=== PATIENT | female | born 1930 | race Caucasian/White ===

== ENCOUNTER 2017-01-31 15:50 | Inpatient (IN) | payer MEDICARE, MEDICAID ==
[~2017-01-31] VITALS: Ht 153.7 cm; Wt 56.9 kg
[~2017-01-31 15:50] MED LIST: ALPR.25T
[2017-01-31] MEDS ORDERED: TETANUS,DIPTH,PERTUSS P/F (BOOSTRIX) 0.5 ML VIAL IM STA (15:59)
[2017-01-31 16:17] LABS: BASOPHILS % (AUTO) 0 % (0-10); EOSINOPHILS % (AUTO) 0 % (0-10); LYMPHOCYTES # (AUTO) 1.9 X 10^3 (1.0-4.0); LYMPHOCYTES % (AUTO) 15 % (12-44); MEAN CORPUSCULAR HEMOGLOBIN 31 PG (25-34); MEAN CORPUSCULAR HGB CONC 33 G/DL (32-36); MEAN CORPUSCULAR VOLUME 92 FL (80-99); MEAN PLATELET VOLUME 11.2 FL (7.4-10.4); MONOCYTES # (AUTO) 0.8 X 10^3 (0.0-1.0); MONOCYTES % (AUTO) 7 % (0-12); NEUTROPHILS # (AUTO) 9.7 X 10^3 (1.8-7.8); NEUTROPHILS % (AUTO) 78 % (42-75); PLATELET COUNT 226 10^3/uL (130-400); RED BLOOD COUNT 5.38 10^6/uL (4.35-5.85); RED CELL DISTRIBUTION WIDTH 14.8 % (10.0-14.5); WHITE BLOOD COUNT 12.5 10^3/uL (4.3-11.0)
[2017-01-31] MEDS ORDERED: NS IV 1000 ML 1,000 ML IV ONE (16:24)
[2017-01-31 16:30] LABS: ALANINE AMINOTRANSFERASE 11 U/L (0-55); ALBUMIN 4.4 GM/DL (3.2-4.5); ANION GAP 14 MMOL/L (5-14); ASPARTATE AMINO TRANSFERASE 13 U/L (5-34); BILIRUBIN,TOTAL 0.9 MG/DL (0.1-1.0); BLOOD UREA NITROGEN 17 MG/DL (7-18); BUN/CREATININE RATIO 16; CALCIUM 9.9 MG/DL (8.5-10.1); CARBON DIOXIDE 20 MMOL/L (21-32); CHLORIDE 105 MMOL/L (98-107); CREATINE KINASE 56 U/L (29-168); CREATININE SERUM 1.07 MG/DL (0.60-1.30); GFR ESTIMATED 49; GLUCOSE 128 MG/DL (70-105); MAGNESIUM 2.1 MG/DL (1.8-2.4); SODIUM 139 MMOL/L (135-145); TOTAL PROTEIN 7.9 GM/DL (6.4-8.2)
[2017-01-31] MEDS ORDERED: NS 100 ML (IVPB) BAG IV ONE (16:45)
[2017-01-31] MEDS ORDERED: IOHEXOL 350 MG/ML 100 ML (OMNIPAQUE 350) VIAL IV ONE (16:45)
[2017-01-31 16:50] LABS: TROPONIN I < 0.30 NG/ML (<0.30)
--- NOTE | 2017-01-31 17:22 | ED Fall/Injury ---
General Chief Complaint: Trauma-Non Activation Stated Complaint: FALL Nursing Triage Note: PT BROUGHT IN BY [facility] WITH C/O FALL WITH UNKNOWN DOWN TIME. PT NEIGHBOR REPORTEDLY FOUND HER ON THE GROUND ON HER BACK. PT IS C/O NECK AND BACK PAIN. C COLLAR IN PLACE UPON ARRIVAL TO ED. PT A&O x4 Source: patient, family, EMS Exam Limitations: no limitations History of Present Illness Time seen by provider: 15:50 Initial Comments 86-year-old female patient presents to the emergency department via [facility] with complaints of falling at home. Patient does not recall events leading up to the fall or immediately after. Unknown if loss of consciousness. Neighbor reportedly found patient on the ground on her back. Patient is alert and oriented. Unsure of exactly how long patient was lying on the floor. Daughter states patient was found in her sun room. Patient now complains of headache, neck and back pain. Location Injury Occurred: PT HOME Injuries/Pain Location: head, neck, back Context: unknown Loss of Consciousness: unsure Modifying Factors: Improves With Immobilization, Worse With Movement Allergies and Home Medications Allergies Coded Allergies: Penicillins (Unverified Allergy, Mild, HIVES, 07/03/09) Home Medications Alprazolam 0.25 Mg Tablet, (Reported) Constitutional: No diaphoresis, No dizziness, No fever, No malaise, No weakness Eyes: No Symptoms Reported Ears, Nose, Mouth, Throat: no symptoms reported Respiratory: No cough, No dyspnea on exertion, No short of breath Cardiovascular: No chest pain, No palpitations, No syncope Gastrointestinal: No abdominal pain, No diarrhea, No nausea, No vomiting, No other (denies bowel incontinence) Genitourinary: No decreased output, No dysuria, No frequency, No hematuria, No incontinence, No pain, other (patient denies urinary symptoms, but states she takes Pyridium "prophylactically") Musculoskeletal: see HPI, back pain, No joint pain, neck pain Skin: no symptoms reported Psychiatric/Neurological: Headache, Denies Numbness, Denies Paresthesia, Denies Seizure, Denies Tingling, Denies Weakness All Other Systems Reviewed Negative Unless Noted: Yes (Negative excepted noted.) Past Lselngy-Iedgne-Waysbh Hx Patient Social History Alcohol Use: Denies Use Recreational Drug Use: No Smoking Status: Current Everyday Smoker Type Used: Cigarettes 2nd Hand Smoke Exposure: Yes Recent Foreign Travel: No Contact w/Someone Who Travel: No Recent Infectious Disease Expo: No Recent Hopitalizations: No Immunizations Up To Date Tetanus Booster (TDap): Unknown Seasonal Allergies Seasonal Allergies: No Surgeries History of Surgeries: Yes Surgeries: Appendectomy, Section, Tubal Ligation Respiratory History of Respiratory Disorde: No Cardiovascular History of Cardiac Disorders: No Neurological History of Neurological Disord: No Genitourinary History of Genitourinary Disor: No Gastrointestinal History of Gastrointestinal Di: No Musculoskeletal History of Musculoskeletal Dis: No Endocrine History of Endocrine Disorders: No HEENT History of HEENT Disorders: No Psychosocial History of Psychiatric Problem: Yes Behavioral Health Disorders: Anxiety Reviewed Nursing Assessment Reviewed/Agree w Nursing PMH: Yes Family Medical History Significant Family History: No Pertinent Family Hx Physical Exam Vital Signs Vital Sign - Last 12Hours 01/31/17 15:50 Temp 99.0 Pulse 118 Resp 20 B/P (MAP) 136/87 Pulse Ox 92 O2 Delivery Room Air Capillary Refill : Less Than 3 Seconds General Appearance: WD/WN, no apparent distress, other (chronically ill- appearing female) HEENT: PERRL/EOMI, normal ENT inspection, TMs normal, pharynx normal, other ( normocephalic, atraumatic.) Neck: supple, normal inspection, tender lateral, tender midline Cardiovascular: normal peripheral pulses, no edema, no gallop, no murmur, tachycardia Respiratory: normal breath sounds, no respiratory distress, no accessory muscle use, crackles (bilateral bases), other (left lateral ribs tender to palpation without evidence of ecchymosis, swelling, or deformity.) Peripheral Pulses: 2+ Dorsalis Pedis (R), 2+ Left Dors-Pedis (L), 2+ Radial Pulses (R), 2+ Radial Pulses (L) Gastrointestinal: normal bowel sounds, soft, no organomegaly, No distended, guarding (LLQ), No rebound, tenderness (LLQ), No other (no ecchymosis noted on the abdominal wall) Back: normal inspection, vertebral tenderness (generalized tenderness of the spine. no stepoff or deformity noted. ) Extremities: non-tender, normal inspection, no pedal edema, no calf tenderness , normal capillary refill, pelvis stable Neurologic/Psychiatric: instrumentation technologist II-XII nml as tested, no motor/sensory deficits, alert, normal mood/affect, oriented x 3 Skin: normal color, warm/dry [place]bertson Coma Score Best Eye Response: (4) Open Spontaneously Best Verbal Response: (5) Oriented Best Motor Response: (6) Obeys Commands [place]on Total: 15 Progress/Results/Core Measures Results/Orders Lab Results Laboratory Tests Test 01/31/17 15:55 01/31/17 16:15 01/31/17 19:02 Range/Units White Blood Count 12.5 H 4.3-11.0 10^3/uL Red Blood Count 5.38 4.35-5.85 10^6/uL Hemoglobin 16.5 H 11.5-16.0 G/DL Hematocrit 50 35-52 % Mean Corpuscular Volume 92 80-99 FL Mean Corpuscular Hemoglobin 31 25-34 PG Mean Corpuscular Hemoglobin Concent 33 32-36 G/DL Red Cell Distribution Width 14.8 H 10.0-14.5 % Platelet Count 226 130-400 10^3/uL Mean Platelet Volume 11.2 H 7.4-10.4 FL Neutrophils (%) (Auto) 78 H 42-75 % Lymphocytes (%) (Auto) 15 12-44 % Monocytes (%) (Auto) 7 0-12 % Eosinophils (%) (Auto) 0 0-10 % Basophils (%) (Auto) 0 0-10 % Neutrophils # (Auto) 9.7 H 1.8-7.8 X 10^3 Lymphocytes # (Auto) 1.9 1.0-4.0 X 10^3 Monocytes # (Auto) 0.8 0.0-1.0 X 10^3 Eosinophils # (Auto) 0.0 0.0-0.3 10^3/uL Basophils # (Auto) 0.0 0.0-0.1 10^3/uL Sodium Level 139 135-145 MMOL/L Potassium Level 4.0 3.6-5.0 MMOL/L Chloride Level 105 98-107 MMOL/L Carbon Dioxide Level 20 L 21-32 MMOL/L Anion Gap 14 5-14 MMOL/L Blood Urea Nitrogen 17 7-18 MG/DL Creatinine 1.07 0.60-1.30 MG/DL Estimat Glomerular Filtration Rate 49 BUN/Creatinine Ratio 16 Glucose Level 128 H 70-105 MG/DL Calcium Level 9.9 8.5-10.1 MG/DL Magnesium Level 2.1 1.8-2.4 MG/DL Total Bilirubin 0.9 0.1-1.0 MG/DL Aspartate Amino Transf (AST/SGOT) 13 5-34 U/L Alanine Aminotransferase (ALT/SGPT) 11 0-55 U/L Alkaline Phosphatase 87 40-136 U/L Total Creatine Kinase 56 29-168 U/L Creatine Kinase MB 1.2 <6.6 NG/ML Troponin I < 0.30 <0.30 NG/ML Total Protein 7.9 6.4-8.2 GM/DL Albumin 4.4 3.2-4.5 GM/DL TSH Sundown Testing 1.06 0.35-4.94 UIU/ML Lactic Acid Level 1.14 0.50-2.00 MMOL/L Urine Color JAMIE H Urine Clarity CLEAR Urine pH 6 5-9 Urine Specific Magazine 1.010 L 1.016-1.022 Urine Protein 1+ H NEGATIVE Urine Glucose (UA) NEGATIVE NEGATIVE Urine Ketones NEGATIVE NEGATIVE Urine Nitrite POSITIVE H NEGATIVE Urine Bilirubin 2+ H NEGATIVE Urine Urobilinogen 8 H NORMAL MG/DL Urine Leukocyte Esterase 1+ H NEGATIVE Urine RBC (Auto) 1+ H NEGATIVE Urine RBC 2-5 H /HPF Urine WBC 0-2 /HPF Urine Squamous Epithelial Cells 2-5 /HPF Urine Crystals NONE /LPF Urine Bacteria FEW H /HPF Urine Casts NONE /LPF Urine Mucus NEGATIVE /LPF Urine Culture Indicated YES My Orders Orders - [facility] [address] PA Ct Head/Cervical Spine Wo (01/31/17 15:59) Cbc With Automated Diff (01/31/17 15:59) Comprehensive Metabolic Panel (01/31/17 15:59) Creatine Kinase (01/31/17 15:59) Creatine Kinase Mb (01/31/17 15:59) Lactic Acid Analyzer (01/31/17 15:59) Magnesium (01/31/17 15:59) Thyroid Analyzer (01/31/17 15:59) Troponin I (01/31/17 15:59) Ua Culture If Indicated (01/31/17 15:59) Blood Culture (01/31/17 15:59) Dipht,Pertuss(Acell),Tet Adult (Boostrix (01/31/17 15:59) Ct Chest/Abdomen/Pelvis W (01/31/17 15:59) Chest 1 View, Ap/Pa Only (01/31/17 15:59) Ct Thoracic/Lumbar Spine Wo (01/31/17 15:59) Ns Iv 1000 Ml (Sodium Chloride 0.9%) (01/31/17 16:24) Iohexol Injection (Omnipaque 350 Mg/Ml 1 (01/31/17 16:45) Ns (Ivpb) (Sodium Chloride 0.9% Ivpb Bag (01/31/17 16:45) Pharmacy Communication (Pharmacy Communi (01/31/17 16:42) Fentanyl Injection (Sublimaze Injection (01/31/17 17:26) Albuterol/Ipra Inhalation Soln (Duoneb I (01/31/17 19:15) Methylprednisolone Sod Succ (Solu-Medrol (01/31/17 19:05) Svn Sm Volume Nebulizer Rt-Rfs (01/31/17 19:05) Albuterol Pre-Mix Nebs (Rt) (Proventil P (01/31/17 19:26) Svn Sm Volume Nebulizer Rt-Rfs (01/31/17 19:26) Dipht,Pertuss(Acell),Tet Adult (Boostrix (01/31/17 19:21) Albuterol Pre-Mix Nebs (Rt) (Proventil P (01/31/17 19:21) Urine Culture (01/31/17 19:02) Medications Given in ED Current Medications Medications Dose Ordered Sig/Ehsan Route Start Time Stop Time Status Last Admin Dose Admin Albuterol/ Ipratropium 3 ml ONCE ONCE INH 01/31/17 19:15 01/31/17 19:16 DC 01/31/17 19:20 3 ML Iohexol 100 ml ONCE ONCE IV 01/31/17 16:45 01/31/17 16:46 DC 01/31/17 17:02 75 ML Sodium Chloride 100 ml ONCE ONCE IV 01/31/17 16:45 01/31/17 16:46 DC 01/31/17 17:02 80 ML Sodium Chloride 1,000 ml @ 0 mls/hr Q0M ONCE IV 01/31/17 16:24 01/31/17 16:26 DC 01/31/17 16:38 0 MLS/HR Vital Signs/I&O Vital Sign - Last 12Hours 1001/31/17 01/31/17 15:50 19:21 19:31 Temp 99.0 Pulse 118 Resp 20 B/P (MAP) 136/87 Pulse Ox 92 92 92 O2 Delivery Room Air Room Air Room Air Intake and Output 02/01/17 00:00 Intake Total 1000 ml Balance 1000 ml Blood Pressure Mean: 103 Diagnostic Imaging Diagonstic Imaging: CT Plain Films/CT/US/NM/MRI: c-spine, head Comments CT HEAD: There is no mass, shift of the midline or hemorrhage to suggest an acute intracranial abnormality. The normal tentorial blush is noted. The ventricles are not abnormally dilated. There is cortical atrophy present. The degree of atrophy is consistent with the patient's age. There are also vague areas of low density in the periventricular white matter bilaterally. These findings are nonspecific but may be secondary to encephalomalacia from microvascular ischemia. The orbits are symmetrical and within normal limits. The sinuses are generally clear. IMPRESSION: 1. There is no evidence for an acute intracranial abnormality. There is no sign of a mass lesion either. 2. If clinical concern regarding an underlying abnormality persists, then MRI would be recommended for further study. CT CERVICAL SPINE: The reconstructed parasagittal images show slight retrolisthesis of C3 with respect to C4. There is also narrowing of the disc space at this level. The other intervertebral cysts are fairly well-maintained, given the patient's advanced age. There is no fracture or acute bony abnormality noted. There is no sign of retropharyngeal edema. The lung apices are clear. The thyroid gland is generally unremarkable. IMPRESSION: There is no evidence for an acute bony abnormality. These results were discussed with JOSE Lujan. Dictated by: Dictated on workstation # [id number] Reviewed: Reviewed by Me (radiology report reviewed by me and discussed with Dr. Ceballos) Diagonstic Imaging: CT Plain Films/CT/US/NM/MRI: other (thoracic and lumbar spine) Comments FINDINGS: The plain film examination of the chest performed on 07/03/2009 failed to show any sign of an acute abnormality. In reviewing that study, there were compression fractures of both T4 and T7. Those compression deformities are again evident on the sagittal series on this exam and do not appear to have changed significantly. The other vertebral body heights are generally within normal limits. There is no acute bony abnormality appreciated. 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 The lumbar disc spaces are fairly well-maintained. 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 There is no other significant stenosis of the thoracic or lumbar spine. There is no paraspinal mass visualized. The lungs, where visualized, are clear. IMPRESSION: 1. 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 There is no acute abnormality identified. 2. If clinical concern regarding an acute bony abnormality persists, then MRI would be recommended for further study. 3. 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 Dictated by: Dictated on workstation # [id number] Reviewed: Reviewed by Me (radiology report reviewed by me and discussed with Dr. Ceballos) Diagonstic Imaging: CT Plain Films/CT/US/NM/MRI: chest, abdomen, pelvis Comments FINDINGS: There are no previous exams available for comparison. The images through the thorax show that the heart size is within normal limits. The aorta is not abnormally dilated. There does appear to be mucoid deposition in the aortic knob but there is no sign of a dissection. The pulmonary arteries do not fully opacify but there is no definite defect to suggest a pulmonary embolus. There is no mediastinal or hilar adenopathy. The thyroid gland is generally unremarkable. The lungs are clear. There is no sign of a contusion or a pneumothorax. There is no evidence for a pneumonia or for a pleural effusion either. There is no obvious breast mass. The bone windows are unremarkable for a fracture or for a destructive lesion. The images through the abdomen show that the liver is homogeneous, with no evidence for an acute abnormality. The liver does not appear enlarged. There is a small 0.8 x 1.2 cm area of enhancement along the periphery of the right lobe of the liver. I suspect that this is due to a small hemangioma. The spleen, pancreas, kidneys, aorta and inferior vena cava show no sign of an acute abnormality. The gallbladder is not well-visualized and may be surgically absent. The stomach is filled with particulate matter and consequently difficult to assess. There is a 1.7 x 1.7 cm nodule associated with the right adrenal gland and a similar appearing similar sized 1.5 x 1.8 cm nodule in the left adrenal gland. I suspect that these nodules are benign. If further study is desired, then either CT with adrenal washout protocol or MRI would be recommended. If neither those exams is performed, then a short-term (3 month) followup CT abdomen exam should be obtained. The suspected hemangioma in the right lobe of the liver could also be further evaluated on the followup CT exam. The uterus is not enlarged. The urinary bladder is grossly unremarkable. There are a few diverticula in the sigmoid colon but there is no sign of acute diverticulitis. The appendix was not well visualized. The bone window show no evidence for a fracture or for a destructive lesion. IMPRESSION: 1. There is no acute abnormality in the chest, abdomen or pelvis. 2. 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 Recommendations as above. 3. These results were discussed with JOSE Lujan. Dictated by: Dictated on workstation # [id number] Reviewed: Reviewed by Me (radiology report reviewed by me and discussed with Dr. Ceballos) Diagonstic Imaging: Xray Plain Films/CT/US/NM/MRI: chest Comments FINDINGS: A frontal view of the chest demonstrates the lungs to be clear. Heart , mediastinum, pulmonary vascularity and visualized bony thorax normal. No fractures are seen. IMPRESSION: Normal portable chest. Dictated by: Dictated on workstation # [id number] Reviewed: Reviewed by Me (radiology report reviewed by me and discussed with Dr. Ceballos) Departure Communication (Admissions) Time/Spoke to Admitting Phy: 19:[address] garcia accepts patient to her medical service for IVF, IV antibiotics, nebulizer treatments, and further evaluation. Progress Notes Initially plan was for patient to be discharged to home; however, patient was noted to drop her SaO2 to 84-88% with getting up to the bedside camode. Patient also noted to be more SOA with rhonchi and wheezing at rest. Daughter states patient sounds like this frequently, but has never been diagnosed with COPD. Also states she has noticed her mother progressively becoming more short of breath with activity over the last several weeks. also reports patient has never used an inhaler or nebulizer treatments. Patient smokes approximately 2 packs per day of cigarettes. Initially patient denied any history of shortness of air, cough, or phlegm. Patient now states over the last several weeks she has noticed increased shortness of air, dyspnea on exertion, cough, and clear sputum production. Symptoms worse with smoking. Patient was given a DuoNeb treatment, albuterol treatment, and 125 mg of Solu-Medrol IV with improvement in symptoms. First urine was discarded by radiation therapy technologist. Patient was unable to provide another urine specimen until 1900. Patient was found to have a UTI. Patient does fall under the sepsis criteria due to a pulse of 118, WBC count of 12, and confirmed infection. Therefore, patietn to be admitted to [facility] for sepsis, urinary tract infection, and COPD exacerbation. Patient was not given the 30 cc/kg fluid resuscitation per sepsis protocol as patient would not be able to tolerated the aggressive fluids. All laboratory findings, diagnostic study findings, and plan for admission discussed with the patient and daughter. Both verbalized understanding and agree with the treatment plan. Patient case discussed with Dr. Miller, he agrees with the plan of care. Impression Impression: Primary Impression: Sepsis Qualified Codes: A41.9 - Sepsis, unspecified organism Additional Impressions: COPD exacerbation Urinary tract infection Qualified Codes: N30.00 - Acute cystitis without hematuria Fall at home Qualified Codes: W19.XXXA - Unspecified fall, initial encounter; Y92.099 - Unspecified place in other non-institutional residence as the place of occurrence of the external cause Disposition: ADMITTED INPATIENT Condition: Stable Admissions Decision to Admit Reason: Admit from ER (General) Decision to Admit/Date: Jan 31, 2017 Time/Decision to Admit Time: 19:55 Departure-Patient Inst. Referrals: [facility] (PCP/Family) Primary Care Physician [address] Jan 31, 2017 17:22
[2017-01-31] MEDS ORDERED: fentaNYL INJECTION 100 MCG/2 ML AMP IVP STA (17:26)
--- NOTE | 2017-01-31 17:31 | Diagnostic Imaging Report ---
PROCEDURE: CT head and CT cervical spine without contrast. TECHNIQUE: Multiple contiguous axial images were obtained through the brain and cervical spine without the use of intravenous contrast. Sagittal and coronal reformations through the cervical spine were then performed. INDICATION: Fell. Head and neck pain. COMPARISON: There are no prior studies available for comparison. CT HEAD: There is no mass, shift of the midline or hemorrhage to suggest an acute intracranial abnormality. The normal tentorial blush is noted. The ventricles are not abnormally dilated. There is cortical atrophy present. The degree of atrophy is consistent with the patient's age. There are also vague areas of low density in the periventricular white matter bilaterally. These findings are nonspecific but may be secondary to encephalomalacia from microvascular ischemia. The orbits are symmetrical and within normal limits. The sinuses are generally clear. IMPRESSION: 1. There is no evidence for an acute intracranial abnormality. There is no sign of a mass lesion either. 2. If clinical concern regarding an underlying abnormality persists, then MRI would be recommended for further study. CT CERVICAL SPINE: The reconstructed parasagittal images show slight retrolisthesis of C3 with respect to C4. There is also narrowing of the disc space at this level. The other intervertebral cysts are fairly well-maintained, given the patient's advanced age. There is no fracture or acute bony abnormality noted. There is no sign of retropharyngeal edema. The lung apices are clear. The thyroid gland is generally unremarkable. IMPRESSION: There is no evidence for an acute bony abnormality. These results were discussed with JOSE Lujan. Dictated by: Dictated on workstation # [id number]
--- NOTE | 2017-01-31 17:33 | Diagnostic Imaging Report ---
CT thoracic and lumbar spine without contrast. INDICATION: Fell, back pain. TECHNIQUE: Contiguous axial sections were taken through the thoracic and lumbar spine. Sagittal and coronal reconstructed images were also obtained. There are no previous CT examinations available for comparison. FINDINGS: The plain film examination of the chest performed on 07/03/2009 failed to show any sign of an acute abnormality. In reviewing that study, there were compression fractures of both T4 and T7. Those compression deformities are again evident on the sagittal series on this exam and do not appear to have changed significantly. The other vertebral body heights are generally within normal limits. There is no acute bony abnormality appreciated. 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 The lumbar disc spaces are fairly well-maintained. 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 There is no other significant stenosis of the thoracic or lumbar spine. There is no paraspinal mass visualized. The lungs, where visualized, are clear. IMPRESSION: 1. 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 There is no acute abnormality identified. 2. If clinical concern regarding an acute bony abnormality persists, then MRI would be recommended for further study. 3. 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 Dictated by: Dictated on workstation # [id number]
--- NOTE | 2017-01-31 17:36 | Diagnostic Imaging Report ---
INDICATION: Fall with unknown downtime, patient found down on her back. Neck and back pain, C-collar in place. COMPARISON STUDY: Chest from 2010. FINDINGS: A frontal view of the chest demonstrates the lungs to be clear. Heart, mediastinum, pulmonary vascularity and visualized bony thorax normal. No fractures are seen. IMPRESSION: Normal portable chest. Dictated by: Dictated on workstation # [id number]
--- NOTE | 2017-01-31 17:41 | Diagnostic Imaging Report ---
PROCEDURE: CT chest, abdomen, and pelvis with contrast. TECHNIQUE: Multiple contiguous axial images were obtained through the chest, abdomen, and pelvis after the administration of intravenous contrast. INDICATION: Unresponsive. Chest, abdomen and pelvis pain. FINDINGS: There are no previous exams available for comparison. The images through the thorax show that the heart size is within normal limits. The aorta is not abnormally dilated. There does appear to be mucoid deposition in the aortic knob but there is no sign of a dissection. The pulmonary arteries do not fully opacify but there is no definite defect to suggest a pulmonary embolus. There is no mediastinal or hilar adenopathy. The thyroid gland is generally unremarkable. The lungs are clear. There is no sign of a contusion or a pneumothorax. There is no evidence for a pneumonia or for a pleural effusion either. There is no obvious breast mass. The bone windows are unremarkable for a fracture or for a destructive lesion. The images through the abdomen show that the liver is homogeneous, with no evidence for an acute abnormality. The liver does not appear enlarged. There is a small 0.8 x 1.2 cm area of enhancement along the periphery of the right lobe of the liver. I suspect that this is due to a small hemangioma. The spleen, pancreas, kidneys, aorta and inferior vena cava show no sign of an acute abnormality. The gallbladder is not well-visualized and may be surgically absent. The stomach is filled with particulate matter and consequently difficult to assess. There is a 1.7 x 1.7 cm nodule associated with the right adrenal gland and a similar appearing similar sized 1.5 x 1.8 cm nodule in the left adrenal gland. I suspect that these nodules are benign. If further study is desired, then either CT with adrenal washout protocol or MRI would be recommended. If neither those exams is performed, then a short-term (3 month) followup CT abdomen exam should be obtained. The suspected hemangioma in the right lobe of the liver could also be further evaluated on the followup CT exam. The uterus is not enlarged. The urinary bladder is grossly unremarkable. There are a few diverticula in the sigmoid colon but there is no sign of acute diverticulitis. The appendix was not well visualized. The bone window show no evidence for a fracture or for a destructive lesion. IMPRESSION: 1. There is no acute abnormality in the chest, abdomen or pelvis. 2. 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 Recommendations as above. 3. These results were discussed with JOSE Lujan. Dictated by: Dictated on workstation # [id number]
[2017-01-31] MEDS ORDERED: methylPREDNISolone 125 MG (Solu-MEDROL) VIAL IV STA (19:05)
[2017-01-31 19:10] LABS: KETONES,URINE NEGATIVE (NEGATIVE); LEUKOCYTE ESTERASE ,URINE 1+ (NEGATIVE); NITRITE,URINE POSITIVE (NEGATIVE); PH,URINE 6 (5-9); PROTEIN,URINE 1+ (NEGATIVE); UROBILINOGEN,URINE 8 MG/DL (NORMAL)
[2017-01-31] MEDS ORDERED: RT-ALBUTEROL/IPRATROPIUM 3 ML (DUONEB) VIAL INH ONE (19:15)
[2017-01-31 19:17] LABS: BILIRUBIN,URINE 2+ (NEGATIVE)
[2017-01-31] MEDS ORDERED: TETANUS,DIPTH,PERTUSS P/F (BOOSTRIX) 0.5 ML VIAL IM ONE (19:21)
[2017-01-31] MEDS ORDERED: RT-ALBUTEROL SULF 2.5 MG/3 ML PRE-MIX VIAL ONE (19:21)
[2017-01-31] MEDS ORDERED: RT-ALBUTEROL SULF 2.5 MG/3 ML PRE-MIX VIAL INH STA (19:26)
[2017-01-31 19:34] LABS: WBC,URINE 0-2 /HPF
[2017-01-31] MEDS ORDERED: LEVOFLOXACIN 750 MG/150 ML IV 150 ML IV STA (20:30)
[2017-01-31] MEDS ORDERED: NICOTINE 21 MG (NICODERM) PATCH ONE (21:13)
[2017-01-31] MEDS ORDERED: ALPRAZolam 0.25 MG (XANAX) TAB PO PRN (22:00)
[2017-01-31] MEDS ORDERED: ONDANSETRON 4 MG/2 ML (SDV) Z0FRAN IV PRN (22:00)
[2017-01-31] MEDS ORDERED: PHENAZOPYRIDINE 100 MG (PYRIDIUM) TABLET PO PRN (22:00)
[2017-01-31] MEDS: FAMOTIDINE 20MG/2ML IV (PEPCID) IVP SCH (22:01)
[2017-01-31] MEDS: NS W/KCL 20 MEQ/L 1,000 ML IV SCH (22:01)
[2017-01-31 22:19] VITALS: BP 136/87
[2017-01-31] MEDS ORDERED: KETOROLAC 30 MG/ML VIAL IVP ONE (22:30)
[2017-01-31] MEDS ORDERED: RT-ALBUTEROL/IPRATROPIUM 3 ML (DUONEB) VIAL INH PRN (22:30)
[2017-01-31] MEDS ORDERED: fentaNYL INJECTION 100 MCG/2 ML AMP IVP PRN (22:30)
[2017-01-31 23:45] VITALS: BP 138/75
[2017-02-01] MEDS: methylPREDNISolone 125 MG (Solu-MEDROL) VIAL IVP SCH ×4 (01:20→18:23)
[2017-02-01] MEDS: NS W/KCL 20 MEQ/L 1,000 ML IV SCH ×4 (02:17→17:39)
[2017-02-01 04:00] VITALS: BP 154/84
[2017-02-01 04:48] LABS: BASOPHILS % (AUTO) 0 % (0-10); EOSINOPHILS % (AUTO) 0 % (0-10); LYMPHOCYTES # (AUTO) 1.1 X 10^3 (1.0-4.0); LYMPHOCYTES % (AUTO) 11 % (12-44); MEAN CORPUSCULAR HEMOGLOBIN 31 PG (25-34); MEAN CORPUSCULAR HGB CONC 33 G/DL (32-36); MEAN CORPUSCULAR VOLUME 93 FL (80-99); MEAN PLATELET VOLUME 10.9 FL (7.4-10.4); MONOCYTES # (AUTO) 0.1 X 10^3 (0.0-1.0); MONOCYTES % (AUTO) 1 % (0-12); NEUTROPHILS # (AUTO) 8.4 X 10^3 (1.8-7.8); NEUTROPHILS % (AUTO) 87 % (42-75); PLATELET COUNT 189 10^3/uL (130-400); RED CELL DISTRIBUTION WIDTH 14.7 % (10.0-14.5); WHITE BLOOD COUNT 9.6 10^3/uL (4.3-11.0)
[2017-02-01 05:06] LABS: ALBUMIN 3.8 GM/DL (3.2-4.5); BILIRUBIN,TOTAL 0.7 MG/DL (0.1-1.0); CALCIUM 8.3 MG/DL (8.5-10.1); CREATININE SERUM 0.95 MG/DL (0.60-1.30); POTASSIUM 4.7 MMOL/L (3.6-5.0); TOTAL PROTEIN 6.7 GM/DL (6.4-8.2)
[2017-02-01 05:16] LABS: LYMPHOCYTES % (MANUAL) 15 %; NEUTROPHILS % (MANUAL) 84 %
[2017-02-01] MEDS: RT-ALBUTEROL/IPRATROPIUM 3 ML (DUONEB) VIAL INH SCH ×4 (06:54→18:50)
--- NOTE | 2017-02-01 07:14 | History & Physicial (CHS) ---
HPI History of Present Illness: This 86 year old patient was found on the floor at home, laying in her sun porch. She had obtained superficial sunburns on her legs, arms, torso and abdomen, and it is presumed that she was laying there for several hours. She presented to the ED, who did her work up, including a wang=scan of her head, neck , chest, abdomen and pelvis. The patient was noted to be have a UTI, and she was started on antibiotics. In addition, the patient has oxygen saturations of ~92% on 2L NC while at rest, and would desat to the mid- to low-80's with any activity. There was significant concern on the part of the ED staff that the patient would perhaps not be able to return to living alone after discharge, and based on her clinical condition, including her UTI and her continued confusion, she was placed in the ICU for observation. On the morning after admission, when the patient was seen by this provider, she was awake and mentating well. She was able to answer questions, but she was unable to recall any of the events surrounding her fall. SHe reports that she takes no medications and has no major health problems that she was aware of. Source: patient, RN notes reviewed Exam Limitations: no limitations Date seen by provider: Feb 01, 2017 Time Seen by Provider: 07:14 Attending Physician [place] [facility] Date of Admission Jan 31, 2017 at 20:08 Home Medications Home Medications Reviewed patient Home Medication Reconciliation Form Allergies Coded Allergies: Penicillins (Unverified Allergy, Mild, HIVES, 07/03/09) CUY-Onsgzh-Cjebig Hx Patient Social History Marrital Status: Employed/Student: retired Alcohol Use: Rarely Uses Recreational Drug Use: No Smoking Status: Current Everyday Smoker Type Used: Cigarettes 2nd Hand Smoke Exposure: Yes Recent Foreign Travel: No Contact w/other who traveled: No Recent Hopitalizations: No Recent Infectious Disease Expo: No Physical Abuse Screen: No Sexual Abuse: No Immunizations Up To Date Tetanus Booster (TDap): Unknown Past Medical History Tobacco Abuse Family Medical History Significant Family History: No Pertinent Family Hx Family History: Patient reports no known family medical history. Review of Systems (CHC) Constitutional: chills, diaphoresis EENTM: No ear discharge, No blurred vision, No eye pain, No vision loss, No epistaxis Respiratory: cough, dyspnea on exertion, short of breath, No stridor, No wheezing Cardiovascular: no symptoms reported, No palpitations, syncope Gastrointestinal: abdominal pain, No nausea, No vomiting Genitourinary: dysuria, frequency, hesitancy : No Musculoskeletal: back pain Skin: no symptoms reported Psychiatric/Neurological: Anxiety, Depressed Reviewed Test Results Reviewed Test Results Lab Laboratory Tests Test 01/31/17 15:55 01/31/17 16:15 01/31/17 19:02 02/01/17 04:37 Range/Units White Blood Count 12.5 H 9.6 4.3-11.0 10^3/uL Red Blood Count 5.38 4.80 4.35-5.85 10^6/uL Hemoglobin 16.5 H 14.9 11.5-16.0 G/DL Hematocrit 50 45 35-52 % Mean Corpuscular Volume 92 93 80-99 FL Mean Corpuscular Hemoglobin 31 31 25-34 PG Mean Corpuscular Hemoglobin Concent 33 33 32-36 G/DL Red Cell Distribution Width 14.8 H 14.7 H 10.0-14.5 % Platelet Count 226 189 130-400 10^3/uL Mean Platelet Volume 11.2 H 10.9 H 7.4-10.4 FL Neutrophils (%) (Auto) 78 H 87 H 42-75 % Lymphocytes (%) (Auto) 15 11 L 12-44 % Monocytes (%) (Auto) 7 1 0-12 % Eosinophils (%) (Auto) 0 0 0-10 % Basophils (%) (Auto) 0 0 0-10 % Neutrophils # (Auto) 9.7 H 8.4 H 1.8-7.8 X 10^3 Lymphocytes # (Auto) 1.9 1.1 1.0-4.0 X 10^3 Monocytes # (Auto) 0.8 0.1 0.0-1.0 X 10^3 Eosinophils # (Auto) 0.0 0.0 0.0-0.3 10^3/uL Basophils # (Auto) 0.0 0.0 0.0-0.1 10^3/uL Sodium Level 139 139 135-145 MMOL/L Potassium Level 4.0 4.7 3.6-5.0 MMOL/L Chloride Level 105 113 H 98-107 MMOL/L Carbon Dioxide Level 20 L 14 L 21-32 MMOL/L Anion Gap 14 12 5-14 MMOL/L Blood Urea Nitrogen 17 17 7-18 MG/DL Creatinine 1.07 0.95 0.60-1.30 MG/DL Estimat Glomerular Filtration Rate 49 56 BUN/Creatinine Ratio 16 18 Glucose Level 128 H 157 H 70-105 MG/DL Calcium Level 9.9 8.3 L 8.5-10.1 MG/DL Magnesium Level 2.1 1.8-2.4 MG/DL Total Bilirubin 0.9 0.7 0.1-1.0 MG/DL Aspartate Amino Transf (AST/SGOT) 13 12 5-34 U/L Alanine Aminotransferase (ALT/SGPT) 11 11 0-55 U/L Alkaline Phosphatase 87 74 40-136 U/L Total Creatine Kinase 56 29-168 U/L Creatine Kinase MB 1.2 <6.6 NG/ML Troponin I < 0.30 <0.30 NG/ML Total Protein 7.9 6.7 6.4-8.2 GM/DL Albumin 4.4 3.8 3.2-4.5 GM/DL TSH [place] Testing 1.06 0.35-4.94 UIU/ML Lactic Acid Level 1.14 0.50-2.00 MMOL/L Urine Color JAMIE H Urine Clarity CLEAR Urine pH 6 5-9 Urine Specific Robinson 1.010 L 1.016-1.022 Urine Protein 1+ H NEGATIVE Urine Glucose (UA) NEGATIVE NEGATIVE Urine Ketones NEGATIVE NEGATIVE Urine Nitrite POSITIVE H NEGATIVE Urine Bilirubin 2+ H NEGATIVE Urine Urobilinogen 8 H NORMAL MG/DL Urine Leukocyte Esterase 1+ H NEGATIVE Urine RBC (Auto) 1+ H NEGATIVE Urine RBC 2-5 H /HPF Urine WBC 0-2 /HPF Urine Squamous Epithelial Cells 2-5 /HPF Urine Crystals NONE /LPF Urine Bacteria FEW H /HPF Urine Casts NONE /LPF Urine Mucus NEGATIVE /LPF Urine Culture Indicated YES Neutrophils % (Manual) 84 % Lymphocytes % (Manual) 15 % Monocytes % (Manual) 1 % Blood Morphology Comment NORMAL Physical Exam-(CHC) Physical Exam Vital Signs VS - Last 72 Hours, by Label 01/31/17 01/31/17 01/31/17 01/31/17 15:50 19:21 19:31 20:59 Temp 99.0 98.2 Pulse 118 106 Resp 20 16 B/P (MAP) 136/87 Pulse Ox 92 92 92 96 O2 Delivery Room Air Room Air Room Air Nasal Cannula O2 Flow Rate 2.00 01/31/17 01/31/17 01/31/17 02/01/17 21:10 22:19 23:45 00:00 Temp 99.5 Pulse 110 104 Resp 23 B/P (MAP) 138/75 Pulse Ox 91 91 92 91 O2 Delivery Room Air Room Air Room Air 02/01/17 02/01/17 02/01/17 02/01/17 01:00 04:00 04:00 06:54 Temp 97.4 Pulse 105 105 Resp 24 B/P (MAP) 154/84 Pulse Ox 91 91 92 O2 Delivery Room Air Room Air Room Air 02/01/17 02/01/17 02/01/17 02/01/17 07:00 08:00 08:00 10:25 Temp 98.5 Pulse 102 108 Resp 20 B/P (MAP) 154/84 Pulse Ox 94 94 92 O2 Delivery Room Air Room Air Room Air 02/01/17 02/01/17 02/01/17 02/01/17 12:30 14:25 16:00 18:51 Temp 97.8 97.1 Pulse 100 63 Resp 18 18 B/P (MAP) 134/78 157/81 Pulse Ox 92 90 95 92 O2 Delivery Room Air Room Air Room Air Room Air 02/01/17 02/02/17 19:59 00:00 Temp 98.0 98.8 Pulse 108 111 Resp 18 20 B/P (MAP) 144/67 165/71 Pulse Ox 90 92 O2 Delivery Room Air Room Air Capillary Refill : Less Than 3 Seconds General Appearance: WD/WN, no apparent distress Eyes: Bilateral Eye Normal Inspection HEENT: PERRL/EOMI, pharynx normal, No scleral icterus (R), No scleral icterus ( L), No photophobia Neck: non-tender, full range of motion, supple, normal inspection, No lymphadenopathy (R), No lymphadenopathy (L), No thyromegaly Respiratory: chest non-tender, lungs clear, normal breath sounds, no respiratory distress, no accessory muscle use, No crackles, No rales, No rhonchi , No wheezing Cardiovascular: normal peripheral pulses, regular rate, rhythm, no edema, no gallop, no JVD, no murmur Peripheral Pulses: 2+ Dorsalis Pedis (R), 2+ Left Dors-Pedis (L), 2+ Radial Pulses (R), 2+ Radial Pulses (L) Gastrointestinal: normal bowel sounds, non tender, soft, no organomegaly Rectal: deferred Back: normal inspection, no CVA tenderness, no vertebral tenderness Extremities: normal range of motion, non-tender, normal inspection, no pedal edema, no calf tenderness, No pedal edema, No slow capillary refill, No swelling Neurologic/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: 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 II-XII nml as tested, no motor/sensory deficits, alert, oriented x 3 Lymphatic: no adenopathy Assessment/Plan Assessment/Plan Admission Dx Urinary Tract Infection, present on admission, organism unknown Weakness Syncope Tobacco Abuse Plan UTI -treat with levaquin IVPB -pt has been fluid resuscitated and tolerated well -continue hospitalization and IVPB abx General Debility and Weakness -likely secondary to UTI and perhaps contribution to her fall -will have OT and PT evaluate, as it is unclear if the patient would be safe to return home alone after this hospital stay Tobacco Abuse -will continue to educate patient on need for smoking cessation Due to the seriousness of the patient's clinical status, the patient will require a minimum of two midnight stays in order to adequately treat her acute UTI Diagnosis/Problems: Clinical Quality Measures DVT/VTE Risk/Contraindication: Risk Factor Score Per Nursin RFS Level Per Nursing on Admit: 4+=Very High CHEYENNE WEST DO Feb 01, 2017 07:14
[2017-02-01] MEDS ORDERED: ACETAMINOPHEN 500 MG TAB (TYLENOL) PO PRN (07:30)
[2017-02-01] MEDS ORDERED: IBUPROFEN TABLET 200 MG TAB PO PRN (07:30)
[2017-02-01] MEDS ORDERED: INFLUENZA TRIvalent 2017-2018 0.5 ML/45 MCG SYR IM ONE (07:30)
[2017-02-01 08:00] VITALS: BP 154/84
[2017-02-01] MEDS: FAMOTIDINE 20MG/2ML IV (PEPCID) IVP SCH (08:08)
[2017-02-01] MEDS: NICOTINE 21 MG (NICODERM) PATCH TD SCH (08:09)
--- NOTE | 2017-02-01 11:03 | Diagnostic Imaging Report ---
INDICATION: COPD, exacerbation. COMPARISON: Comparison made with prior examination 01/31/2017. FINDINGS: The heart size is normal. Mediastinum is unremarkable. There is no pleural effusion or pneumothorax. There is air-trapping compatible with COPD. There is some interstitial scarring in the lung bases. IMPRESSION: COPD with some interstitial scarring of the lung bases otherwise unremarkable. Dictated by: Dictated on workstation # [id number]
[2017-02-01 12:30] VITALS: BP 134/78
[2017-02-01] MEDS ORDERED: ALPR0.254 PO (14:11)
[2017-02-01 16:00] VITALS: BP 157/81
[2017-02-01 19:59] VITALS: BP 144/67
[2017-02-01] MEDS ORDERED: LEVOFLOXACIN 750 MG/D5W 150 ML PRE-MIX IV SCH (21:00)
[2017-02-02] VITALS: BP 165/71
[2017-02-02] MEDS: methylPREDNISolone 125 MG (Solu-MEDROL) VIAL IVP SCH ×2 (00:31→05:49)
[2017-02-02 04:00] VITALS: BP 137/63
[2017-02-02 06:22] LABS: BASOPHILS % (AUTO) 0 % (0-10); EOSINOPHILS % (AUTO) 0 % (0-10); LYMPHOCYTES # (AUTO) 1.6 X 10^3 (1.0-4.0); LYMPHOCYTES % (AUTO) 9 % (12-44); MEAN CORPUSCULAR HEMOGLOBIN 31 PG (25-34); MEAN CORPUSCULAR HGB CONC 34 G/DL (32-36); MEAN CORPUSCULAR VOLUME 93 FL (80-99); MEAN PLATELET VOLUME 11.4 FL (7.4-10.4); MONOCYTES # (AUTO) 1.2 X 10^3 (0.0-1.0); MONOCYTES % (AUTO) 7 % (0-12); NEUTROPHILS # (AUTO) 14.8 X 10^3 (1.8-7.8); NEUTROPHILS % (AUTO) 84 % (42-75); PLATELET COUNT 205 10^3/uL (130-400); RED BLOOD COUNT 4.32 10^6/uL (4.35-5.85); RED CELL DISTRIBUTION WIDTH 14.7 % (10.0-14.5); WHITE BLOOD COUNT 17.6 10^3/uL (4.3-11.0)
[2017-02-02 06:44] LABS: CALCIUM 8.1 MG/DL (8.5-10.1); CREATININE SERUM 0.89 MG/DL (0.60-1.30); MAGNESIUM 1.7 MG/DL (1.8-2.4); POTASSIUM 3.5 MMOL/L (3.6-5.0)
[2017-02-02] MEDS: NS W/KCL 20 MEQ/L 1,000 ML IV SCH (06:57)
[2017-02-02] MEDS: RT-ALBUTEROL/IPRATROPIUM 3 ML (DUONEB) VIAL INH SCH ×4 (06:58→18:41)
[2017-02-02 07:02] LABS: LYMPHOCYTES % (MANUAL) 7 %; NEUTROPHILS % (MANUAL) 84 %
[2017-02-02] MEDS: FAMOTIDINE 20MG/2ML IV (PEPCID) IVP SCH (08:11)
[2017-02-02] MEDS: NICOTINE 21 MG (NICODERM) PATCH TD SCH (08:11)
[2017-02-02] MEDS ORDERED: MAGNESIUM 1 GM/100 ML IVPB 100 ML IV NR (08:45)
[2017-02-02] MEDS ORDERED: KCL 20 MEQ TAB (K-DUR) PO NR (08:46)
[2017-02-02 08:51] VITALS: BP 172/73
[2017-02-02] MEDS: predniSONE 10 MG TAB PO SCH (09:35)
--- NOTE | 2017-02-02 10:35 | Progress Note (SOAP) ---
Subjective Subjective/Events-last exam Afebrile, mildly tachycardic. She is tremulous this morning and states that she has this problem intermittently. She reports she is feeling well and stronger than when she came in. She does say she has no trouble with getting dressed and showering, but does not really cook. She uses microwave meals or canned foods to heat up. She does not drive. Review of Systems Date Seen by Provider: Feb 02, 2017 Time Seen by Provider: 09:15 Objective Exam Last Set of Vital Signs Vital Signs Date Time Temp Pulse Resp B/P (MAP) Pulse Ox O2 Delivery O2 Flow Rate FiO2 02/02/17 10:00 98 Room Air 02/02/17 08:51 97.9 112 22 172/73 01/31/17 20:59 2.00 Capillary Refill : Less Than 3 Seconds I&O Intake and Output 02/03/17 00:00 Intake Total 1120 ml Balance 1120 ml Intake Oral 120 ml IV Total 1000 ml # Voids 4 General: Alert, No Acute Distress Lungs: Other (decreased air movement) Heart: Regular Rate, No Murmurs Neuro: Normal Speech, Other (fine tremor in hands and head) Psych/Mental Status: Other (oriented to self and location, knew month but not date or year) Results/Procedures Lab Laboratory Tests 02/02/17 05:26: White Blood Count 17.6H, Red Blood Count 4.32L, Hemoglobin 13.5, Hematocrit 40, Mean Corpuscular Volume 93, Mean Corpuscular Hemoglobin 31, Mean Corpuscular Hemoglobin Concent 34, Red Cell Distribution Width 14.7H, Platelet Count 205, Mean Platelet Volume 11.4H, Neutrophils (%) (Auto) 84H, Lymphocytes (%) (Auto) 9L, Monocytes (%) (Auto) 7, Eosinophils (%) (Auto) 0, Basophils (%) (Auto) 0, Neutrophils # (Auto) 14.8H, Lymphocytes # (Auto) 1.6, Monocytes # (Auto) 1.2H, Eosinophils # (Auto) 0.0, Basophils # (Auto) 0.0, Neutrophils % (Manual) 84, Lymphocytes % (Manual) 7, Monocytes % (Manual) 9, Blood Morphology Comment NORMAL, Sodium Level 139, Potassium Level 3.5L, Chloride Level 111H, Carbon Dioxide Level 20L, Anion Gap 8, Blood Urea Nitrogen 19H, Creatinine 0.89, Estimat Glomerular Filtration Rate 60, BUN/Creatinine Ratio 21, Glucose Level 149H, Calcium Level 8.1L, Magnesium Level 1.7L Microbiology 01/31/17 Blood Culture - Preliminary, Resulted No growth 01/31/17 Urine Culture - Final, Complete Escherichia Coli Assessment/Plan Assessment/Plan Admission Dx Urinary Tract Infection, present on admission, organism unknown Weakness Syncope Tobacco Abuse Plan UTI -treat with levaquin IVPB -pt has been fluid resuscitated and tolerated well -continue hospitalization and IVPB abx 02/02 change to oral cipro- culture with E coli pansensitive General Debility and Weakness- with fall at home and inability to get up (see imaging results, no new issues noted) -likely secondary to UTI and perhaps contribution to her fall -will have OT and PT evaluate, as it is unclear if the patient would be safe to return home alone after this hospital stay 02/02 OT/PT to eval today, tolerating oral intake well, d/c IVF Hypoxia- on admission dropping to 80s with activity, started on solumedrol and duonebs, does not have prior diagnosis of COPD 02/02 change to oral prednisone and decreased duonebs to TID due to tachycardia and tremulousness Tremor- apparently not new, possible essential or enhanced physiologic tremor related to medications 02/02 decrease frequency of duonebs and monitor Tachycardia- mild intermittent, unclear etiology, she does have UTI but is being treated appropriately and leukocytosis but CXR not consistent with infection and leukocytosis may be related to steroids 02/02 decrease duonebs and monitor Tobacco Abuse -will continue to educate patient on need for smoking cessation DVT ppx- enoxaparin Diagnosis/Problems: Clinical Quality Measures DVT/VTE Risk/Contraindication: Risk Factor Score Per Nursin RFS Level Per Nursing on Admit: 4+=Very High MEGHANA JEREZ MD Feb 02, 2017 10:35 am
[2017-02-02] MEDS ORDERED: ENOXAPARIN 40 MG/0.4 ML (LOVENOX) SYR SQ SCH (12:00)
[2017-02-02 12:30] VITALS: BP 162/71
[2017-02-02] MEDS ORDERED: methylPREDNISolone 40 MG/ML (Solu-MEDROL) VIAL IV SCH (13:00)
--- NOTE | 2017-02-02 13:45 | Physical Therapy Evaluation ---
PT Evaluation-General Medical Diagnosis Admission Date Jan 31, 2017 at 20:08 Medical Diagnosis: sepsis/UTI/COPD Onset Date: Jan 31, 2017 Therapy Diagnosis Therapy Diagnosis: impaired mobility Height/Weight Height (Feet): 5 Height (Inches): 0.50 Weight (Pounds): 122 Weight (Ounces): 1.0 Precautions Precautions/Isolations: Fall Prevention, Standard Precautions Weight Bear Status Right Lower Extremity: Right Full Weight Bearing Left Lower Extremity: Left Full Weight Bearing Referral Physician: Greyson Reason for Referral: Evaluation/Treatment Medical History Pertinent Medical History: Smoking Additional Medical History recent diagnosis COPD Current History fall at home, outside, neighbor found her and call 911 Reviewed History: Yes Social History Home: Apartment Current Living Status: Alone Entry Into Home: Level Entry Prior/Core FIM Prior Level of Function Functional Door Measure 0=Not Assessed/NA 4=Minimal Assistance 1=Total Assistance 5=Supervision or Setup 2=Maximal Assistance 6=Modified Door 3=Moderate Assistance 7=Complete Door Bed Mobility: 7 Transfers (B,C,W/C) (FIM): 7 Gait: 7 PT Evaluation-Current Subjective Patient agrees to PT. Pain Numeric Pain Scale: 0-No Pain Location: No Pain Reported Objective Patient Orientation: Person, Time, Situation Problem Solving: Fair ROM/Strength ROM Lower Extremities bilateral LE WNL Strength Lower Extremities bilateral LE WNL Integumentary/Posture Integumentary refer to nursing notes (multiple contusions bilateral LE's and UE's) Bowel Incontinence: No Bladder Incontinence: No Posture WNL Neuromuscular (Tone, Coordination, Reflexes) grossly intact Sensory Vision: Functional Hearing: Functional Sensation Right Lower Extremit: Intact Sensation Left Lower Extremity: Intact Transfers Functional Door Measure 0=Not Assessed/NA 4=Minimal Assistance 1=Total Assistance 5=Supervision or Setup 2=Maximal Assistance 6=Modified Door 3=Moderate Assistance 7=Complete Door Transfers (B, C, W/C) (FIM): 5 Scootin Rollin Supine to/from Sit: 5 Sit to/from Stand: 5 Gait Mode of Locomotion: Walk Anticipated Mode of Locomotion: Walk Gait (FIM): 5 Distance (FIM): 3=150 ft Distance: 400' Gait Level of Assist: 5 Gait Persons Needed: 1 Gait Assistive Device: FWW Comments/Gait Description SBA for safety Balance Sitting Static: Normal Sitting Dynamic: Normal Standing Static: Normal Standing Dynamic: Normal Assessment/Needs 86 y.o. female, will benefit from short term skilled PT to address functional mobility to improve current LOF and to safely return to home at maximum. Rehab Potential: Good PT Short Term Goals Short Term Goals Time Frame: Feb 06, 2017 Transfers (B,C,W/C) (FIM): 6 Gait (FIM): 6 Distance (FIM): 3=150 ft Gait Level of Assist: 6 Gait Assistive Device: FWW PT Plan Problem List Problem List: Safety, Gait Treatment/Plan Treatment Plan: Continue Plan of Care Treatment Plan: Education, Functional Activity Joan, Functional Strength, Gait , Safety, Therapeutic Exercise, Transfers Treatment Duration: Feb 06, 2017 Frequency: 5 times per week Estimated Hrs Per Day: .25 hour per day Patient and/or Family Agrees t: Yes Safety Risks/Education Patient Education: Safety Issues Teaching Recipient: Patient Teaching Methods: Discussion Response to Teaching: Reinforcement Needed Discharge Recommendations Therapy D/C Recommendations: Home w/ Family Support Equpiment Recommendations-D/C: Front Wheeled Walker Time/GCodes Time In: 1310 Time Out: 1324 Total Billed Treatment Time: 14 Total Billed Treatment 1 visit EVLowC 14 min DEBRA BARAJAS PT Feb 02, 2017 13:45
[2017-02-02 15:56] VITALS: BP 143/63
--- NOTE | 2017-02-02 16:05 | Occupational Therapy Eval ---
OT Evaluation-General/PLF Medical Diagnosis Admission Date Jan 31, 2017 at 20:08 Medical Diagnosis: sepsis/UTI/COPD Onset Date: Jan 31, 2017 Therapy Diagnosis Therapy Diagnosis: decr self care, decr funct mobility Height/Weight Height (Feet): 5 Height (Inches): 0.50 Weight (Pounds): 122 Weight (Ounces): 1.0 Precautions Precautions/Isolations: Fall Prevention, Standard Precautions Safety Interventions: Bed Exit Alarm, Reorient-Attempt, Reorient-PRN Referral Physician: Greyson Referral Reason: Evaluation/Treatment Medical History Pertinent Medical History: Smoking Additional Medical History Anxiety Current History Pt was found on the ground on her back, in her sun room. Increased SOA, dyspnea , cough Reviewed History: Yes Social History Home: Apartment Current Living Status: Alone Entry Into Home: Level Entry Pt reported that she lives along and dos not drive. She is planning on living with her daughter or son after discharge. ADL-Prior Level of Function ADL PLOF Comments Pt reported that she has been able to manage her basic self care needs. She said that she doesn't use an AD for walking. DME/Equipment Comments Unknown DME OT Current Status Subjective Pt seen in room, up in recliner, agreeable to OT. Pt reported pain 0/10 Appearance Alert, cooperative Mental Status/Objective Patient Orientation: Person, Place, Time, Situation Attachments: IV Current Hand Dominance: Right Upper Extremity ROM Grossly WFL bilat Upper Extremity Strength grossly 4/5 bilat ADL-Treatment ADL-Current Pt said that she was able to feed herself. Pt was able to get her slipper socks off and on without assistance. She got up from recliner with SBA and walked with SBA, FWW to bathroom. Pt educ to leave walker on the floor and not pick it up. Once in the bathroom, she was able to manage clothing and get on/off tall toilet with SBA, grab bar. She had difficulty finding toilet paper but, once encouraged, was able to wipe herself. She stood SBA at counter top to wash hands. Walked SBA, FWW back to recliner, cues to leave walker on floor. Pt left up in recliner, chair alarm on, all needs met. Functional [place] Measure 0=Not Assessed/NA 4=Minimal Assistance 1=Total Assistance 5=Supervision or Setup 2=Maximal Assistance 6=Modified [place] 3=Moderate Assistance 7=Complete IndependenceIRFPAI Quality Coding Scale 6 Independent with activity with or without an assistive device 5 Patient requires set up or clean up by helper. Patient completes activity by themselves 4 Supervision or touching assist (CGA). [place] provide cues , steadying assist 3 The helper provides less than half the effort to complete the activity 2 The helper provides more than half the effort to complete the activity 1 Dependent. The helper does all the effort to complete an activity 7 Patient refused to complete or attempt activity 9 The patient did not perform the activity before the current illness or injury 88 Not attempted due to Medical conditions or safety concerns Education OT Patient Education: Purpose of tx/functional activities, Rehab process Teaching Recipient: Patient Teaching Methods: Discussion Response to Teaching: Verbalize Understanding OT Cnc Supervisor Goals Nursing Home Goals Time Frame: Feb 09, 2017 Grooming(FIM): 6 Bathing(FIM): 5 Upper Body Dressing(FIM): 6 Lower Body Dressing(FIM): 6 Toileting(FIM): 6 Toilet/Commode Transfer(FIM): 6 Shower Transfer(FIM): 5 Additional Goals: 2-Verbalize Understanding, 3-ImproveStrength/Joan 1=Demonstrate adherence to instructed precautions during ADL tasks. 2=Patient will verbalize/demonstrate understanding of assistive devices/ modifications for ADL. 3=Patient will improve strength/tolerance for activity to enable patient to perform ADL's. OT Education/Plan Problem List/Assessment Assessment: Decreased UE Strength, Dependent Transfers, Impaired Self-Care Skills Pt would benefit from skilled OT to increase her independence in basic self care and to decrease caregiver burden. Discharge Recommendations Plan/Recommendations: Continue POC Target Placement son's or daughter's home Treatment Plan/Plan of Care Treatment,Training & Education: Yes Patient would benefit from OT for education, treatment and training to promote independence in ADL's, mobility, safety and/or upper extremity function for ADL' s. Plan of Care: ADL Retraining, Functional Mobility, UE Funct Exercise/Act Treatment Duration: Feb 09, 2017 Frequency: 5 times per week Estimated Hrs Per Day: .25 hour per day Agreement: Yes Rehab Potential: Good Time/GCodes Start Time: 14:11 Stop Time: 14:29 Total Time Billed (hr/min): 18 Billed Treatment Time visit, evaluation low intensity 18 minutes MARTÍNEZ MARTINEZ OT Feb 02, 2017 16:05
[2017-02-02 19:43] VITALS: BP 134/66
[2017-02-02] MEDS: CIPROFLOXACIN 500 MG (CIPRO) TABLET PO SCH (20:28)
[2017-02-02] MEDS ORDERED: LEVOFLOXACIN 750 MG/D5W 150 ML PRE-MIX IV SCH (21:00)
[2017-02-03 00:32] VITALS: BP 144/68
[2017-02-03 04:25] VITALS: BP 135/73
[2017-02-03 06:33] LABS: BASOPHILS % (AUTO) 0 % (0-10); EOSINOPHILS % (AUTO) 0 % (0-10); LYMPHOCYTES # (AUTO) 1.7 X 10^3 (1.0-4.0); LYMPHOCYTES % (AUTO) 11 % (12-44); MEAN CORPUSCULAR HEMOGLOBIN 31 PG (25-34); MEAN CORPUSCULAR HGB CONC 33 G/DL (32-36); MEAN CORPUSCULAR VOLUME 92 FL (80-99); MEAN PLATELET VOLUME 11.4 FL (7.4-10.4); MONOCYTES # (AUTO) 1.4 X 10^3 (0.0-1.0); MONOCYTES % (AUTO) 9 % (0-12); NEUTROPHILS # (AUTO) 13.3 X 10^3 (1.8-7.8); NEUTROPHILS % (AUTO) 81 % (42-75); PLATELET COUNT 228 10^3/uL (130-400); RED BLOOD COUNT 4.63 10^6/uL (4.35-5.85); RED CELL DISTRIBUTION WIDTH 14.9 % (10.0-14.5); WHITE BLOOD COUNT 16.5 10^3/uL (4.3-11.0)
[2017-02-03 06:57] LABS: ANION GAP 11 MMOL/L (5-14); BLOOD UREA NITROGEN 17 MG/DL (7-18); BUN/CREATININE RATIO 20; CALCIUM 8.2 MG/DL (8.5-10.1); CARBON DIOXIDE 21 MMOL/L (21-32); CHLORIDE 106 MMOL/L (98-107); CREATININE SERUM 0.84 MG/DL (0.60-1.30); GFR ESTIMATED > 60; GLUCOSE 120 MG/DL (70-105); MAGNESIUM 2.1 MG/DL (1.8-2.4); POTASSIUM 3.8 MMOL/L (3.6-5.0); SODIUM 138 MMOL/L (135-145)
[2017-02-03] MEDS: RT-ALBUTEROL/IPRATROPIUM 3 ML (DUONEB) VIAL INH SCH ×2 (07:10→15:41)
[2017-02-03 08:00] VITALS: BP 146/73
[2017-02-03] MEDS: NICOTINE 21 MG (NICODERM) PATCH TD SCH (08:34)
[2017-02-03] MEDS: CIPROFLOXACIN 500 MG (CIPRO) TABLET PO SCH (08:34)
[2017-02-03] MEDS: FAMOTIDINE 20MG/2ML IV (PEPCID) IVP SCH (08:35)
[2017-02-03] MEDS: predniSONE 10 MG TAB PO SCH (08:35)
[2017-02-03] MEDS ORDERED: IPRA3AMP INH (11:29)
[2017-02-03] MEDS ORDERED: CIPR500T4 PO (11:29)
[2017-02-03] MEDS ORDERED: PRD10T PO (11:29)
--- NOTE | 2017-02-03 11:33 | Physical Therapy Daily Note ---
PT Daily Note-Current Subjective Patient is very agreeable to participate with PT. Pain Numeric Pain Scale: 0-No Pain Location: No Pain Reported Mental Status Patient Orientation: Person, Time, Situation Transfers Functional [place] Measure 0=Not Assessed/NA 4=Minimal Assistance 1=Total Assistance 5=Supervision or Setup 2=Maximal Assistance 6=Modified [place] 3=Moderate Assistance 7=Complete IndependenceIRFPAI Quality Coding Scale 6 Independent with activity with or without an assistive device 5 Patient requires set up or clean up by helper. Patient completes activity by themselves 4 Supervision or touching assist (CGA). [place] provide cues , steadying assist 3 The helper provides less than half the effort to complete the activity 2 The helper provides more than half the effort to complete the activity 1 Dependent. The helper does all the effort to complete an activity 7 Patient refused to complete or attempt activity 9 The patient did not perform the activity before the current illness or injury 88 Not attempted due to Medical conditions or safety concerns Transfers (B, C, W/C) (FIM): 5 Scootin Rollin Supine to/from Sit: 5 Sit to/from Stand: 5 Weight Bearing Right Lower Extremity: Right Full Weight Bearing Left Lower Extremity: Left Full Weight Bearing Gait Training Gait (FIM): 5 Distance (FIM): 3=150 ft Distance: 500' Gait Level of Assist: 5 Gait Persons Needed: 1 Gait Assistive Device: FWW steady and functional Assessment Patient tolerated treatment well and OT is in for treatment. Plan dismissal this week. PT Short Term Goals Short Term Goals Time Frame: Feb 06, 2017 Gait (FIM): 6 Distance (FIM): 3=150 ft Gait Level of Assist: 6 Gait Assistive Device: FWW PT Plan Treatment/Plan Treatment Plan: Continue Plan of Care Treatment Plan: Education, Functional Activity Joan, Functional Strength, Gait , Safety, Therapeutic Exercise, Transfers Treatment Duration: Feb 06, 2017 Frequency: 5 times per week Estimated Hrs Per Day: .25 hour per day Patient and/or Family Agrees t: Yes Discharge Recommendations Therapy D/C Recommendations: Physical Therapy Home Care Time/GCodes Time In: 1050 Time Out: 1103 Total Billed Treatment Time: 13 Total Billed Treatment 1 visit GT 13 min DEBRA BARAJAS PT Feb 03, 2017 11:33
--- NOTE | 2017-02-03 11:35 | D/C HH Face to Face Order ---
D/C Face to Face Orders Instructions for Patient Patient Instructions/FollowUp: Follow up with Dr. Brown on 02/10 at 1:20 pm. Physician to follow Patient: Kevin Discharge Diet for Home: Regular Diet Patient Problems: Debility UTI Wheezing Goals for Patient: Improve strength and mobility to decrease fall risk. Patient Data-Allergies,Ht & Wt Patient Allergies: Coded Allergies: Penicillins (Unverified Allergy, Mild, HIVES, 07/03/09) Height (Feet): 5 Height (Inches): 0.50 Weight (Pounds): 125 Weight (Ounces): 6.0 Home Health Need/Face to Face Date of Face to Face: Feb 03, 2017 Clinical Findings: Generalized weakness and fatigue, Instability, Unsteady gait I have seen Pt [id number]: Yes Discharged To: Home Diagnosis/Conditions: Fall UTI Debility Hypoxia Problems/Diagnosis/Condition: Patient is Homebound due to: [place] fall risk due to instabilty Homebound Status Due to the above stated illness, injury or surgical procedure (medical condition or diagnosis) and associated clinical findings, the patient is homebound because of his/her inability to leave home except with aid of a supportive device and/or person AND leaving the home requires a considerable and taxing effort or is medically contraindicated. Pt req the following assistanc: Walker Home Health Nursing Orders Home Health Services Order: Nursing Services, Verifying Specialist-Evaluate & Treat, Physical Therapy-Evaluate & Treat Home Health Infusion Therapy Site Location: Forearm Therapy Orders Therapy Orders: OT (must have SN or PT order), Physical Therapy Therapy Specific Orders: Eval assistive deivces, Teach enviro modifications/ safety, Gait training, Increase strength/endurance Certify Stmt I certify that this patient is under my care and that I, a nurse practitioner or a physician; a assistant professor of biochemistry working with me, had a face to face encounter that - meets the physician face to face encounter requirements with this patient as dated. MEGHANA JEREZ MD Feb 03, 2017 11:35
--- NOTE | 2017-02-03 11:38 | Discharge Summary ---
Diagnosis/Chief Complaint Date of Admission Jan 31, 2017 at 8:08 pm Date of Discharge Admission Diagnosis Admission Diagnosis Urinary Tract Infection, present on admission, organism unknown Weakness Syncope Tobacco Abuse Discharge Diagnosis UTI -treat with levaquin IVPB -pt has been fluid resuscitated and tolerated well -continue hospitalization and IVPB abx 02/02 change to oral cipro- culture with E coli pansensitive General Debility and Weakness- with fall at home and inability to get up (see imaging results, no new issues noted) -likely secondary to UTI and perhaps contribution to her fall -will have OT and PT evaluate, as it is unclear if the patient would be safe to return home alone after this hospital stay 02/02 OT/PT to eval today, tolerating oral intake well, d/c IVF 02/03 discussed SNF placement, she adamantly refuses, will go home with her son , walker script provided and home health with PT/OT ordered Hypoxia- on admission dropping to 80s with activity, started on solumedrol and duonebs, does not have prior diagnosis of COPD 02/02 change to oral prednisone and decreased duonebs to TID due to tachycardia and tremulousness 02/03 discharged with nebulizer and duonebs for prn use as well as to complete prednisone taper Tremor- apparently not new, possible essential or enhanced physiologic tremor related to medications 02/02 decrease frequency of duonebs and monitor 02/03- no tremor apparent today and tachycardia improved, was started on metoprolol XL on admission, but unclear if it needs to be continued, given her risk off fall and normal BP and respiratory issues, will not prescribe on d/c. Tachycardia- mild intermittent, unclear etiology, she does have UTI but is being treated appropriately and leukocytosis but CXR not consistent with infection and leukocytosis may be related to steroids 02/02 decrease duonebs and monitor 02/03 improved, see above Tobacco Abuse -will continue to educate patient on need for smoking cessation Chief Complaint/HPI Chief Complaint/HPI This 86 year old patient was found on the floor at home, laying in her sun porch. She had obtained superficial sunburns on her legs, arms, torso and abdomen, and it is presumed that she was laying there for several hours. She presented to the ED, who did her work up, including a wang=scan of her head, neck , chest, abdomen and pelvis. The patient was noted to be have a UTI, and she was started on antibiotics. In addition, the patient has oxygen saturations of ~92% on 2L NC while at rest, and would desat to the mid- to low-80's with any activity. There was significant concern on the part of the ED staff that the patient would perhaps not be able to return to living alone after discharge, and based on her clinical condition, including her UTI and her continued confusion, she was placed in the ICU for observation. On the morning after admission, when the patient was seen by this provider, she was awake and mentating well. She was able to answer questions, but she was unable to recall any of the events surrounding her fall. SHe reports that she takes no medications and has no major health problems that she was aware of. Discharge Summary-Simple/Stand Consultations Discharge Physical Examination Allergies: Coded Allergies: Penicillins (Unverified Allergy, Mild, HIVES, 07/03/09) Vitals & I&Os Vital Sign - Last 12Hours Date Time Temp Pulse Resp B/P (MAP) Pulse Ox O2 Delivery O2 Flow Rate FiO2 02/03/17 08:00 Room Air 02/03/17 08:00 98.0 86 16 146/73 92 01/31/17 20:59 2.00 General Appearance: Alert, No Acute Distress Respiratory: Other (slight end expiratory wheezing) Cardiovascular: Regular Rate, No Murmurs Neuro: Normal Speech Psych/Mental Status: Mental Status NL, Mood NL Hospital Course See final discharge diagnosis. Labs Laboratory Tests Test 02/02/17 05:26 02/03/17 05:47 Range/Units White Blood Count 17.6 H 16.5 H 4.3-11.0 10^3/uL Red Blood Count 4.32 L 4.63 4.35-5.85 10^6/uL Hemoglobin 13.5 14.2 11.5-16.0 G/DL Hematocrit 40 43 35-52 % Mean Corpuscular Volume 93 92 80-99 FL Mean Corpuscular Hemoglobin 31 31 25-34 PG Mean Corpuscular Hemoglobin Concent 34 33 32-36 G/DL Red Cell Distribution Width 14.7 H 14.9 H 10.0-14.5 % Platelet Count 205 228 130-400 10^3/uL Mean Platelet Volume 11.4 H 11.4 H 7.4-10.4 FL Neutrophils (%) (Auto) 84 H 81 H 42-75 % Lymphocytes (%) (Auto) 9 L 11 L 12-44 % Monocytes (%) (Auto) 7 9 0-12 % Eosinophils (%) (Auto) 0 0 0-10 % Basophils (%) (Auto) 0 0 0-10 % Neutrophils # (Auto) 14.8 H 13.3 H 1.8-7.8 X 10^3 Lymphocytes # (Auto) 1.6 1.7 1.0-4.0 X 10^3 Monocytes # (Auto) 1.2 H 1.4 H 0.0-1.0 X 10^3 Eosinophils # (Auto) 0.0 0.0 0.0-0.3 10^3/uL Basophils # (Auto) 0.0 0.0 0.0-0.1 10^3/uL Neutrophils % (Manual) 84 % Lymphocytes % (Manual) 7 % Monocytes % (Manual) 9 % Blood Morphology Comment NORMAL Sodium Level 139 138 135-145 MMOL/L Potassium Level 3.5 L 3.8 3.6-5.0 MMOL/L Chloride Level 111 H 106 98-107 MMOL/L Carbon Dioxide Level 20 L 21 21-32 MMOL/L Anion Gap 8 11 5-14 MMOL/L Blood Urea Nitrogen 19 H 17 7-18 MG/DL Creatinine 0.89 0.84 0.60-1.30 MG/DL Estimat Glomerular Filtration Rate 60 > 60 BUN/Creatinine Ratio 21 20 Glucose Level 149 H 120 H 70-105 MG/DL Calcium Level 8.1 L 8.2 L 8.5-10.1 MG/DL Magnesium Level 1.7 L 2.1 1.8-2.4 MG/DL Discharge Instructions to patient/family Please see electronic discharge instructions given to patient. Discharge Medications Reviewed and agree with Discharge Medication list on patient's Discharge Instruction sheet Clinical Quality Measures DVT/VTE Risk/Contraindication: Risk Factor Score Per Nursin RFS Level Per Nursing on Admit: 4+=Very High Copy Copies To 1: RAVI GOVEA MD,MEGHANA Cartwright MD Feb 03, 2017 11:38 am
[2017-02-03 12:00] VITALS: BP 145/84
[2017-02-03] MEDS ORDERED: ENOXAPARIN 30 MG/0.3 ML (LOVENOX) SYR SC SCH (13:10)
--- NOTE | 2017-02-03 14:42 | Occupational Ther Daily Note ---
OT Current Status-Daily Note Subjective Pt alert, finishing up with PT. Pt agreed to therapy. No c/o pain. Mental Status/Objective Patient Orientation: Person, Place Functional [place] Measure 0=Not Assessed/NA 4=Minimal Assistance 1=Total Assistance 5=Supervision or Setup 2=Maximal Assistance 6=Modified [place] 3=Moderate Assistance 7=Complete [place] ADL-Treatment Pt ambulated to bathroom to complete grooming standing at sink. SBA for safety. Pt ambulated back to room to sit in recliner. Pt able comb hair by self. After therapy, pt sitting in recliner with call light/phone in reach. All needs met in room. Grooming (FIM): 5 OT Short Term Goals Short Term Goals 1=Demonstrate adherence to instructed precautions during ADL tasks. 2=Patient will verbalize/demonstrate understanding of assistive devices/ modifications for ADL. 3=Patient will improve strength/tolerance for activity to enable patient to perform ADL's. OT Custodial Goals Custodial Goals Time Frame: Feb 09, 2017 Grooming(FIM): 6 Bathing(FIM): 5 Upper Body Dressing(FIM): 6 Lower Body Dressing(FIM): 6 Toileting(FIM): 6 Toilet/Commode Transfer(FIM): 6 Shower Transfer(FIM): 5 Additional Goals: 2-Verbalize Understanding, 3-ImproveStrength/Joan 1=Demonstrate adherence to instructed precautions during ADL tasks. 2=Patient will verbalize/demonstrate understanding of assistive devices/ modifications for ADL. 3=Patient will improve strength/tolerance for activity to enable patient to perform ADL's. OT Education/Plan Problem List/Assessment Pt would benefit from skilled OT to increase her independence in basic self care and to decrease caregiver burden. Discharge Recommendations Plan/Recommendations: Continue POC Treatment Plan/Plan of Care Patient would benefit from OT for education, treatment and training to promote independence in ADL's, mobility, safety and/or upper extremity function for ADL' s. Plan of Care: ADL Retraining, Functional Mobility, UE Funct Exercise/Act Treatment Duration: Feb 09, 2017 Frequency: 5 times per week Estimated Hrs Per Day: .25 hour per day Agreement: Yes Rehab Potential: Good Time/GCodes Start Time: 11:03 Stop Time: 11:18 Total Time Billed (hr/min): 15 Billed Treatment Time 1 visit-FA 1 (15 min) MARISA HOWELL Feb 03, 2017 14:41
--- NOTE | 2017-02-04 09:16 | Physician Query Clarification ---
PQ-Uncertain Diagnosis Admission/Discharge Admission Date: Jan 31, 2017 at 20:08 Discharge Date: Feb 03, 2017 at 15:55 The medical record reflects the following clinical scenario: History/Risk Factors: UTI Weakness Clinical Findings: WBC 12.5, T 99, Pulse 118, Resp 20, BP 136/87, Lactic Acid 1.14, Blood culture- No growth Treatment: IV Levofloxacin/Dextrose Question: Is Sepsis a clinically valid diagnosis? Sepsis was documented in the ED record by JOSE Lujan with no further documentation in the medical record. Please document a response below. PHYSICIAN RESPONSE Diagnosis clinically valid: Yes, Conditon resolved In responding to this query, please exercise your independent professional judgment. The purpose of this communication is to more accurately reflect the complexity of your patients condition. The fact that a question is asked does not imply that any particular answer is desired or expected. Thank you for your timely response to this clarification. Requestors name: Margie Faith [facility] Phone # ext [phone] or [phone] THIS PHYSICIAN QUERY FORM IS A PERMANENT PART OF THE MEDICAL RECORD MARGIE FAITH Feb 04, 2017 09:16 MEGHANA JEREZ MD Feb 04, 2017 13:27
--- NOTE | 2017-02-04 09:27 | Physician Query Clarification ---
PQ-Uncertain Diagnosis Admission/Discharge Admission Date: Jan 31, 2017 at 20:08 Discharge Date: Feb 03, 2017 at 15:55 The medical record reflects the following clinical scenario: History/Risk Factors: Hypoxia Tobaccoism Clinical Findings: Oxygen Saturations of 92% on 2L NC while at rest, and would desat to the mid to low 80's with any activity. Chest x ray report of 02/01 impression: COPD with some interstitial scarring of the lung bases otherwise unremarkable. Treatment: IV Solu Medrol, Albuterol/Ipratropium inhalation therapy Question: Is COPD with acute exacerbation a clinically valid diagnosis? COPD with acute exacerbation was documented in the ED record by JOSE Lujan with no further documentation in the medical record. Please document a response below. PHYSICIAN RESPONSE Diagnosis clinically valid: Yes, Conditon resolved In responding to this query, please exercise your independent professional judgment. The purpose of this communication is to more accurately reflect the complexity of your patients condition. The fact that a question is asked does not imply that any particular answer is desired or expected. Thank you for your timely response to this clarification. Requestors name: Margie Faith [facility] Phone # ext [phone] or [phone] THIS PHYSICIAN QUERY FORM IS A PERMANENT PART OF THE MEDICAL RECORD MARGIE FAITH Feb 04, 2017 09:27 MEGHANA JEREZ MD Feb 04, 2017 13:28
== END 2017-02-03 15:55 | disposition home health service (06) | DRG 872 ==
LOC: EDUNIT# 15:50 → ER 15:53 → ICU 20:08 → 4TH 02-01 08:30
PROVIDERS: ADMIT Family Medicine; ATTEND Family Medicine
DX: A41.9 Sepsis, unspecified organism (principal); N39.0 Urinary tract infection, site not specified; B96.20 Unspecified Escherichia coli [E. coli] as the cause of diseases classified elsewhere; J44.1 Chronic obstructive pulmonary disease with (acute) exacerbation; L55.9 Sunburn, unspecified; R09.02 Hypoxemia; R51 Headache; M54.2 Cervicalgia; Z66 Do not resuscitate; M54.9 Dorsalgia, unspecified; R53.81 Other malaise; R55 Syncope and collapse; R00.0 Tachycardia, unspecified; F41.9 Anxiety disorder, unspecified; F17.210 Nicotine dependence, cigarettes, uncomplicated; W19.XXXA Unspecified fall, initial encounter; Y92.018 Other place in single-family (private) house as the place of occurrence of the external cause; Y99.8 Other external cause status
CPT/HCPCS: 36415; 70450; 71010; 71020; 71260; 72125; 72128; 72131; 74177; 80048; 80053; 81000; 82550; 82553; 83605; 83735; 84443; 84484; 85007; 85025; 85027; 87040; 87088; 87186; 94640; 94760; 96361; 96374; 96375

== ENCOUNTER 2017-06-02 16:31 | Inpatient (IN) | payer MEDICARE, MEDICAID ==
[~2017-06-02] VITALS: Ht 154.9 cm; Wt 57.2 kg
[~2017-06-02 16:31] MED LIST changes: +ALPR0.254 PO; +ASCO-262 PO; +CIPR500T4 PO; +CRAN1TAB5 PO; +IPRA3AMP INH; +PRD10T PO
[2017-06-03] MEDS ORDERED: cefTRIAXone INJECTION 1,000 MG in NS (IVPB) 50 ML IV SCH (11:45)
[2017-06-03] MEDS ORDERED: ENOXAPARIN 40 MG/0.4 ML (LOVENOX) SYR SC SCH (11:45)
[2017-06-03 12:00] VITALS: BP 121/74
--- NOTE | 2017-06-03 14:09 | Occupational Therapy Eval ---
OT Evaluation-General/PLF Medical Diagnosis Admission Date Jun 03, 2017 at 11:39 Medical Diagnosis: septic shock with UTI Onset Date: May 29, 2017 Therapy Diagnosis Therapy Diagnosis: decreased self care skills Height/Weight Height (Feet): 5 Height (Inches): 1.00 Weight (Pounds): 126 Weight (Ounces): 0.9 Referral Physician: Jose Angel Medical History Pertinent Medical History: COPD, Smoking Reviewed History: Yes Social History Home: Apartment Current Living Status: Alone Entry Into Home: Level Entry ADL-Prior Level of Function ADL PLOF Comments Pt reports being independent with self care and mobility. Pt gets meals on wheels. Daughter lives nearby and checks on her daily. Pt states she does the daily cleaning, but daughter assists with heavy cleaning. Daughter also does the grocery shopping for pt. DME/Equipment: Bath Chair, Tub/Shower Drive Self: No (daughter provides transportation) OT Current Status Subjective Pt resting in bed, agrees to therapy. Pt has no c/o pain. Mental Status/Objective Patient Orientation: Person, Place Current Glasses/Contacts: No Hearing Aids: No Dentures/Partials: No Hand Dominance: Right Upper Extremity ROM Grossly WFL Upper Extremity Coordination Intact Upper Extremity Sensation Intact per pt report Upper Extremity Strength Grossly 4/5 ADL-Treatment ADL-Current Pt supine to sit with modified independence. Pt participated in UE assessment while seated EOB with good balance. Pt demonstrated ability to doff/don socks without assistance while seated EOB. Sit to stand with supervision. Pt performed gait to restroom with FWW, no LOB noted. Pt demonstrated ability to perform toilet transfer with SBA using grab bars for safety. Pt combed hair with set up. Pt states she has already showered this morning. Pt returned to bed with needs met and bed alarm on after session. Functional [place] Measure 0=Not Assessed/NA 4=Minimal Assistance 1=Total Assistance 5=Supervision or Setup 2=Maximal Assistance 6=Modified [place] 3=Moderate Assistance 7=Complete IndependenceIRFPAI Quality Coding Scale 6 Independent with activity with or without an assistive device 5 Patient requires set up or clean up by helper. Patient completes activity by themselves 4 Supervision or touching assist (CGA). [place] provide cues , steadying assist 3 The helper provides less than half the effort to complete the activity 2 The helper provides more than half the effort to complete the activity 1 Dependent. The helper does all the effort to complete an activity 7 Patient refused to complete or attempt activity 9 The patient did not perform the activity before the current illness or injury 88 Not attempted due to Medical conditions or safety concerns Eating (FIM): 5 (set up by report) Eating (QC): 5 Grooming (FIM): 5 Lower Body Dressing (FIM): 5 (socks only) Toilet/Commode Transfer (FIM): 5 Toilet Transfer (QC): 4 Education OT Patient Education: Rehab process Teaching Recipient: Patient Teaching Methods: Discussion Response to Teaching: Verbalize Understanding OT Short Term Goals Short Term Goals 1=Demonstrate adherence to instructed precautions during ADL tasks. 2=Patient will verbalize/demonstrate understanding of assistive devices/ modifications for ADL. 3=Patient will improve strength/tolerance for activity to enable patient to perform ADL's. OT Ceo & Board Director Goals [facility]ci Goals Time Frame: Jun 17, 2017 Eating (FIM): 6 Eating (QC): 6 Groomin Oral Hygiene (QC): 6 Bathing(FIM): 5 Upper Body Dressing(FIM): 6 Lower Body Dressing(FIM): 6 Toileting(FIM): 6 Toileting Hygiene (QC): 6 Toilet/Commode Transfer(FIM): 6 Toilet/Commode Transfer (QC): 6 Shower Transfer(FIM): 5 Additional Goals: 2-Verbalize Understanding, 3-ImproveStrength/Joan 1=Demonstrate adherence to instructed precautions during ADL tasks. 2=Patient will verbalize/demonstrate understanding of assistive devices/ modifications for ADL. 3=Patient will improve strength/tolerance for activity to enable patient to perform ADL's. OT Education/Plan Problem List/Assessment Assessment: Decreased Activ Tolerance, Decreased UE Strength, Dependent Transfers, Impaired Self-Care Skills Pt to benefit from skilled OT intervention for ADL training, transfers, strengthening, and safety education to increase level of independence and allow safe return home. Discharge Recommendations Plan/Recommendations: Continue POC Treatment Plan/Plan of Care Treatment,Training & Education: Yes Patient would benefit from OT for education, treatment and training to promote independence in ADL's, mobility, safety and/or upper extremity function for ADL' s. Plan of Care: ADL Retraining, Functional Mobility, UE Funct Exercise/Act Treatment Duration: Jun 17, 2017 Frequency: 5 times per week Estimated Hrs Per Day: .25 hour per day Agreement: Yes Rehab Potential: Good Time/GCodes Start Time: 13:34 Stop Time: 13:58 Total Time Billed (hr/min): 24 Billed Treatment Time 1 visit, EVM(9minutes), ADL(15minutes) [place] SKY OT Jun 03, 2017 14:09
--- NOTE | 2017-06-03 15:15 | Physical Therapy Evaluation ---
PT Evaluation-General Medical Diagnosis Admission Date Jun 03, 2017 at 11:39 Medical Diagnosis: septic shock with UTI Onset Date: May 29, 2017 Therapy Diagnosis Therapy Diagnosis: weakness;gait instability Height/Weight Height (Feet): 5 Height (Inches): 1.00 Weight (Pounds): 126 Weight (Ounces): 0.9 Weight Bear Status Right Lower Extremity: Right Full Weight Bearing Left Lower Extremity: Left Full Weight Bearing Referral Physician: Jose Angel Medical History Pertinent Medical History: Arthritis, COPD, Smoking Current History Pt admitted / through the ER due to nausea and vomiting. Pt diagnosed with sepsis secondary to UTI. Reviewed History: Yes Social History Home: Apartment Current Living Status: Alone Entry Into Home: Level Entry PT Steps Inside Home: 0 Prior/Core FIM Prior Level of Function Functional [place] Measure 0=Not Assessed/NA 4=Minimal Assistance 1=Total Assistance 5=Supervision or Setup 2=Maximal Assistance 6=Modified [place] 3=Moderate Assistance 7=Complete [place] Bed Mobility: 7 Transfers (B,C,W/C) (FIM): 6 Gait: 6 PT Evaluation-Current Subjective Pt reports she feels almost normal concerning her strength and mobility. Objective Patient Orientation: Person, Place Problem Solving: Fair ROM/Strength ROM Lower Extremities WFL Strenght Lower Extremities 5/5 Sensory Vision: Functional Hearing: Functional Hand Dominance: Right Transfers Functional [place] Measure 0=Not Assessed/NA 4=Minimal Assistance 1=Total Assistance 5=Supervision or Setup 2=Maximal Assistance 6=Modified [place] 3=Moderate Assistance 7=Complete [place] Transfers (B, C, W/C) (FIM): 5 Scootin Rollin Supine to/from Sit: 5 Sit to/from Stand: 5 Sit to Lying (QC): 4 Lying to Sitting/Side of Bed(Q: 4 Sit to Stand (QC): 4 Chair/[id number] Xfer(QC): 4 Supervision for safety. She does not need physical assistance for mobility. Verbal cues for sequencing. Gait Does the Patient Walk?: Yes Mode of Locomotion: Walk Anticipated Mode of Locomotion: Walk Gait (FIM): 5 Distance (FIM): 3=150 ft Distance: 200 Walk 50 ft with 2 Turns(QC): 4 Walk 150 ft (QC): 4 Gait Level of Assist: 5 Gait Persons Needed: 1 Gait Assistive Device: FWW Comments/Gait Description patient needs verbal cues for walker safety. She repeatedly ran into items with the left side of the walker. Balance Sitting Static: Fair Sitting Dynamic: Fair Standing Static: Fair Standing Dynamic: Fair Assessment/Needs Pt has sufficient strength for mobility but is lacking safety awareness. She will benefit from therapy to address ambulation safety. Rehab Potential: Good Post Rehab Potential-Barriers: none PT Prison Goals Stacker Goals PT Stacker Goals Time Frame: Jun 10, 2017 Transfers (B,C,W/C) (FIM): 6 Sit to Lying (QC): 6 Lying-Sitting on Side/Bed(QC): 6 Sit to Stand (QC): 6 Chair/Duf-fg-Mgqen Xfer(QC): 6 Does the Patient Walk: Yes Gait (FIM): 6 Gait distance (FIM): 3=150 ft Distance: 500 Walk 50ft with 2 Turns (QC): 6 Walk 150 ft (QC): 6 Gait Level of Assist: 6 Gait Assistive Device: FWW PT Plan Problem List Problem List: Activity Tolerance, Safety, Gait Treatment/Plan Treatment Plan: Continue Plan of Care Treatment Plan: Gait, Safety Treatment Duration: Jun 10, 2017 Frequency: 5 times per week Estimated Hrs Per Day: .25 hour per day Patient and/or Family Agrees t: Yes Safety Risks/Education Patient Education: Gait Training Teaching Recipient: Patient Teaching Methods: Discussion Response to Teaching: Return Demonstration Discharge Recommendations Barriers to Progress none Target Placement home Time/GCodes Time In: 1656 Time Out: 1515 Total Billed Treatment Time: 19 Total Billed Treatment visit, evaluation low complexity EL GARZA PT Jun 03, 2017 15:15
[2017-06-03 15:41] VITALS: BP 136/78
[2017-06-03 17:00] VITALS: BP 136/78
[2017-06-03] MEDS: ENOXAPARIN 40 MG/0.4 ML (LOVENOX) SYR SC SCH (21:03)
[2017-06-03] MEDS: VANCOMYCIN INJECTION 750 MG in NS (IVPB) 250 ML IV SCH (21:03)
[2017-06-04] MEDS: cefTRIAXone INJECTION 1,000 MG in NS (IVPB) 50 ML IV SCH (02:15)
[2017-06-04 06:00] VITALS: BP 153/90
[2017-06-04] MEDS ORDERED: TROUGH ORDER-PHARMACY XX NR (08:00)
[2017-06-04] MEDS: VANCOMYCIN INJECTION 750 MG in NS (IVPB) 250 ML IV SCH (09:28)
--- NOTE | 2017-06-04 11:38 | Physical Therapy Progress Note ---
Therapy Progress Note Patient has adamantly declined PT x 2 this a.m. due to abdominal pain. RN is aware. Patient declined PT at 800 and 1122 on this date. 1 ref x 2 DEBRA BARAJAS PT Jun 04, 2017 11:38
[2017-06-04] MEDS ORDERED: ACETAMINOPHEN 325 MG TABLET/CAPLET (TYLENOL) PO PRN (11:45)
[2017-06-04] MEDS ORDERED: TROUGH ORDER-PHARMACY XX ONE (13:00)
--- NOTE | 2017-06-04 15:23 | Occ Therapy Progress Note ---
Therapy Progress Note Pt refused treatment today. C/o abdominal pain and fatigue. Will check on pt tomorrow. MARISA HOWELL Jun 04, 2017 15:23
[2017-06-04 17:22] VITALS: BP 138/63
[2017-06-04] MEDS: ENOXAPARIN 40 MG/0.4 ML (LOVENOX) SYR SC SCH (20:06)
[2017-06-05] MEDS: cefTRIAXone INJECTION 1,000 MG in NS (IVPB) 50 ML IV SCH (02:19)
[2017-06-05 06:00] VITALS: BP 130/72
[2017-06-05 08:00] VITALS: BP 144/68
[2017-06-05] MEDS: VANCOMYCIN 1 GM/NS 250 ML IVPB IV SCH ×2 (08:21)
--- NOTE | 2017-06-05 10:08 | Progress Note (SOAP) ---
Subjective Subjective/Events-last exam Galindo was sleeping this morning. Slightly difficult to arouse but pleasant when she woke up. She states that she is feeling better and says that her abdominal pain is improving. She is able to get up and use the bathroom regularly and states she has no difficulty with urination and had no changes in stool. Review of Systems Date Seen by Provider: Jun 05, 2017 Time Seen by Provider: 09:30 General: No Chills, No Night Sweats, No Fatigue HEENT: No Head Aches, No Visual Changes Pulmonary: No Dyspnea, No Cough Cardiovascular: No: Chest Pain, Palpitations, Edema Gastrointestinal: Abdominal Pain (Improving), No: Nausea, Vomiting, Diarrhea, Constipation Genitourinary: No Dysuria, No Frequency Musculoskeletal: No: neck pain Neurological: No: Weakness, Numbness Objective Exam Last Set of Vital Signs Vital Signs Date Time Temp Pulse Resp B/P (MAP) Pulse Ox O2 Delivery O2 Flow Rate FiO2 06/05/17 08:00 98.3 92 24 144/68 (93) 95 Room Air Capillary Refill : I&O Intake and Output 06/05/17 00:00 Intake Total 1340 ml Output Total 900 ml Balance 440 ml Intake Oral 1290 ml IV Total 50 ml Output Urine Total 900 ml # Bowel Movements 3 General: Alert, No Acute Distress HEENT: Atraumatic Neck: Supple, No LAD Lungs: Clear to Auscultation, Normal Air Movement Heart: Regular Rate, Normal S1, Normal S2, No Murmurs, Gallops, Rubs Abdomen: Normal Bowel Sounds, Soft, Other (Slight) Extremities: No Clubbing, No Cyanosis, No Edema, No Tenderness/Swelling (Mild LLQ tenderness) Skin: No Rashes, No Breakdown Neuro: Normal Speech, Normal Tone Psych/Mental Status: Mood NL, Other Results/Procedures Lab Laboratory Tests 06/04/17 13:05: Vancomycin Level Trough 19.7 Assessment/Plan Assessment/Plan Plan Continue to monitor. Will talk to family about the possibility of patient going to a long term facility. Clinical Quality Measures DVT/VTE Risk/Contraindication: Risk Factor Score Per Nursin DIA REID MED STUDENT Jun 05, 2017 10:08
--- NOTE | 2017-06-05 10:13 | Physical Therapy Progress Note ---
Therapy Progress Note Patient has declined PT x 2 this a.m. Patient states, "I just want to sleep and my stomach hurts." PT attempted to encourage patient to participate to avoid possibility of transfer to LTCF, however, patient continued to decline. PT voiced concern to RN and SWB coordinator due to patient's status upon patient actively participate with therapy and ambulate with FWW. From a PT standpoint, patient has declined in the past week. RN reports Dr. Walter has assessed patient this a.m. 1 ref x 2 DEBRA BARAJAS PT Jun 05, 2017 10:13
--- NOTE | 2017-06-05 11:42 | Occ Therapy Progress Note ---
Therapy Progress Note Encouraged pt to participate in OT today. Pt declined sponge bath, changing hospital gown, exercise or using the bathroom. Pt did transfer from recliner to bed with SBA and positioned self in bed. Pt continued to decline to complete any activities with GUZMAN. 1 visit: [id number] MARISA HOWELL Jun 05, 2017 11:42
[2017-06-05 18:00] VITALS: BP 160/68
[2017-06-05] MEDS: ENOXAPARIN 40 MG/0.4 ML (LOVENOX) SYR SC SCH (20:46)
[2017-06-06] MEDS: cefTRIAXone INJECTION 1,000 MG in NS (IVPB) 50 ML IV SCH (02:15)
[2017-06-06 06:25] VITALS: BP 151/72
--- NOTE | 2017-06-06 09:55 | Physical Therapy Progress Note ---
Therapy Progress Note STRUCTURAL STEEL WORKER HELPER arrives for tx at 940 & bed is asleep in bed. Pt refuses tx this morning. Per Nurse, pt has been walking with family. 1, no tx rendered CARLO ROSARIO STRUCTURAL STEEL WORKER HELPER Jun 06, 2017 09:55
[2017-06-06 18:00] VITALS: BP 141/63
[2017-06-06] MEDS: ENOXAPARIN 40 MG/0.4 ML (LOVENOX) SYR SC SCH (20:01)
[2017-06-07] MEDS: cefTRIAXone INJECTION 1,000 MG in NS (IVPB) 50 ML IV SCH (02:23)
[2017-06-07 05:34] VITALS: BP 155/73
[2017-06-07] MEDS: VANCOMYCIN 1 GM/NS 250 ML IVPB IV SCH ×2 (09:54)
[2017-06-07 17:52] VITALS: BP 139/63
[2017-06-07] MEDS: ENOXAPARIN 40 MG/0.4 ML (LOVENOX) SYR SC SCH (20:19)
[2017-06-08] MEDS: cefTRIAXone INJECTION 1,000 MG in NS (IVPB) 50 ML IV SCH (02:07)
[2017-06-08 06:27] VITALS: BP 161/75
--- NOTE | 2017-06-08 10:50 | Physical Therapy Daily Note ---
PT Daily Note-Current Subjective Patient is alert and agreeable to participate with PT. Pain Numeric Pain Scale: 0-No Pain Location: No Pain Reported Mental Status Patient Orientation: Normal For Age Transfers Functional [place] Measure 0=Not Assessed/NA 4=Minimal Assistance 1=Total Assistance 5=Supervision or Setup 2=Maximal Assistance 6=Modified [place] 3=Moderate Assistance 7=Complete IndependenceIRFPAI Quality Coding Scale 6 Independent with activity with or without an assistive device 5 Patient requires set up or clean up by helper. Patient completes activity by themselves 4 Supervision or touching assist (CGA). [place] provide cues , steadying assist 3 The helper provides less than half the effort to complete the activity 2 The helper provides more than half the effort to complete the activity 1 Dependent. The helper does all the effort to complete an activity 7 Patient refused to complete or attempt activity 9 The patient did not perform the activity before the current illness or injury 88 Not attempted due to Medical conditions or safety concerns Transfers (B, C, W/C) (FIM): 6 Scootin Roll Left to Right (QC): 6 Supine to/from Sit: 6 Sit to/from Stand: 6 Sit to Lying (QC): 6 Sit to Stand (QC): 6 Chair/Tzt-cw-Jkemo Xfer(QC): 6 Bed to/from Chair: 6 Weight Bearing Right Lower Extremity: Right Full Weight Bearing Left Lower Extremity: Left Full Weight Bearing Gait Training Does the Patient Walk?: Yes Gait (FIM): 6 Distance (FIM): 3=150 ft Distance: >800' Walk 50 ft with 2 Turns(QC): 6 Walk 150 ft (QC): 6 Gait Level of Assist: 6 Gait Assistive Device: FWW safe and functional Assessment Patient is alert and functional on this date. Patient as attained all functional goals and will dismiss to home on this date. Upon initial evaluation , patient required CGA to SBA for safety with all gross motor skills, and is currently at [facility] with all gross motor skills safely. PT Informal Waiter/Waitress Goals Long-Term Goals PT Informal Waiter/Waitress Goals Time Frame: Jun 10, 2017 Transfers (B,C,W/C) (FIM): 6 (met 06/08/17) Sit to Lying (QC): 6 (met 06/08/17) Lying-Sitting on Side/Bed(QC): 6 (met 06/08/17) Sit to Stand (QC): 6 (met 06/08/17) Rollin (met 06/08/17) Chair/Jzo-ky-Shqiy Xfer(QC): 6 (met 06/08/17) Does the Patient Walk: Yes Gait (FIM): 6 (met 06/08/17) Gait distance (FIM): 3=150 ft Distance: 500 Walk 50ft with 2 Turns (QC): 6 (met 06/08/17) Walk 150 ft (QC): 6 (met 06/08/17) Gait Level of Assist: 6 (met 06/08/17) Gait Assistive Device: FWW PT Plan Treatment/Plan Treatment Plan: Discontinue PT, goals met Treatment Plan: Gait, Safety Treatment Duration: Jun 10, 2017 Frequency: 5 times per week Estimated Hrs Per Day: .25 hour per day Patient and/or Family Agrees t: Yes Time/GCodes Time In: 1028 Time Out: 1043 Total Billed Treatment Time: 15 Total Billed Treatment 1 visit FA 15 min DEBRA BARAJAS PT Jun 08, 2017 10:50
--- NOTE | 2017-06-08 10:50 | Therapy Team Discharge Summary ---
Therapy Discharge Summary Discharge Recommendations Date of Discharge Physical Therapy Patient is alert and functional on this date. Patient as attained all functional goals and will dismiss to home on this date. Upon initial evaluation , patient required CGA to SBA for safety with all gross motor skills, and is currently at [facility] with all gross motor skills safely. Occupational Therapy Decreased Activ Tolerance, Decreased UE Strength, Dependent Transfers, Impaired Self-Care Skills PT System Software Programmer Goals Fdc Goals PT Fdc Goals Time Frame: Jun 10, 2017 Transfers (B,C,W/C) (FIM): 6 (met 06/08/17) Sit to Lying (QC): 6 (met 06/08/17) Lying-Sitting on Side/Bed(QC): 6 (met 06/08/17) Sit to Stand (QC): 6 (met 06/08/17) Rollin (met 06/08/17) Chair/Ynn-uf-Ppyqd Xfer(QC): 6 (met 06/08/17) Does the Patient Walk: Yes Gait (FIM): 6 (met 06/08/17) Gait distance (FIM): 3=150 ft Distance: 500 Walk 50ft with 2 Turns (QC): 6 (met 06/08/17) Walk 150 ft (QC): 6 (met 06/08/17) Gait Level of Assist: 6 (met 06/08/17) Gait Assistive Device: FWW OT System Software Programmer Goals Fdc Goals Time Frame: Jun 17, 2017 Eating (FIM): 6 Eating (QC): 6 Groomin Oral Hygiene (QC): 6 Bathing(FIM): 5 Upper Body Dressing(FIM): 6 Lower Body Dressing(FIM): 6 Toileting(FIM): 6 Toileting Hygiene (QC): 6 Toilet/Commode Transfer(FIM): 6 Toilet/Commode Transfer (QC): 6 Shower Transfer(FIM): 5 Additional Goals: 2-Verbalize Understanding, 3-ImproveStrength/Joan 1=Demonstrate adherence to instructed precautions during ADL tasks. 2=Patient will verbalize/demonstrate understanding of assistive devices/ modifications for ADL. 3=Patient will improve strength/tolerance for activity to enable patient to perform ADL's. DEBRA BARAJAS PT Jun 08, 2017 10:50
--- NOTE | 2017-06-08 14:03 | Discharge Instructions ---
Discharge [facility] Discharge Medications New, Converted or Re-Newed RX: Other (No new scrips) Continued Medications: Ascorbate Calcium (Vitamin C) 500 Mg Tablet 500 MG PO DAILY, TAB Cranberry Conc/C/Bacill Coag (Cranberry Tablet) 1 Each Tablet 1 TAB PO DAILY, TAB Patient Instructions Goal/Follow Up Appt: You will be called with an appt Activity & Diet Discharge Diet: No Restrictions [facility] HO[facility] R MD Jun 08, 2017 14:00
--- NOTE | 2017-06-09 13:45 | Therapy Team Discharge Summary ---
Therapy Discharge Summary Discharge Recommendations Date of Discharge Jun 08, 2017 at 14:17 Occupational Therapy Pt admitted to [facility] following acute hospitalization for septic shock with UTI. On admission pt required setup/supervision for eating, grooming, LE dressing, and toilet transfer. Pt was seen for evaluation, but declined therapy in future attempts so LTG were not met. Pt discharged home and will be discharged from [facility] OT at this time. Decreased Activ Tolerance, Decreased UE Strength, Dependent Transfers, Impaired Self-Care Skills PT Prison Goals Prison Goals PT Prison Goals Time Frame: Jun 10, 2017 Transfers (B,C,W/C) (FIM): 6 (met 06/08/17) Sit to Lying (QC): 6 (met 06/08/17) Lying-Sitting on Side/Bed(QC): 6 (met 06/08/17) Sit to Stand (QC): 6 (met 06/08/17) Rollin (met 06/08/17) Chair/Mrp-rs-Bipmg Xfer(QC): 6 (met 06/08/17) Does the Patient Walk: Yes Gait (FIM): 6 (met 06/08/17) Gait distance (FIM): 3=150 ft Distance: 500 Walk 50ft with 2 Turns (QC): 6 (met 06/08/17) Walk 150 ft (QC): 6 (met 06/08/17) Gait Level of Assist: 6 (met 06/08/17) Gait Assistive Device: FWW OT Crusher Setter Goals Prison Goals Time Frame: Jun 17, 2017 Eating (FIM): 6 Eating (QC): 6 Groomin Oral Hygiene (QC): 6 Bathing(FIM): 5 Upper Body Dressing(FIM): 6 Lower Body Dressing(FIM): 6 Toileting(FIM): 6 Toileting Hygiene (QC): 6 Toilet/Commode Transfer(FIM): 6 Toilet/Commode Transfer (QC): 6 Shower Transfer(FIM): 5 Additional Goals: 2-Verbalize Understanding, 3-ImproveStrength/Joan 1=Demonstrate adherence to instructed precautions during ADL tasks. 2=Patient will verbalize/demonstrate understanding of assistive devices/ modifications for ADL. 3=Patient will improve strength/tolerance for activity to enable patient to perform ADL's. [place] SKY OT Jun 09, 2017 13:45
== END 2017-06-08 14:17 | disposition home or self-care (01) | DRG 872 ==
LOC: 4TH 06-03 11:39
PROVIDERS: ADMIT Pediatrics; ATTEND Pediatrics
DX: A41.1 Sepsis due to other specified staphylococcus (principal); A41.51 Sepsis due to Escherichia coli [E. coli]; N39.0 Urinary tract infection, site not specified; E87.2 Acidosis; E86.0 Dehydration; R11.2 Nausea with vomiting, unspecified; J44.9 Chronic obstructive pulmonary disease, unspecified; J30.2 Other seasonal allergic rhinitis; E78.00 Pure hypercholesterolemia, unspecified; K44.9 Diaphragmatic hernia without obstruction or gangrene; K76.0 Fatty (change of) liver, not elsewhere classified; M19.91 Primary osteoarthritis, unspecified site; F41.9 Anxiety disorder, unspecified; F17.210 Nicotine dependence, cigarettes, uncomplicated; E27.9 Disorder of adrenal gland, unspecified
CPT/HCPCS: 36415; 80202; 94760

== ENCOUNTER 2017-11-04 09:48 | Observation (INO) | payer MEDICARE, MEDICAID ==
[~2017-11-04] VITALS: Ht 162.6 cm; Wt 56.5 kg
[~2017-11-04 09:48] MED LIST changes: -IPRA3AMP INH; +IPRA3AMP31 INH
--- OUTSIDE RECORDS SUMMARY | 2017-11-04 09:53 | XMS REPORT ---
Author Author SOLITARIO MEGHANA [facility] Address [address] [place] [address] Care Team Providers Care Assistant District Attorney Name Role Phone MEGHANA JEREZ Unavailable PROBLEMS Type Condition ICD9-CM Code [id number] Code Onset Dates Condition Status SNOMED Code Problem Primary insomnia F51.01 Active 9804540 Problem Dysthymia F34.1 Active 28137279 Problem Frequent UTI N39.0 Active 496352301 Problem Anxiety F41.9 Active 71197110 ALLERGIES No Information ENCOUNTERS Encounter Location Date Diagnosis [place] [id number] [address] Oct, Primary insomnia F51.01 [facility] [address] [address] August, [facility] [address] [address] August, Nausea R11.0 [facility] [address] [place] [id number] [place] [address] August, Nausea R11.0 [facility] [address] [address] August, Frequent UTI N39.0 [facility] [address] [address] August, COPD with acute exacerbation J44.1 [facility] [address] [address] Jun, [facility] [address] [place] [id number] [place] [address] Jun, Anxiety F41.9 ; Primary insomnia F51.01 ; Dysthymia F34.1 and Frequent UTI N39.0 [facility] [id number] [place] [address] 15 Jun, 2017 Acute cystitis without hematuria N30.00 [facility] [id number] [place] [address] 14 Jun, 2017 [facility] [address] [place] [id number] [place] [address] 14 Jun, 2017 Chills (without fever) R68.83 [facility] [address] [place] [id number] [place] [address] Jun, Hospital discharge follow-up Z09 and Acute cystitis with hematuria N30.01 [facility] [address] [place] [id number] [place] [address] 28 May, 2017 [facility] [address] [place] [id number] [place] [address] 23 May, 2017 UTI (urinary tract infection) N39.0 [facility] [id number] [place] [address] 20 May, 2017 UTI (urinary tract infection) N39.0 [facility] [address] [place] [id number] [place] [id number] 13 May, 2017 [facility] [id number] [place] [address] 02 May, 2017 Intractable vomiting with nausea, unspecified vomiting type R11.2 [facility] [id number] [place] [address] Apr, [facility] [address] [place] [id number] [place] [address] Jan, [facility] [id number] [place] [address] Jan, History of UTI Z87.440 [facility] [address] [place] [id number] [place] [address] August, Anxiety F41.9 [facility] [address] [place] [id number] [place] [address] August, Anxiety F41.9 [facility] [address] [address] Jun, [facility] [address] [address] Jun, Hypercholesteremia E78.0 ; Anxiety F41.9 ; Wellness examination Z00.00 and Acute cystitis without hematuria N30.00 [place] [address] [address] August, Urinary tract infection, site not specified N39.0 and Anxiety F41.9 [facility] [address] [address] August, [facility] [address] [address] Jul, Chills (without fever) R68.83 ; Chest pain R07.9 and Nausea R11.0 [place] [address] [address] May, [facility] [address] [place] [id number] [place] [address] Apr, [facility] [address] [address] Mar, [facility] [address] [address] Feb, [facility] [address] [address] Feb, Anxiety F41.9 ; Hypercholesterolemia E78.0 and Postnasal drip R09.82 [facility] [address] [address] Dec, [facility] [address] [facility] [id number] [place] [address] 14 Dec, 2014 [facility] [address] [facility] [id number] [address] 10 Dec, 2014 Routine general medical examination at a health care facility V70.0 and Anxiety 300.00 IMMUNIZATIONS No Known Immunizations SOCIAL HISTORY Never Assessed REASON FOR VISIT lab results PLAN OF CARE VITAL SIGNS MEDICATIONS Medication Instructions Dosage Frequency Start Date End Date Duration Status Cipro 500 mg Orally twice a day 1 tablet 12h 28 May, 2017 Jun, 07 days Active RESULTS No Results PROCEDURES No Known procedures INSTRUCTIONS MEDICATIONS ADMINISTERED No Known Medications MEDICAL (GENERAL) HISTORY Type Description Date Medical History mild nerves Medical History Arthritis Medical History Insomnia Medical History Frequent UTI Medical History Right eye hemorrhage- receiving injections 10/2017 Medical History COPD Surgical History appendectomy Surgical History tubal ligation Surgical History section x2 Hospitalization History surgeries Hospitalization History UTI/Sepsis 01/2017 Hospitalization History Sepsis, UTI-[facility] 06/03/17
--- OUTSIDE RECORDS SUMMARY | 2017-11-04 09:54 | XMS REPORT ---
Author Author SENIA HUSSEIN [facility] eClinicalWorks Address Unknown Phone Unavailable Care Team Providers Care Supervisor Sewing Department Name Role Phone SENIA HUSSEIN CP Unavailable Allergies, Adverse Reactions, Alerts Substance Reaction Event Type N.K.D.A. Info Not Available Non Drug Allergy Problems Problem Type Condition Code Onset Dates Condition Status Assessment Postnasal drip R09.82 Active Problem Hypercholesterolemia E78.0 Active Problem Postnasal drip R09.82 Active Problem Anxiety F41.9 Active Assessment Anxiety F41.9 Active Assessment Hypercholesterolemia E78.0 Active Problem Routine general medical examination at a health care facility V70.0 Active Problem Anxiety 300.00 Active Medications Medication Code System Code Instructions Start Date End Date Status Dosage Xanax [facility] [address]-25 0.25 MG Orally 2 times a day Jan 04, 2015 1 tablet PredniSONE [facility] [address]-47 10 MG Orally Twice a day Mar 08, 2015Feb 1 tablet with food or milk Flax Seed Oil [facility] 35520-97888 1000 MG Orally not defined Procedures Procedure Coding System Code Date Office Visit, Est Pt., Level 4 CPT-4 10179 Mar 08, 2015 [facility] VIS[facility] ESTABLISHED PATIENT CPT-4 G0467 Mar 08, 2015 Vital Signs Date/Time: Mar 08, 2015 Temperature 98.2 F Weight 126.8 lbs Height 62 in BMI 23.19 Index Blood Pressure Diastolic 76 mmHg Blood Pressure Systolic 132 mmHg Cardiac Monitoring Heart Rate 96 bpm Results No Known Results Summary Purpose eClinicalWorks Submission
--- OUTSIDE RECORDS SUMMARY | 2017-11-04 09:54 | XMS REPORT ---
Author Author SENIA HUSSEIN Organization e[employer] Address Unknown Phone Unavailable Care Team Providers Care Advanced Solutions Architect Name Role Phone SENIA HUSSEIN CP Unavailable Allergies, Adverse Reactions, Alerts Substance Reaction Event Type N.K.D.A. Info Not Available Non Drug Allergy Problems Problem Type Condition ICD-9 Code Onset Dates Condition Status Problem Anxiety 300.00 Active Assessment Routine general medical examination at a health care facility V70.0 Active Problem Routine general medical examination at a health care facility V70.0 Active Assessment Anxiety 300.00 Active Medications Medication Code System Code Instructions Start Date End [place] D[place] [address]-87 0.25 MG Orally PRN 1 tablet Xanax NDC [address]-67 0.25 MG Orally 2 times a day Jan 04, 2015 1 tablet Procedures Procedure Coding System Code Date URINALYSIS, AUTO, W/O SCOPE CPT-4 37081 Jan 04, 2015 [facility] VISIT NEW PATIENT CPT-4 G0466 Jan 04, 2015 [facility] NO[facility] Jan 04, 2015 VENIPUNCT, ROUTINE* CPT-4 73420 Jan 04, 2015 Office Visit, New Pt., Level 4 CPT-4 61503 Jan 04, 2015 Vital Signs Date/Time: Jan 04, 2015 Temperature 97.9 F Weight 121.5 lbs Height 62 in BMI 22.22 Index Blood Pressure Diastolic 70 mmHg Blood Pressure Systolic 132 mmHg Cardiac Monitoring Heart Rate 100 bpm Results Name Result Date Reference Range Unit Abnormality Flag UA LONG DIP (IN HOUSE) Summary Purpose eClinicalWorks Submission
--- OUTSIDE RECORDS SUMMARY | 2017-11-04 09:54 | XMS REPORT ---
Author Author RAVI GOVEA Organization [facility] Address [address] [place] [address] Care Team Providers Care Handling Tech Name Role Phone RAVI GOVEA Unavailable PROBLEMS Type Condition ICD9-CM Code MOQ25-UW Code Onset Dates Condition Status SNOMED Code Problem Anxiety F41.9 Active 03615275 Problem Pure hypercholesterolemia E78.00 Active 590379324 Problem COPD with acute exacerbation J44.1 Active 022034997 Problem Primary insomnia F51.01 Active 1190469 Problem Wellness examination Z00.00 Active 134350216 Problem Postnasal drip R09.82 Active 29316112 Problem Dysthymia F34.1 Active 73005501 Problem Frequent UTI N39.0 Active 101514397 ALLERGIES No Known Allergies ENCOUNTERS Encounter Location Date Diagnosis [facility] [id number] [place] [address] 57892- 9677 August, [facility] [id number] [place] [address] 08159- 7689 August, Nausea R11.0 [facility] [id number] [place] [address] 55295- 2541 August, Nausea R11.0 [facility] [id number] [place] [address] 76914- 4810 August, Frequent UTI N39.0 [facility] [id number] [place] [address] 49928- 7004 August, COPD with acute exacerbation J44.1 [facility] [id number] [place] [address] 54314- 4261 Jun, [facility] [id number] [place] [address] 84315- 3220 Jun, Anxiety F41.9 ; Primary insomnia F51.01 ; Dysthymia F34.1 and Frequent UTI N39.0 [facility] [address] [place] [address] 64789- 1316 15 Jun, 2017 Acute cystitis without hematuria N30.00 [facility] [id number] [place] [address] 31426- 7952 14 Jun, 2017 [facility] [address] 31228- 8534 Jun, Chills (without fever) R68.83 [facility] [id number] [place] [address] 48086- 3664 Jun, Hospital discharge follow-up Z09 and Acute cystitis with hematuria N30.01 [facility] [id number] [place] [address] 47096- 3915 May, [facility] [id number] [place] [address] 30181- 9156 May, UTI (urinary tract infection) N39.0 [facility] [id number] [place] [address] 38282- 1462 May, UTI (urinary tract infection) N39.0 [facility] [id number] [place] [address] [phone] 13 May, 2017 [facility] [address] [place] [address] 69684 -7889 May, Intractable vomiting with nausea, unspecified vomiting type R11.2 [facility] [address] [place] [address] 88772- 0977 Apr, [facility] [id number] [place] [address] 32955- 7846 Jan, [facility] [address] [place] [address] 19990- 6950 Jan, History of UTI Z87.440 [facility] [id number] [place] [address] 29809- 9674 August, Anxiety F41.9 [facility] [address] 25432- 0094 August, Anxiety F41.9 [facility] [address] 45020- 3529 Jun, [facility] [address] 54952- 1925 Jun, Hypercholesteremia E78.0 ; Anxiety F41.9 ; Wellness examination Z00.00 and Acute cystitis without hematuria N30.00 [facility] [address] 13743- 4104 August, Urinary tract infection, site not specified N39.0 and Anxiety F41.9 [facility] [address] 47220- 6461 August, [facility] [address] 68320- 8854 Jul, Chills (without fever) R68.83 ; Chest pain R07.9 and Nausea R11.0 [facility] [address] 96037- 5632 11 May, 2015 [facility] [address] 14975- 8576 Apr, [facility] [address] 45983- 8408 Mar, [facility] [address] 67810- 9934 Feb, [facility] [address] 45556- 5904 12 Feb, 2015 Anxiety F41.9 ; Hypercholesterolemia E78.0 and Postnasal drip R09.82 [facility] [facility] [address] 86272- 9386 Dec, [facility] [address] [facility] [id number] [place] [address]- 4465 14 Dec, 2014 [facility] [address] [facility] [id number] [address] 8339 10 Dec, 2014 Routine general medical examination at a health care facility V70.0 and Anxiety 300.00 IMMUNIZATIONS No Known Immunizations SOCIAL HISTORY Never Assessed REASON FOR VISIT [facility] follow up- son states pt fell last week, and again yesterday- Benji [facility] PLAN OF CARE Activity Details Follow Up prn Reason: VITAL SIGNS Height 62 in 2017-02-10 Weight 120 lbs 2017-02-10 Temperature 98.0 degrees Fahrenheit 2017-02-10 Heart Rate 90 bpm 2017-02-10 Respiratory Rate 18 2017-02-10 BMI 21.95 kg/m2 2017-02-10 Blood pressure systolic 112 mmHg 2017-02-10 Blood pressure diastolic 72 mmHg 2017-02-10 MEDICATIONS Medication Instructions Dosage Frequency Start Date End Date Duration Status Fish Oil 1000 MG Orally twice a day 1 capsule 12h Jun, 30 day(s ) Active Flax Seed Oil 1000 MG Active RESULTS Name Result Date Reference Range UA LONG DIP (IN HOUSE) Lot # [id number] Exp date 12/25/2017 Clarity Clear Color yellow Odor no GLU Negative GRACY negative KET Negative SG 1.020 BLO Negative pH 6.0 Protein Negative URO 0.2 NIT Negative MELISSA Negative Lot # Exp date PROCEDURES Procedure Date Ordered Result Body Site URINALYSIS, AUTO, W/O SCOPE Feb 10, 2017 [facility] VISIT ESTABLISHED PATIENT Feb 10, 2017 INSTRUCTIONS MEDICATIONS ADMINISTERED No Known Medications MEDICAL (GENERAL) HISTORY Type Description Date Medical History mild nerves Medical History Arthritis Surgical History appendectomy Surgical History tubal ligation Surgical History section x2 Hospitalization History surgeries Hospitalization History UTI/Sepsis 01/2017 Hospitalization History Sepsis, U[facility] 06/03/17
--- OUTSIDE RECORDS SUMMARY | 2017-11-04 09:54 | XMS REPORT ---
Author Author SOLITARIO MEGHANA [facility] Address [address] [place] [address] Care Team Providers Care Workforce Investment Act Career Manager Name Role Phone MEGHANA JEREZ Unavailable PROBLEMS Type Condition ICD9-CM Code JNX03-IY Code Onset Dates Condition Status SNOMED Code Problem Anxiety F41.9 Active 57092646 Problem Pure hypercholesterolemia E78.00 Active 800312363 Problem COPD with acute exacerbation J44.1 Active 756492967 Problem Primary insomnia F51.01 Active 1879393 Problem Wellness examination Z00.00 Active 180894436 Problem Postnasal drip R09.82 Active 72034120 Problem Dysthymia F34.1 Active 08233647 Problem Frequent UTI N39.0 Active 810992456 ALLERGIES No Information ENCOUNTERS Encounter Location Date Diagnosis [facility] [id number] [place] [address] 90715- 0982 Oct, [facility] [id number] [place] [address] 15087- 3941 August, [facility] [id number] [place] [address] 24433- 4658 August, Nausea R11.0 [facility] [id number] [place] [address] 37694- 6085 August, [address]ause[address]11.0 [facility] [id number] [place] [address] 59736- 6111 August, Frequent UTI N39.0 [facility] [id number] [place] [address] 58627- 5833 August, COPD with acute exacerbation J44.1 [facility] [id number] [place] [address] 76629- 1630 Jun, [facility] [address] [place] [address] 00299- 9542 19 Jun, 2017 Anxiety F41.9 ; Primary insomnia F51.01 ; Dysthymia F34.1 and Frequent UTI N39.0 [facility] [id number] [place] [address] 82492- 4197 15 Jun, 2017 Acute cystitis without hematuria N30.00 [facility] [id number] [place] [address] 65372- 1013 14 Jun, 2017 [place] [id number] [place] [address] 59118- 7029 14 Jun, 2017 Chills (without fever) R68.83 [facility] [id number] [place] [address] 27492- 3915 01 Jun, 2017 Hospital discharge follow-up Z09 and Acute cystitis with hematuria N30.01 [facility] [id number] [place] [address] 30827- 9421 28 May, 2017 [facility] [place] [id number] [place] [address] 31994- 0416 May, UTI (urinary tract infection) N39.0 [facility] [id number] [place] [address] 83017- 1351 20 May, 2017 UTI (urinary tract infection) N39.0 [facility] [id number] [place] [address] [phone] 13 May, 2017 [facility] [address] [place] [address] 47955 -5599 02 May, 2017 Intractable vomiting with nausea, unspecified vomiting type R11.2 [facility] [id number] [place] [address] 08678- 9647 Apr, [facility] [address] [place] [address] 11603- 5326 Jan, [facility] [id number] [place] [address] 97774- 3949 Jan, History of UTI Z87.440 [facility] [facility] [id number] [place] [address] 84753- 7612 August, Anxiety F41.9 [facility] [id number] [place] [address] 23757- 8949 August, Anxiety F41.9 [place] [address] 87971- 7299 Jun, [facility] [id number] [place] [address] 30467- 1052 Jun, Hypercholesteremia E78.0 ; Anxiety F41.9 ; Wellness examination Z00.00 and Acute cystitis without hematuria N30.00 [facility] [facility] [id number] [place] [address] 05690- 7048 August, Urinary tract infection, site not specified N39.0 and Anxiety F41.9 [place] [id number] [place] [address] 42463- 5581 August, [facility] [facility] [address] 49705- 1360 Jul, Chills (without fever) R68.83 ; Chest pain R07.9 and Nausea R11.0 [facility] [id number] [place] [address] 56492- 6467 May, [facility] [id number] [place] [address] 01778- 9838 Apr, [facility] [id number] [place] [address] 66559- 9976 Mar, [facility] [address] 29052- 6996 Feb, [facility] [place] [id number] [place] [address] 61671- 2702 Feb, Anxiety F41.9 ; Hypercholesterolemia E78.0 and Postnasal drip R09.82 [facility] [address] [facility] [id number] [place] [address]- 4358 [address] Dec, 2014 [facility] [address] [facility] [id number] [address]- 3535 14 Dec, 2014 [facility] [address] [facility] [id number] [address]- 0259 10 Dec, 2014 Routine general medical examination at a health care facility V70.0 and Anxiety 300.00 IMMUNIZATIONS No Known Immunizations SOCIAL HISTORY Never Assessed REASON FOR VISIT Lab (walk-in) specimen drop off - urine. [facility] PLAN OF CARE VITAL SIGNS MEDICATIONS Unknown Medications RESULTS No Results PROCEDURES Procedure Date Ordered Result Body Site LAB NOT BILLED BY [facility] Jun 19, 2017 INSTRUCTIONS MEDICATIONS ADMINISTERED No Known Medications MEDICAL (GENERAL) HISTORY Type Description Date Medical History mild nerves Medical History Arthritis Surgical History appendectomy Surgical History tubal ligation Surgical History section x2 Hospitalization History surgeries Hospitalization History UTI/Sepsis 01/2017 Hospitalization History Sepsis, U[facility] 06/03/17
--- OUTSIDE RECORDS SUMMARY | 2017-11-04 09:54 | XMS REPORT ---
Author Author EMIL GARCÍA [facility] Address [address] [place] [address] Care Team Providers Care Voice Intercept Technician Name Role Phone EMIL GARCÍA Unavailable PROBLEMS Type Condition ICD9-CM Code OEM21-TI Code Onset Dates Condition Status SNOMED Code Problem Anxiety F41.9 Active 88295735 Problem Pure hypercholesterolemia E78.00 Active 411837842 Problem COPD with acute exacerbation J44.1 Active 827287174 Problem Primary insomnia F51.01 Active 5921395 Problem Wellness examination Z00.00 Active 867443119 Problem Postnasal drip R09.82 Active 92831716 Problem Dysthymia F34.1 Active 78868065 Problem Frequent UTI N39.0 Active 060287862 ALLERGIES No Information ENCOUNTERS Encounter Location Date Diagnosis [facility] [id number] [place] [address] 54218- 8244 Oct, [facility] [id number] [place] [address] 60347- 0067 August, [facility] [id number] [place] [address] 51938- 7734 August, Nausea R11.0 [facility] [id number] [place] [address] 08263- 8528 August, Nausea R11.0 [facility] [id number] [place] [address] 07264- 9343 August, Frequent UTI N39.0 [facility] [id number] [place] [address] 36073- 8814 August, COPD with acute exacerbation J44.1 [facility] [id number] [place] [address] 87560- 4062 Jun, [facility] [id number] [place] [address] 37494- 1890 19 Jun, 2017 Anxiety F41.9 ; Primary insomnia F51.01 ; Dysthymia F34.1 and Frequent UTI N39.0 [facility] [id number] [place] [address] 74094- 8084 15 Jun, 2017 Acute cystitis without hematuria N30.00 [place] [address] 22849- 8195 14 Jun, 2017 [place] [address] 97764- 4393 14 Jun, 2017 Chills (without fever) R68.83 [facility] [place] [id number] [place] [address] 96785- 6915 Jun, Hospital discharge follow-up Z09 and Acute cystitis with hematuria N30.01 [facility] [place] [id number] [place] [address] 53281- 5596 28 May, 2017 [place] [address] 80587- 5196 23 May, 2017 UTI (urinary tract infection) N39.0 [facility] [id number] [place] [address] 97573- 9416 20 May, 2017 UTI (urinary tract infection) N39.0 [facility] [address] [phone] 13 May, 2017 [facility] [id number] [place] [address] 91242 -7304 02 May, 2017 Intractable vomiting with nausea, unspecified vomiting type R11.2 [place] [id number] [place] [address] 39459- 4637 Apr, [facility] [id number] [place] [address] 57191- 2001 Jan, [facility] [address] 45768- 8590 Jan, History of UTI Z87.440 [place] [id number] [place] [address] 25474- 5359 August, Anxiety F41.9 [place] [place] [id number] [place] [address] 61988- 4930 August, Anxiety F41.9 [place] [address] 68862- 2104 Jun, [place] [address] 52249- 8874 Jun, Hypercholesteremia E78.0 ; Anxiety F41.9 ; Wellness examination Z00.00 and Acute cystitis without hematuria N30.00 [place] [id number] [place] [address] 49915- 0469 August, Urinary tract infection, site not specified N39.0 and Anxiety F41.9 [place] [address] 27192- 7481 August, [place] [address] 46120- 8048 Jul, Chills (without fever) R68.83 ; Chest pain R07.9 and Nausea R11.0 [facility] [place] [id number] [place] [address] 12179- 2445 May, [facility] [place] [id number] [place] [address] 53865- 6770 Apr, [facility] [place] [id number] [place] [address] 47040- 8940 Mar, [place] [address] 41326- 6220 Feb, [place] [id number] [place] [address] 41728- 3559 Feb, Anxiety F41.9 ; Hypercholesterolemia E78.0 and Postnasal drip R09.82 [facility] [address] [facility] [id number] [address]- 0820 Dec, [facility] [address] [facility] [id number] [address]- 6114 14 Dec, 2014 [facility] [address] [facility] [id number] [address]- 2652 Dec, Routine general medical examination at a health care facility V70.0 and Anxiety 300.00 IMMUNIZATIONS No Known Immunizations SOCIAL HISTORY Never Assessed REASON FOR VISIT Hospital admit/DC PLAN OF CARE VITAL SIGNS MEDICATIONS Medication Instructions Dosage Frequency Start Date End Date Duration Status Fish Oil 1000 MG Orally twice a day 1 capsule 12h Jun, 30 day(s ) Not-Taking Flax Seed Oil 1000 MG Not-Taking Xanax 0.25 MG Orally 2 times a day 1 tablet 12h Dec, 28 Not- Taking Vitamin C 500 mg Orally Once a day 1 tablet 24h Active Cranberry 405 MG Active RESULTS No Results PROCEDURES No Known procedures INSTRUCTIONS MEDICATIONS ADMINISTERED No Known Medications MEDICAL (GENERAL) HISTORY Type Description Date Medical History mild nerves Medical History Arthritis Surgical History appendectomy Surgical History tubal ligation Surgical History section x2 Hospitalization History surgeries Hospitalization History UTI/Sepsis 01/2017 Hospitalization History Sepsis, [facility] 06/03/17
--- OUTSIDE RECORDS SUMMARY | 2017-11-04 09:54 | XMS REPORT ---
Author Author LUIS SPANGLER Organization [employer] Address Unknown Phone Unavailable Care Team Providers Care Inspector Fuel Hose Name Role Phone LUIS SPANGLER CP Unavailable Allergies No Known Allergies Problems Problem Type Condition Code Onset Dates Condition Status Problem Postnasal drip R09.82 Active Problem Routine general medical examination at a health care facility V70.0 Active Problem Anxiety F41.9 Active Problem Anxiety 300.00 Active Problem Hypercholesteremia E78.0 Active Medications Medication Code System Code Instructions Start Date End Date Status Dosage Xanax [facility] [address]-13 0.25 MG Orally 2 times a day Jan 04, 2015 1 tablet Results No Known Results Summary Purpose [employer] Submission
--- OUTSIDE RECORDS SUMMARY | 2017-11-04 09:54 | XMS REPORT ---
Author Author SENIA HUSSEIN Organization [facility] Address [address] [place] [address] Care Team Providers Care Optical Designer Name Role Phone SENIA HUSSEIN Unavailable PROBLEMS Type Condition ICD9-CM Code HUR90-WG Code Onset Dates Condition Status SNOMED Code Problem Wellness examination Z00.00 Active 381652972 Problem Postnasal drip R09.82 Active 83133965 Problem Anxiety F41.9 Active 75296416 Problem Pure hypercholesterolemia E78.00 Active 917957182 ALLERGIES No Information SOCIAL HISTORY Never Assessed PLAN OF CARE VITAL SIGNS MEDICATIONS Medication Instructions Dosage Frequency Start Date End Date Duration Status Xanax 0.25 MG Orally 2 times a day 1 tablet 12h 10 Dec, 2014 28 Active RESULTS No Results PROCEDURES No Known procedures IMMUNIZATIONS No Known Immunizations MEDICAL (GENERAL) HISTORY Type Description Date Medical History mild nerves Medical History Arthritis Surgical History appendectomy Surgical History tubal ligation Surgical History section x2 Hospitalization History surgeries
--- OUTSIDE RECORDS SUMMARY | 2017-11-04 09:54 | XMS REPORT ---
Author Author SENIA HUSSEIN [facility] [employer] Address Unknown Phone Unavailable Care Team Providers Care Tire Repairman Name Role Phone SENIA HUSSEIN CP Unavailable Allergies, Adverse Reactions, Alerts Substance Reaction Event Type N.K.D.A. Info Not Available Non Drug Allergy Problems Problem Type Condition Code Onset Dates Condition Status Assessment Nausea R11.0 Active Problem Postnasal drip R09.82 Active Problem Routine general medical examination at a health care facility V70.0 Active Problem Anxiety F41.9 Active Assessment Chills (without fever) R68.83 Active Assessment Chest pain R07.9 Active Problem Anxiety 300.00 Active Problem Hypercholesteremia E78.0 Active Medications Medication Code System Code Instructions Start Date End Date Status Dosage Ondansetron HCl [facility] [address]-21 4 MG Orally 3 times a day August 23, 2015 2 tablets Flax Seed Oil [facility] 2[address]-44446 1000 MG Orally not defined Cipro [facility] [address]-55 500 MG Orally Twice a day August 23, 2015 August 28, 2015 1 tablet Procedures Procedure Coding System Code Date ELECTROCARDIOGRAM, TRACING CPT-4 70638 August 23, 2015 CHEST X-RAY CPT-4 35211 August 23, 2015 INFLUENZA ASSAY W/OPTIC CPT-4 08311 August 23, 2015 Office Visit, Est Pt., Level 4 CPT-4 66725 August 23, 2015 [facility] VISIT ESTABLISHED PATIENT CPT-4 G0467 August 23, 2015 X-RAY EXAM OF ABDOMEN CPT-4 34204 August 23, 2015 URINALYSIS, AUTO, W/O SCOPE CPT-4 61434 August 23, 2015 THER/PROPH/DIAG INJ, SC/IM CPT-4 88703 August 23, 2015 ZOFRAN (IM) 2 MG/ML (PER 1 MG) 40 MG/20 ML CPT-4 J2405 August 23, 2015 Vital Signs Date/Time: August 23, 2015 Cardiac Monitoring Heart Rate 104 bpm Temperature 98.1 F Height 62 in Blood Pressure Diastolic 70 mmHg Blood Pressure Systolic 130 mmHg Results Name Result Date Reference Range Unit Abnormality Flag EKG, TRACING (IN-HOUSE) Summary Purpose [employer] Submission
--- OUTSIDE RECORDS SUMMARY | 2017-11-04 09:54 | XMS REPORT ---
Author Author SOLITARIO MEGHANA [facility] Address [address] [place] [address] Care Team Providers Care Senior Business Broker Name Role Phone MEGHANA JEREZ Unavailable PROBLEMS Type Condition ICD9-CM Code GMI00-JG Code Onset Dates Condition Status SNOMED Code Problem Anxiety F41.9 Active 14760680 Problem Pure hypercholesterolemia E78.00 Active 313528628 Problem COPD with acute exacerbation J44.1 Active 521237236 Problem Primary insomnia F51.01 Active 9852442 Problem Wellness examination Z00.00 Active 188929402 Problem Postnasal drip R09.82 Active 56720963 Problem Dysthymia F34.1 Active 29350892 Problem Frequent UTI N39.0 Active 222880915 ALLERGIES No Information ENCOUNTERS Encounter Location Date Diagnosis [facility] [place] [id number] [place] [address] 92490- 3316 Oct, [facility] [place] [id number] [place] [address] 78862- 3369 August, [facility] [place] [id number] [place] [address] 44587- 6061 August, Nausea R11.0 [facility] [place] [id number] [place] [address] 40388- 9672 August, Nausea R11.0 [facility] [place] [id number] [place] [address] 05679- 5656 August, Frequent UTI N39.0 [facility] [place] [id number] [place] [address] 23867- 7851 August, COPD with acute exacerbation J44.1 [facility] [place] [id number] [place] [address] 40568- 0131 Jun, [facility] [place] [address] [place] [address] 46809- 8940 19 Jun, 2017 Anxiety F41.9 ; Primary insomnia F51.01 ; Dysthymia F34.1 and Frequent UTI N39.0 [facility] [place] [id number] [place] [address] 20056- 6628 15 Jun, 2017 Acute cystitis without hematuria N30.00 [facility] [place] [id number] [place] [address] 42384- 5598 14 Jun, 2017 [place] [id number] [place] [address] 58705- 9272 14 Jun, 2017 Chills (without fever) R68.83 [place] [id number] [place] [address] 98362- 5003 01 Jun, 2017 Hospital discharge follow-up Z09 and Acute cystitis with hematuria N30.01 [place] [id number] [place] [address] 92968- 4827 28 May, 2017 [place] [id number] [place] [address] 63267- 9760 May, UTI (urinary tract infection) N39.0 [place] [id number] [place] [address] 15310- 1363 20 May, 2017 UTI (urinary tract infection) N39.0 [facility] [id number] [place] [address] [id number] 13 May, 2017 [facility] [address] [place] [address] 81924 -6839 02 May, 2017 Intractable vomiting with nausea, unspecified vomiting type R11.2 [place] [id number] [place] [address] 80933- 5018 Apr, [facility] [place] [address] [place] [address] 40826- 5780 Jan, [facility] [place] [id number] [place] [address] 81952- 9771 Jan, History of UTI Z87.440 [place] [id number] [place] [address] 46698- 4751 August, Anxiety F41.9 [facility] [place] [id number] [place] [address] 77413- 5528 August, Anxiety F41.9 [place] [address] 34968- 5706 Jun, [place] [id number] [place] [address] 69199- 9878 Jun, Hypercholesteremia E78.0 ; Anxiety F41.9 ; Wellness examination Z00.00 and Acute cystitis without hematuria N30.00 [place] [id number] [place] [address] 24114- 0120 August, Urinary tract infection, site not specified N39.0 and Anxiety F41.9 [place] [id number] [place] [address] 31269- 1409 August, [place] [address] 22062- 7205 Jul, Chills (without fever) R68.83 ; Chest pain R07.9 and Nausea R11.0 [place] [id number] [place] [address] 29727- 9961 May, [place] [id number] [place] [address] 26652- 2660 Apr, [place] [id number] [place] [address] 90155- 7340 Mar, [place] [address] 86491- 5472 Feb, [place] [id number] [place] [address] 53813- 8749 Feb, Anxiety F41.9 ; Hypercholesterolemia E78.0 and Postnasal drip R09.82 [facility] [place] [address] [facility] [id number] [place] [address]- 2996 Dec, [facility] [place] [address] [facility] [id number] [address]- 0506 14 Dec, 2014 [facility] [place] [address] [facility] [id number] [place] [address]- 5917 10 Dec, 2014 Routine general medical examination at a health care facility V70.0 and Anxiety 300.00 IMMUNIZATIONS No Known Immunizations SOCIAL HISTORY Never Assessed REASON FOR VISIT PLAN OF CARE VITAL SIGNS MEDICATIONS Unknown Medications RESULTS No Results PROCEDURES No Known procedures INSTRUCTIONS MEDICATIONS ADMINISTERED No Known Medications MEDICAL (GENERAL) HISTORY Type Description Date Medical History mild nerves Medical History Arthritis Surgical History appendectomy Surgical History tubal ligation Surgical History section x2 Hospitalization History surgeries Hospitalization History UTI/Sepsis 01/2017 Hospitalization History Sepsis, UTI-[facility] 06/03/17
--- OUTSIDE RECORDS SUMMARY | 2017-11-04 09:54 | XMS REPORT ---
Author Author RAVI GOVEA Organization [facility] Address [address] [place] [address] Care Team Providers Care Other Wood Processing Machine Operator Name Role Phone RAVI GOVEA Unavailable PROBLEMS Type Condition ICD9-CM Code JUD58-AC Code Onset Dates Condition Status SNOMED Code Problem Anxiety F41.9 Active 17751459 Problem Pure hypercholesterolemia E78.00 Active 823574416 Problem COPD with acute exacerbation J44.1 Active 189779353 Problem Primary insomnia F51.01 Active 9490082 Problem Wellness examination Z00.00 Active 104055840 Problem Postnasal drip R09.82 Active 15396226 Problem Dysthymia F34.1 Active 06324142 Problem Frequent UTI N39.0 Active 423399948 ALLERGIES No Information ENCOUNTERS Encounter Location Date Diagnosis [facility] [id number] [place] [address] 96035- 8495 Oct, [facility] [id number] [place] [address] 78207- 8785 August, [facility] [id number] [place] [address] 76539- 9935 August, Nausea R11.0 [facility] [id number] [place] [address] 89643- 1688 August, Nausea R11.0 [facility] [id number] [place] [address] 22179- 5226 August, Frequent UTI N39.0 [facility] [id number] [place] [address] 77882- 6102 August, COPD with acute exacerbation J44.1 [facility] [id number] [place] [address] 65408- 9219 Jun, [facility] [id number] [place] [address] 14806- 7156 19 Jun, 2017 Anxiety F41.9 ; Primary insomnia F51.01 ; Dysthymia F34.1 and Frequent UTI N39.0 [facility] [id number] [place] [address] 44918- 2196 15 Jun, 2017 Acute cystitis without hematuria N30.00 [place] [address] 79363- 7969 14 Jun, 2017 [place] [address] 45669- 2322 14 Jun, 2017 Chills (without fever) R68.83 [place] [id number] [place] [address] 74849- 9267 Jun, Hospital discharge follow-up Z09 and Acute cystitis with hematuria N30.01 [place] [id number] [place] [address] 05499- 2956 28 May, 2017 [place] [address] 98853- 0663 23 May, 2017 UTI (urinary tract infection) N39.0 [place] [id number] [place] [address] 64308- 0501 20 May, 2017 UTI (urinary tract infection) N39.0 [facility] [address] [id number] 13 May, 2017 [facility] [id number] [place] [address] 39025 -6705 02 May, 2017 Intractable vomiting with nausea, unspecified vomiting type R11.2 [place] [id number] [place] [address] 52890- 8766 Apr, [facility] [id number] [place] [address] 85191- 6194 Jan, [facility] [address] 48006- 7434 Jan, History of UTI Z87.440 [place] [id number] [place] [address] 25116- 3355 August, Anxiety F41.9 [place] [id number] [place] [address] 00416- 0422 August, Anxiety F41.9 [place] [address] 03101- 2912 Jun, [place] [address] 67090- 3313 Jun, Hypercholesteremia E78.0 ; Anxiety F41.9 ; Wellness examination Z00.00 and Acute cystitis without hematuria N30.00 [place] [id number] [place] [address] 62093- 7209 August, Urinary tract infection, site not specified N39.0 and Anxiety F41.9 [place] [address] 79000- 8229 August, [place] [address] 43472- 7111 Jul, Chills (without fever) R68.83 ; Chest pain R07.9 and Nausea R11.0 [place] [id number] [place] [address] 95647- 8376 May, [place] [id number] [place] [address] 87328- 4384 Apr, [place] [id number] [place] [address] 07596- 4176 Mar, [place] [address] 78805- 8956 Feb, [place] [id number] [place] [address] 05783- 5104 Feb, Anxiety F41.9 ; Hypercholesterolemia E78.0 and Postnasal drip R09.82 [facility] [address] [facility] [id number] [place] [address]- 0640 Dec, [facility] [address] [facility] [id number] [address]- 4389 Dec, [facility] [address] [facility] [id number] [place] [address]- 1621 10 Dec, 2014 Routine general medical examination at a [facility] care facility V70.0 and Anxiety 300.00 IMMUNIZATIONS No Known Immunizations SOCIAL HISTORY Never Assessed REASON FOR VISIT other PLAN OF CARE VITAL SIGNS MEDICATIONS Unknown [...]
--- OUTSIDE RECORDS SUMMARY | 2017-11-04 09:55 | XMS REPORT ---
Author Author SENIA HUSSENI Organization [facility] Address [address] [place] [address] Care Team Providers Care Finishing Manager Name Role Phone SENIA HUSSEIN Unavailable PROBLEMS Type Condition ICD9-CM Code NHA24-XL Code Onset Dates Condition Status SNOMED Code Problem Wellness examination Z00.00 Active 278335835 Problem Postnasal drip R09.82 Active 26528672 Problem Anxiety F41.9 Active 71954732 Problem Pure hypercholesterolemia E78.00 Active 579785573 ALLERGIES No Known Allergies SOCIAL HISTORY Never Assessed PLAN OF CARE Activity Details Follow Up 6 Months Reason:routine VITAL SIGNS Height 62 in 2016-07-21 Weight 123.3 lbs 2016-07-21 Temperature 98.1 degrees Fahrenheit 2016-07-21 Heart Rate 104 bpm 2016-07-21 Respiratory Rate 20 2016-07-21 BMI 22.55 kg/m2 2016-07-21 Blood pressure systolic 122 mmHg 2016-07-21 Blood pressure diastolic 66 mmHg 2016-07-21 MEDICATIONS Medication Instructions Dosage Frequency Start Date End Date Duration Status Flax Seed Oil 1000 MG Active Xanax 0.25 MG Orally 2 times a day 1 tablet 12h 10 Dec, 2014 28 Active Macrobid 100 mg Orally every 12 hrs 1 capsule with food 12h Jun, Jul, 7 day(s) Active RESULTS Name Result Date Reference Range UA LONG DIP (IN HOUSE) 2016-07-21 Lot # [id number] Exp date 05/27/2017 Clarity sl cloudy Color yellow Odor no GLU negative GRACY negative KET negative SG >=1.030 BLO 2+ pH 5.5 Protein 1+ URO 0.2 NIT positive MELISSA 1+ Lot # Exp date CBC 2016-07-21 WBC 13.1 3.4-10.8 RBC 4.85 3.77-5.28 Hemoglobin 15.3 11.1-15.9 Hematocrit 44.9 34.0-46.6 MCV 93 79-97 MCH 31.5 26.6-33.0 MCHC 34.1 31.5-35.7 RDW 14.5 12.3-15.4 Platelets 241 150-379 Neutrophils 59 Lymphs 31 Monocytes 9 Eos 1 Basos 0 Neutrophils (Absolute) 7.7 1.4-7.0 Lymphs (Absolute) 4.0 0.7-3.1 Monocytes(Absolute) 1.2 0.1-0.9 Eos (Absolute) 0.1 0.0-0.4 Baso (Absolute) 0.0 0.0-0.2 Immature Granulocytes 0 Immature Grans (Abs) 0.0 0.0-0.1 LIPID PANEL 2016-07-21 Cholesterol, Total 228 100-199 Triglycerides 307 0-149 HDL Cholesterol 49 >39 VLDL Cholesterol Louie 61 5-40 LDL Cholesterol Calc 118 0-99 Comment: CMP 2016-07-21 Glucose, Serum 125 65-99 BUN 16 8-27 Creatinine, Serum 0.94 0.57-1.00 eGFR If NonAfricn Am 56 >59 eGFR If Africn Am 64 >59 BUN/Creatinine Ratio 17 11-26 Sodium, Serum 139 134-144 Potassium, Serum 4.3 3.5-5.2 Chloride, Serum 96 96-106 Carbon Dioxide, Total 22 18-29 Calcium, Serum 9.4 8.7-10.3 Protein, Total, Serum 7.0 6.0-8.5 Albumin, Serum 4.5 3.5-4.7 Globulin, Total 2.5 1.5-4.5 A/G Ratio 1.8 1.2-2.2 Bilirubin, Total 0.6 0.0-1.2 Alkaline Phosphatase, S 76 39-117 AST (SGOT) 12 0-40 ALT (SGPT) 12 0-32 PROCEDURES Procedure Date Ordered Result Body Site LAB NOT BILLED BY [facility] July 21, 2016 URINALYSIS, AUTO, W/O SCOPE July 21, 2016 [facility] VISIT ESTABLISHED PATIENT July 21, 2016 VENIPUNCT, ROUTINE* July 21, 2016 IMMUNIZATIONS No Known Immunizations MEDICAL (GENERAL) HISTORY Type Description Date Medical History mild nerves Medical History Arthritis Surgical History appendectomy Surgical History tubal ligation Surgical History section x2 Hospitalization History surgeries
--- OUTSIDE RECORDS SUMMARY | 2017-11-04 09:55 | XMS REPORT ---
Author Author SENIA HUSSEIN Organization [employer] Address Unknown Phone Unavailable Care Team Providers Care Flying Squad Salesperson Name Role Phone SENIA HUSSEIN Unavailable Allergies No Known Allergies Problems Problem Type Condition Code Onset Dates Condition Status Problem Postnasal drip R09.82 Active Problem Routine general medical examination at a health care facility V70.0 Active Problem Anxiety F41.9 Active Problem Anxiety 300.00 Active Problem Hypercholesteremia E78.0 Active Medications Medication Code System Code Instructions Start Date End Date Status Dosage Xanax [facility] [address]-34 0.25 MG Orally 2 times a day Jan 04, 2015 1 tablet Results No Known Results Summary Purpose [employer] Submission
--- OUTSIDE RECORDS SUMMARY | 2017-11-04 09:55 | XMS REPORT ---
Author Author SENIA HUSSEIN Organization [employer] Address Unknown Phone Unavailable Care Team Providers Care Tortilla Maker Name Role Phone SENIA HUSSEIN Unavailable Allergies No Known Allergies Problems Problem Type Condition Code Onset Dates Condition Status Problem Postnasal drip R09.82 Active Problem Routine general medical examination at a health care facility V70.0 Active Problem Anxiety F41.9 Active Problem Anxiety 300.00 Active Problem Hypercholesteremia E78.0 Active Medications Medication Code System Code Instructions Start Date End Date Status Dosage Xanax [facility] [address]-87 0.25 MG Orally 2 times a day Jan 04, 2015 1 tablet Results No Known Results Summary Purpose [employer] Submission
--- OUTSIDE RECORDS SUMMARY | 2017-11-04 09:55 | XMS REPORT ---
Author Author RAVI GOVEA Organization [facility] Address [address] [place] [address] Care Team Providers Care Vender Name Role Phone RAVI GOVEA Unavailable PROBLEMS Type Condition ICD9-CM Code KRT58-MF Code Onset Dates Condition Status SNOMED Code Problem Anxiety F41.9 Active 03895443 Problem Pure hypercholesterolemia E78.00 Active 353840612 Problem COPD with acute exacerbation J44.1 Active 742996786 Problem Primary insomnia F51.01 Active 3819523 Problem Wellness examination Z00.00 Active 757609211 Problem Postnasal drip R09.82 Active 49174683 Problem Dysthymia F34.1 Active 50659654 Problem Frequent UTI N39.0 Active 255361316 ALLERGIES No Information ENCOUNTERS Encounter Location Date Diagnosis [facility] [id number] [place] [address] 51181- 7660 August, [facility] [id number] [place] [address] 87059- 7392 August, Nausea R11.0 [facility] [id number] [place] [address] 34987- 2219 August, Nausea R11.0 [facility] [id number] [place] [address] 00019- 5619 August, Frequent UTI N39.0 [facility] [id number] [place] [address] 39568- 4528 August, COPD with acute exacerbation J44.1 [facility] [id number] [place] [address] 84255- 8247 Jun, [facility] [id number] [place] [address] 58653- 8059 19 Mar, 2018 Anxiety F41.9 ; Primary insomnia F51.01 ; Dysthymia F34.1 and Frequent UTI N39.0 [facility] [address] [place] [address] 91897- 9958 15 Jun, 2017 Acute cystitis without hematuria N30.00 [facility] [id number] [place] [address] 00706- 6198 14 Jun, 2017 [place] [address] 15077- 5874 Jun, Chills (without fever) R68.83 [place] [id number] [place] [address] 54656- 9536 Jun, Hospital discharge follow-up Z09 and Acute cystitis with hematuria N30.01 [place] [id number] [place] [address] 27514- 9013 May, [place] [address] 79625- 1387 May, UTI (urinary tract infection) N39.0 [facility] [id number] [place] [address] 04466- 4496 May, UTI (urinary tract infection) N39.0 [facility] [id number] [place] [address] [id number] 13 May, 2017 [facility] [address] [place] [address] 76238 -7052 May, Intractable vomiting with nausea, unspecified vomiting type R11.2 [facility] [address] [place] [address] 94126- 4206 Apr, [facility] [id number] [place] [address] 66442- 9374 Jan, [facility] [address] [place] [address] 94597- 7602 Jan, History of UTI Z87.440 [place] [address] [place] [address]- 7994 August, Anxiety F41.9 [facility] [address] 08160- 6865 August, Anxiety F41.9 [facility] [address] 73708- 8585 Jun, [facility] [address] 13819- 6957 Jun, Hypercholesteremia E78.0 ; Anxiety F41.9 ; Wellness examination Z00.00 and Acute cystitis without hematuria N30.00 [place] [address] 89223- 7117 August, Urinary tract infection, site not specified N39.0 and Anxiety F41.9 [place] [address] 11832- 3007 August, [place] [address] 82546- 7396 Jul, Chills (without fever) R68.83 ; Chest pain R07.9 and Nausea R11.0 [place] [address] 55875- 0812 11 May, 2015 [place] [address] 01167- 3173 Apr, [place] [address] 19823- 5672 Mar, [place] [address] 00618- 1941 Feb, [place] [address] 06530- 4258 Feb, Anxiety F41.9 ; Hypercholesterolemia E78.0 and Postnasal drip R09.82 [place] [address] 97166- 8439 Dec, [facility] [address] [facility] [id number] [place] [id number]- 6132 Dec, [facility] [address] [facility] [id number] [place] [address]- 8907 10 Dec, 2014 Routine general medical examination at a health care facility V70.0 and Anxiety 300.00 IMMUNIZATIONS No Known Immunizations SOCIAL HISTORY Never Assessed REASON FOR VISIT Requests return call PLAN OF CARE VITAL SIGNS MEDICATIONS Unknown [...]
--- OUTSIDE RECORDS SUMMARY | 2017-11-04 09:55 | XMS REPORT ---
Author Author SENIA HUSSEIN Organization [employer] Address Unknown Phone Unavailable Care Team Providers Care Flake [employer] Wheat [employer] Oats Name Role Phone SENIA HUSSEIN Unavailable Allergies No Known Allergies Problems Problem Type Condition ICD-9 Code Onset Dates Condition Status Problem Anxiety 300.00 Active Problem Routine general medical examination at a health care facility V70.0 Active Medications Medication Code System Code Instructions Start Date End Date Status Dosage Pravastatin Sodium [facility] [address]-18 20 MG Orally Once a day Jan 08, [address] [facility] [address]-44 600 MG Orally daily Jan 08, 2015 1 tablet Results No Known Results Summary Purpose [employer] Submission
--- OUTSIDE RECORDS SUMMARY | 2017-11-04 09:55 | XMS REPORT ---
Author Author SENIA HUSSEIN Organization [employer] Address Unknown Phone Unavailable Care Team Providers Care Tomato Paste Maker Name Role Phone SENIA HUSSEIN Unavailable Allergies No Known Allergies Problems Problem Type Condition ICD-9 Code Onset Dates Condition Status Problem Anxiety 300.00 Active Problem Routine general medical examination at a health care facility V70.0 Active Medications Medication Code System Code Instructions Start Date End Date Status Dosage Lopid [facility] [address]-32 600 MG Orally daily Jan 08, 2015 1 tablet Results No Known Results Summary Purpose [employer] Submission
--- OUTSIDE RECORDS SUMMARY | 2017-11-04 09:55 | XMS REPORT ---
Author Author SENIA HUSSEIN Organization [employer] Address Unknown Phone Unavailable Care Team Providers Care Acid Bleacher Name Role Phone SENIA HUSSEIN Unavailable Allergies No Known Allergies Problems Problem Type Condition Code Onset Dates Condition Status Problem Hypercholesterolemia E78.0 Active Problem Postnasal drip R09.82 Active Problem Anxiety F41.9 Active Problem Routine general medical examination at a health care facility V70.0 Active Problem Anxiety 300.00 Active Medications Medication Code System Code Instructions Start Date End Date Status Dosage Xanax [facility] [address]-17 0.25 MG Orally 2 times a day Jan 04, 2015 1 tablet Results No Known Results Summary Purpose [employer] Submission
--- OUTSIDE RECORDS SUMMARY | 2017-11-04 09:55 | XMS REPORT ---
Author Author SENIA HUSSEIN Organization [employer] Address Unknown Phone Unavailable Care Team Providers Care Distributor Sales Manager Name Role Phone SENIA HUSSEIN CP Unavailable Allergies No Known Allergies Problems Problem Type Condition Code Onset Dates Condition Status Problem Postnasal drip R09.82 Active Problem Routine general medical examination at a health care facility V70.0 Active Problem Anxiety F41.9 Active Problem Anxiety 300.00 Active Problem Hypercholesteremia E78.0 Active Medications No Known Medications Results No Known Results Summary Purpose [employer] Submission
[2017-11-04] MEDS ORDERED: TRAZ-189 (11:09)
[2017-11-04 11:13] LABS: BASOPHILS % (AUTO) 0 % (0-10); EOSINOPHILS # (AUTO) 0.1 10^3/uL (0.0-0.3); EOSINOPHILS % (AUTO) 1 % (0-10); HEMATOCRIT 41 % (35-52); HEMOGLOBIN 13.5 G/DL (11.5-16.0); LYMPHOCYTES # (AUTO) 3.2 X 10^3 (1.0-4.0); LYMPHOCYTES % (AUTO) 36 % (12-44); MEAN CORPUSCULAR HEMOGLOBIN 30 PG (25-34); MEAN CORPUSCULAR HGB CONC 33 G/DL (32-36); MEAN CORPUSCULAR VOLUME 92 FL (80-99); MEAN PLATELET VOLUME 11.1 FL (7.4-10.4); MONOCYTES # (AUTO) 0.8 X 10^3 (0.0-1.0); MONOCYTES % (AUTO) 10 % (0-12); NEUTROPHILS # (AUTO) 4.7 X 10^3 (1.8-7.8); NEUTROPHILS % (AUTO) 53 % (42-75); PLATELET COUNT 211 10^3/uL (130-400); RED BLOOD COUNT 4.49 10^6/uL (4.35-5.85); WHITE BLOOD COUNT 8.8 10^3/uL (4.3-11.0)
[2017-11-04] MEDS ORDERED: NS IV 1000 ML 1,000 ML IV SCH (11:15)
[2017-11-04] MEDS ORDERED: fentaNYL INJECTION 100 MCG/2 ML AMP IVP ONE (11:15)
--- NOTE | 2017-11-04 11:18 | ED General ---
General Chief Complaint: -Female Stated Complaint: UTI Nursing Triage Note: TO ROOM AMB WAS SENT FROM [facility] WITH UT SYMPTOMS. Nursing Sepsis Screen: No Definite Risk Source of Information: Patient Exam Limitations: No Limitations History of Present Illness Date Seen by Provider: Nov 04, 2017 Time Seen by Provider: 11:15 Initial Comments to ER per private vehicle from [facility] with reports of urinary tract infection symptoms. They believe she might be septic as she was tachycardic.she reported to them and to the nurse here that she was having some dysuria and flank pain. However, when I examine her she does not mention anything about dysuria and fact denies dysuria. She tells me her only complaint is of some chest pain that radiates through to her back and some right upper quadrant pain Timing/Duration: 1-2 Days Severity: Moderate Associated Systoms: Chest Pain; No Cough, No Headaches, No Nausea/Vomiting Allergies and Home Medications Allergies Coded Allergies: Penicillins (Unverified Allergy, Mild, HIVES, 07/03/09) Home Medications Ascorbate Calcium 500 Mg Tablet, 500 MG PO DAILY, (Reported) Cranberry Conc/C/Bacill Coag 1 Each Tablet, 1 TAB PO DAILY, (Reported) Patient Home Medication List Home Medication List Reviewed: Yes Review of Systems Constitutional: see HPI EENTM: see HPI Respiratory: no symptoms reported; No short of breath Cardiovascular: see HPI, chest pain Genitourinary: no symptoms reported Musculoskeletal: no symptoms reported Skin: no symptoms reported Psychiatric/Neurological: No Symptoms Reported Hematologic/Lymphatic: No Symptoms Reported Immunological/Allergic: no symptoms reported Past Ctphxak-Ogjsps-Zkdjmt Hx Patient Social History Alcohol Use: Denies Use Alcohol Beverage of Choice: Whiskey Recreational Drug Use: No Smoking Status: Never a Smoker Type Used: Cigarettes 2nd Hand Smoke Exposure: Yes Recent Foreign Travel: No Contact w/Someone Who Travel: No Recent Infectious Disease Expo: No Recent Hopitalizations: No Immunizations Up To Date Tetanus Booster (TDap): Unknown PED Vaccines UTD: No Date of Pneumonia Vaccine: Jan 27, 2017 Seasonal Allergies Seasonal Allergies: Yes Past Medical History Surgeries: Yes Appendectomy, Section, Tubal Ligation Respiratory: No COPD Currently Using CPAP: No Currently Using BIPAP: No Cardiac: No Neurological: No Genitourinary: No Gastrointestinal: No Musculoskeletal: No Endocrine: No HEENT: No Cancer: No Psychosocial: Yes Anxiety Integumentary: No (REDNESS ON ARMS/NECK CURRENTLY) Recent Skin Changes Blood Disorders: No Family Medical History Patient reports no known family medical history. No Pertinent Family Hx Physical Exam Vital Signs Vital Signs - First Documented 11/04/17 10:09 Temp 97.1 Pulse 101 Resp 18 B/P (MAP) 161/111 (128) Pulse Ox 94 Capillary Refill : Less Than 3 Seconds Height, Weight, BMI Height: 5'5.00" Weight: 161lbs.0.9oz.[id number]; 22.7 BMI Method:Stated General Appearance: No Apparent Distress, WD/WN Eyes: Bilateral Eye Normal Inspection, Bilateral Eye PERRL, Bilateral Eye EOMI HEENT: PERRL/EOMI, TMs Normal Respiratory: Normal Breath Sounds, No Accessory Muscle Use, No Respiratory Distress Cardiovascular: Regular Rate, Rhythm, Normal Peripheral Pulses Gastrointestinal: Normal Bowel Sounds, Non Tender, Soft Extremity: Normal Capillary Refill, Normal Inspection Neurologic/Psychiatric: Alert, Oriented x3, No Motor/Sensory Deficits Skin: Normal Color, Warm/Dry Focused Exam Lactate Level 11/04/17 10:25: Lactic Acid Level 2.33*H 11/04/17 13:38: Lactic Acid Level 2.43*H Lactic Acid Level Laboratory Tests Test 11/04/17 13:38 Lactic Acid Level 2.43 MMOL/L (0.50-2.00) *H Progress/Results/Core Measures Suspected Sepsis Recent Fever Within 48 Hours: No Infection Criteria Present: None New/Unexplained Altered Menta: No Sepsis Screen: No Definite Risk SIRS Temperature:97.1 Pulse: 101 Respiratory Rate: 18 Laboratory Tests 11/04/17 10:25: White Blood Count 8.8 Blood Pressure 161 /111 Mean: 128 11/04/17 10:25: Lactic Acid Level 2.33*H 11/04/17 13:38: Lactic Acid Level 2.43*H Laboratory Tests 11/04/17 10:25: Creatinine 1.03, Platelet Count 211, Total Bilirubin 0.7 Results/Orders Lab Results Laboratory Tests Test 11/04/17 10:25 11/04/17 13:38 Range/Units White Blood Count 8.8 4.3-11.0 10^3/uL Red Blood Count 4.49 4.35-5.85 10^6/uL Hemoglobin 13.5 11.5-16.0 G/DL Hematocrit 41 35-52 % Mean Corpuscular Volume 92 80-99 FL Mean Corpuscular Hemoglobin 30 25-34 PG Mean Corpuscular Hemoglobin Concent 33 32-36 G/DL Red Cell Distribution Width 15.0 H 10.0-14.5 % Platelet Count 211 130-400 10^3/uL Mean Platelet Volume 11.1 H 7.4-10.4 FL Neutrophils (%) (Auto) 53 42-75 % Lymphocytes (%) (Auto) 36 12-44 % Monocytes (%) (Auto) 10 0-12 % Eosinophils (%) (Auto) 1 0-10 % Basophils (%) (Auto) 0 0-10 % Neutrophils # (Auto) 4.7 1.8-7.8 X 10^3 Lymphocytes # (Auto) 3.2 1.0-4.0 X 10^3 Monocytes # (Auto) 0.8 0.0-1.0 X 10^3 Eosinophils # (Auto) 0.1 0.0-0.3 10^3/uL Basophils # (Auto) 0.0 0.0-0.1 10^3/uL Sodium Level 138 135-145 MMOL/L Potassium Level 3.9 3.6-5.0 MMOL/L Chloride Level 108 H 98-107 MMOL/L Carbon Dioxide Level 18 L 21-32 MMOL/L Anion Gap 12 5-14 MMOL/L Blood Urea Nitrogen 13 7-18 MG/DL Creatinine 1.03 0.60-1.30 MG/DL Estimat Glomerular Filtration Rate 51 BUN/Creatinine Ratio 13 Glucose Level 100 70-105 MG/DL Lactic Acid Level 2.33 *H 2.43 *H 0.50-2.00 MMOL/L Calcium Level 9.1 8.5-10.1 MG/DL Total Bilirubin 0.7 0.1-1.0 MG/DL Aspartate Amino Transf (AST/SGOT) 36 H 5-34 U/L Alanine Aminotransferase (ALT/SGPT) 31 0-55 U/L Alkaline Phosphatase 71 40-136 U/L Troponin I < 0.30 <0.30 NG/ML Total Protein 7.1 6.4-8.2 GM/DL Albumin 4.4 3.2-4.5 GM/DL Lipase 13 8-78 U/L My Orders Orders - DALTON SAHU SENIOR IT PROJECT MANAGER Cbc With Automated Diff (11/04/17 11:04) Comprehensive Metabolic Panel (11/04/17 11:04) Blood Culture (11/04/17 11:04) Lactic Acid Analyzer (11/04/17 11:04) Ns Iv 1000 Ml (Sodium Chloride 0.9%) (11/04/17 11:15) Fentanyl Injection (Sublimaze Injection (11/04/17 11:15) Troponin I (11/04/17 11:13) Ekg Tracing (11/04/17 11:13) Chest 1 View, Ap/Pa Only (11/04/17 11:13) Ondansetron Injection (Zofran Injectio (11/04/17 11:30) Ct Angio Chest W (11/04/17 11:41) Metoprolol Tartrate Injection (Lopressor (11/04/17 12:00) Lipase (11/04/17 12:11) Us Gallbladder [id number] (11/04/17 12:13) Promethazine Injection (Phenergan Injec (11/04/17 13:00) Iohexol Injection (Omnipaque 350 Mg/Ml 1 (11/04/17 13:45) Ns (Ivpb) (Sodium Chloride 0.9% Ivpb Bag (11/04/17 13:45) Antacid Suspension (Mylanta Suspension (11/04/17 14:30) Lidocaine 2% Viscous 15 Ml (Xylocaine Vi (11/04/17 14:30) Medications Given in ED Current Medications Medications Dose Ordered Sig/Ehsan Route Start Time Stop Time Status Last Admin Dose Admin Fentanyl Citrate 50 mcg ONCE ONCE IVP 11/04/17 11:15 11/04/17 11:16 DC 11/04/17 11:20 50 MCG Iohexol 100 ml ONCE ONCE IV 11/04/17 13:45 11/04/17 13:46 DC 11/04/17 13:40 100 ML Metoprolol Tartrate 5 mg ONCE ONCE IV 11/04/17 12:00 11/04/17 12:01 DC 11/04/17 11:55 5 MG Ondansetron HCl 8 mg ONCE ONCE IVP 11/04/17 11:30 11/04/17 11:31 DC 11/04/17 11:32 8 MG Promethazine HCl 12.5 mg ONCE ONCE IVP 11/04/17 13:00 11/04/17 13:01 DC 11/04/17 12:50 12.5 MG Sodium Chloride 80 ml ONCE ONCE IV 11/04/17 13:45 11/04/17 13:46 DC 11/04/17 13:40 80 ML Vital Signs/I&O 11/04/17 10:09 Temp 97.1 Pulse 101 Resp 18 B/P (MAP) 161/111 (128) Pulse Ox 94 Capillary Refill : Less Than 3 Seconds Blood Pressure Mean: 128 Diagnostic Imaging Diagonstic Imaging: Xray Plain Films/CT/US/NM/MRI: chest Comments NAME: YEYO SHARMA MED REC#: [id number] PT STATUS: REG ER : 1930 PHYSICIAN: DALTON SAHU APRN ADMIT DATE: 11/04/17/ER Signed Date of Exam:11/04/17 CHEST 1 VIEW, AP/PA ONLY INDICATION: Not provided COMPARISON: 05/29/2017 FINDINGS: Upright portable view of the chest is obtained. Heart size is normal. The pulmonary vessels appear unremarkable. There is no pneumothorax or pleural fluid. There is some prominence of the superior mediastinum and right paratracheal region which based on CT from 2017 has some tortuosity of the vessels. The lungs are clear. IMPRESSION: No acute abnormality is demonstrated. Dictated by: Dictated on workstation # [id number] Dict: 11/04/17 1200 Trans: 11/04/17 1207 JUANIS [id number] Interpreted by: DUSTIN HAZEL DO Electronically signed by: DUSTIN HAZEL DO 11/04/17 1207 NAME: YEYO SHARMA MED REC#: [id number] PT STATUS: REG ER : 1930 PHYSICIAN: DALTON SAHU APRN ADMIT DATE: 11/04/17/ER Draft Date of Exam:11/04/17 CT ANGIO CHEST W PROCEDURE: CT angiography of the chest with contrast. TECHNIQUE: Multiple contiguous axial images were obtained through the chest after uneventful bolus administration of intravenous contrast. Reconstructed CTA MIP acquisitions were also performed. INDICATION: Difficulty breathing with chest pain, shaking. FINDINGS: There are no intraluminal pulmonary arterial filling defects. There are no findings of pulmonary arterial embolus. 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 A moderate degree of soft plaque in the descending thoracic aorta is present. No hemodynamically significant stenosis. No evidence for dissection or penetrating ulcer. The lungs are clear. No lung mass or thoracic lymphadenopathy. There is an at least small hiatal hernia. There is some edematous thickening of the polk of the lower thoracic esophagus, which may reflect reflux esophagitis. No esophageal dilatation. There are a few shotty scattered paratracheal subcentimeter mediastinal nodes showing no suspicious feature. There is a low-density node or small cyst in the inferior right pulmonary hilum posteriorly measuring 1.6 cm. This is a nonacute finding. Visualized upper abdomen reveals stable bilateral adrenal nodules, unchanged from abdominal CT in May with probable mild hepatic steatosis. A stable chronic compression deformity at T7 is present. No acute bony abnormality apparent. IMPRESSION: Negative for PE. Nonacute atheromatous aorta. Stable appearing T7 compression. Unchanged bilateral adrenal nodules and mild fatty liver. Hiatal hernia with some edematous thickening of the polk of the distal thoracic esophagus raises the question of reflux esophagitis. No other potential acute finding. Dictated on workstation # [id number] Dict: 11/04/17 1355 Trans: 11/04/17 1409 [id number] Interpreted by: DILAN ZAVALETA Electronically signed by: NAME: YEYO SHARMA MED REC#: [id number] PT STATUS: REG ER : 1930 PHYSICIAN: DALTON SAHU APRN ADMIT DATE: 11/04/17/ER Draft Date of Exam:11/04/17 US GALLBLADDER [id number] PROCEDURE: US Gallbladder. TECHNIQUE: Multiple real-time grayscale images were obtained over the right upper quadrant in various projections. INDICATION: Abdominal pain with nausea and vomiting. The liver is normal in size at 15 cm. No discrete liver mass is identified. The gallbladder is not visualized and may be surgically absent. Clinical correlation is recommended. There is no biliary duct dilatation. The pancreas is obscured. The right kidney is small at 7.9 cm in length but otherwise unremarkable. No ascites is seen. IMPRESSION: Non-visualized gallbladder which may be surgically absent. The study is otherwise unremarkable. Dictated on workstation # [id number] Dict: 11/04/17 1320 Trans: 11/04/17 1322 [facility] [id number] Interpreted by: KAMALA CARRASQUILLO MD Electronically signed by: Departure Communication (Admissions) Time/Spoke to Admitting Phy: 14:[address] Farrell. Patient's urinalysis is not resulted at the time of my conversation with Dr. Farrell as her urine sample was mixed with stool. She did receive 8 mg of Zofran IV and continued to vomit so she was then given 12.5 mg of Phenergan which did improve her symptoms. CT angiogram chest shows only some distal esophageal thickening system with esophagitis so I ordered Maalox and viscous lidocaine. Her gallbladder ultrasound did not visualize a gallbladder but patient does not recall it being removed. She appears fairly frail and would benefit from observation hospital. We'll obtain a straight catheter urine sample prior to sending her upstairs. Impression Primary Impression: Nausea & vomiting Additional Impression: Epigastric abdominal pain Disposition: ADMITTED INPATIENT Condition: Stable Admissions Decision to Admit Reason: Admit from ER (General) Decision to Admit/Date: Nov 04, 2017 Time/Decision to Admit Time: 14:43 Departure-Patient Inst. Referrals: MITCHELL HAYNES DO (PCP) Primary Care Physician ARJUN LENNON APRN (Family) Primary Care Physician DALTON SAHU APRN Nov 04, 2017 11:18
[2017-11-04 11:24] LABS: ALBUMIN 4.4 GM/DL (3.2-4.5); BILIRUBIN,TOTAL 0.7 MG/DL (0.1-1.0); CALCIUM 9.1 MG/DL (8.5-10.1); CREATININE SERUM 1.03 MG/DL (0.60-1.30); POTASSIUM 3.9 MMOL/L (3.6-5.0); TOTAL PROTEIN 7.1 GM/DL (6.4-8.2)
[2017-11-04] MEDS ORDERED: ONDANSETRON 4 MG/2 ML (SDV) Z0FRAN IVP ONE (11:30)
[2017-11-04] MEDS ORDERED: meTOprolol 5 MG/5 ML (LOPRESSOR) VIAL IV ONE (12:00)
--- NOTE | 2017-11-04 12:06 | Diagnostic Imaging Report ---
INDICATION: Not provided COMPARISON: 05/29/2017 FINDINGS: Upright portable view of the chest is obtained. Heart size is normal. The pulmonary vessels appear unremarkable. There is no pneumothorax or pleural fluid. There is some prominence of the superior mediastinum and right paratracheal region which based on CT from 2017 has some tortuosity of the vessels. The lungs are clear. IMPRESSION: No acute abnormality is demonstrated. Dictated by: Dictated on workstation # [id number]
[2017-11-04] MEDS ORDERED: PROMETHAZINE INJ 25 MG/ML (PHENERGAN) AMP IVP ONE (13:00)
--- NOTE | 2017-11-04 13:23 | Diagnostic Imaging Report ---
PROCEDURE: US Gallbladder. TECHNIQUE: Multiple real-time grayscale images were obtained over the right upper quadrant in various projections. INDICATION: Abdominal pain with nausea and vomiting. The liver is normal in size at 15 cm. No discrete liver mass is identified. The gallbladder is not visualized and may be surgically absent. Clinical correlation is recommended. There is no biliary duct dilatation. The pancreas is obscured. The right kidney is small at 7.9 cm in length but otherwise unremarkable. No ascites is seen. IMPRESSION: Non-visualized gallbladder which may be surgically absent. The study is otherwise unremarkable. Dictated by: Dictated on workstation # [id number]
[2017-11-04] MEDS ORDERED: IOHEXOL 350 MG/ML 100 ML (OMNIPAQUE 350) VIAL IV ONE (13:45)
[2017-11-04] MEDS ORDERED: NS 100 ML (IVPB) BAG IV ONE (13:45)
--- NOTE | 2017-11-04 14:10 | Diagnostic Imaging Report ---
PROCEDURE: CT angiography of the chest with contrast. TECHNIQUE: Multiple contiguous axial images were obtained through the chest after uneventful bolus administration of intravenous contrast. Reconstructed CTA MIP acquisitions were also performed. INDICATION: Difficulty breathing with chest pain, shaking. FINDINGS: There are no intraluminal pulmonary arterial filling defects. There are no findings of pulmonary arterial embolus. 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 A moderate degree of soft plaque in the descending thoracic aorta is present. No hemodynamically significant stenosis. No evidence for dissection or penetrating ulcer. The lungs are clear. No lung mass or thoracic lymphadenopathy. There is an at least small hiatal hernia. There is some edematous thickening of the oplk of the lower thoracic esophagus, which may reflect reflux esophagitis. No esophageal dilatation. There are a few shotty scattered paratracheal subcentimeter mediastinal nodes showing no suspicious feature. There is a low-density node or small cyst in the inferior right pulmonary hilum posteriorly measuring 1.6 cm. This is a nonacute finding. Visualized upper abdomen reveals stable bilateral adrenal nodules, unchanged from abdominal CT in May with probable mild hepatic steatosis. A stable chronic compression deformity at T7 is present. No acute bony abnormality apparent. IMPRESSION: Negative for PE. Nonacute atheromatous aorta. Stable appearing T7 compression. Unchanged bilateral adrenal nodules and mild fatty liver. Hiatal hernia with some edematous thickening of the polk of the distal thoracic esophagus raises the question of reflux esophagitis. No other potential acute finding. Dictated by: Dictated on workstation # [id number]
[2017-11-04] MEDS ORDERED: LIDOCAINE 2% VISCOUS 15 ML UDC PO ONE (14:30)
[2017-11-04] MEDS ORDERED: ANTACID SUSP 30 ML UDC (MYLANTA) PO ONE (14:30)
[2017-11-04 15:23] LABS: BILIRUBIN,URINE NEGATIVE (NEGATIVE); CLARITY,URINE CLEAR; COLOR,URINE YELLOW; GLUCOSE, URINE (UA) NEGATIVE (NEGATIVE); KETONES,URINE NEGATIVE (NEGATIVE); LEUKOCYTE ESTERASE ,URINE NEGATIVE (NEGATIVE); NITRITE,URINE NEGATIVE (NEGATIVE); PH,URINE 6.5 (5-9); PROTEIN,URINE NEGATIVE (NEGATIVE); UROBILINOGEN,URINE NORMAL (NORMAL)
[2017-11-04 15:50] LABS: BACTERIA,URINE NEGATIVE /HPF; RBC,URINE 0-2 /HPF; SQUAMOUS EPITHELIAL CELL,UR RARE /HPF; WBC,URINE 0-2 /HPF
[2017-11-04 16:15] VITALS: BP 150/72
--- NOTE | 2017-11-04 16:21 | History & Physicial (CHS) ---
CARLITO DARNELL MEDICAL STUDENT 11/04/17 1621: HPI History of Present Illness: 87 year old female with history of HLD, anxiety who states she takes no medication was admitted from the ED for complaint of chest pain. Pt states that at ~0400 this morning she had an episode of substernal chest pain that radiated through to her back and to her right side and throat. Pt states this pain was worse when she tried to walk and got better with rest. Pt states she did not take any medication. Pt admits SOB with this episode along with nausea and vomiting. Pt was still vomiting in the ED per report. Pt denies any fever, chills, dysuria or diarrhea today. However, per report, pt was at [facility] for possible UTI symptoms. Pt was given ED cocktail while in ED. Time Seen by Provider: 16:19 Attending Physician Meghana Jerez MD PCP Bibiana Rodriguez DO Consult Date of Admission Nov 04, 2017 at 15:53 Home Medications Home Medications Reviewed patient Home Medication Reconciliation performed by pharmacy medication reconciliations weld technician and/or nursing. Patients Allergies have been reviewed. Allergies Coded Allergies: Penicillins (Unverified Allergy, Mild, HIVES, 07/03/09) ULZ-Pnbcdi-Ibybjq Hx Patient Social History Alcohol Use: Denies Use Recreational Drug Use: No Smoking Status: Former Smoker (stopped 6 months ago) Type Used: Cigarettes 2nd Hand Smoke Exposure: Yes Recent Foreign Travel: No Contact w/other who traveled: No Recent Hopitalizations: No Recent Infectious Disease Expo: No Immunizations Up To Date Tetanus Booster (TDap): Unknown Date of Pneumonia Vaccine: Jan 27, 2017 Past Medical History Tobacco Abuse Anxiety Arthritis Hypercholesterolemia COPD suggested by history Family Medical History Significant Family History: No Pertinent Family Hx Family History: Patient reports no known family medical history. Review of Systems ([facility]) Constitutional: No chills, No fever Respiratory: short of breath Cardiovascular: chest pain Gastrointestinal: abdominal pain; No diarrhea; nausea, vomiting Musculoskeletal: no symptoms reported; No joint pain Reviewed Test Results Reviewed Test Results Lab Laboratory Tests Test 11/04/17 10:25 11/04/17 13:38 11/04/17 15:05 Range/Units White Blood Count 8.8 4.3-11.0 10^3/uL Red Blood Count 4.49 4.35-5.85 10^6/uL Hemoglobin 13.5 11.5-16.0 G/DL Hematocrit 41 35-52 % Mean Corpuscular Volume 92 80-99 FL Mean Corpuscular Hemoglobin 30 25-34 PG Mean Corpuscular Hemoglobin Concent 33 32-36 G/DL Red Cell Distribution Width 15.0 H 10.0-14.5 % Platelet Count 211 130-400 10^3/uL Mean Platelet Volume 11.1 H 7.4-10.4 FL Neutrophils (%) (Auto) 53 42-75 % Lymphocytes (%) (Auto) 36 12-44 % Monocytes (%) (Auto) 10 0-12 % Eosinophils (%) (Auto) 1 0-10 % Basophils (%) (Auto) 0 0-10 % Neutrophils # (Auto) 4.7 1.8-7.8 X 10^3 Lymphocytes # (Auto) 3.2 1.0-4.0 X 10^3 Monocytes # (Auto) 0.8 0.0-1.0 X 10^3 Eosinophils # (Auto) 0.1 0.0-0.3 10^3/uL Basophils # (Auto) 0.0 0.0-0.1 10^3/uL Sodium Level 138 135-145 MMOL/L Potassium Level 3.9 3.6-5.0 MMOL/L Chloride Level 108 H 98-107 MMOL/L Carbon Dioxide Level 18 L 21-32 MMOL/L Anion Gap 12 5-14 MMOL/L Blood Urea Nitrogen 13 7-18 MG/DL Creatinine 1.03 0.60-1.30 MG/DL Estimat Glomerular Filtration Rate 51 BUN/Creatinine Ratio 13 Glucose Level 100 70-105 MG/DL Lactic Acid Level 2.33 *H 2.43 *H 0.50-2.00 MMOL/L Calcium Level 9.1 8.5-10.1 MG/DL Total Bilirubin 0.7 0.1-1.0 MG/DL Aspartate Amino Transf (AST/SGOT) 36 H 5-34 U/L Alanine Aminotransferase (ALT/SGPT) 31 0-55 U/L Alkaline Phosphatase 71 40-136 U/L Troponin I < 0.30 <0.30 NG/ML Total Protein 7.1 6.4-8.2 GM/DL Albumin 4.4 3.2-4.5 GM/DL Lipase 13 8-78 U/L Urine Color YELLOW Urine Clarity CLEAR Urine pH 6.5 5-9 Urine Specific [place] 1.010 L 1.016-1.022 Urine Protein NEGATIVE NEGATIVE Urine Glucose (UA) NEGATIVE NEGATIVE Urine Ketones NEGATIVE NEGATIVE Urine Nitrite NEGATIVE NEGATIVE Urine Bilirubin NEGATIVE NEGATIVE Urine Urobilinogen NORMAL NORMAL MG/DL Urine Leukocyte Esterase NEGATIVE NEGATIVE Urine RBC (Auto) NEGATIVE NEGATIVE Urine RBC 0-2 /HPF Urine WBC 0-2 /HPF Urine Squamous Epithelial Cells RARE /HPF Urine Renal Epithelial Cells NONE /HPF Urine Crystals NONE /LPF Urine Bacteria NEGATIVE /HPF Urine Casts NONE /LPF Urine Mucus NEGATIVE /LPF Urine Culture Indicated NO Physical Exam-([facility]C) Physical Exam Vital Signs VS - Last 72 Hours, by Label 11/04/17 11/04/17 11/04/17 11/04/17 10:09 16:04 16:15 16:30 Temp 97.1 98.5 Pulse 101 89 86 Resp 18 18 20 B/P (MAP) 161/111 (128) 123/66 150/72 (98) Pulse Ox 94 98 96 O2 Delivery Room Air Room Air 11/04/17 11/04/17 16:56 19:00 Pulse 83 81 Capillary Refill : Less Than 3 Seconds General Appearance: mild distress Neck: supple, normal inspection Respiratory: chest non-tender, lungs clear Cardiovascular: normal peripheral pulses, no edema Peripheral Pulses: 2+ Radial Pulses (R), 2+ Radial Pulses (L) Gastrointestinal: soft, tenderness (diffuse upper abdominal tenderness), other (hypoactive bowel sounds) Extremities: No pedal edema Neurologic/Psychiatric: alert Skin: normal color, warm/dry Lymphatic: other (no cervical lymphadenopathy) Assessment/Plan Assessment/Plan Admission Status: Observation Assessment & Plan Chest pain - consult cardiology to rule out CAD, will get serial troponin Possible gastroenteritis - will provide supportive care, give fluid and anti emetic MEGHANA JEREZ MD 11/04/17 6814: Home Medications Allergies Coded Allergies: Penicillins (Unverified Allergy, Mild, HIVES, 07/03/09) QGU-Wdrryh-Expuvv Hx Past Medical History PSurgHx: Appendectomy Tubal ligation C section Family Medical History Family History: Patient reports no known family medical history. Reviewed Test Results Reviewed Test Results Radiology CXR 11/04: no acute changes CTA chest 11/04: no PE, chronic T7 compression fracture and chronic adrenal nodules Gall blader US 11/04: non-visualized, possibly surgically absent Physical Exam-([facility]) Physical Exam Neurologic/Psychiatric: other (intermittent shivering type tremor) Assessment/Plan Assessment/Plan Assessment & Plan 87 yo female with chest pain/epigastric pain and nausea/vomiting with concern for sepsis with elevated lactic acid but without leukocytosis, fever, or tachypnea and no clear source. Will give IVF, PPI, anti-emetics and repeat labs. Not highly suspicious of ACS, repeat troponin, consult Cardiology if persistent and not resolved with treatment of gastritis symptoms. Supervisory-Addendum Brief Supervisory Addendum Patient seen and examined by me and assessment and plan directed by me. Agree with documentation by MS3 Deon Darnell unless otherwise noted. CARLITO DARNELL MEDICAL STUDENT Nov 04, 2017 16:21 MEGHANA JEREZ MD Nov 04, 2017 21:14
[2017-11-04] MEDS ORDERED: OMG1KC PO (16:25)
[2017-11-04] MEDS ORDERED: LACT1CAP39 PO (16:25)
[2017-11-04] MEDS ORDERED: CRAN250C2 PO (16:25)
[2017-11-04] MEDS ORDERED: DOXY25TA35 PO (16:25)
[2017-11-04] MEDS ORDERED: CATHETER FLUSH 10 ML SYR IV PRN (16:45)
[2017-11-04] MEDS ORDERED: ONDANSETRON 4 MG/2 ML (SDV) Z0FRAN IV PRN (16:45)
[2017-11-04] MEDS: PANTOPRAZOLE 40 MG (PROTONIX) TAB PO SCH (17:19)
[2017-11-04] MEDS: NS IV 1000 ML 1,000 ML IV SCH (17:19)
[2017-11-04 20:00] VITALS: BP 130/67
[2017-11-04] MEDS ORDERED: ACETAMINOPHEN 500 MG TAB (TYLENOL) ONE (20:38)
[2017-11-04] MEDS ORDERED: ACETAMINOPHEN 500 MG TAB (TYLENOL) PO PRN (20:45)
[2017-11-05] VITALS: BP 120/56
[2017-11-05] MEDS: NS IV 1000 ML 1,000 ML IV SCH ×2 (03:00→12:47)
[2017-11-05 04:00] VITALS: BP 130/60
[2017-11-05] MEDS: PANTOPRAZOLE 40 MG (PROTONIX) TAB PO SCH (07:02)
[2017-11-05 07:13] VITALS: BP 134/60
[2017-11-05 08:13] LABS: HEMOGLOBIN 12.1 G/DL (11.5-16.0); MEAN PLATELET VOLUME 10.8 FL (7.4-10.4); RED BLOOD COUNT 3.9 10^6/uL (4.35-5.85); WHITE BLOOD COUNT 5.7 10^3/uL (4.3-11.0)
[2017-11-05 08:29] LABS: ALBUMIN 3.5 GM/DL (3.2-4.5); CALCIUM 7.9 MG/DL (8.5-10.1); CREATININE SERUM 0.96 MG/DL (0.60-1.30); POTASSIUM 3.9 MMOL/L (3.6-5.0); TOTAL PROTEIN 5.4 GM/DL (6.4-8.2)
--- NOTE | 2017-11-05 08:35 | Progress Note (SOAP) ---
Subjective Subjective/Events-last exam Pt states that she feels improved since yesterday. Pt states she did have an episode of similar chest pain during the night that was similar to her complaint yesterday. Pt states Review of Systems Time Seen by Provider: 07:58 Focused Exam Lactate Level 11/04/17 10:25: Lactic Acid Level 2.33*H 11/04/17 13:38: Lactic Acid Level 2.43*H 11/04/17 22:15: Lactic Acid Level 1.49 Objective Exam Last Set of Vital Signs Vital Signs Date Time Temp Pulse Resp B/P (MAP) Pulse Ox O2 Delivery O2 Flow Rate FiO2 11/05/17 07:13 97.5 72 16 134/60 (84) 95 Room Air Capillary Refill : Less Than 3 Seconds I&O Intake and Output 11/05/17 00:00 Intake Total 1200 ml Balance 1200 ml Intake Oral 200 ml IV Total 1000 ml # Voids 2 # Bowel Movements 1 Daily Weight Change No Results/Procedures Lab Laboratory Tests 11/04/17 10:25: White Blood Count 8.8, Red Blood Count 4.49, Hemoglobin 13.5, Hematocrit 41, Mean Corpuscular Volume 92, Mean Corpuscular Hemoglobin 30, Mean Corpuscular Hemoglobin Concent 33, Red Cell Distribution Width 15.0H, Platelet Count 211, Mean Platelet Volume 11.1H, Neutrophils (%) (Auto) 53, Lymphocytes (%) (Auto) 36 , Monocytes (%) (Auto) 10, Eosinophils (%) (Auto) 1, Basophils (%) (Auto) 0, Neutrophils # (Auto) 4.7, Lymphocytes # (Auto) 3.2, Monocytes # (Auto) 0.8, Eosinophils # (Auto) 0.1, Basophils # (Auto) 0.0, Sodium Level 138, Potassium Level 3.9, Chloride Level 108H, Carbon Dioxide Level 18L, Anion Gap 12, Blood Urea Nitrogen 13, Creatinine 1.03, Estimat Glomerular Filtration Rate 51, BUN/ Creatinine Ratio 13, Glucose Level 100, Lactic Acid Level 2.33*H, Calcium Level 9.1, Total Bilirubin 0.7, Aspartate Amino Transf (AST/SGOT) 36H, Alanine Aminotransferase (ALT/SGPT) 31, Alkaline Phosphatase 71, Troponin I < 0.30, Total Protein 7.1, Albumin 4.4, Lipase 13 11/04/17 13:38: Lactic Acid Level 2.43*H 11/04/17 15:05: Urine Color YELLOW, Urine Clarity CLEAR, Urine pH 6.5, Urine Specific [place] 1.010L, Urine Protein NEGATIVE, Urine Glucose (UA) NEGATIVE, Urine Ketones NEGATIVE, Urine Nitrite NEGATIVE, Urine Bilirubin NEGATIVE, Urine Urobilinogen NORMAL, Urine Leukocyte Esterase NEGATIVE, Urine RBC (Auto) NEGATIVE, Urine RBC 0-2, Urine WBC 0-2, Urine Squamous Epithelial Cells RARE, Urine Renal Epithelial Cells NONE, Urine Crystals NONE, Urine Bacteria NEGATIVE, Urine Casts NONE, Urine Mucus NEGATIVE, Urine Culture Indicated NO 11/04/17 22:15: Lactic Acid Level 1.49, Troponin I < 0.30 11/05/17 08:00: White Blood Count 5.7, Red Blood Count 3.90L, Hemoglobin 12.1, Hematocrit 37, Mean Corpuscular Volume 94, Mean Corpuscular Hemoglobin 31, Mean Corpuscular Hemoglobin Concent 33, Red Cell Distribution Width 15.0H, Platelet Count 175, Mean Platelet Volume 10.8H, Sodium Level 140, Potassium Level 3.9, Chloride Level 112H, Carbon Dioxide Level 21, Anion Gap 7, Blood Urea Nitrogen 9, Creatinine 0.96, Estimat Glomerular Filtration Rate 55, BUN/Creatinine Ratio 9, Glucose Level 83, Calcium Level 7.9L, Total Bilirubin 1.0, Aspartate Amino Transf (AST/SGOT) 21, Alanine Aminotransferase (ALT/SGPT) 21, Alkaline Phosphatase 50, Total Protein 5.4L, Albumin 3.5 Radiology CXR 11/04: no acute changes CTA chest 11/04: no PE, chronic T7 compression fracture and chronic adrenal nodules Gall blader US 11/04: non-visualized, possibly surgically absent Assessment/Plan Assessment/Plan Assessment & Plan 87 yo female with chest pain/epigastric pain and nausea/vomiting with concern for sepsis with elevated lactic acid but without leukocytosis, fever, or tachypnea and no clear source. Will give IVF, PPI, anti-emetics and repeat labs. Not highly suspicious of ACS, repeat troponin, consult Cardiology if persistent and not resolved with treatment of gastritis symptoms. Clinical Quality Measures DVT/VTE Risk/Contraindication: Risk Factor Score Per Nursin RFS Level Per Nursing on Admit: 2=Moderate CARLITO DARNELL MEDICAL STUDENT Nov 05, 2017 08:35
--- NOTE | 2017-11-05 10:27 | Discharge Summary ---
CARLITO SAAVEDRA MEDICAL STUDENT 11/05/17 10:27am: Diagnosis/Chief Complaint Date of Admission Nov 04, 2017 at 15:53 Date of Discharge Admission Diagnosis Admission Diagnosis chest pain Gastroenteritis Discharge Diagnosis Chest pain - pt received serial troponins which were all negative. Pt was offered cardiology consult which pt declined. Gastroenteritis - pt was given anti-emetics and fluid which improved pt's symptoms. Pt had elevated lactic acid which was suspected to be from dehydration. Lactic acid normalized after IV fluids Chief Complaint/HPI Chief Complaint/HPI 87 year old female with history of HLD, anxiety who states she takes no medication was admitted from the ED for complaint of chest pain. Pt states that at ~0400 this morning she had an episode of substernal chest pain that radiated through to her back and to her right side and throat. Pt states this pain was worse when she tried to walk and got better with rest. Pt states she did not take any medication. Pt admits SOB with this episode along with nausea and vomiting. Pt was still vomiting in the ED per report. Pt denies any fever, chills, dysuria or diarrhea today. However, per report, pt was at [facility] for possible UTI symptoms. Pt was given ED cocktail while in ED. Discharge Summary-Simple/Stand Consultations Discharge Physical Examination Allergies: Coded Allergies: Penicillins (Unverified Allergy, Mild, HIVES, 07/03/09) Vitals & I&Os Vital Sign - Last 12Hours Date Time Temp Pulse Resp B/P (MAP) Pulse Ox O2 Delivery O2 Flow Rate FiO2 11/05/17 07:13 97.5 72 16 134/60 (84) 95 Room Air Intake and Output 11/05/17 00:00 Intake Total 1200 ml Balance 1200 ml General Appearance: Alert, Cooperative, Other (Oriented to person and place) HEENT: Atraumatic Respiratory: Clear to Auscultation Cardiovascular: Regular Rate Abdominal: Other (hypoactive bowel sounds, mild epigastric abdominal tenderness ) Extremities: No Edema Neuro: Normal Speech Hospital Course See final discharge diagnosis. Labs Laboratory Tests Test 11/04/17 10:25 11/04/17 13:38 11/04/17 15:05 11/04/17 22:15 Range/Units White Blood Count 8.8 4.3-11.0 10^3/uL Red Blood Count 4.49 4.35-5.85 10^6/uL Hemoglobin 13.5 11.5-16.0 G/DL Hematocrit 41 35-52 % Mean Corpuscular Volume 92 80-99 FL Mean Corpuscular Hemoglobin 30 25-34 PG Mean Corpuscular Hemoglobin Concent 33 32-36 G/DL Red Cell Distribution Width 15.0 H 10.0-14.5 % Platelet Count 211 130-400 10^3/uL Mean Platelet Volume 11.1 H 7.4-10.4 FL Neutrophils (%) (Auto) 53 42-75 % Lymphocytes (%) (Auto) 36 12-44 % Monocytes (%) (Auto) 10 0-12 % Eosinophils (%) (Auto) 1 0-10 % Basophils (%) (Auto) 0 0-10 % Neutrophils # (Auto) 4.7 1.8-7.8 X 10^3 Lymphocytes # (Auto) 3.2 1.0-4.0 X 10^3 Monocytes # (Auto) 0.8 0.0-1.0 X 10^3 Eosinophils # (Auto) 0.1 0.0-0.3 10^3/uL Basophils # (Auto) 0.0 0.0-0.1 10^3/uL Sodium Level 138 135-145 MMOL/L Potassium Level 3.9 3.6-5.0 MMOL/L Chloride Level 108 H 98-107 MMOL/L Carbon Dioxide Level 18 L 21-32 MMOL/L Anion Gap 12 5-14 MMOL/L Blood Urea Nitrogen 13 7-18 MG/DL Creatinine 1.03 0.60-1.30 MG/DL Estimat Glomerular Filtration Rate 51 BUN/Creatinine Ratio 13 Glucose Level 100 70-105 MG/DL Lactic Acid Level 2.33 *H 2.43 *H 1.49 0.50-2.00 MMOL/L Calcium Level 9.1 8.5-10.1 MG/DL Total Bilirubin 0.7 0.1-1.0 MG/DL Aspartate Amino Transf (AST/SGOT) 36 H 5-34 U/L Alanine Aminotransferase (ALT/SGPT) 31 0-55 U/L Alkaline Phosphatase 71 40-136 U/L Troponin I < 0.30 < 0.30 <0.30 NG/ML Total Protein 7.1 6.4-8.2 GM/DL Albumin 4.4 3.2-4.5 GM/DL Lipase 13 8-78 U/L Urine Color YELLOW Urine Clarity CLEAR Urine pH 6.5 5-9 Urine Specific [place] 1.010 L 1.016-1.022 Urine Protein NEGATIVE NEGATIVE Urine Glucose (UA) NEGATIVE NEGATIVE Urine Ketones NEGATIVE NEGATIVE Urine Nitrite NEGATIVE NEGATIVE Urine Bilirubin NEGATIVE NEGATIVE Urine Urobilinogen NORMAL NORMAL MG/DL Urine Leukocyte Esterase NEGATIVE NEGATIVE Urine RBC (Auto) NEGATIVE NEGATIVE Urine RBC 0-2 /HPF Urine WBC 0-2 /HPF Urine Squamous Epithelial Cells RARE /HPF Urine Renal Epithelial Cells NONE /HPF Urine Crystals NONE /LPF Urine Bacteria NEGATIVE /HPF Urine Casts NONE /LPF Urine Mucus NEGATIVE /LPF Urine Culture Indicated NO Test 11/05/17 08:00 Range/Units White Blood Count 5.7 4.3-11.0 10^3/uL Red Blood Count 3.90 L 4.35-5.85 10^6/uL Hemoglobin 12.1 11.5-16.0 G/DL Hematocrit 37 35-52 % Mean Corpuscular Volume 94 80-99 FL Mean Corpuscular Hemoglobin 31 25-34 PG Mean Corpuscular Hemoglobin Concent 33 32-36 G/DL Red Cell Distribution Width 15.0 H 10.0-14.5 % Platelet Count 175 130-400 10^3/uL Mean Platelet Volume 10.8 H 7.4-10.4 FL Sodium Level 140 135-145 MMOL/L Potassium Level 3.9 3.6-5.0 MMOL/L Chloride Level 112 H 98-107 MMOL/L Carbon Dioxide Level 21 21-32 MMOL/L Anion Gap 7 5-14 MMOL/L Blood Urea Nitrogen 9 7-18 MG/DL Creatinine 0.96 0.60-1.30 MG/DL Estimat Glomerular Filtration Rate 55 BUN/Creatinine Ratio 9 Glucose Level 83 70-105 MG/DL Calcium Level 7.9 L 8.5-10.1 MG/DL Total Bilirubin 1.0 0.1-1.0 MG/DL Aspartate Amino Transf (AST/SGOT) 21 5-34 U/L Alanine Aminotransferase (ALT/SGPT) 21 0-55 U/L Alkaline Phosphatase 50 40-136 U/L Total Protein 5.4 L 6.4-8.2 GM/DL Albumin 3.5 3.2-4.5 GM/DL Radiology Reviewed CXR 11/04: no acute changes CTA chest 11/04: no PE, chronic T7 compression fracture and chronic adrenal nodules Gall blader US 11/04: non-visualized, possibly surgically absent Discharge Instructions to patient/family Please see electronic discharge instructions given to patient. Discharge Medications Reviewed and agree with Discharge Medication list on patient's Discharge Instruction sheet Clinical Quality Measures DVT/VTE Risk/Contraindication: Risk Factor Score Per Nursin RFS Level Per Nursing on Admit: 2=Moderate Copy Copies To 1: JUSTO Peacock BETHANY N MD 11/05/17 11:54am: Diagnosis/Chief Complaint Date of Discharge 11/05/2017 Discharge Diagnosis Given 30 day course of pantoprazole on d/c as she improved with PPI inpatient. Discharge Summary-Simple/Stand Discharge Physical Examination Allergies: Coded Allergies: Penicillins (Unverified Allergy, Mild, HIVES, 07/03/09) Psych/Mental Status: Other (alert and oriented to self, location and day but not date) Supervisory-Addendum Brief Supervisory Addendum Patient seen and examined with LOYD Saavedra, agree with documentation unless otherwise noted. CARLITO SAAVEDRA A MEDICAL STUDENT Nov 05, 2017 10:27 am MEGHANA JEREZ MD Nov 05, 2017 11:54 am
[2017-11-05] MEDS ORDERED: PANT40TA3 PO (10:56)
--- NOTE | 2017-11-05 11:03 | Discharge Instructions ---
Discharge [facility] Discharge Medications New, Converted or Re-Newed RX: Transmitted to Pharmacy New Medications: Pantoprazole Sodium (Pantoprazole Sodium) 40 Mg Tablet.dr 40 MG PO DAILY@0700 for 30 Days, #30 TAB 0 Refills Continued Medications: Ascorbate Calcium (Vitamin C) 500 Mg Tablet 500 MG PO DAILY, TAB Cranberry Extract (Cranberry) 250 Mg Capsule 250 MG PO DAILY, CAP Doxylamine Succinate (Unisom Sleep Aid) 25 Mg Tablet 25 MG PO HS, TAB Lactobacillus Rhamnosus GG (Culturelle) 1 Each Capsule 1 CAP PO DAILY, CAP [place] 3 Polyunsat Fatty Acids (Fish Oil 1,000 mg Capsule) 1,000 Mg Cap 1000 MG PO DAILY, CAP Patient Instructions Goal/Follow Up Appt: Follow up with Steve Smart APRN at [facility] in [place] on 11/10 at 2:40 pm. Patient Instructions: Take pantoprazole for four weeks to help your stomach, you will likely be able to stop it after that, you can discuss with Steve. Return to The Hospital For: Fever, inability to keep down liquids Activity & Diet Discharge Diet: Regular Diet Activity as Tolerated: Yes Copy Copies To 1: JUSTO Peacock BETHANY N MD Nov 05, 2017 11:01 am
[2017-11-05 11:04] VITALS: BP 119/54
== END 2017-11-05 10:56 | disposition home or self-care (01) ==
LOC: EDUNIT# 09:48 → ER 09:50 → UNDOADMOB 15:53 → 4TH 15:53 → UNDODISOB 11-05 13:53
PROVIDERS: ADMIT Family Medicine; ATTEND Family Medicine
DX: R07.9 Chest pain, unspecified (principal); K52.9 Noninfective gastroenteritis and colitis, unspecified; E86.0 Dehydration; J44.9 Chronic obstructive pulmonary disease, unspecified; F41.9 Anxiety disorder, unspecified
CPT/HCPCS: 36415; 51701; 71045; 71275; 76705; 80053; 81000; 83605; 83690; 84484; 85025; 85027; 87040; 93005; 96361; 96374; 96375; G0378

== ENCOUNTER 2017-12-08 11:50 | Emergency (ER) | payer MEDICARE, MEDICAID ==
[~2017-12-08] VITALS: Ht 162.6 cm; Wt 54.4 kg
[~2017-12-08 11:50] MED LIST changes: +CRAN250C2 PO; +DOXY25TA35 PO; +LACT1CAP39 PO; +OMG1KC PO; +PANT40TA3 PO; +TRAZ-189
--- OUTSIDE RECORDS SUMMARY | 2017-12-08 11:55 | XMS REPORT ---
Author Author ARJUN LENNON [facility] Address [address] [place] [address] Care Team Providers Care Knitted Goods Shaper Name Role Phone ARJUN LENNON Unavailable PROBLEMS Type Condition ICD9-CM Code [id number] Code Onset Dates Condition Status SNOMED Code Problem Primary insomnia F51.01 Active 3100411 Problem Dysthymia F34.1 Active 95386741 Problem Frequent UTI N39.0 Active 029470814 Problem Anxiety F41.9 Active [id number] ALLERGIES No Information ENCOUNTERS Encounter Location Date Diagnosis [facility] [id number] [place] [address] 60130- 3783 17 Oct, 2017 Acute gastritis without hemorrhage, unspecified gastritis type K29.00 [facility] [id number] [place] [address] 56125- 6799 Oct, [facility] [id number] [place] [address] [phone] -2042 Oct, Right upper quadrant abdominal pain R10.11 and Pyelonephritis N12 [facility] [id number] [place] [address] 72318- 2326 Oct, Primary insomnia F51.01 [facility] [id number] [place] [address] 27615- 1003 August, [facility] [id number] [place] [address] 50303- 7753 August, Nausea R11.0 [facility] [id number] [place] [address] 73535- 3145 August, Nausea R11.0 [facility] [id number] [place] [address] 20211- 4495 August, Frequent UTI N39.0 [facility] [id number] [place] [address] 42330- 5915 August, COPD with acute exacerbation J44.1 [address] [id number] [place] [address] 15086- 8821 Jun, [place] [facility] [id number] [place] [address] 79252- 5317 Jun, Anxiety F41.9 ; Primary insomnia F51.01 ; Dysthymia F34.1 and Frequent UTI N39.0 [facility] [id number] [place] [address] 59582- 2023 15 Jun, 2017 Acute cystitis without hematuria N30.00 [place] [id number] [place] [address] 75043- 6000 14 Jun, 2017 [place] [address] 41934- 1303 14 Jun, 2017 Chills (without fever) R68.83 [place] [facility] [id number] [place] [address] 56877- 2159 Jun, Hospital discharge follow-up Z09 and Acute cystitis with hematuria N30.01 [facility] [id number] [place] [address] 98447- 2495 May, [place] [id number] [place] [address] 60359- 1759 May, UTI (urinary tract infection) N39.0 [facility] [id number] [place] [address] 85199- 6885 May, UTI (urinary tract infection) N39.0 [facility] [id number] [place] [address] [id number] 13 May, 2017 [facility] [id number] [place] [address] 76397 -5077 02 May, 2017 Intractable vomiting with nausea, unspecified vomiting type R11.2 [place] [id number] [place] [address] 83782- 2305 Apr, [facility] [id number] [place] [address] 38211- 4285 Jan, [facility] [id number] [place] [address] 34910- 7624 Jan, History of UTI Z87.440 [facility] [address] 87503- 4914 August, Anxiety F41.9 [facility] [id number] [place] [address] 88192- 0557 August, Anxiety F41.9 [facility] [address] 87100- 2285 Jun, [facility] [id number] [place] [address] 20285- 1853 Jun, Hypercholesteremia E78.0 ; Anxiety F41.9 ; Wellness examination Z00.00 and Acute cystitis without hematuria N30.00 [place] [id number] [place] [address] 22603- 2856 August, Urinary tract infection, site not specified N39.0 and Anxiety F41.9 [facility] [id number] [place] [address] 07252- 0772 August, [facility] [id number] [place] [address] 55276- 7081 Jul, Chills (without fever) R68.83 ; Chest pain R07.9 and Nausea R11.0 [place] [id number] [place] [address] 78948- 9869 May, [facility] [id number] [place] [address] 64833- 3870 Apr, [facility] [id number] [place] [address] 57942- 3436 Mar, [facility] [address] [facility] [id number] [address] Feb, [facility] [address] [address] Feb, Anxiety F41.9 ; Hypercholesterolemia E78.0 and Postnasal drip R09.82 [facility] [id number] [address] 4[address] Dec, [facility] [address] [address] 3078 14 Dec, 2014 [facility] [address] [address] 10 Dec, 2014 Routine general medical examination at a health care facility V70.0 and Anxiety 300.00 IMMUNIZATIONS No Known Immunizations SOCIAL HISTORY Never Assessed REASON FOR VISIT 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 PLAN OF CARE Activity Details Follow Up prn Reason: VITAL SIGNS MEDICATIONS No Known Medications RESULTS No Results PROCEDURES Procedure Date Ordered Result Body Site PULMONARY FUNCTION TEST (IN-HOUSE) 2017-08-25 N/A SPRIOMETRY CHALLENGE August 25, 2017 SPIROMETRY August 25, 2017 NEB/LESA DEMO August 25, 2017 INSTRUCTIONS MEDICATIONS ADMINISTERED No Known Medications MEDICAL (GENERAL) HISTORY Type Description Date Medical History mild nerves Medical History Arthritis Medical History Insomnia Medical History Frequent UTI Medical History Right eye hemorrhage- receiving injections 10/2017 Medical History COPD Surgical History appendectomy Surgical History tubal ligation Surgical History section x2 Hospitalization History surgeries Hospitalization History UTI/Sepsis 01/2017 Hospitalization History Sepsis, UTI-[facility] 06/03/17 Hospitalization History [facility], Fever/ gastritis 11/04-11/05/17
--- OUTSIDE RECORDS SUMMARY | 2017-12-08 11:55 | XMS REPORT ---
Author Author ARJUN LENNON [facility] Address [address] [place] [address] Care Team Providers Care Media Relations Manager Name Role Phone ARJUN LENNON Unavailable PROBLEMS Type Condition ICD9-CM Code [id number] Code Onset Dates Condition Status SNOMED Code Problem Primary insomnia F51.01 Active 9980252 Problem Dysthymia F34.1 Active 54359797 Problem Frequent UTI N39.0 Active 740591559 Problem Anxiety F41.9 Active 30350832 ALLERGIES No Information ENCOUNTERS Encounter Location Date Diagnosis [facility] [id number] [place] [address] 90298- 6437 17 Oct, 2017 Acute gastritis without hemorrhage, unspecified gastritis type K29.00 [facility] [id number] [place] [address] 00148- 0926 Oct, [facility] [id number] [place] [address] 49534 -2625 Oct, Right upper quadrant abdominal pain R10.11 and Pyelonephritis N12 [facility] [id number] [place] [address] 07961- 9792 Oct, Primary insomnia F51.01 [facility] [id number] [place] [address] 88800- 1623 August, [facility] [id number] [place] [address] 67456- 8168 August, Nausea R11.0 [facility] [id number] [place] [address] 91728- 7617 August, Nausea R11.0 [facility] [id number] [place] [address] 45689- 6782 August, Frequent UTI N39.0 [facility] [id number] [place] [address] 94723- 2941 August, COPD with acute exacerbation J44.1 [place] [id number] [place] [address] 20974- 2403 Jun, [place] [id number] [place] [address] 40380- 7067 Jun, Anxiety F41.9 ; Primary insomnia F51.01 ; Dysthymia F34.1 and Frequent UTI N39.0 [facility] [id number] [place] [address] 19638- 1790 15 Jun, 2017 Acute cystitis without hematuria N30.00 [place] [id number] [place] [address] 13512- 6011 14 Jun, 2017 [place] [address] 46019- 5324 14 Jun, 2017 Chills (without fever) R68.83 [place] [id number] [place] [address] 96343- 3147 Jun, Hospital discharge follow-up Z09 and Acute cystitis with hematuria N30.01 [facility] [address] [place] [address] 75479- 0478 May, [place] [address] [place] [address] 92289- 3959 May, UTI (urinary tract infection) N39.0 [facility] [id number] [place] [address] 23079- 7813 May, UTI (urinary tract infection) N39.0 [facility] [id number] [place] [address] [id number] 13 May, 2017 [facility] [id number] [place] [address] 09050 -5650 02 May, 2017 Intractable vomiting with nausea, unspecified vomiting type R11.2 [place] [id number] [place] [address] 57736- 8860 Apr, [facility] [id number] [place] [address] 33649- 7538 Jan, [facility] [id number] [place] [address] 52750- 5879 Jan, History of UTI Z87.440 [facility] [address] 01380- 2449 August, Anxiety F41.9 [facility] [id number] [place] [address] 65163- 4745 August, Anxiety F41.9 [facility] [address] 61072- 6681 Jun, [facility] [id number] [place] [address] 13747- 8175 Jun, Hypercholesteremia E78.0 ; Anxiety F41.9 ; Wellness examination Z00.00 and Acute cystitis without hematuria N30.00 [place] [id number] [place] [address] 33187- 9221 August, Urinary tract infection, site not specified N39.0 and Anxiety F41.9 [facility] [id number] [place] [address] 89238- 0898 August, [facility] [id number] [place] [address] 42771- 8130 Jul, Chills (without fever) R68.83 ; Chest pain R07.9 and Nausea R11.0 [place] [id number] [place] [address] 60031- 1578 May, [facility] [id number] [place] [address] 96638- 7438 Apr, [facility] [id number] [place] [address] 31100- 0417 Mar, [facility] [address] [facility] [id number] [address] 0[address] Feb, [facility] [id number] [address]- 5537 Feb, Anxiety F41.9 ; Hypercholesterolemia E78.0 and Postnasal drip R09.82 [facility] [address] [address]- 0227 Dec, [facility] [id number] [address] 14 Dec, 2014 [facility] [id number], [place] [address] 10 Dec, 2014 Routine general medical examination at a health care facility V70.0 and Anxiety 300.00 IMMUNIZATIONS No Known Immunizations SOCIAL HISTORY Never Assessed REASON FOR VISIT Lab (walk-in) PLAN OF CARE VITAL SIGNS MEDICATIONS No Known Medications RESULTS No Results PROCEDURES Procedure Date Ordered Result Body Site URINALYSIS, AUTO, W/O SCOPE August 31, 2017 LAB NOT BILLED BY [facility] August 31, 2017 INSTRUCTIONS MEDICATIONS ADMINISTERED No Known Medications [...]
--- OUTSIDE RECORDS SUMMARY | 2017-12-08 11:55 | XMS REPORT ---
Author Author ARJUN LENNON [facility] Address [address] [place] [address] Care Team Providers Care Stove Fitter Name Role Phone ARJUN LENNON Unavailable PROBLEMS Type Condition ICD9-CM Code MTT94-AL Code Onset Dates Condition Status SNOMED Code Problem Primary insomnia F51.01 Active 6011727 Problem Dysthymia F34.1 Active 31217264 Problem Frequent UTI N39.0 Active 482493549 Problem Anxiety F41.9 Active 59813989 ALLERGIES No Information ENCOUNTERS Encounter Location Date Diagnosis [facility] [id number] [place] [address] 14541- 8910 Oct, [facility] [id number] [place] [address] 66344- 3462 Oct, [facility] [address] 06300 -7156 Oct, Right upper quadrant abdominal pain R10.11 and Pyelonephritis N12 [facility] [id number] [place] [address] 32507- 3983 Oct, Primary insomnia F51.01 [facility] [id number] [place] [address] 47829- 1947 August, [facility] [id number] [place] [address] 59589- 5243 August, Nausea R11.0 [facility] [id number] [place] [address] 70970- 2585 August, Nausea R11.0 [facility] [id number] [place] [address] 52629- 8650 August, Frequent UTI N39.0 [facility] [id number] [place] [address] 42103- 6189 August, COPD with acute exacerbation J44.1 [place] [address] 75812- 7533 Jun, [place] [id number] [place] [address] 74113- 3383 Jun, Anxiety F41.9 ; Primary insomnia F51.01 ; Dysthymia F34.1 and Frequent UTI N39.0 [place] [id number] [place] [address] 78061- 5833 15 Jun, 2017 Acute cystitis without hematuria N30.00 [place] [address] 22289- 6884 14 Jun, 2017 [place] [address] 14657- 8575 14 Jun, 2017 Chills (without fever) R68.83 [place] [id number] [place] [address] 06118- 7767 Jun, Hospital discharge follow-up Z09 and Acute cystitis with hematuria N30.01 [place] [id number] [place] [address] 48456- 4762 28 May, 2017 [place] [address] 42346- 5462 May, UTI (urinary tract infection) N39.0 [place] [id number] [place] [address] 37680- 3418 May, UTI (urinary tract infection) N39.0 [facility] [address] [id number] 13 May, 2017 [facility] [id number] [place] [address] 34326 -4636 02 May, 2017 Intractable vomiting with nausea, unspecified vomiting type R11.2 [place] [address] 58659- 6739 Apr, [facility] [id number] [place] [address] 36779- 6068 Jan, [facility] [id number] [place] [address] 03411- 4725 Jan, History of UTI Z87.440 [facility] [id number] [place] [address] 32039- 1779 August, Anxiety F41.9 [facility] [id number] [place] [address] 32212- 7734 August, Anxiety F41.9 [facility] [id number] [place] [address] 13648- 3599 Jun, [facility] [id number] [place] [address] 65463- 8911 Jun, Hypercholesteremia E78.0 ; Anxiety F41.9 ; Wellness examination Z00.00 and Acute cystitis without hematuria N30.00 [facility] [id number] [place] [address] 14680- 5910 August, Urinary tract infection, site not specified N39.0 and Anxiety F41.9 [facility] [id number] [place] [address] 64759- 8914 August, [facility] [id number] [place] [address] 87791- 8684 Jul, Chills (without fever) R68.83 ; Chest pain R07.9 and Nausea R11.0 [facility] [id number] [place] [address] 15433- 8065 May, [facility] [id number] [place] [address] 45143- 3841 Apr, [facility] [address] [place] [address] 07540- 9945 Mar, [facility] [id number] [address]- 7055 Feb, [facility] [address] [id number] [address]- 9365 Feb, Anxiety F41.9 ; Hypercholesterolemia E78.0 and Postnasal drip R09.82 [facility] [address] [id number] [address]- 7946 Dec, [facility] [address] [id number] [address]- 5011 14 Dec, 2014 [facility] [address] [facility] [place] [id number] [address] 9301 10 Dec, 2014 Routine general medical examination at a health care facility V70.0 and Anxiety 300.00 IMMUNIZATIONS No Known Immunizations SOCIAL HISTORY Never Assessed REASON FOR VISIT PLAN OF CARE VITAL SIGNS MEDICATIONS No Known Medications RESULTS No Results PROCEDURES No Known [...]
--- OUTSIDE RECORDS SUMMARY | 2017-12-08 11:55 | XMS REPORT ---
Author Author ARJUN LENNON [facility] Address [address] [place] [address] Care Team Providers Care Log Data Technician Name Role Phone ARJUN LENNON Unavailable PROBLEMS Type Condition ICD9-CM Code EKI00-EK Code Onset Dates Condition Status SNOMED Code Problem Primary insomnia F51.01 Active 9777978 Problem Dysthymia F34.1 Active 37602864 Problem Frequent UTI N39.0 Active 535703286 Problem Anxiety F41.9 Active 12663444 ALLERGIES No Information ENCOUNTERS Encounter Location Date Diagnosis [facility] [id number] [place] [address] 14558- 7127 17 Oct, 2017 Acute gastritis without hemorrhage, unspecified gastritis type K29.00 [facility] [id number] [place] [address] 97621- 9144 Oct, [facility] [id number] [place] [address] 75382 -0428 Oct, Right upper quadrant abdominal pain R10.11 and Pyelonephritis N12 [facility] [id number] [place] [address] 00751- 0061 Oct, Primary insomnia F51.01 [facility] [id number] [place] [address] 02106- 1867 August, [facility] [id number] [place] [address] 25335- 7908 August, Nausea R11.0 [facility] [id number] [place] [address] 63227- 6961 August, Nausea R11.0 [facility] [id number] [place] [address] 99774- 7224 August, Frequent UTI N39.0 [facility] [address] [place] [address] 14731- 0713 August, COPD with acute exacerbation J44.1 [place] [address] [place] [address] 95423- 2553 Jun, [place] [id number] [place] [address] 14085- 0909 Jun, Anxiety F41.9 ; Primary insomnia F51.01 ; Dysthymia F34.1 and Frequent UTI N39.0 [facility] [id number] [place] [address] 17053- 2466 15 Jun, 2017 Acute cystitis without hematuria N30.00 [place] [id number] [place] [address] 53286- 7379 14 Jun, 2017 [place] [address] 74757- 9328 14 Jun, 2017 Chills (without fever) R68.83 [place] [id number] [place] [address] 01827- 2689 Jun, Hospital discharge follow-up Z09 and Acute cystitis with hematuria N30.01 [facility] [address] [place] [address] 05420- 1413 May, [place] [address] [place] [address] 00798- 6761 May, UTI (urinary tract infection) N39.0 [facility] [address] [place] [address] 90149- 9955 May, UTI (urinary tract infection) N39.0 [facility] [id number] [place] [address] [id number] 13 May, 2017 [facility] [address] [place] [address] 66323 -5921 02 May, 2017 Intractable vomiting with nausea, unspecified vomiting type R11.2 [place] [address] [place] [address] 53817- 8891 Apr, [facility] [id number] [place] [address] 78992- 9381 Jan, [facility] [id number] [place] [address] 52481- 3016 Jan, History of UTI Z87.440 [facility] [address] 06430- 2522 August, Anxiety F41.9 [facility] [id number] [place] [address] 57879- 8724 August, Anxiety F41.9 [facility] [address] 20939- 5593 Jun, [facility] [id number] [place] [address] 80872- 3977 Jun, Hypercholesteremia E78.0 ; Anxiety F41.9 ; Wellness examination Z00.00 and Acute cystitis without hematuria N30.00 [place] [id number] [place] [address] 17925- 4109 August, Urinary tract infection, site not specified N39.0 and Anxiety F41.9 [facility] [id number] [place] [address] 36040- 4078 August, [facility] [id number] [place] [address] 40480- 1084 Jul, Chills (without fever) R68.83 ; Chest pain R07.9 and Nausea R11.0 [place] [id number] [place] [address] 40151- 0410 May, [facility] [id number] [place] [address] 40157- 0723 Apr, [facility] [id number] [place] [address] 10008- 4063 Mar, [facility] [address] [facility] [id number] [address]- 5907 Feb, [facility] [address] [address]- 8027 Feb, Anxiety F41.9 ; Hypercholesterolemia E78.0 and Postnasal drip R09.82 [facility] [address], [place] [address]- 3720 Dec, [facility] [address], [place] [address]- 9342 Dec, [facility] [address], [place] [address]- 7531 Dec, Routine general medical examination at a health care facility V70.0 and Anxiety 300.00 IMMUNIZATIONS No Known Immunizations SOCIAL HISTORY Never Assessed REASON FOR VISIT Requests return call PLAN OF CARE VITAL SIGNS MEDICATIONS No [...]
--- OUTSIDE RECORDS SUMMARY | 2017-12-08 11:55 | XMS REPORT ---
Author Author ARJUN LENNON [facility] Address [address] [place] [address] Care Team Providers Care Controls Operator Molded Goods Name Role Phone ARJUN LENNON Unavailable PROBLEMS Type Condition ICD9-CM Code WIL71-SK Code Onset Dates Condition Status SNOMED Code Problem Primary insomnia F51.01 Active 7597481 Problem Dysthymia F34.1 Active 85745960 Problem Frequent UTI N39.0 Active 105706049 Problem Anxiety F41.9 Active 04507162 ALLERGIES No Known Allergies ENCOUNTERS Encounter Location Date Diagnosis [facility] [id number] [place] [address] 34968- 7441 Oct, [facility] [id number] [place] [address] 43413- 9843 Oct, [facility] [address] 91550 -3639 Oct, Right upper quadrant abdominal pain R10.11 and Pyelonephritis N12 [facility] [id number] [place] [address] 85780- 5788 Oct, Primary insomnia F51.01 [facility] [id number] [place] [address] 81735- 9423 August, [facility] [id number] [place] [address] 25315- 3335 August, Nausea R11.0 [facility] [id number] [place] [address] 84391- 3879 August, Nausea R11.0 [facility] [id number] [place] [address] 22797- 5947 August, Frequent UTI N39.0 [facility] [id number] [place] [address] 46157- 4118 August, COPD with acute exacerbation J44.1 [place] [address] 66187- 9037 Jun, [place] [id number] [place] [address] 34483- 3642 Jun, Anxiety F41.9 ; Primary insomnia F51.01 ; Dysthymia F34.1 and Frequent UTI N39.0 [place] [address] [place] [address] 58413- 5221 15 Jun, 2017 Acute cystitis without hematuria N30.00 [place] [address] 36957- 0628 14 Jun, 2017 [place] [address] 12022- 7990 14 Jun, 2017 Chills (without fever) R68.83 [place] [id number] [place] [address] 12835- 6462 Jun, Hospital discharge follow-up Z09 and Acute cystitis with hematuria N30.01 [place] [id number] [place] [address] 12081- 3545 28 May, 2017 [place] [address] 22404- 1981 May, UTI (urinary tract infection) N39.0 [facility] [id number] [place] [address] 50233- 7144 May, UTI (urinary tract infection) N39.0 [facility] [address] [id number] 13 May, 2017 [facility] [id number] [place] [address] 70231 -9717 02 May, 2017 Intractable vomiting with nausea, unspecified vomiting type R11.2 [place] [address] [place] [address]- 4539 Apr, [facility] [id number] [place] [address] 40907- 1386 Jan, [facility] [id number] [place] [address] 26094- 4360 Jan, History of UTI Z87.440 [facility] [id number] [place] [address] 90839- 0182 August, Anxiety F41.9 [facility] [address] [place] [address] 66765- 1038 August, Anxiety F41.9 [facility] [id number] [place] [address] 18213- 3567 Jun, [facility] [address] [place] [address] 48852- 5024 Jun, Hypercholesteremia E78.0 ; Anxiety F41.9 ; Wellness examination Z00.00 and Acute cystitis without hematuria N30.00 [facility] [id number] [place] [address] 69154- 2922 August, Urinary tract infection, site not specified N39.0 and Anxiety F41.9 [facility] [address] [place] [address] 09713- 1400 August, [facility] [id number] [place] [address] 04223- 5462 Jul, Chills (without fever) R68.83 ; Chest pain R07.9 and Nausea R11.0 [facility] [address] [place] [address] 75908- 1343 May, [facility] [id number] [place] [address] 16703- 3716 Apr, [facility] [address] [place] [address] 98639- 7881 Mar, [facility] [id number] [address]- 0261 12 Feb, 2015 [facility] [address] [id number] [address]- 8896 Feb, Anxiety F41.9 ; Hypercholesterolemia E78.0 and Postnasal drip R09.82 [facility] [address] [id number] [address]- 0210 14 Dec, 2014 [facility] [address] [id number] [address]- 0959 14 Dec, 2014 [facility] [address] [facility] [id number] [address]- 4222 10 Dec, 2014 Routine general medical examination at a health care facility V70.0 and Anxiety 300.00 IMMUNIZATIONS No Known Immunizations SOCIAL HISTORY Never Assessed REASON FOR VISIT Establish Becca Finn RN PLAN OF CARE Activity Details Follow Up 3 Months, prn Reason:CHM VITAL SIGNS Height 62 in 2017-07-13 Weight 120 lbs 2017-07-13 Temperature 98.7 degrees Fahrenheit 2017-07-13 Heart Rate 115 bpm 2017-07-13 Respiratory Rate 20 2017-07-13 BMI 21.95 kg/m2 2017-07-13 Blood pressure systolic 108 mmHg 2017-07-13 Blood pressure diastolic 82 mmHg 2017-07-13 MEDICATIONS Medication Instructions Dosage Frequency Start Date End Date Duration Status Melatin Not-Taking Mirtazapine 7.5 MG Orally Once a day 1 tablets at bedtime 24h Jun, 30 day(s) Active Culturelle - Active Unisom Not-Taking Vitamin C 500 mg Orally Once a day 1 tablet 24h Active Cranberry 405 MG Active RESULTS No Results PROCEDURES Procedure Date Ordered Result Body Site [facility] VISIT ESTABLISHED PATIENT July 13, 2017 INSTRUCTIONS MEDICATIONS ADMINISTERED No Known Medications [...]
--- OUTSIDE RECORDS SUMMARY | 2017-12-08 11:55 | XMS REPORT ---
Author Author ARJUN LENNON [facility] Address [address] [place] [address] Care Team Providers Care Harbor Boat Pilot Name Role Phone ARJUN LENNON Unavailable PROBLEMS Type Condition ICD9-CM Code IRQ89-EE Code Onset Dates Condition Status SNOMED Code Problem Primary insomnia F51.01 Active 2291103 Problem Dysthymia F34.1 Active 33238355 Problem Frequent UTI N39.0 Active 883011237 Problem Anxiety F41.9 Active 09705987 ALLERGIES No Information ENCOUNTERS Encounter Location Date Diagnosis [facility] [id number] [place] [address] 80520- 5046 17 Oct, 2017 Acute gastritis without hemorrhage, unspecified gastritis type K29.00 [facility] [id number] [place] [address] 77602- 9831 Oct, [facility] [id number] [place] [address] 30261 -1037 Oct, Right upper quadrant abdominal pain R10.11 and Pyelonephritis N12 [facility] [id number] [place] [address] 90041- 7989 Oct, Primary insomnia F51.01 [facility] [id number] [place] [address] 46232- 3146 August, [facility] [id number] [place] [address] 28512- 3230 August, Nausea R11.0 [facility] [id number] [place] [address] 37270- 8661 August, Nausea R11.0 [facility] [id number] [place] [address] 91803- 7594 August, Frequent UTI N39.0 [facility] [address] [place] [address] 65795- 7703 August, COPD with acute exacerbation J44.1 [place] [address] [place] [address] 78805- 3062 Jun, [place] [id number] [place] [address] 83964- 4227 Jun, Anxiety F41.9 ; Primary insomnia F51.01 ; Dysthymia F34.1 and Frequent UTI N39.0 [facility] [id number] [place] [address] 99277- 1419 15 Jun, 2017 Acute cystitis without hematuria N30.00 [place] [id number] [place] [address] 74957- 2346 14 Jun, 2017 [place] [address] 30908- 1296 14 Jun, 2017 Chills (without fever) R68.83 [place] [id number] [place] [address] 92565- 3790 Jun, Hospital discharge follow-up Z09 and Acute cystitis with hematuria N30.01 [facility] [address] [place] [address] 99769- 1256 May, [place] [address] [place] [address] 97449- 9722 May, UTI (urinary tract infection) N39.0 [facility] [address] [place] [address] 71601- 9910 May, UTI (urinary tract infection) N39.0 [facility] [id number] [place] [address] [id number] 13 May, 2017 [facility] [address] [place] [address] 18003 -8016 02 May, 2017 Intractable vomiting with nausea, unspecified vomiting type R11.2 [place] [address] [place] [address] 69515- 7316 Apr, [facility] [id number] [place] [address] 73855- 9442 Jan, [facility] [id number] [place] [address] 85761- 2979 Jan, History of UTI Z87.440 [facility] [address] 31782- 4724 August, Anxiety F41.9 [facility] [id number] [place] [address] 49802- 3665 August, Anxiety F41.9 [facility] [address] 80907- 2886 Jun, [facility] [id number] [place] [address] 15758- 2298 Jun, Hypercholesteremia E78.0 ; Anxiety F41.9 ; Wellness examination Z00.00 and Acute cystitis without hematuria N30.00 [place] [id number] [place] [address] 06556- 1428 August, Urinary tract infection, site not specified N39.0 and Anxiety F41.9 [facility] [address] [id number] [place] [address] [phone]- 7936 August, [facility] [id number] [place] [address] 74175- 6070 Jul, Chills (without fever) R68.83 ; Chest pain R07.9 and Nausea R11.0 [place] [address] [id number] [place] [address] 47279- 9538 May, [facility] [id number] [place] [address] 72732- 4020 Apr, [facility] [id number] [place] [address] [phone]- 4321 Mar, [facility] [address] [facility] [id number] [address] Feb, [facility] [id number] [address] Feb, Anxiety F41.9 ; Hypercholesterolemia E78.0 and Postnasal drip R09.82 [facility] [id number] [address] Dec, [facility] [id number] [address] 14 Dec, 2014 [facility] [id number] [address] 10 Dec, 2014 Routine general medical examination at a health care facility V70.0 and Anxiety 300.00 IMMUNIZATIONS No Known Immunizations SOCIAL HISTORY Never Assessed REASON FOR VISIT Medication PLAN OF CARE VITAL SIGNS MEDICATIONS Medication Instructions Dosage Frequency Start Date End Date Duration Status Ondansetron HCl 4 MG Orally 3 times a day as needed 2 tablets Jul, 05 days Active Macrodantin 100 mg Orally twice a day 1 capsule with food or milk 12h August, August, 10 days Active RESULTS No Results PROCEDURES No [...]
--- OUTSIDE RECORDS SUMMARY | 2017-12-08 11:55 | XMS REPORT ---
Author Author ARJUN LENNON [facility] Address [address] [place] [address] Care Team Providers Care Auto Radiator Mechanic Name Role Phone ARJUN LENNON Unavailable PROBLEMS Type Condition ICD9-CM Code UGE34-IG Code Onset Dates Condition Status SNOMED Code Problem Primary insomnia F51.01 Active 3053376 Problem Dysthymia F34.1 Active 48703622 Problem Frequent UTI N39.0 Active 156537042 Problem Anxiety F41.9 Active 24724552 ALLERGIES No Known Allergies ENCOUNTERS Encounter Location Date Diagnosis [facility] [id number] [place] [address] 15000- 9803 Oct, [facility] [id number] [place] [address] 75894- 9663 Oct, [facility] [address] [address] Oct, Right upper quadrant abdominal pain R10.11 and Pyelonephritis N12 [facility] [id number] [place] [address] 69522- 2700 Oct, Primary insomnia F51.01 [facility] [id number] [place] [address] 73199- 6689 August, [facility] [id number] [place] [address] 86266- 1752 August, Nausea R11.0 [facility] [id number] [place] [address] 75092- 4721 August, Nausea R11.0 [facility] [id number] [place] [address] 05211- 5450 August, Frequent UTI N39.0 [facility] [id number] [place] [address] 10949- 7999 August, COPD with acute exacerbation J44.1 [place] [address] 01697- 9266 Jun, [place] [id number] [place] [address] 27227- 4944 Jun, Anxiety F41.9 ; Primary insomnia F51.01 ; Dysthymia F34.1 and Frequent UTI N39.0 [place] [id number] [place] [address] 01977- 0917 15 Jun, 2017 Acute cystitis without hematuria N30.00 [place] [address] 74864- 7010 14 Jun, 2017 [place] [address] 77461- 2975 14 Jun, 2017 Chills (without fever) R68.83 [place] [id number] [place] [address] 41963- 1626 Jun, Hospital discharge follow-up Z09 and Acute cystitis with hematuria N30.01 [place] [id number] [place] [address] 83780- 9186 28 May, 2017 [place] [address] 23234- 5989 May, UTI (urinary tract infection) N39.0 [facility] [id number] [place] [address] 55685- 3959 May, UTI (urinary tract infection) N39.0 [facility] [place] [address] [id number] 13 May, 2017 [facility] [id number] [place] [address] 66800 -6902 02 May, 2017 Intractable vomiting with nausea, unspecified vomiting type R11.2 [place] [address] [place] [address]- 0567 Apr, [facility] [id number] [place] [address] 34485- 2349 Jan, [facility] [id number] [place] [address] 88308- 0753 Jan, History of UTI Z87.440 [facility] [id number] [place] [address] 24260- 8009 August, Anxiety F41.9 [facility] [id number] [place] [address] 48139- 6877 August, Anxiety F41.9 [facility] [id number] [place] [address] 74665- 0406 Jun, [facility] [id number] [place] [address] 84723- 6202 Jun, Hypercholesteremia E78.0 ; Anxiety F41.9 ; Wellness examination Z00.00 and Acute cystitis without hematuria N30.00 [facility] [id number] [place] [address] 14461- 9159 August, Urinary tract infection, site not specified N39.0 and Anxiety F41.9 [facility] [address] [place] [address] 22110- 8159 August, [facility] [id number] [place] [address] 34515- 8475 Jul, Chills (without fever) R68.83 ; Chest pain R07.9 and Nausea R11.0 [facility] [address] [place] [address] 40411- 0376 May, [facility] [id number] [place] [address] 35143- 1011 Apr, [facility] [address] [place] [address] 64937- 3309 Mar, [facility] [address] [id number] [address] 9806 Feb, [facility] [address] [id number] [address] 9652 Feb, Anxiety F41.9 ; Hypercholesterolemia E78.0 and Postnasal drip R09.82 [facility] [address] [id number] [address]- 6961 Dec, [facility] [address] [id number] [address]- 2439 Dec, [facility] [address] [facility] [id number] [address] 7396 Dec, Routine general medical examination at a health care facility V70.0 and Anxiety 300.00 IMMUNIZATIONS No Known Immunizations SOCIAL HISTORY Never Assessed REASON FOR VISIT uti symtoms--tjanssenMA, --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 Quivering of mouth currently, --dropped off urine yesterday to be ran for a UA, --wants to discuss the possiblity of starting a low dose antibotic to keep this from happening. PLAN OF CARE Activity Details Follow Up 2 - 3 Days Reason:Thursday VITAL SIGNS Height 62 in 2017-07-09 Weight 119.9 lbs 2017-07-09 Temperature 98.1 degrees Fahrenheit 2017-07-09 Heart Rate 106 bpm 2017-07-09 Respiratory Rate 20 2017-07-09 BMI 21.93 kg/m2 2017-07-09 Blood pressure systolic 118 mmHg 2017-07-09 Blood pressure diastolic 72 mmHg 2017-07-09 MEDICATIONS Medication Instructions Dosage Frequency Start Date End Date Duration Status Culturelle - Active Ciprofloxacin HCl 500 mg Orally twice a day 1 tablet 12h Jun, Jun, 05 days Active Vitamin C 500 mg Orally Once a day 1 tablet 24h Active Flax Seed Oil 1000 MG Not-Taking Fish Oil 1000 MG Orally twice a day 1 capsule 12h Jun, 30 day(s ) Not-Taking Xanax 0.25 MG Orally 2 times a day 1 tablet 12h 10 Dec, 2014 28 Not- Taking Cranberry 405 MG Active RESULTS No Results PROCEDURES Procedure Date Ordered Result Body Site [facility] VISIT ESTABLISHED PATIENT July 09, 2017 INSTRUCTIONS MEDICATIONS ADMINISTERED No Known Medications [...]
--- OUTSIDE RECORDS SUMMARY | 2017-12-08 11:56 | XMS REPORT ---
Author Author ARJUN LENNON [facility] Address [address] [place] [address] Care Team Providers Care Lodging House Keeper Name Role Phone ARJUN LENNON Unavailable PROBLEMS Type Condition ICD9-CM Code VGB58-NO Code Onset Dates Condition Status SNOMED Code Problem Primary insomnia F51.01 Active 6909316 Problem Dysthymia F34.1 Active 41712460 Problem Frequent UTI N39.0 Active 694027707 Problem Anxiety F41.9 Active 49954175 ALLERGIES No Information ENCOUNTERS Encounter Location Date Diagnosis [facility] [id number] [place] [address] 34305- 0437 Oct, [facility] [id number] [place] [address] 87206- 4693 Oct, [facility] [address] [address] Oct, Right upper quadrant abdominal pain R10.11 and Pyelonephritis N12 [facility] [id number] [place] [address] 67843- 9321 Oct, Primary insomnia F51.01 [facility] [id number] [place] [address] 68242- 9288 August, [facility] [id number] [place] [address] 89804- 3259 August, Nausea R11.0 [facility] [id number] [place] [address] 64840- 4112 August, Nausea R11.0 [facility] [id number] [place] [address] 39392- 3889 August, Frequent UTI N39.0 [facility] [id number] [place] [address] 72326- 0178 August, COPD with acute exacerbation J44.1 [place] [address] 51904- 0308 Jun, [place] [id number] [place] [address] 56700- 4156 Jun, Anxiety F41.9 ; Primary insomnia F51.01 ; Dysthymia F34.1 and Frequent UTI N39.0 [place] [id number] [place] [address] 55735- 4630 15 Jun, 2017 Acute cystitis without hematuria N30.00 [place] [address] 99197- 4339 14 Jun, 2017 [place] [address] 81974- 5426 14 Jun, 2017 Chills (without fever) R68.83 [place] [id number] [place] [address] 33466- 2598 Jun, Hospital discharge follow-up Z09 and Acute cystitis with hematuria N30.01 [place] [id number] [place] [address] 10252- 3001 28 May, 2017 [place] [address] 26611- 2601 May, UTI (urinary tract infection) N39.0 [place] [id number] [place] [address] 76832- 4917 May, UTI (urinary tract infection) N39.0 [facility] [address] [id number] 13 May, 2017 [facility] [id number] [place] [address] 89913 -3573 02 May, 2017 Intractable vomiting with nausea, unspecified vomiting type R11.2 [place] [address] 12238- 5573 Apr, [facility] [id number] [place] [address] 19201- 5122 Jan, [facility] [id number] [place] [address] 87726- 1334 Jan, History of UTI Z87.440 [facility] [id number] [place] [address] 58062- 4459 August, Anxiety F41.9 [facility] [id number] [place] [address] 29996- 5449 August, Anxiety F41.9 [facility] [id number] [place] [address] 46672- 1483 Jun, [facility] [id number] [place] [address] 88671- 1025 Jun, Hypercholesteremia E78.0 ; Anxiety F41.9 ; Wellness examination Z00.00 and Acute cystitis without hematuria N30.00 [facility] [id number] [place] [address] 88007- 6809 August, Urinary tract infection, site not specified N39.0 and Anxiety F41.9 [facility] [id number] [place] [address] 87569- 5852 August, [facility] [id number] [place] [address] 13725- 6866 Jul, Chills (without fever) R68.83 ; Chest pain R07.9 and Nausea R11.0 [facility] [id number] [place] [address] 45450- 5145 May, [facility] [id number] [place] [address] 74568- 2715 Apr, [facility] [id number] [place] [address] 72629- 9437 Mar, [facility] [id number] [address]- 2352 Feb, [facility] [address] [id number] [address]- 5556 Feb, Anxiety F41.9 ; Hypercholesterolemia E78.0 and Postnasal drip R09.82 [facility] [address] [facility] [id number] [address]- 3672 Dec, [facility] [address] [id number] [address]- 4809 14 Dec, 2014 [facility] [address] [facility] [id number] [address]- 0870 10 Dec, 2014 Routine general medical examination at a health care facility V70.0 and Anxiety 300.00 IMMUNIZATIONS No Known Immunizations SOCIAL HISTORY Never Assessed REASON FOR VISIT UTI PLAN OF CARE VITAL SIGNS MEDICATIONS Unknown [...]
--- OUTSIDE RECORDS SUMMARY | 2017-12-08 11:56 | XMS REPORT ---
Author Author ARJUN LENNON [facility] Address [address] [place] [address] Care Team Providers Care Wax Ball Knock Out Worker Name Role Phone ARJUN LENNON Unavailable PROBLEMS Type Condition ICD9-CM Code PQX01-BI Code Onset Dates Condition Status SNOMED Code Problem Primary insomnia F51.01 Active 0789230 Problem Dysthymia F34.1 Active 91733523 Problem Frequent UTI N39.0 Active 493379551 Problem Anxiety F41.9 Active 47552302 ALLERGIES No Information ENCOUNTERS Encounter Location Date Diagnosis [facility] [id number] [place] [address] 76134- 5458 Oct, [facility] [id number] [place] [address] 64644- 0593 Oct, [facility] [address] 20372 -0587 Oct, Right upper quadrant abdominal pain R10.11 and Pyelonephritis N12 [facility] [id number] [place] [address] 45713- 8728 Oct, Primary insomnia F51.01 [facility] [id number] [place] [address] 36212- 0540 August, [facility] [id number] [place] [address] 72922- 4288 August, Nausea R11.0 [facility] [id number] [place] [address] 17150- 6625 August, Nausea R11.0 [facility] [id number] [place] [address] 68414- 3536 August, Frequent UTI N39.0 [facility] [id number] [place] [address] 87698- 2727 August, COPD with acute exacerbation J44.1 [place] [address] 56264- 5131 Jun, [place] [id number] [place] [address] 32943- 7342 Jun, Anxiety F41.9 ; Primary insomnia F51.01 ; Dysthymia F34.1 and Frequent UTI N39.0 [place] [id number] [place] [address] 74216- 7420 15 Jun, 2017 Acute cystitis without hematuria N30.00 [place] [address] 32412- 2323 14 Jun, 2017 [place] [address] 10251- 6190 14 Jun, 2017 Chills (without fever) R68.83 [place] [id number] [place] [address] 37496- 6810 Jun, Hospital discharge follow-up Z09 and Acute cystitis with hematuria N30.01 [place] [id number] [place] [address] 43117- 6582 28 May, 2017 [place] [address] 93020- 9623 May, UTI (urinary tract infection) N39.0 [place] [id number] [place] [address] 61586- 0569 May, UTI (urinary tract infection) N39.0 [facility] [address] [id number] 13 May, 2017 [facility] [id number] [place] [address] 83041 -5848 02 May, 2017 Intractable vomiting with nausea, unspecified vomiting type R11.2 [place] [address] 46719- 4830 Apr, [facility] [id number] [place] [address] 29667- 0290 Jan, [facility] [id number] [place] [address] 30407- 6465 Jan, History of UTI Z87.440 [facility] [id number] [place] [address] 89175- 4379 August, Anxiety F41.9 [facility] [id number] [place] [address] 13374- 6070 August, Anxiety F41.9 [facility] [id number] [place] [address] 31018- 9233 Jun, [facility] [id number] [place] [address] 98891- 0645 Jun, Hypercholesteremia E78.0 ; Anxiety F41.9 ; Wellness examination Z00.00 and Acute cystitis without hematuria N30.00 [facility] [id number] [place] [address] 61326- 1222 August, Urinary tract infection, site not specified N39.0 and Anxiety F41.9 [facility] [id number] [place] [address] 07848- 3519 August, [facility] [id number] [place] [address] 55210- 0888 Jul, Chills (without fever) R68.83 ; Chest pain R07.9 and Nausea R11.0 [facility] [id number] [place] [address] 55715- 1995 May, [facility] [id number] [place] [address] 93456- 1598 Apr, [facility] [address] [place] [address] 58910- 8629 Mar, [facility] [address] [id number] [address]- 0292 12 Feb, 2015 [facility] [address] [id number] [address]- 3583 Feb, Anxiety F41.9 ; Hypercholesterolemia E78.0 and Postnasal drip R09.82 [facility] [address] [id number] [address]- 3542 14 Dec, 2014 [facility] [address] [id number] [address]- 6293 14 Dec, 2014 [facility] [address] [facility] [id number] [address]- 1641 10 Dec, 2014 Routine general medical examination at a health care facility V70.0 and Anxiety 300.00 IMMUNIZATIONS No Known Immunizations SOCIAL HISTORY Never Assessed REASON FOR VISIT Lab (walk-in) PLAN OF CARE VITAL SIGNS MEDICATIONS Unknown Medications RESULTS No Results PROCEDURES Procedure Date Ordered Result Body Site URINALYSIS, AUTO, W/O SCOPE July 08, 2017 LAB NOT BILLED BY [facility] July 08, 2017 INSTRUCTIONS MEDICATIONS ADMINISTERED No Known Medications [...]
--- OUTSIDE RECORDS SUMMARY | 2017-12-08 11:56 | XMS REPORT ---
Author Author ARJUN LENNON [facility] Address [address] [place] [address] Care Team Providers Care Review Engineer Name Role Phone ARJUN LENNON Unavailable PROBLEMS Type Condition ICD9-CM Code SQI60-RY Code Onset Dates Condition Status SNOMED Code Problem Primary insomnia F51.01 Active 4449541 Problem Dysthymia F34.1 Active 92950132 Problem Frequent UTI N39.0 Active 904089946 Problem Anxiety F41.9 Active 27640986 ALLERGIES No Known Allergies ENCOUNTERS Encounter Location Date Diagnosis [facility] [id number] [place] [address] 14975- 3379 Oct, [facility] [id number] [place] [address] 38875- 4270 Oct, [facility] [address] [address] Oct, Right upper quadrant abdominal pain R10.11 and Pyelonephritis N12 [facility] [id number] [place] [address] 39143- 8803 Oct, Primary insomnia F51.01 [facility] [id number] [place] [address] 40930- 1045 August, [facility] [id number] [place] [address] 47712- 9257 August, Nausea R11.0 [facility] [id number] [place] [address] 31922- 9198 August, Nausea R11.0 [facility] [id number] [place] [address] 38426- 3182 August, Frequent UTI N39.0 [facility] [id number] [place] [address] 65076- 4474 August, COPD with acute exacerbation J44.1 [place] [address] 8[address]- 2705 Jun, [place] [id number] [place] [address] 56961- 2488 Jun, Anxiety F41.9 ; Primary insomnia F51.01 ; Dysthymia F34.1 and Frequent UTI N39.0 [place] [id number] [place] [address] 21120- 0980 15 Jun, 2017 Acute cystitis without hematuria N30.00 [place] [address] 25939- 9702 14 Jun, 2017 [place] [address] 25268- 8610 14 Jun, 2017 Chills (without fever) R68.83 [place] [id number] [place] [address] 56680- 8066 Jun, Hospital discharge follow-up Z09 and Acute cystitis with hematuria N30.01 [place] [id number] [place] [address] 97732- 8559 28 May, 2017 [place] [address] 4[address]- 7134 May, UTI (urinary tract infection) N39.0 [facility] [id number] [place] [address] 27394- 0347 May, UTI (urinary tract infection) N39.0 [facility] [address] [id number] 13 May, 2017 [facility] [id number] [place] [address] 63522 -7188 02 May, 2017 Intractable vomiting with nausea, unspecified vomiting type R11.2 [place] [address] [place] [address]- 4[address] Apr, [facility] [id number] [place] [address] 22865- 0275 Jan, [facility] [id number] [place] [address] 27197- 8772 Jan, History of UTI Z87.440 [facility] [id number] [place] [address] 79456- 4839 August, Anxiety F41.9 [facility] [id number] [place] [address] 30237- 3024 August, Anxiety F41.9 [facility] [id number] [place] [address] 76213- 1132 Jun, [facility] [id number] [place] [address] 85885- 3596 Jun, Hypercholesteremia E78.0 ; Anxiety F41.9 ; Wellness examination Z00.00 and Acute cystitis without hematuria N30.00 [facility] [id number] [place] [address] 71375- 4175 August, Urinary tract infection, site not specified N39.0 and Anxiety F41.9 [facility] [id number] [place] [address] 21085- 0288 August, [facility] [id number] [place] [address] 23739- 8566 Jul, Chills (without fever) R68.83 ; Chest pain R07.9 and Nausea R11.0 [facility] [id number] [place] [address] 34824- 5986 May, [facility] [id number] [place] [address] 23239- 5949 Apr, [facility] [id number] [place] [address] 54549- 1984 Mar, [facility] [id number] [address] 9[address] Feb, [facility] [id number] [address] 2539 Feb, Anxiety F41.9 ; Hypercholesterolemia E78.0 and Postnasal drip R09.82 [facility] [id number] [address] Dec, [facility] [id number] [address] 2506 Dec, [facility] [address] [facility] [id number] [address] Dec, Routine general medical examination at a health care facility V70.0 and Anxiety 300.00 IMMUNIZATIONS No Known Immunizations SOCIAL HISTORY Never Assessed REASON FOR VISIT uti- was in hospital for 10 days for sepsis, states she was started on an antibiotic yesterday in a phone call, taking Cipro-AHarrymanRN PLAN OF CARE Activity Details Follow Up prn Reason:already scheduled VITAL SIGNS Height 62 in 2017-06-25 Weight 120.3 lbs 2017-06-25 Temperature 98.0 degrees Fahrenheit 2017-06-25 Heart Rate 96 bpm 2017-06-25 Respiratory Rate 20 2017-06-25 BMI 22.00 kg/m2 2017-06-25 Blood pressure systolic 108 mmHg 2017-06-25 Blood pressure diastolic 60 mmHg 2017-06-25 MEDICATIONS Medication Instructions Dosage Frequency Start Date End Date Duration Status Vitamin C 500 mg Orally Once a day 1 tablet 24h Active Cranberry 405 MG Active Cipro 500 mg Orally twice a day 1 tablet 12h 28 May, 2017 Jun, 07 days Active Flax Seed Oil 1000 MG Not-Taking Fish Oil 1000 MG Orally twice a day 1 capsule 12h Jun, 30 day(s ) Not-Taking Xanax 0.25 MG Orally 2 times a day 1 tablet 12h 10 Dec, 2014 28 Not- Taking RESULTS No Results PROCEDURES Procedure Date Ordered Result Body Site [facility] VISIT ESTABLISHED PATIENT June 25, 2017 INSTRUCTIONS MEDICATIONS ADMINISTERED No Known [...]
--- NOTE | 2017-12-08 12:17 | ED Back Pain ---
General Chief Complaint: Back Problems Stated Complaint: BACK PAIN Source of Information: Patient, EMS Exam Limitations: No Limitations History of Present Illness Date Seen by Provider: Dec 08, 2017 Time Seen by Provider: 12:12 Initial Comments Patient is an 87-year-old female who was brought to the emergency room by [facility] with complaints of lumbar back pain. She reports that she was making her bed this morning when she felt like her back caught/ locked up causing her to fall over on her mattress. She denies hitting her head, denies neck pain, denies going all the way down to the ground. She rates her pain a 7 out of 10 on arrival to the emergency room. Location: Lumbar Spine Timing/Duration: 1/2 Hour Pain/Injury Location: Back Associated Symptoms: No fever, No numbness in legs/feet, No tingling in legs/ feet; lower back pain; No loss of bladder control, No loss of bowel control Allergies and Home Medications Allergies Coded Allergies: Penicillins (Unverified Allergy, Mild, HIVES, 07/03/09) Home Medications Ascorbate Calcium 500 Mg Tablet, 500 MG PO DAILY, (Reported) Cranberry Extract 250 Mg Capsule, 250 MG PO DAILY, (Reported) Doxylamine Succinate 25 Mg Tablet, 25 MG PO HS, (Reported) Hydrocodone Bit/Acetaminophen 1 Tab Tab, 1 EACH PO Q4H PRN for PAIN Prescribed by: MANJU ELLER on 12/08/17 1308 Lactobacillus Rhamnosus GG 1 Each Capsule, 1 CAP PO DAILY, (Reported) Tavares 3 Polyunsat Fatty Acids 1,000 Mg Cap, 1,000 MG PO DAILY, (Reported) Pantoprazole Sodium 40 Mg Tablet.dr, 40 MG PO DAILY@0700 Prescribed by: MEGHANA JEREZ on 11/05/17 1056 Patient Home Medication List Home Medication List Reviewed: Yes Constitutional: see HPI; No chills, No fever Musculoskeletal: see HPI, back pain Psychiatric/Neurological: Denies Numbness All Other Systems Reviewed Negative Unless Noted: Yes Past Ijxqydj-Flubav-Nhyjsx Hx Past Med/Social Hx: Reviewed Nursing Past Med/Soc Hx Patient Social History Alcohol Use: Denies Use Number of Drinks Today: GG Alcohol Beverage of Choice: Whiskey Recreational Drug Use: No Smoking Status: Former Smoker Type Used: Cigarettes Former Smoker, Quit: May 07, 2017 2nd Hand Smoke Exposure: Yes Recent Hopitalizations: No Physical Abuse: No Sexual Abuse: No Immunizations Up To Date Tetanus Booster (TDap): Unknown PED Vaccines UTD: No Date of Pneumonia Vaccine: Jan 27, 2017 Seasonal Allergies Seasonal Allergies: Yes Past Medical History Surgeries: Yes Appendectomy, Section, Tubal Ligation Respiratory: No COPD Currently Using CPAP: No Currently Using BIPAP: No Cardiac: Yes Neurological: No Genitourinary: No Gastrointestinal: No Musculoskeletal: No Endocrine: No HEENT: No Cancer: No Psychosocial: Yes Anxiety Nursing Suicide Risk Score: 0 Integumentary: No Recent Skin Changes Blood Disorders: No Family Medical History Reviewed Nursing Family Hx Patient reports no known family medical history. No Pertinent Family Hx Physical Exam Vital Signs Vital Signs - First Documented 12/08/17 12/08/17 11:52 14:15 Temp 98.4 Pulse 97 Resp 22 B/P (MAP) 136/111 (119) Pulse Ox 99 O2 Delivery Room Air Capillary Refill : Height, Weight, BMI Height: 5'4.00" Weight: 124lbs. 9.0oz. 56.066486wk; 21.4 BMI Method:Stated General Appearance: No Apparent Distress, WD/WN Neck: Full Range of Motion, Normal Inspection, Non Tender, Supple Cardiovascular: Regular Rate, Rhythm, No Edema, No Gallop, No JVD, No Murmur, Normal Peripheral Pulses Respiratory: Chest Non Tender, Lungs Clear, Normal Breath Sounds, No Accessory Muscle Use, No Respiratory Distress Back: Normal Inspection, No CVA Tenderness, Vertebral Tenderness (severe lumbar vertebral tenderness.), Other (negative for saddle paresthesia and numbness and tingling that radiates down her leg.) Neurologic/Psychiatric: Alert, Oriented x3, No Motor/Sensory Deficits Skin: Normal Color, Warm/Dry Progress/Results/Core Measures Results/Orders My Orders Orders - MANJU ELLER Ct Lumbar Spine Wo (12/08/17 12:11) Fentanyl Injection (Sublimaze Injection (12/08/17 12:45) Saline Lock/Iv-Start (12/08/17 14:09) Medications Given in ED Vital Signs/I&O 12/08/17 12/08/17 11:52 14:15 Temp 98.4 98.2 Pulse 97 88 Resp 22 18 B/P (MAP) 136/111 (119) 117/75 Pulse Ox 99 O2 Delivery Room Air Room Air Progress Progress Note : Time: 13:06 Progress Note I spoke to Dr. Quinteros in regards to the patient's CT findings. He recommends pain control and close follow-up with primary care provider. Patient was informed of plan of care and agrees with discharge and close follow-up. Return precautions were given. Departure Impression Primary Impression: Back pain Additional Impression: Non-traumatic compression fracture of L3 lumbar vertebra Disposition: HOME, SELF-CARE Condition: Stable/Unchanged Departure-Patient Inst. Decision time for Depature: 13:05 Referrals: MITCHELL HAYNES DO (PCP) Primary Care Physician ARJUN LENNON APRN (Family) Primary Care Physician Patient Instructions: Low Back Pain (DC) Add. Discharge Instructions: You may use ibuprofen and Tylenol as directed for pain. You may add hydrocodone for pain unrelieved by the Tylenol and ibuprofen. Follow up with your primary care provider in regards to your CT findings within 1 week for recheck. Return back to the emergency room for any worsening pain or any other concerns as needed. All discharge instructions reviewed with patient and/or family. Voiced understanding. Scripts Hydrocodone Bit/Acetaminophen (Hydrocodone/Acetaminophen 5/325mg Tablet) 1 Tab Tab 1 EACH PO Q4H PRN for PAIN, #10 TAB Prov: MANJU ELLER 12/08/17 MANJU ELLER Dec 08, 2017 12:17
--- NOTE | 2017-12-08 12:44 | Diagnostic Imaging Report ---
CLINICAL INDICATION: Patient with low back pain. No known injury. EXAM: Axial CT scan of the lumbar spine performed without IV contrast. Sagittal and coronal reformatted images are created. COMPARISON: CT scan of the thoracic and lumbar spine without contrast dated 01/31/2017. FINDINGS: There is a roughly 20% compression deformity of the upper endplate of the L3 vertebra. There is also mild cortical irregularity involving the superior anterior aspect of the L3 vertebra. This is new compared to the prior CT scan and concerning for acute fracture. There is no other acute fracture dislocation seen. There are small degenerative spurs involving the lumbar spine. There is no major bony central canal or neural foramen narrowing. There is no significant paraspinal soft tissue abnormality. IMPRESSION: 1: Concern for an acute or subacute mild compression deformity of the L3 vertebral body upper endplate. 2: Mild lumbar spine degenerative disease. Dictated by: Dictated on workstation # [id number]
[2017-12-08] MEDS ORDERED: fentaNYL INJECTION 100 MCG/2 ML AMP IVP ONE (12:45)
[2017-12-08] MEDS ORDERED: ACHD5005 PO (13:08)
[2017-12-08 14:15] VITALS: BP 117/75
== END 2017-12-08 14:15 | disposition home or self-care (01) ==
LOC: EDUNIT# 11:50 → ER 11:51
DX: M48.56XA Collapsed vertebra, not elsewhere classified, lumbar region, initial encounter for fracture (principal); J44.9 Chronic obstructive pulmonary disease, unspecified; F41.9 Anxiety disorder, unspecified; Z88.0 Allergy status to penicillin; Z90.49 Acquired absence of other specified parts of digestive tract; Z98.51 Tubal ligation status; Z87.891 Personal history of nicotine dependence; Z98.890 Other specified postprocedural states
CPT/HCPCS: 72131

== ENCOUNTER 2018-06-13 10:05 | Emergency (ER) | payer MEDICARE, MEDICAID ==
[~2018-06-13] VITALS: Ht 154.9 cm; Wt 57.2 kg
[~2018-06-13 10:05] MED LIST changes: +ACHD5005 PO
--- OUTSIDE RECORDS SUMMARY | 2018-06-13 10:10 | XMS REPORT ---
Author Author JADE YA [facility] Address [address] [place] [address] Care Team Providers Care Rigging Up Worker Name Role Phone JADE YA Unavailable PROBLEMS Type Condition ICD9-CM Code YQN17-DP Code Onset Dates Condition Status SNOMED Code Problem Primary insomnia F51.01 Active 0644614 Problem Dysthymia F34.1 Active 68269539 Problem Frequent UTI N39.0 Active 443835913 Problem Anxiety F41.9 Active 57292065 ALLERGIES No Information ENCOUNTERS Encounter Location Date Diagnosis [place] [address] [address] Feb, [facility] [address] [address] Nov, Compression fracture of L3 lumbar vertebra with routine healing S32.030D [place] [address] [address]16- 8019 Nov, [facility] [id number] [place] [address] 12946- 5707 Oct, Acute gastritis without hemorrhage, unspecified gastritis type K29.00 [facility] [address] [address]- [address] Oct, [facility] [id number] [place] [address] 31079 -1962 Oct, Right upper quadrant abdominal pain R10.11 and Pyelonephritis N12 [facility] [address] [address]55- [address]70 Oct, Primary insomnia F51.01 [facility] [address] 57[address]- 5022 August, [facility] [address] [address]- 6967 August, Nausea R11.0 [facility] [id number] [place] [address] 09306- 2292 August, Nausea R11.0 [facility] [id number] [place] [address] 17672- 8138 August, Frequent UTI N39.0 [facility] [id number] [place] [address] 67480- 9272 August, COPD with acute exacerbation J44.1 [facility] [id number] [place] [address] 14220- 4332 Jun, [facility] [id number] [place] [address] 56153- 5653 Jun, Anxiety F41.9 ; Primary insomnia F51.01 ; Dysthymia F34.1 and Frequent UTI N39.0 [facility] [address] [place] [address] 91740- 2742 Jun, Acute cystitis without hematuria N30.00 [facility] [address] [place] [address] 35082- 2790 Jun, [facility] [id number] [place] [address] 34968- 9808 Jun, Chills (without fever) R68.83 [facility] [address] [place] [address] 10455- 3774 Jun, Hospital discharge follow-up Z09 and Acute cystitis with hematuria N30.01 [facility] [id number] [place] [address] 72930- 6848 May, [facility] [address] [place] [address] 44726- 2631 May, UTI (urinary tract infection) N39.0 [facility] [id number] [address]- 2576 20 May, 2017 UTI (urinary tract infection) N39.0 [facility] [id number] [place] [address] [id number] 13 May, 2017 [facility] [address] [place] [address] 35741 -5096 May, Intractable vomiting with nausea, unspecified vomiting type R11.2 [facility] [id number] [place] [address] 37391- 0212 Apr, [facility] [id number] [place] [address] 64184- 3580 Jan, [facility] [id number] [place] [address] 41411- 9885 Jan, History of UTI Z87.440 [facility] [id number] [place] [address] 80876- 1042 August, Anxiety F41.9 [facility] [address] [place] [address] 23820- 2626 August, Anxiety F41.9 [facility] [id number] [place] [address] 64371- 3409 Jun, [facility] [address] [place] [address] 18471- 1827 Jun, Hypercholesteremia E78.0 ; Anxiety F41.9 ; Wellness examination Z00.00 and Acute cystitis without hematuria N30.00 [facility] [address] [address]- 1483 August, Urinary tract infection, site not specified N39.0 and Anxiety F41.9 [facility] [address] [place] [address] 12551- 8551 August, [facility] [address] [place] [address] 59930- 4697 Jul, Chills (without fever) R68.83 ; Chest pain R07.9 and Nausea R11.0 [facility] [address] [place] [address] 39448- 4532 11 May, 2015 [facility] [id number] [place] [address] 51049- 5116 Apr, [facility] [id number] [place] [address] 58476- 5571 Mar, [facility] [id number] [place] [address] 87462- 9077 Feb, [place] [id number] [place] [address] 78070- 6305 Feb, Anxiety F41.9 ; Hypercholesterolemia E78.0 and Postnasal drip R09.82 [place] [id number] [place] [address] 98089- 0110 14 Dec, 2014 [facility] [id number] [place] [address] 40876- 6354 14 Dec, 2014 [place] [id number] [place] [address] 37685- 1721 10 Dec, 2014 Routine general medical examination [...]
--- OUTSIDE RECORDS SUMMARY | 2018-06-13 10:11 | XMS REPORT ---
Author Author ARJUN LENNON [facility] Address [address] [place] [address] Care Team Providers Care Industrial Insulator Name Role Phone ARJUN LENNON Unavailable PROBLEMS Type Condition ICD9-CM Code VDE56-WH Code Onset Dates Condition Status SNOMED Code Problem Primary insomnia F51.01 Active 4942634 Problem Dysthymia F34.1 Active 47704405 Problem Frequent UTI N39.0 Active 880341907 Problem Anxiety F41.9 Active 81302300 ALLERGIES Substance Reaction Event Type Date Status Unisom diarrhea Drug Allergy Nov, Active ENCOUNTERS Encounter Location Date Diagnosis [facility] [address] [address] Nov, Compression fracture of L3 lumbar vertebra with routine healing S32.030D [facility] [id number] [place] [address] 84035- 8499 Nov, [facility] [id number] [place] [address] 77374- 9732 Oct, Acute gastritis without hemorrhage, unspecified gastritis type K29.00 [facility] [id number] [place] [address] 42440- 0744 Oct, [facility] [id number] [place] [address] 41038 -5334 Oct, Right upper quadrant abdominal pain R10.[address] [facility] [address] 71918- 7098 Oct, Primary insomnia F51.01 [facility] [id number] [place] [address] 64986- 0599 August, [facility] [address] [place] [address] August, Nausea R11.0 [facility] [id number] [place] [address] 97886- 7086 August, Nausea R11.0 [facility] [id number] [place] [address] 10525- 9222 August, Frequent UTI N39.0 [facility] [id number] [place] [address] 99901- 1489 August, COPD with acute exacerbation J44.1 [place] [id number] [place] [address] 62842- 2000 Jun, [place] [id number] [place] [address] 33331- 9987 Jun, Anxiety F41.9 ; Primary insomnia F51.01 ; Dysthymia F34.1 and Frequent UTI N39.0 [place] [id number] [place] [address] 35467- 1687 15 Jun, 2017 Acute cystitis without hematuria N30.00 [place] [id number] [place] [address] 84364- 5353 Jun, [facility] [id number] [place] [address] 63939- 5274 Jun, Chills (without fever) R68.83 [place] [id number] [place] [address] 55722- 3824 Jun, Hospital discharge follow-up Z09 and Acute cystitis with hematuria N30.01 [facility] [id number] [place] [address] 26533- 8067 May, [place] [id number] [place] [address] 80482- 1005 May, UTI (urinary tract infection) N39.0 [facility] [id number] [place] [address] 52884- 1553 May, UTI (urinary tract infection) N39.0 [facility] [id number] [id number] May, [facility] [id number] [address] May, Intractable vomiting with nausea, unspecified vomiting type R11.2 [facility] [id number] [place] [address] 30462- 1593 Apr, [facility] [id number] [place] [address] 55931- 9343 Jan, [facility] [id number] [place] [address] 76368- 8004 Jan, History of UTI Z87.440 [facility] [id number] [place] [address] 92691- 9189 August, Anxiety F41.9 [facility] [id number] [place] [address] 25501- 6317 August, Anxiety F41.9 [facility] [id number] [place] [address] 44921- 0118 Jun, [facility] [id number] [place] [address] 70938- 4058 Jun, Hypercholesteremia E78.0 ; Anxiety F41.9 ; Wellness examination Z00.00 and Acute cystitis without hematuria N30.00 [facility] [id number] [address] August, Urinary tract infection, site not specified N39.[address] [facility] [id number] [place] [address] 46546- 4047 August, [facility] [id number] [place] [address] 71249- 1750 Jul, Chills (without fever) R68.83 ; Chest pain R07.9 and Nausea R11.0 [place] [address] [address] 2777 May, [place] [id number] [place] [address] 76610- 2256 Apr, [place] [id number] [place] [address] 30060- 3045 Mar, [place] [address] 24774- 6087 Feb, [place] [id number] [place] [address] 29874- 1712 Feb, Anxiety F41.9 ; Hypercholesterolemia E78.0 and Postnasal drip R09.82 [place] [id number] [place] [address] 17191- 5162 14 Dec, 2014 [place] [id number] [place] [address] 79901- 4137 14 Dec, 2014 [place] [id number] [place] [address] 55286- 1204 10 Dec, 2014 Routine general medical examination at a health care facility V70.0 and Anxiety 300.00 IMMUNIZATIONS No Known Immunizations SOCIAL HISTORY Never Assessed REASON FOR VISIT weakness, [facility] ER f/u 12/08/17----DBennettRN PLAN OF CARE Activity Details Follow Up 3 Months, prn Reason:[facility] VITAL SIGNS Height 62 in 2017-12-14 Weight 120 lbs 2017-12-14 Temperature 98.8 degrees Fahrenheit 2017-12-14 Heart Rate 120 bpm 2017-12-14 Respiratory Rate 2017-12-14 BMI 21.95 kg/m2 2017-12-14 Blood pressure systolic 124 mmHg 2017-12-14 Blood pressure diastolic 72 mmHg 2017-12-14 MEDICATIONS Medication Instructions Dosage Frequency Start Date End Date Duration Status Ibuprofen 200 MG Orally Three times a day 1 tablet with food or milk as needed 8h Active Vitamin C 500 mg Orally Once a day 1 tablet 24h Active Tylenol PM Extra Strength Active Culturelle - Active Cranberry 405 MG Active Tylenol 8 Hour 650 MG Orally every 8 hrs 2 tablets as needed 8h Active RESULTS No Results PROCEDURES Procedure Date Ordered Result Body Site [facility] VISIT ESTABLISHED PATIENT Dec 14, 2017 INSTRUCTIONS MEDICATIONS ADMINISTERED No Known Medications [...]
--- OUTSIDE RECORDS SUMMARY | 2018-06-13 10:11 | XMS REPORT ---
Author Author ARJUN LENNON [facility] Address [address] [place] [address] Care Team Providers Care Mill Tender Washing Name Role Phone ARJUN LENNON Unavailable PROBLEMS Type Condition ICD9-CM Code PCJ15-OG Code Onset Dates Condition Status SNOMED Code Problem Primary insomnia F51.01 Active 7293245 Problem Dysthymia F34.1 Active 92088584 Problem Frequent UTI N39.0 Active 576764999 Problem Anxiety F41.9 Active 75323321 ALLERGIES No Information ENCOUNTERS Encounter Location Date Diagnosis [facility] [address] [address] Nov, Compression fracture of L3 lumbar vertebra with routine healing S32.030D [facility] [id number] [place] [address] 33045- 2431 Nov, [facility] [address] 56794- 0573 Oct, Acute gastritis without hemorrhage, unspecified gastritis type K29.00 [facility] [id number] [place] [address] 88711- 6258 Oct, [facility] [id number] [place] [address] 75670 -7193 Oct, Right upper quadrant abdominal pain R10.11 and Pyelonephritis N12 [facility] [address] 69623- 6181 Oct, Primary insomnia F51.01 [facility] [id number] [place] [address] 60723- 0104 August, [facility] [address] 89993- 8918 August, Nausea R11.0 [facility] [id number] [place] [address] 86117- 5246 August, Nausea R11.0 [facility] [id number] [place] [address] 88170- 8879 August, Frequent UTI N39.0 [facility] [id number] [place] [address] 14539- 3141 August, COPD with acute exacerbation J44.1 [facility] [id number] [place] [address] 10227- 0825 Jun, [place] [id number] [place] [address] 77020- 7255 Jun, Anxiety F41.9 ; Primary insomnia F51.01 ; Dysthymia F34.1 and Frequent UTI N39.0 [place] [id number] [place] [address] 71874- 0073 15 Jun, 2017 Acute cystitis without hematuria N30.00 [facility] [id number] [place] [address] 09339- 1746 Jun, [facility] [id number] [place] [address] 45442- 3461 14 Jun, 2017 Chills (without fever) R68.83 [place] [id number] [place] [address] 06199- 9774 Jun, Hospital discharge follow-up Z09 and Acute cystitis with hematuria N30.01 [facility] [id number] [place] [address] 40451- 8111 May, [facility] [id number] [place] [address] 41506- 5512 May, UTI (urinary tract infection) N39.0 [facility] [id number] [place] [address] 19515- 6620 May, UTI (urinary tract infection) N39.0 [facility] [id number] [id number] 13 May, 2017 [facility] [id number] [place] [address] 08291 -8134 May, Intractable vomiting with nausea, unspecified vomiting type R11.2 [facility] [id number] [place] [address] 39475- 1694 Apr, [facility] [id number] [place] [address] 66922- 4581 Jan, [facility] [id number] [place] [address] 75951- 8453 Jan, History of UTI Z87.440 [place] [id number] [place] [address] 72206- 8014 August, Anxiety F41.9 [place] [id number] [place] [address] 45108- 7867 August, Anxiety F41.9 [facility] [id number] [place] [address] 24113- 5540 Jun, [place] [id number] [place] [address] 45499- 3372 Jun, Hypercholesteremia E78.0 ; Anxiety F41.9 ; Wellness examination Z00.00 and Acute cystitis without hematuria N30.00 [facility] [id number] [place] [address] 54081- 9728 August, Urinary tract infection, site not specified N39.0 and Anxiety F41.9 [place] [id number] [place] [address] 89622- 0480 August, [facility] [id number] [place] [address] 13187- 2752 Jul, Chills (without fever) R68.83 ; Chest pain R07.9 and Nausea R11.0 [facility] [id number] [place] [address] 84969- 3238 11 May, 2015 [facility] [address] [address]- 2250 Apr, [facility] [id number] [place] [address] 38242- 5764 Mar, [facility] [id number] [place] [address] 22381- 0712 Feb, [facility] [id number] [place] [address] 150743- 8499 Feb, Anxiety F41.9 ; Hypercholesterolemia E78.0 and Postnasal drip R09.82 [place] [id number] [place] [address] 07610- 0847 14 Dec, 2014 [facility] [id number] [place] [address] 28910- 3153 14 Dec, 2014 [facility] [id number] [place] [address] 04183- 4137 10 Dec, 2014 Routine general medical examination at a health care facility V70.0 and Anxiety 300.00 IMMUNIZATIONS No Known Immunizations SOCIAL HISTORY Never Assessed REASON FOR VISIT weakness PLAN OF CARE VITAL SIGNS MEDICATIONS No [...]
--- OUTSIDE RECORDS SUMMARY | 2018-06-13 10:11 | XMS REPORT ---
Author Author ARJUN LENNON [facility] Address [address] [place] [address] Care Team Providers Care Deck Lid Fitter Name Role Phone ARJUN LENNON Unavailable PROBLEMS Type Condition ICD9-CM Code VLJ86-NC Code Onset Dates Condition Status SNOMED Code Problem Primary insomnia F51.01 Active 1312637 Problem Dysthymia F34.1 Active 06033738 Problem Frequent UTI N39.0 Active 292983593 Problem Anxiety F41.9 Active 61643337 ALLERGIES No Information ENCOUNTERS Encounter Location Date Diagnosis [place] [id number] [address] Jan, [facility] [address] 37752- 6998 Nov, Compression fracture of L3 lumbar vertebra with routine healing S32.030D [facility] [address] 34495- 0465 Nov, [facility] [id number] [place] [address] 82177- 1128 Oct, Acute gastritis without hemorrhage, unspecified gastritis type K29.00 [facility] [id number] [place] [address] 25139- 3971 Oct, [facility] [id number] [place] [address] 38981 -5976 Oct, Right upper quadrant abdominal pain R10.11 and Pyelonephritis N12 [facility] [address] 28427- 1033 Oct, Primary insomnia F51.01 [facility] [address] 70430- 8651 August, [facility] [id number] [place] [address] 65148- 3784 August, Nausea R11.0 [facility] [id number] [place] [address] 51498- 2256 August, Nausea R11.0 [facility] [id number] [place] [address] 99434- 5771 August, Frequent UTI N39.0 [facility] [id number] [place] [address] 99699- 0809 August, COPD with acute exacerbation J44.1 [facility] [id number] [place] [address] 90949- 6046 Jun, [facility] [id number] [place] [address] 10636- 5749 Jun, Anxiety F41.9 ; Primary insomnia F51.01 ; Dysthymia F34.1 and Frequent UTI N39.0 [facility] [id number] [place] [address] 09828- 7785 15 Jun, 2017 Acute cystitis without hematuria N30.00 [facility] [id number] [place] [address] 01202- 7689 14 Jun, 2017 [facility] [id number] [place] [address] 58139- 2582 Jun, Chills (without fever) R68.83 [facility] [id number] [place] [address] 51146- 8555 Jun, Hospital discharge follow-up Z09 and Acute cystitis with hematuria N30.01 [facility] [id number] [place] [address] 61299- 4296 May, [facility] [id number] [place] [address] 74379- 4032 May, UTI (urinary tract infection) N39.0 [facility] [id number] [address]- 4146 20 May, 2017 UTI (urinary tract infection) N39.0 [facility] [id number] [place] [address] [id number] 13 May, 2017 [facility] [id number] [place] [address] 34666 -0193 May, Intractable vomiting with nausea, unspecified vomiting type R11.2 [facility] [id number] [place] [address] 68260- 4174 Apr, [facility] [id number] [place] [address] 36264- 6067 Jan, [facility] [id number] [place] [address] 93327- 3176 Jan, History of UTI Z87.440 [place] [id number] [place] [address] 99504- 4634 August, Anxiety F41.9 [facility] [id number] [place] [address] 90430- 2054 August, Anxiety F41.9 [facility] [id number] [place] [address] 66546- 0285 Jun, [facility] [id number] [place] [address] 99221- 9230 Jun, Hypercholesteremia E78.0 ; Anxiety F41.9 ; Wellness examination Z00.00 and Acute cystitis without hematuria N30.00 [facility] [id number] [place] [address] 68166- 6461 August, Urinary tract infection, site not specified N39.0 and Anxiety F41.9 [facility] [id number] [place] [address] 69516- 2749 August, [facility] [id number] [place] [address] 92976- 7552 Jul, Chills (without fever) R68.83 ; Chest pain R07.9 and Nausea R11.0 [place] [id number] [place] [address] 88720- 9315 11 May, 2015 [facility] [id number] [place] [address] 72967- 7962 Apr, [place] [id number] [place] [address] 66376- 2230 Mar, [place] [address] 76200- 0895 Feb, [place] [id number] [place] [address] 32031- 7577 Feb, Anxiety F41.9 ; Hypercholesterolemia E78.0 and Postnasal drip R09.82 [place] [id number] [place] [address] 98747- 6704 14 Dec, 2014 [place] [id number] [place] [address] 36882- 3729 14 Dec, 2014 [place] [id number] [place] [address] 07593- 5138 10 Dec, 2014 Routine general medical examination at a health care facility V70.0 and Anxiety 300.00 IMMUNIZATIONS No Known Immunizations SOCIAL HISTORY Never Assessed REASON FOR VISIT Hospital Discharge PLAN OF CARE VITAL SIGNS MEDICATIONS Unknown [...]
--- OUTSIDE RECORDS SUMMARY | 2018-06-13 10:11 | XMS REPORT ---
Author Author ARJUN LENNON [facility] Address [address] [place] [address] Care Team Providers Care Cafe Team Member Name Role Phone ARJUN LENNON Unavailable PROBLEMS Type Condition ICD9-CM Code EBS45-OZ Code Onset Dates Condition Status SNOMED Code Problem Primary insomnia F51.01 Active 6180149 Problem Dysthymia F34.1 Active 93306134 Problem Frequent UTI N39.0 Active 871098030 Problem Anxiety F41.9 Active 38536605 ALLERGIES Substance Reaction Event Type Date Status Unisom diarrhea Drug Allergy Oct, Active ENCOUNTERS Encounter Location Date Diagnosis [facility] [address] [address] Nov, Compression fracture of L3 lumbar vertebra with routine healing S32.030D [facility] [id number] [place] [address] 30467- 9179 Nov, [facility] [id number] [place] [address] 01201- 5400 Oct, Acute gastritis without hemorrhage, unspecified gastritis type K29.00 [facility] [id number] [place] [address] 04940- 8975 Oct, [facility] [id number] [place] [address] 38814 -3871 Oct, Right upper quadrant abdominal pain R10.11 and Pyelonephritis N12 [facility] [address] [address] Oct, Primary insomnia F51.01 [facility] [id number] [place] [address] 32826- 4589 August, [facility] [id number] [place] [address] 14238- 0946 August, Nausea R11.0 [facility] [id number] [place] [address] 12210- 6207 August, Nausea R11.0 [facility] [id number] [place] [address] 98307- 1543 August, Frequent UTI N39.0 [facility] [id number] [place] [address] 44701- 8462 August, COPD with acute exacerbation J44.1 [place] [id number] [place] [address] 50587- 8053 Jun, [place] [id number] [place] [address] 07954- 4106 Jun, Anxiety F41.9 ; Primary insomnia F51.01 ; Dysthymia F34.1 and Frequent UTI N39.0 [place] [id number] [place] [address] 67605- 6671 15 Jun, 2017 Acute cystitis without hematuria N30.00 [place] [id number] [place] [address] 03037- 0411 Jun, [facility] [id number] [place] [address] 92369- 8647 Jun, Chills (without fever) R68.83 [place] [id number] [place] [address] 65897- 6073 Jun, Hospital discharge follow-up Z09 and Acute cystitis with hematuria N30.01 [facility] [id number] [place] [address] 98174- 6307 May, [place] [id number] [place] [address] 54261- 8095 May, UTI (urinary tract infection) N39.0 [facility] [id number] [place] [address] 23643- 4590 May, UTI (urinary tract infection) N39.0 [facility] [id number] [id number] May, [facility] [address] [address] May, Intractable vomiting with nausea, unspecified vomiting type R11.2 [facility] [id number] [place] [address] 65104- 3266 Apr, [facility] [id number] [place] [address] 51427- 2736 Jan, [facility] [id number] [place] [address] 73149- 7024 Jan, History of UTI Z87.440 [facility] [id number] [place] [address] 23014- 7822 August, Anxiety F41.9 [facility] [id number] [place] [address] 05982- 4857 August, Anxiety F41.9 [facility] [id number] [place] [address] 55635- 4789 Jun, [facility] [id number] [place] [address] 12974- 4159 Jun, Hypercholesteremia E78.0 ; Anxiety F41.9 ; Wellness examination Z00.00 and Acute cystitis without hematuria N30.00 [facility] [address] [address] August, Urinary tract infection, site not specified N39.0 and Anxiety F41.9 [facility] [id number] [place] [address] 49908- 7471 August, [facility] [id number] [place] [address] 31881- 9145 Jul, Chills (without fever) R68.83 ; Chest pain R07.9 and Nausea R11.0 [place] [address] [address] 89[address] 11 May, 2015 [place] [id number] [place] [address] 04573- 4930 Apr, [place] [id number] [place] [address] 19182- 8800 Mar, [place] [address] 40552- 3210 Feb, [place] [id number] [place] [address] 24320- 3148 Feb, Anxiety F41.9 ; Hypercholesterolemia E78.0 and Postnasal drip R09.82 [place] [id number] [place] [address] 40956- 4124 14 Dec, 2014 [place] [id number] [place] [address] 52033- 0913 14 Dec, 2014 [place] [id number] [place] [address] 52752- 9388 10 Dec, 2014 Routine general medical examination at a health care facility V70.0 and Anxiety 300.00 IMMUNIZATIONS No Known Immunizations SOCIAL HISTORY Never Assessed REASON FOR VISIT Hospital f/u, PT reports she was sent from our walk in clinic over to [facility] on 03/14. PTs daughter notes the ER diagnosed it as gastritis and sent her home the next day after prescribing her Pantoprazole for 4 weeks. -Luis Fernando HAYDEN PLAN OF CARE Activity Details Follow Up prn Reason: VITAL SIGNS Height 62 in 2017-11-10 Weight 121.7 lbs 2017-11-10 Temperature 98.6 degrees Fahrenheit 2017-11-10 Heart Rate 101 bpm 2017-11-10 Respiratory Rate 20 2017-11-10 Oximetry 94 % 2017-11-10 BMI 22.26 kg/m2 2017-11-10 Blood pressure systolic 132 mmHg 2017-11-10 Blood pressure diastolic 72 mmHg 2017-11-10 MEDICATIONS Medication Instructions Dosage Frequency Start Date End Date Duration Status Tylenol PM Extra Strength Active Culturelle - Active Vitamin C 500 mg Orally Once a day 1 tablet 24h Active Cranberry 405 MG Active Pantoprazole Sodium 40 MG Active Melatonin 3 MG Orally Once a day 1 tablet at bedtime as needed with food 24h Active RESULTS No Results PROCEDURES Procedure Date Ordered Result Body Site [facility] VISIT ESTABLISHED PATIENT November 10, 2017 INSTRUCTIONS MEDICATIONS ADMINISTERED No Known [...]
--- OUTSIDE RECORDS SUMMARY | 2018-06-13 10:11 | XMS REPORT ---
Author Author ARJUN LENNON [facility] Address [address] [place] [address] Care Team Providers Care Quilting Machine Operator Name Role Phone ARJUN LENNON Unavailable PROBLEMS Type Condition ICD9-CM Code NIQ96-DC Code Onset Dates Condition Status SNOMED Code Problem Primary insomnia F51.01 Active 2738273 Problem Dysthymia F34.1 Active 34327185 Problem Frequent UTI N39.0 Active 275831866 Problem Anxiety F41.9 Active 87693288 ALLERGIES No Known Allergies ENCOUNTERS Encounter Location Date Diagnosis [facility] [address] [address] Nov, Compression fracture of L3 lumbar vertebra with routine healing S32.030D [facility] [address] 97[address]- [address] Nov, [facility] [address] 44818- [address]74 Oct, Acute gastritis without hemorrhage, unspecified gastritis type K29.00 [facility] [id number] [place] [address] 75202- 0095 Oct, [facility] [id number] [place] [address] 73613 -2036 Oct, Right upper quadrant abdominal pain R10.11 and Pyelonephritis N12 [facility] [address] [address]- [address] Oct, Primary insomnia F51.01 [facility] [id number] [place] [address] 89356- 6790 August, [facility] [address] 15837- 0083 August, Nausea R11.0 [facility] [address] [place] [address] 19323- 0026 August, Nausea R11.0 [facility] [id number] [place] [address] 75777- 0340 August, Frequent UTI N39.0 [place] [id number] [place] [address] 35114- 9181 August, COPD with acute exacerbation J44.1 [facility] [id number] [place] [address] 38670- 3848 Jun, [place] [id number] [place] [address] 77637- 9178 Jun, Anxiety F41.9 ; Primary insomnia F51.01 ; Dysthymia F34.1 and Frequent UTI N39.0 [place] [id number] [place] [address] 30420- 1873 15 Jun, 2017 Acute cystitis without hematuria N30.00 [facility] [id number] [place] [address] 24315- 4834 14 Jun, 2017 [place] [id number] [place] [address] 73645- 4848 14 Jun, 2017 Chills (without fever) R68.83 [place] [address] [place] [address] 42120- 7804 Jun, Hospital discharge follow-up Z09 and Acute cystitis with hematuria N30.01 [facility] [address] [place] [address] 00585- 8605 May, [facility] [id number] [place] [address] 29760- 6442 May, UTI (urinary tract infection) N39.0 [facility] [id number] [place] [address] 01352- 8768 May, UTI (urinary tract infection) N39.0 [place] [address] [id number] [id number] May, [facility] [id number] [place] [address] 31288 -6468 May, Intractable vomiting with nausea, unspecified vomiting type R11.2 [facility] [address] [place] [address] 30347- 3471 Apr, [facility] [id number] [place] [address] 24767- 8253 Jan, [facility] [id number] [place] [address] 58029- 9712 Jan, History of UTI Z87.440 [facility] [id number] [place] [address] 75089- 3635 August, Anxiety F41.9 [facility] [id number] [place] [address] 70178- 7263 August, Anxiety F41.9 [facility] [id number] [place] [address] 04997- 4384 Jun, [place] [id number] [place] [address] 08958- 5656 Jun, Hypercholesteremia E78.0 ; Anxiety F41.9 ; Wellness examination Z00.00 and Acute cystitis without hematuria N30.00 [facility] [address] [place] [address] 70326- 4848 August, Urinary tract infection, site not specified N39.0 and Anxiety F41.9 [facility] [id number] [place] [address] 08159- 9557 August, [facility] [id number] [place] [address] 43870- 6588 Jul, Chills (without fever) R68.83 ; Chest pain R07.9 and Nausea R11.0 [facility] [id number] [place] [address] 72708- 2698 11 May, 2015 [place] [id number] [place] [address] 18749- 6503 Apr, [place] [id number] [place] [address] 50109- 4412 Mar, [place] [id number] [place] [address] 73988- 6375 Feb, [place] [address] 549618- 6989 Feb, Anxiety F41.9 ; Hypercholesterolemia E78.0 and Postnasal drip R09.82 [place] [id number] [place] [address] 14959- 4204 14 Dec, 2014 [place] [id number] [place] [address] 57151- 8183 14 Dec, 2014 [place] [id number] [place] [address] 66212- 1619 10 Dec, 2014 Routine general medical examination at a health care facility V70.0 and Anxiety 300.00 IMMUNIZATIONS No Known Immunizations SOCIAL HISTORY Never Assessed REASON FOR VISIT chronic uti f/u-----DBstephaniettRN, reports hemorrhage in right eye, getting shots from Dr. Prado in PLAN OF CARE Activity Details Follow Up 3 Months, prn Reason:CHM/Insomnia VITAL SIGNS Height 62 in 2017-11-02 Weight 123 lbs 2017-11-02 Temperature 98.8 degrees Fahrenheit 2017-11-02 Heart Rate 90 bpm 2017-11-02 Respiratory Rate 20 2017-11-02 BMI 22.49 kg/m2 2017-11-02 Blood pressure systolic 126 mmHg 2017-11-02 Blood pressure diastolic 62 mmHg 2017-11-02 MEDICATIONS Medication Instructions Dosage Frequency Start Date End Date Duration Status Cranberry 405 MG Active Mirtazapine 7.5 MG Orally Once a day 1 tablets at bedtime 24h 30 Active Vitamin C 500 mg Orally Once a day 1 tablet 24h Active Trazodone HCl 50 mg Orally Once a day 1/2 tablet at bedtime as needed 24h Oct, 30 day(s) Active Culturelle - Active Melatonin 3 MG Orally Once a day 1 tablet at bedtime as needed with food 24h Active RESULTS No Results PROCEDURES Procedure Date Ordered Result Body Site COUNT INCLUDES [facility] VISIT ESTABLISHED PATIENT November 02, 2017 INSTRUCTIONS MEDICATIONS ADMINISTERED No Known Medications [...]
--- OUTSIDE RECORDS SUMMARY | 2018-06-13 10:11 | XMS REPORT ---
Author Author NAS CHRISTIAN Organization [facility] Address [address] [place] [address] Care Team Providers Care Technician Test Systems Name Role Phone NAS CHRISTIAN Unavailable PROBLEMS Type Condition ICD9-CM Code HYJ94-UF Code Onset Dates Condition Status SNOMED Code Problem Primary insomnia F51.01 Active 9900265 Problem Dysthymia F34.1 Active 22909670 Problem Frequent UTI N39.0 Active 811569383 Problem Anxiety F41.9 Active 55843898 ALLERGIES No Known Allergies ENCOUNTERS Encounter Location Date Diagnosis [place] [address] [address] Jan, [facility] [address] [address]- [address] Nov, Compression fracture of L3 lumbar vertebra with routine healing S32.030D [place] [address] 29366- 0499 Nov, [facility] [id number] [place] [address] 70828- 2954 Oct, Acute gastritis without hemorrhage, unspecified gastritis type K29.00 [facility] [id number] [place] [address] 01468- 4104 Oct, [facility] [id number] [place] [address] 82733 -9358 Oct, Right upper quadrant abdominal pain R10.11 and Pyelonephritis N12 [facility] [id number] [place] [address] 05141- 2476 Oct, Primary insomnia F51.01 [facility] [address] 0[address]- [address]99 August, [facility] [address] [place] [address] 24638- 9414 August, Nausea R11.0 [facility] [id number] [place] [address] 98097- 7968 August, Nausea R11.0 [facility] [id number] [place] [address] 08126- 9631 August, Frequent UTI N39.0 [facility] [id number] [place] [address] 75275- 9625 August, COPD with acute exacerbation J44.1 [facility] [id number] [place] [address] 96671- 9843 Jun, [facility] [id number] [place] [address] 99548- 9032 Jun, Anxiety F41.9 ; Primary insomnia F51.01 ; Dysthymia F34.1 and Frequent UTI N39.0 [facility] [id number] [place] [address] 71890- 2576 Jun, Acute cystitis without hematuria N30.00 [facility] [id number] [place] [address] 00895- 1643 Jun, [facility] [id number] [place] [address] 15351- 8962 Jun, Chills (without fever) R68.83 [facility] [address] [place] [address] 10502- 0760 Jun, Hospital discharge follow-up Z09 and Acute cystitis with hematuria N30.01 [facility] [id number] [place] [address] 87141- 8810 May, [facility] [id number] [place] [address] 50171- 1153 May, UTI (urinary tract infection) N39.0 [facility] [address] [address] [address] May, UTI (urinary tract infection) N39.0 [facility] [id number] [place] [address] [id number] 13 May, [address] [facility] [id number] [place] [address] 87736 -8749 May, Intractable vomiting with nausea, unspecified vomiting type R11.2 [facility] [id number] [place] [address] 32734- 4945 Apr, [facility] [id number] [place] [address] 22508- 8258 Jan, [facility] [id number] [place] [address] 58868- 0907 Jan, History of UTI Z87.440 [facility] [id number] [place] [address] 16695- 2380 August, Anxiety F41.9 [facility] [id number] [place] [address] 69426- 8287 August, Anxiety F41.9 [facility] [id number] [place] [address] 27575- 9500 Jun, [facility] [id number] [place] [address] 73308- 7667 Jun, Hypercholesteremia E78.0 ; Anxiety F41.9 ; Wellness examination Z00.00 and Acute cystitis without hematuria N30.00 [facility] [address] [place] [address] 85265- 1946 August, Urinary tract infection, site not specified N39.0 and Anxiety F41.9 [facility] [id number] [place] [address] 57339- 3542 August, [facility] [address] [place] [address] 62233- 1129 Jul, Chills (without fever) R68.83 ; Chest pain R07.9 and Nausea R11.0 [place] [id number] [place] [address] 17385- 5330 May, [place] [id number] [place] [address]- 7410 Apr, [place] [id number] [place] [address] 32039- 0425 Mar, [place] [id number] [place] [address] 60535- 0243 Feb, [place] [address]494[address]- 1973 Feb, Anxiety F41.9 ; Hypercholesterolemia E78.0 and Postnasal drip R09.82 [place] [id number] [place] [address] 87335- 5357 14 Dec, 2014 [place] [id number] [place] [address] 42041- 7285 14 Dec, 2014 [place] [id number] [place] [address] 60469- 9624 10 Dec, 2014 Routine general medical examination at a health care facility V70.0 and Anxiety 300.00 IMMUNIZATIONS No Known Immunizations SOCIAL HISTORY Never Assessed REASON FOR VISIT right quadrant pain, chest pain and shaking that started about 4:30 this morning.--JACKELYN Horton, Pt.'s daughter states this is what happened the last time that the patient had a UTI and was septic. PLAN OF CARE Activity Details Follow Up w/ PCP Reason:hospital f/u VITAL SIGNS Height 62 in 2017-11-04 Weight 122.8 lbs 2017-11-04 Temperature 97.5 degrees Fahrenheit 2017-11-04 Heart Rate 100 bpm 2017-11-04 Respiratory Rate 20 2017-11-04 BMI 22.46 kg/m2 2017-11-04 Blood pressure systolic 148 mmHg 2017-11-04 Blood pressure diastolic 90 mmHg 2017-11-04 MEDICATIONS Medication Instructions Dosage Frequency Start Date End Date Duration Status Vitamin C 500 mg Orally Once a day 1 tablet 24h Active Trazodone HCl 50 mg Orally Once a day 1/2 tablet at bedtime as needed 24h Oct, 30 day(s) Active Cranberry 405 MG Active Culturelle - Active Mirtazapine 7.5 MG Orally Once a day 1 tablets at bedtime 24h 30 Active Melatonin 3 MG Orally Once a day 1 tablet at bedtime as needed with food 24h Active RESULTS Name Result Date Reference Range UA LONG DIP (IN HOUSE) 2017-11-04 Lot # [id number] Exp date 02/2018 Clarity unknown Color unknown Odor no GLU Negative GRACY Negative KET Negative SG 1.010 BLO Negative pH 5.5 Protein Negative URO 0.2 NIT Negative MELISSA 1+ Lot # [id number] Exp date 03/2018 PROCEDURES Procedure Date Ordered Result Body Site URINALYSIS, AUTO, W/O SCOPE November 04, 2017 [facility] VISIT ESTABLISHED PATIENT November 04, 2017 INSTRUCTIONS MEDICATIONS ADMINISTERED No Known Medications [...]
--- NOTE | 2018-06-13 12:20 | NUR ---
NOTIFIED OF BUSY ER WITH MULTIPLE AMBULANCES. NO CHANGE IN PT CONDITION AT THIS TIME. WARM BLANKET GIVEN.
[2018-06-13 13:45] VITALS: BP 195/115
--- NOTE | 2018-06-13 13:45 | NUR ---
PT MOVED TO FAST TRACK ROOM DUE TO FULL ER. PT DRY HEAVING AT THIS TIME.
--- NOTE | 2018-06-13 13:48 | NUR ---
PT MOVED TO ROOM 04.
[2018-06-13] MEDS ORDERED: NS IV 1000 ML 1,000 ML IV ONE (16:03)
[2018-06-13 16:30] LABS: BASOPHILS % (AUTO) 0 % (0-10); EOSINOPHILS % (AUTO) 0 % (0-10); HEMATOCRIT 45 % (35-52); HEMOGLOBIN 14.9 G/DL (11.5-16.0); LYMPHOCYTES # (AUTO) 1.9 X 10^3 (1.0-4.0); LYMPHOCYTES % (AUTO) 19 % (12-44); MEAN CORPUSCULAR HEMOGLOBIN 30 PG (25-34); MEAN CORPUSCULAR HGB CONC 34 G/DL (32-36); MEAN CORPUSCULAR VOLUME 90 FL (80-99); MEAN PLATELET VOLUME 10.5 FL (7.4-10.4); MONOCYTES # (AUTO) 0.6 X 10^3 (0.0-1.0); MONOCYTES % (AUTO) 6 % (0-12); NEUTROPHILS # (AUTO) 7.6 X 10^3 (1.8-7.8); NEUTROPHILS % (AUTO) 75 % (42-75); PLATELET COUNT 235 10^3/uL (130-400); RED CELL DISTRIBUTION WIDTH 14.4 % (10.0-14.5); WHITE BLOOD COUNT 10.1 10^3/uL (4.3-11.0)
--- NOTE | 2018-06-13 16:42 | NUR ---
Transfer of care from Danielle HARRIS.
[2018-06-13 16:54] LABS: ALBUMIN 4.5 GM/DL (3.2-4.5); BILIRUBIN,TOTAL 1.3 MG/DL (0.1-1.0); CALCIUM 9.6 MG/DL (8.5-10.1); CREATININE SERUM 0.95 MG/DL (0.60-1.30); MAGNESIUM 2.1 MG/DL (1.8-2.4); POTASSIUM 4.1 MMOL/L (3.6-5.0); TOTAL PROTEIN 7.4 GM/DL (6.4-8.2)
--- NOTE | 2018-06-13 16:58 | Diagnostic Imaging Report ---
INDICATION: Back pain and tremors. COMPARISON: 10/25/2017. FINDINGS: Increased hazy opacities in the right infrahilar region. Posterior lower lobes are poorly evaluated by portable radiography. No pleural effusion or pneumothorax. Heart is normal in size. IMPRESSION: Increasing right basilar ill-defined opacities likely on the basis of atelectasis. However, small focus of infection could give this appearance in the appropriate setting. Dictated by: Dictated on workstation # [id number]
[2018-06-13 17:19] LABS: BILIRUBIN,URINE NEGATIVE (NEGATIVE); CLARITY,URINE CLEAR; COLOR,URINE YELLOW; GLUCOSE, URINE (UA) NEGATIVE (NEGATIVE); KETONES,URINE NEGATIVE (NEGATIVE); LEUKOCYTE ESTERASE ,URINE 1+ (NEGATIVE); NITRITE,URINE NEGATIVE (NEGATIVE); PH,URINE 5 (5-9); PROTEIN,URINE 2+ (NEGATIVE); UROBILINOGEN,URINE NORMAL (NORMAL)
--- NOTE | 2018-06-13 17:32 | ED General ---
General Chief Complaint: Back Problems Stated Complaint: TREMORS Nursing Triage Note: PT BROUGHT TO ER ET DAUGHTER STATES SHE IS HAVING BACK PAIN AND TREMMORS. DAUGHTER STATES WHEN SHE GETS THESE TREMMORS IT IS USUALLY FROM A SEVERE UTI. Nursing Sepsis Screen: No Definite Risk Source of Information: Patient, Family, Old Records Exam Limitations: No Limitations Allergies and Home Medications Allergies Coded Allergies: Penicillins (Unverified Allergy, Mild, HIVES, 07/03/09) acetaminophen (Verified Allergy, Unknown, 06/13/18) diphenhydramine (Verified Allergy, Unknown, 06/13/18) doxylamine (Verified Allergy, Unknown, 06/13/18) Home Medications Ascorbate Calcium 500 Mg Tablet, 500 MG PO DAILY, (Reported) Cranberry Extract 250 Mg Capsule, 250 MG PO DAILY, (Reported) Doxylamine Succinate 25 Mg Tablet, 25 MG PO HS, (Reported) Hydrocodone Bit/Acetaminophen 1 Tab Tab, 1 EACH PO Q4H PRN for PAIN Prescribed by: MANJU ELLER on 12/08/17 1308 Lactobacillus Rhamnosus GG 1 Each Capsule, 1 CAP PO DAILY, (Reported) [place] 3 Polyunsat Fatty Acids 1,000 Mg Cap, 1,000 MG PO DAILY, (Reported) Pantoprazole Sodium 40 Mg Tablet.dr, 40 MG PO DAILY@0700 Prescribed by: MEGHANA JEREZ on 11/05/17 1056 Past Zzbbdcy-Pinmvm-Tyrpwl Hx Patient Social History Alcohol Beverage of Choice: Whiskey Type Used: Cigarettes Former Smoker, Quit: May 07, 2017 2nd Hand Smoke Exposure: Yes Recent Foreign Travel: No Contact w/Someone Who Travel: No Recent Infectious Disease Expo: No Recent Hopitalizations: No Immunizations Up To Date Tetanus Booster (TDap): Unknown PED Vaccines UTD: No Date of Pneumonia Vaccine: Jan 27, 2017 Seasonal Allergies Seasonal Allergies: Yes Past Medical History Surgeries: Yes Appendectomy, Section, Tubal Ligation Respiratory: No COPD Currently Using CPAP: No Currently Using BIPAP: No Cardiac: Yes Neurological: No Genitourinary: No Gastrointestinal: No Musculoskeletal: No Endocrine: No HEENT: No Cancer: No Psychosocial: Yes Anxiety Integumentary: No Recent Skin Changes Blood Disorders: No Family Medical History Patient reports no known family medical history. No Pertinent Family Hx Physical Exam Vital Signs Vital Signs - First Documented 06/13/18 11:34 Temp 98.6 Pulse 114 Resp 18 B/P (MAP) 153/85 (107) Pulse Ox 94 O2 Delivery Room Air Capillary Refill : Less Than 3 Seconds Height, Weight, BMI Height: 5'1.00" Weight: 126lbs. 9.0oz. 57.000421nv; 21.4 BMI Method:Stated Progress/Results/Core Measures Suspected Sepsis Recent Fever Within 48 Hours: No Infection Criteria Present: Suspected New Infection New/Unexplained Altered Menta: No Sepsis Screen: No Definite Risk SIRS Temperature:98.6 Pulse: 119 Respiratory Rate: 18 Laboratory Tests 06/13/18 16:22: White Blood Count 10.1 Blood Pressure 195 /115 Mean: 141 Laboratory Tests 06/13/18 16:22: Creatinine 0.95, Platelet Count 235, Total Bilirubin 1.3H Results/Orders Lab Results Laboratory Tests Test 06/13/18 16:22 06/13/18 17:15 Range/Units White Blood Count 10.1 4.3-11.0 10^3/uL Red Blood Count 4.94 4.35-5.85 10^6/uL Hemoglobin 14.9 11.5-16.0 G/DL Hematocrit 45 35-52 % Mean Corpuscular Volume 90 80-99 FL Mean Corpuscular Hemoglobin 30 25-34 PG Mean Corpuscular Hemoglobin Concent 34 32-36 G/DL Red Cell Distribution Width 14.4 10.0-14.5 % Platelet Count 235 130-400 10^3/uL Mean Platelet Volume 10.5 H 7.4-10.4 FL Neutrophils (%) (Auto) 75 42-75 % Lymphocytes (%) (Auto) 19 12-44 % Monocytes (%) (Auto) 6 0-12 % Eosinophils (%) (Auto) 0 0-10 % Basophils (%) (Auto) 0 0-10 % Neutrophils # (Auto) 7.6 1.8-7.8 X 10^3 Lymphocytes # (Auto) 1.9 1.0-4.0 X 10^3 Monocytes # (Auto) 0.6 0.0-1.0 X 10^3 Eosinophils # (Auto) 0.0 0.0-0.3 10^3/uL Basophils # (Auto) 0.0 0.0-0.1 10^3/uL Sodium Level 139 135-145 MMOL/L Potassium Level 4.1 3.6-5.0 MMOL/L Chloride Level 104 98-107 MMOL/L Carbon Dioxide Level 22 21-32 MMOL/L Anion Gap 13 5-14 MMOL/L Blood Urea Nitrogen 11 7-18 MG/DL Creatinine 0.95 0.60-1.30 MG/DL Estimat Glomerular Filtration Rate 56 BUN/Creatinine Ratio 12 Glucose Level 101 70-105 MG/DL Calcium Level 9.6 8.5-10.1 MG/DL Corrected Calcium 9.2 8.5-10.1 MG/DL Magnesium Level 2.1 1.8-2.4 MG/DL Total Bilirubin 1.3 H 0.1-1.0 MG/DL Aspartate Amino Transf (AST/SGOT) 20 5-34 U/L Alanine Aminotransferase (ALT/SGPT) 14 0-55 U/L Alkaline Phosphatase 90 40-136 U/L Total Protein 7.4 6.4-8.2 GM/DL Albumin 4.5 3.2-4.5 GM/DL Urine Color YELLOW Urine Clarity CLEAR Urine pH 5 5-9 Urine Specific [place] 1.020 1.016-1.022 Urine Protein 2+ H NEGATIVE Urine Glucose (UA) NEGATIVE NEGATIVE Urine Ketones NEGATIVE NEGATIVE Urine Nitrite NEGATIVE NEGATIVE Urine Bilirubin NEGATIVE NEGATIVE Urine Urobilinogen NORMAL NORMAL MG/DL Urine Leukocyte Esterase 1+ H NEGATIVE Urine RBC (Auto) NEGATIVE NEGATIVE Urine RBC RARE /HPF Urine WBC 5-10 H /HPF Urine Squamous Epithelial Cells 5-10 /HPF Urine Renal Epithelial Cells NONE /HPF Urine Crystals NONE /LPF Urine Bacteria MODERATE H /HPF Urine Casts PRESENT /LPF Urine Hyaline Casts RARE /LPF Urine Mucus NEGATIVE /LPF Urine Culture Indicated YES My Orders Orders - EARNESTINE LARA MD Cbc With Automated Diff (06/13/18 16:03) Comprehensive Metabolic Panel (06/13/18 16:03) Magnesium (06/13/18 16:03) Saline Lock/Iv-Start (06/13/18 16:03) Chest 1 View, Ap/Pa Only (06/13/18 16:03) Ns Iv 1000 Ml (Sodium Chloride 0.9%) (06/13/18 16:03) Medications Given in ED Current Medications Medications Dose Ordered Sig/Ehsan Route Start Time Stop Time Status Last Admin Dose Admin Sodium Chloride 1,000 ml @ 0 mls/hr Q0M ONCE IV 06/13/18 16:03 06/13/18 16:05 DC 06/13/18 16:29 0 MLS/HR Vital Signs/I&O 06/13/18 06/13/18 11:34 13:45 Temp 98.6 98.6 Pulse 114 119 Resp 18 18 B/P (MAP) 153/85 (107) 195/115 (141) Pulse Ox 94 96 O2 Delivery Room Air Room Air Capillary Refill : Less Than 3 Seconds Blood Pressure Mean: 141 Diagnostic Imaging Diagonstic Imaging: Xray Plain Films/CT/US/NM/MRI: chest Comments Chest x-ray viewed by me and report reviewed. See report below: NAME: YEYO SHARMA MED REC#: [id number] PT STATUS: REG ER : 1930 PHYSICIAN: EARNESTINE LARA MD ADMIT DATE: 06/13/18/ER Draft Date of Exam:06/13/18 CHEST 1 VIEW, AP/PA ONLY INDICATION: Back pain and tremors. COMPARISON: 10/25/2017. FINDINGS: Increased hazy opacities in the right infrahilar region. Posterior lower lobes are poorly evaluated by portable radiography. No pleural effusion or pneumothorax. Heart is normal in size. IMPRESSION: Increasing right basilar ill-defined opacities likely on the basis of atelectasis. However, small focus of infection could give this appearance in the appropriate setting. Dictated on workstation # [id number] Dict: 06/13/18 1652 Trans: 06/13/18 1658 [facility] [id number] Interpreted by: JOSSIE SANCHEZ MD Departure Impression Primary Impression: Urinary tract infection Qualified Codes: N39.0 - Urinary tract infection, site not specified Additional Impression: Tremor Disposition: HOME, SELF-CARE Condition: Stable Departure-Patient Inst. Referrals: MITCHELL HAYNES DO (PCP) Primary Care Physician ARJUN LENNON APRN (Family) Primary Care Physician Patient Instructions: Urinary Tract Infections in Adults Add. Discharge Instructions: Drink plenty of clear liquids. Complete your antibiotics as prescribed. Follow-up with your primary care provider on Thursday to review urine culture results. Return to care if you have worsening symptoms. All discharge instructions reviewed with patient and/or family. Voiced understanding. Scripts Ciprofloxacin HCl (Cipro) 500 Mg Tablet 500 MG PO BID, #10 TAB Prov: EARNESTINE LARA MD 06/13/18 EARNESTINE LARA MD Jun 13, 2018 17:32
[2018-06-13 17:38] LABS: BACTERIA,URINE MODERATE /HPF; HYALINE CASTS, URINE RARE /LPF; RBC,URINE RARE /HPF
[2018-06-13] MEDS ORDERED: CIPROFLOXACIN 500 MG (CIPRO) TABLET PO ONE (18:30)
[2018-06-13] MEDS ORDERED: CIPR-225 PO (18:33)
[2018-06-13 18:44] VITALS: BP 131/93
== END 2018-06-13 18:51 | disposition home or self-care (01) ==
LOC: EDUNIT# 10:05 → ER 10:06
DX: N39.0 Urinary tract infection, site not specified (principal); R25.1 Tremor, unspecified; J44.9 Chronic obstructive pulmonary disease, unspecified; F41.9 Anxiety disorder, unspecified; Z77.22 Contact with and (suspected) exposure to environmental tobacco smoke (acute) (chronic); Z88.0 Allergy status to penicillin; Z88.5 Allergy status to narcotic agent; Z88.8 Allergy status to other drugs, medicaments and biological substances; Z90.49 Acquired absence of other specified parts of digestive tract; Z98.51 Tubal ligation status
CPT/HCPCS: 36415; 71045; 80053; 81000; 83735; 85025; 87088

== ENCOUNTER 2018-08-02 09:45 | Emergency (ER) | payer MEDICARE, MEDICAID ==
[~2018-08-02] VITALS: Ht 154.9 cm; Wt 57.2 kg
[~2018-08-02 09:45] MED LIST changes: +CIPR-225 PO
[2018-08-02] MEDS ORDERED: NS IV 1000 ML 1,000 ML IV ONE (09:56)
--- NOTE | 2018-08-02 10:01 | ED Neurological Problem ---
General Chief Complaint: Neurological Problems Stated Complaint: R SIDED WEAKNESS Source: patient, family (daughter) Exam Limitations: no limitations History of Present Illness Date Seen by Provider: Aug 02, 2018 Time Seen by Provider: 09:41 Initial Comments The patient presents to ER by private conveyance with her daughter and chief complaint that when her daughter arrived about an hour and a half ago to the patient's house give her her bath she noted that her mother was moving, slow and was dragging her right foot. She was not as spry as usual. She does have a history of frequent UTIs. She is denying any dysuria. A bowel movement yesterday. She denies any abdominal pain nausea diarrhea or chest pain. She does have some new thoracic back pain today. She denies any falls. Her daughter says she's not had any falls or new bruises. She does not take any medicines routinely except for vitamins. She is not having any shortness of breath or cough but does have a history of COPD. She does not smoke cigarettes anymore. The daughter reports that the patient did drink full glass of chocolate milk before they came to the ER. Allergies and Home Medications Allergies Coded Allergies: Penicillins (Unverified Allergy, Mild, HIVES, 07/03/09) acetaminophen (Verified Allergy, Unknown, 06/13/18) diphenhydramine (Verified Allergy, Unknown, 06/13/18) doxylamine (Verified Allergy, Unknown, 06/13/18) Home Medications Ascorbate Calcium 500 Mg Tablet, 500 MG PO DAILY, (Reported) Cranberry Extract 250 Mg Capsule, 250 MG PO DAILY, (Reported) Doxylamine Succinate 25 Mg Tablet, 25 MG PO HS, (Reported) Hydrocodone Bit/Acetaminophen 1 Tab Tab, 1 EACH PO Q4H PRN for PAIN Prescribed by: MANJU ELLER on 12/08/17 1308 Lactobacillus Rhamnosus GG 1 Each Capsule, 1 CAP PO DAILY, (Reported) [place] 3 Polyunsat Fatty Acids 1,000 Mg Cap, 1,000 MG PO DAILY, (Reported) Pantoprazole Sodium 40 Mg Tablet.dr, 40 MG PO DAILY@0700 Prescribed by: MEGHANA JEREZ on 11/05/17 1056 Patient Home Medication List Home Medication List Reviewed: Yes Review of Systems Review of Systems Constitutional: No chills, No fever; malaise, weakness Eyes: Denies Blindness, Denies Blurred Vision Ears, Nose, Mouth, Throat: denies ear pain, denies ear discharge Respiratory: No cough, No short of breath Cardiovascular: No chest pain, No edema Gastrointestinal: No abdominal pain, No constipation, No diarrhea Genitourinary: No discharge, No dysuria Musculoskeletal: see HPI, back pain; No joint pain Past Kjvslsq-Henwdh-Dycnbu Hx Patient Social History Alcohol Use: Denies Use Number of Drinks Today: GG Alcohol Beverage of Choice: Whiskey Recreational Drug Use: No Smoking Status: Former Smoker Type Used: Cigarettes Former Smoker, Quit: May 07, 2017 2nd Hand Smoke Exposure: Yes Recent Hopitalizations: No Immunizations Up To Date Tetanus Booster (TDap): Unknown PED Vaccines UTD: No Date of Pneumonia Vaccine: Jan 27, 2017 Seasonal Allergies Seasonal Allergies: Yes Past Medical History Surgeries: Yes Appendectomy, Section, Tubal Ligation Respiratory: Yes COPD Currently Using CPAP: No Currently Using BIPAP: No Cardiac: Yes Neurological: Yes (Tremors) Genitourinary: No Gastrointestinal: No Musculoskeletal: Yes (Chronic chest pain) Endocrine: No HEENT: No Cancer: No Psychosocial: Yes Anxiety Integumentary: Yes Recent Skin Changes Blood Disorders: No Family Medical History Patient reports no known family medical history. No Pertinent Family Hx Physical Exam Vital Signs Vital Signs - First Documented 08/02/18 09:45 Temp 96.8 Pulse 101 Resp 18 B/P (MAP) 125/86 (99) Pulse Ox 96 O2 Delivery Room Air Capillary Refill : Height, Weight, BMI Height: 5'1.00" Weight: 126lbs. 9.0oz. 57.121053pe; 21.4 BMI Method:Stated General Appearance: WD/WN, no apparent distress HEENT: PERRL/EOMI, normal ENT inspection, TMs normal, pharynx normal Neck: non-tender, full range of motion, supple, normal inspection Respiratory: chest non-tender, lungs clear, normal breath sounds, no respiratory distress, no accessory muscle use Cardiovascular: normal peripheral pulses, regular rate, rhythm, no edema Peripheral Pulses: 2+ Radial Pulses (R), 2+ Radial Pulses (L) Gastrointestinal: normal bowel sounds, non tender, soft Extremities: normal range of motion, non-tender, normal inspection, no pedal edema, normal capillary refill Neurologic/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: 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, no motor/sensory deficits, alert, normal mood/affect, oriented x 3 Crainal Nerves: normal hearing, normal speech, PERRL Coordination/Gait: normal finger to nose, abnormal gait (slow) Motor/Sensory: no motor deficit, no sensory deficit, no pronator drift Skin: normal color, warm/dry Stroke Onset of Symptoms Date of Onset of Symptoms: Aug 02, 2018 Symptoms onset unknown: Yes NIH Stroke Scale Assessment Select: Initial Level of Consciousness: 0=Alert (0), Level of Consciousness- Questions: 0=Answers both month/age (0), LOC Commands: 0=Performs both tasks (0) , Gaze: Normal (0), Visual Stephenson: 0=No visual loss (0), Facial Movement ( Facial Paresis): 0=Normal symmetrical mnt (0), Motor Function-Arms Right: 0=No drift (0), Motor Function-Arms Left: 0=No drift (0), Motor Function-Legs Right: 0=No drift (0), Motor Function-Legs Left: 0=No drift (0), Limb Ataxia: 0=Absent (0), Sensory: 0=Normal:no loss (0), Best Language: 0=No aphasia (0), Dysarthria : 0=Normal (0), Extinction & Inattention: 0=No abnormality (0), Total: 0 Progress/Results/Core Measures Results/Orders Lab Results Laboratory Tests Test 08/02/18 09:55 08/02/18 09:57 08/02/18 10:14 Range/Units White Blood Count 9.5 4.3-11.0 10^3/uL Red Blood Count 4.56 4.35-5.85 10^6/uL Hemoglobin 13.9 11.5-16.0 G/DL Hematocrit 42 35-52 % Mean Corpuscular Volume 91 80-99 FL Mean Corpuscular Hemoglobin 31 25-34 PG Mean Corpuscular Hemoglobin Concent 33 32-36 G/DL Red Cell Distribution Width 15.6 H 10.0-14.5 % Platelet Count 250 130-400 10^3/uL Mean Platelet Volume 10.7 H 7.4-10.4 FL Neutrophils (%) (Auto) 46 42-75 % Lymphocytes (%) (Auto) 42 12-44 % Monocytes (%) (Auto) 10 0-12 % Eosinophils (%) (Auto) 2 0-10 % Basophils (%) (Auto) 0 0-10 % Neutrophils # (Auto) 4.4 1.8-7.8 X 10^3 Lymphocytes # (Auto) 4.0 1.0-4.0 X 10^3 Monocytes # (Auto) 1.0 0.0-1.0 X 10^3 Eosinophils # (Auto) 0.1 0.0-0.3 10^3/uL Basophils # (Auto) 0.0 0.0-0.1 10^3/uL Sodium Level 139 135-145 MMOL/L Potassium Level 3.9 3.6-5.0 MMOL/L Chloride Level 107 98-107 MMOL/L Carbon Dioxide Level 23 21-32 MMOL/L Anion Gap 9 5-14 MMOL/L Blood Urea Nitrogen 12 7-18 MG/DL Creatinine 1.07 0.60-1.30 MG/DL Estimat Glomerular Filtration Rate 49 BUN/Creatinine Ratio 11 Glucose Level 91 70-105 MG/DL Calcium Level 9.5 8.5-10.1 MG/DL Corrected Calcium 9.3 8.5-10.1 MG/DL Total Bilirubin 0.9 0.1-1.0 MG/DL Aspartate Amino Transf (AST/SGOT) 15 5-34 U/L Alanine Aminotransferase (ALT/SGPT) 18 0-55 U/L Alkaline Phosphatase 77 40-136 U/L Ammonia 17 11-32 UMOL/L Troponin I < 0.028 <0.028 NG/ML Total Protein 6.9 6.4-8.2 GM/DL Albumin 4.3 3.2-4.5 GM/DL Serum Alcohol < 10 <10 MG/DL Glucometer 87 70-110 MG/DL Urine Color YELLOW Urine Clarity CLEAR Urine pH 5 5-9 Urine Specific [place] 1.020 1.016-1.022 Urine Protein NEGATIVE NEGATIVE Urine Glucose (UA) NEGATIVE NEGATIVE Urine Ketones NEGATIVE NEGATIVE Urine Nitrite NEGATIVE NEGATIVE Urine Bilirubin NEGATIVE NEGATIVE Urine Urobilinogen NORMAL NORMAL MG/DL Urine Leukocyte Esterase NEGATIVE NEGATIVE Urine RBC (Auto) NEGATIVE NEGATIVE Urine RBC NONE /HPF Urine WBC RARE /HPF Urine Squamous Epithelial Cells 0-2 /HPF Urine Crystals NONE /LPF Urine Bacteria NEGATIVE /HPF Urine Casts NONE /LPF Urine Mucus NEGATIVE /LPF Urine Culture Indicated NO My Orders Orders - ANEL,RHIANNON J Ekg Tracing (08/02/18 09:54) Alcohol (08/02/18 09:56) Ammonia (08/02/18 09:56) Cbc With Automated Diff (08/02/18 09:56) Comprehensive Metabolic Panel (08/02/18 09:56) Troponin I (08/02/18 09:56) Ua Culture If Indicated (08/02/18 09:56) Accucheck Stat ONCE (08/02/18 09:56) Chest 1 View, Ap/Pa Only (08/02/18 09:56) Ct Head Wo (08/02/18 09:56) Ct Thoracic Spine Wo (08/02/18 09:56) Saline Lock/Iv-Start (08/02/18 09:56) Ns Iv 1000 Ml (Sodium Chloride 0.9%) (08/02/18 09:56) Medications Given in ED Current Medications Medications Dose Ordered Sig/Ehsan Route Start Time Stop Time Status Last Admin Dose Admin Sodium Chloride 1,000 ml @ 0 mls/hr Q0M ONCE IV 08/02/18 09:56 08/02/18 10:00 DC 08/02/18 10:23 1,000 MLS/HR Vital Signs/I&O 08/02/18 09:45 Temp 96.8 Pulse 101 Resp 18 B/P (MAP) 125/86 (99) Pulse Ox 96 O2 Delivery Room Air Progress Progress Note #1: Time: 10:36 Progress Note Patient seems to be exhibiting a general malaise and some weakness but does not have any lateralizing or focal deficits. She could be experiencing a infection/ delirium so we'll check labs and urinalysis. Chest x-ray, CT of the head and thoracic spine where she is having significant pain. She she declined anything for pain right now. No nausea. Review of systems is otherwise wang negative. She does have a mildly elevated heart rate around 100 but she is afebrile. Progress Note #2: Time: 11:35 Progress Note On reexamination the patient continues to be neurologically intact. Plan to have nursing Staff get her up and walk her around and see how she does. She is not demonstrating any focal deficits in bed. Labs, x-ray are unremarkable. She could be prodromal for a viral syndrome. She also could've experienced a TIA. We'll recommend she get an MRI outpatient follow-up with her primary care doctor. After getting up to walk she does have some delay with her right leg so we talked about an outpatient versus an observation workup. Family and patient would like to stick around since she lives alone. Initial ECG Impression Date: Aug 02, 2018 Initial ECG Impression Time: 09:56 Initial ECG Rate: 97 Initial ECG Rhythm: Normal Sinus Initial ECG Intervals: Normal Initial ECG Impression: Normal Comment Negative for ST elevation or depression. Diagnostic Imaging Diagonstic Imaging: Xray Plain Films/CT/US/NM/MRI: chest (1v) Comments [facility] [place] NAME: YEYO SHARMA [facility] REC#: [id number] PT STATUS: REG ER : 1930 PHYSICIAN: RHIANNON TAM MD ADMIT DATE: 08/02/18/ER Draft Date of Exam:08/02/18 CHEST 1 VIEW, AP/PA ONLY Patient History: Right-sided weakness. Technique: Single frontal view of the chest Comparison: 06/13/2018 FINDINGS: The lung volumes are normal. No focal consolidation is seen. No large pleural effusion or pneumothorax is seen. The cardiomediastinal silhouette is normal in size and contour. There is aortic atherosclerosis. No acute osseous abnormality is seen. Small calcification adjacent to the left humeral head may represent calcific tendinitis. IMPRESSION: No acute pulmonary abnormality seen. Dictated on workstation # [id number] Dict: 08/02/18 1039 Trans: 08/02/18 1042 [facility] [id number] Interpreted by: KEITH MUNOZ MD Electronically signed by: Reviewed: Reviewed by Me Diagonstic Imaging: CT (noncontrast) Plain Films/CT/US/NM/MRI: head Comments [facility] [place] NAME: YEYO SHARMA [facility] REC#: [id number] PT STATUS: REG ER : 1930 PHYSICIAN: RHIANNON TAM MD ADMIT DATE: 08/02/18/ER Draft Date of Exam:08/02/18 CT HEAD WO PROCEDURE: CT head without contrast. TECHNIQUE: Multiple contiguous axial images were obtained through the brain without the use of intravenous contrast. Auto Exposure Controls were utilized during the CT exam to meet ALARA standards for radiation dose reduction. INDICATION: Right-sided weakness. COMPARISON: None. FINDINGS: Moderate generalized cerebral and cerebellar parenchymal volume loss. No CT evidence for territorial infarction. No intracranial hemorrhage, mass effect, hydrocephalus or extra-axial fluid collections. No acute osseous findings. The visualized paranasal sinuses and mastoids are clear. IMPRESSION: No acute intracranial CT findings. Dictated on workstation # [id number] Dict: 08/02/18 1056 Trans: 08/02/18 1059 [id number] Interpreted by: KRANTHI ABDI MD Electronically signed by: Reviewed: Reviewed by Me Diagonstic Imaging: CT Plain Films/CT/US/NM/MRI: other (thoracic spine) Comments NAME: YEYO SHARMA MED REC#: [id number] PT STATUS: REG ER : 1930 PHYSICIAN: RHIANNON TAM MD ADMIT DATE: 08/02/18/ER Draft Date of Exam:08/02/18 CT THORACIC SPINE WO PROCEDURE: CT thoracic spine without contrast. TECHNIQUE: Multiple axial computerized tomography images were obtained from the base of the thoracic spine to the vertex without intravenous contrast. Auto Exposure Controls were utilized during the CT exam to meet ALARA standards for radiation dose reduction. INDICATION: Back pain. COMPARISON: CTA chest 11/04/2017. FINDINGS: Normal alignment. Compression deformity of T4 resulting in approximately 30% height loss and T7 resulting in approximately 60% height loss are stable. No new compression deformities. No acute fractures. Scattered benign hemangiomas. Mild diffuse degenerative endplate changes. No high-grade spinal canal narrowing is evident on this non-intrathecal contrast exam. Moderate atherosclerotic calcifications including coronary and aortic. Benign adrenal nodule on the right measuring up to 1.7 cm. Small esophageal hiatal hernia. IMPRESSION: 1. No acute CT findings in the thoracic spine. 2. Stable chronic compression deformities of T4 and T7. 3. Mild spondylotic changes result in no evident high-grade neural impingement on this noncontrast exam. Dictated on workstation # [id number] Dict: 08/02/18 1114 Trans: 08/02/18 1125 [id number] Interpreted by: KRANTHI ABDI MD Electronically signed by: Reviewed: Reviewed by Me Departure Communication (Admissions) Time/Spoke to Admitting Phy: 11:[address] Okeefe and she let the patient in the ER you for some rehabilitation draining as well as keep patient on telemetry and management there. The patient is accepted to the ER you. Dr. Okeefe will put the MRI order in but would like a carotid ultrasound study done today. Impression Primary Impression: Transient cerebral ischemia Qualified Codes: G45.9 - Transient cerebral ischemic attack, unspecified Disposition: ADMITTED INPATIENT Condition: Stable Admissions Decision to Admit Reason: Admit from ER (General) Decision to Admit/Date: Aug 02, 2018 Time/Decision to Admit Time: 12:24 Departure-Patient Inst. Referrals: MITCHELL HAYNES DO (PCP) Primary Care Physician ARJUN LENNON APRN (Family) Primary Care Physician Copy Copies To 1: MITCHELL HAYNES TITUS J Aug 02, 2018 10:01
[2018-08-02 10:05] LABS: BASOPHILS % (AUTO) 0 % (0-10); EOSINOPHILS # (AUTO) 0.1 10^3/uL (0.0-0.3); EOSINOPHILS % (AUTO) 2 % (0-10); HEMATOCRIT 42 % (35-52); HEMOGLOBIN 13.9 G/DL (11.5-16.0); LYMPHOCYTES % (AUTO) 42 % (12-44); MEAN CORPUSCULAR HEMOGLOBIN 31 PG (25-34); MEAN CORPUSCULAR HGB CONC 33 G/DL (32-36); MEAN CORPUSCULAR VOLUME 91 FL (80-99); MEAN PLATELET VOLUME 10.7 FL (7.4-10.4); MONOCYTES % (AUTO) 10 % (0-12); NEUTROPHILS # (AUTO) 4.4 X 10^3 (1.8-7.8); NEUTROPHILS % (AUTO) 46 % (42-75); PLATELET COUNT 250 10^3/uL (130-400); RED CELL DISTRIBUTION WIDTH 15.6 % (10.0-14.5); WHITE BLOOD COUNT 9.5 10^3/uL (4.3-11.0)
[2018-08-02 10:21] LABS: BILIRUBIN,URINE NEGATIVE (NEGATIVE); CLARITY,URINE CLEAR; COLOR,URINE YELLOW; GLUCOSE, URINE (UA) NEGATIVE (NEGATIVE); KETONES,URINE NEGATIVE (NEGATIVE); LEUKOCYTE ESTERASE ,URINE NEGATIVE (NEGATIVE); NITRITE,URINE NEGATIVE (NEGATIVE); PH,URINE 5 (5-9); PROTEIN,URINE NEGATIVE (NEGATIVE); UROBILINOGEN,URINE NORMAL (NORMAL)
[2018-08-02 10:26] LABS: ALANINE AMINOTRANSFERASE 18 U/L (0-55); ALBUMIN 4.3 GM/DL (3.2-4.5); ALKALINE PHOSPHATASE 77 U/L (40-136); AMMONIA 17 UMOL/L (11-32); BILIRUBIN,TOTAL 0.9 MG/DL (0.1-1.0); BUN/CREATININE RATIO 11; CALCIUM 9.5 MG/DL (8.5-10.1); CARBON DIOXIDE 23 MMOL/L (21-32); CHLORIDE 107 MMOL/L (98-107); CREATININE SERUM 1.07 MG/DL (0.60-1.30); GFR ESTIMATED 49; GLUCOSE 91 MG/DL (70-105); POTASSIUM 3.9 MMOL/L (3.6-5.0); SODIUM 139 MMOL/L (135-145); TOTAL PROTEIN 6.9 GM/DL (6.4-8.2)
[2018-08-02 10:29] LABS: BACTERIA,URINE NEGATIVE /HPF; SQUAMOUS EPITHELIAL CELL,UR 0-2 /HPF; WBC,URINE RARE /HPF
--- NOTE | 2018-08-02 10:42 | Diagnostic Imaging Report ---
Patient History: Right-sided weakness. Technique: Single frontal view of the chest Comparison: 06/13/2018 FINDINGS: The lung volumes are normal. No focal consolidation is seen. No large pleural effusion or pneumothorax is seen. The cardiomediastinal silhouette is normal in size and contour. There is aortic atherosclerosis. No acute osseous abnormality is seen. Small calcification adjacent to the left humeral head may represent calcific tendinitis. IMPRESSION: No acute pulmonary abnormality seen. Dictated by: Dictated on workstation # [id number]
--- NOTE | 2018-08-02 10:59 | Diagnostic Imaging Report ---
PROCEDURE: CT head without contrast. TECHNIQUE: Multiple contiguous axial images were obtained through the brain without the use of intravenous contrast. Auto Exposure Controls were utilized during the CT exam to meet ALARA standards for radiation dose reduction. INDICATION: Right-sided weakness. COMPARISON: None. FINDINGS: Moderate generalized cerebral and cerebellar parenchymal volume loss. No CT evidence for territorial infarction. No intracranial hemorrhage, mass effect, hydrocephalus or extra-axial fluid collections. No acute osseous findings. The visualized paranasal sinuses and mastoids are clear. IMPRESSION: No acute intracranial CT findings. Dictated by: Dictated on workstation # [id number]
--- NOTE | 2018-08-02 11:26 | Diagnostic Imaging Report ---
PROCEDURE: CT thoracic spine without contrast. TECHNIQUE: Multiple axial computerized tomography images were obtained from the base of the thoracic spine to the vertex without intravenous contrast. Auto Exposure Controls were utilized during the CT exam to meet ALARA standards for radiation dose reduction. INDICATION: Back pain. COMPARISON: CTA chest 11/04/2017. FINDINGS: Normal alignment. Compression deformity of T4 resulting in approximately 30% height loss and T7 resulting in approximately 60% height loss are stable. No new compression deformities. No acute fractures. Scattered benign hemangiomas. Mild diffuse degenerative endplate changes. No high-grade spinal canal narrowing is evident on this non-intrathecal contrast exam. Moderate atherosclerotic calcifications including coronary and aortic. Benign adrenal nodule on the right measuring up to 1.7 cm. Small esophageal hiatal hernia. IMPRESSION: 1. No acute CT findings in the thoracic spine. 2. Stable chronic compression deformities of T4 and T7. 3. Mild spondylotic changes result in no evident high-grade neural impingement on this noncontrast exam. Dictated by: Dictated on workstation # [id number]
--- NOTE | 2018-08-02 11:49 | NUR ---
WALKED PATIENT WITH WALKER WANTS TO DRAG R LEG DR SCHNEIDER.
--- NOTE | 2018-08-02 11:53 | NUR ---
DR TAM TALKED WITH DR LAIRD WOULD LIKE TO PLACE PATIENT IN ARU. WILL CALL
--- NOTE | 2018-08-02 11:56 | NUR ---
CALLD AND TALKED WITH ARU ABOUT ADMIT PER DR ROLDAN ORDER WILL REVIJEW CHART AND COME SEE HER.
--- NOTE | 2018-08-02 12:07 | NUR ---
[facility] STAFHIRAM TO ELEVATE FOR PLACEMENT ON FLOOR.
--- NOTE | 2018-08-02 12:10 | NUR ---
DR LAIRD HERE TO SEE PATIENT.
--- NOTE | 2018-08-02 12:24 | NUR ---
ARU WILL TAKE PATIENT WILL CALL WHEN READY.
[2018-08-02 13:28] VITALS: BP 122/100
== END 2018-08-02 13:30 | disposition other institution (70) ==
LOC: EDUNIT# 09:45 → ER 09:46
DX: G45.9 Transient cerebral ischemic attack, unspecified (principal); J44.9 Chronic obstructive pulmonary disease, unspecified; F41.9 Anxiety disorder, unspecified; Z88.0 Allergy status to penicillin; Z88.8 Allergy status to other drugs, medicaments and biological substances; Z87.891 Personal history of nicotine dependence; Z98.890 Other specified postprocedural states; Z98.51 Tubal ligation status
CPT/HCPCS: 36415; 51701; 70450; 71045; 72128; 80053; 80320; 81000; 82140; 82962; 84484; 85025; 93005

== ENCOUNTER 2018-08-02 13:17 | Inpatient (IN) | payer MEDICARE, MEDICAID ==
[~2018-08-02] VITALS: Ht 154.9 cm; Wt 48.5 kg
[2018-08-02] MEDS ORDERED: MELATONIN 3 MG TABLET PO PRN (13:30)
[2018-08-02] MEDS ORDERED: LOPERAMIDE 2 MG (IMODIUM) CAP PO PRN (13:30)
[2018-08-02] MEDS ORDERED: DOCUSATE SODIUM 100 MG (COLACE) CAP PO PRN (13:30)
[2018-08-02] MEDS ORDERED: diphenhydrAMINE 25 MG TAB (BENADRYL) PO PRN (13:30)
[2018-08-02] MEDS ORDERED: CALCIUM CARBONATE 500 MG (TUMS) TAB.CHEW PO PRN (13:30)
[2018-08-02] MEDS ORDERED: ASPIRIN E.C. 81 MG (ECOTRIN) TAB PO NR (13:30)
--- NOTE | 2018-08-02 13:40 | NUR ---
Admitted to room 231-1, with an admitting diagnosis of TIA/CVA, on 08/02/18 from ER via , accompanied by .YEYO SHARMA introduced to surroundings, call light, bed controls, phone, TV, temperature control, lights, meal times, smoking policy, visitor policy, side rail policy, bathrooms and showers. Patient Rights given to patient in the handbook.YEYO SHARMA verbalizes understanding that [facility] is not responsible for the loss or damage to any personal effects or valuables that are kept in the patients posession during their hospitalization. The following Patient Care Plans were discussed with the : Discharge Planning, ,, and potential for injury r/t fall. YEYO SHARMA verbalizes understanding of Interdisciplinary Patient Education. Patient and/or family were informed about the Rapid Response Team and its purpose. Patient received Patient Rights Booklet, which includes Privacy Act Statement and Data Collection Information Summary.
[2018-08-02 13:45] LABS: CHOLESTEROL 245 MG/DL (< 200); HDL CHOLESTEROL 54 MG/DL (40-60); TRIGLYCERIDES 225 MG/DL (<150); VLDL CHOLESTEROL 45 MG/DL (5-40)
--- NOTE | 2018-08-02 14:22 | Physical Therapy Evaluation ---
PT Evaluation-General Medical Diagnosis Admission Date Aug 02, 2018 at 13:17 Medical Diagnosis: right sided weakness Onset Date: Aug 02, 2018 Therapy Diagnosis Therapy Diagnosis: weakness; abn gait Height/Weight Height (Feet): 5 Height (Inches): 1.00 Weight (Pounds): 126 Weight (Ounces): 0.0 Precautions Precautions/Isolations: Standard Precautions Weight Bear Status Right Lower Extremity: Right Full Weight Bearing Left Lower Extremity: Left Full Weight Bearing Referral Physician: Maldonado Reason for Referral: Evaluation/Treatment Medical History Pertinent Medical History: Arthritis, COPD, Smoking Current History Pt presented to ED this date with reports from her daughter of her not moving very well, right sided weakness and decreased ability to take her gown off and on. Her daughter brought her to the ED via private vehicle. Pt transferred to ARU for skilled therapy services as well as medical management. Reviewed History: Yes Social History Home: Apartment ([place]) Current Living Status: Alone Entry Into Home: Level Entry Prior/Core FIM Prior Level of Function Therapy Code Descriptions/Definitions Functional [place] Measure: 0=Not Assessed/NA 4=Minimal Assistance 1=Total Assistance 5=Supervision or Setup 2=Maximal Assistance 6=Modified [place] 3=Moderate Assistance 7=Complete [place] Therapy Quality Codes: 6 Independent with activity with or without an assistive device 5 Patient requires set up or clean up by helper. Patient completes activity by themselves 4 Supervision or touching assist (CGA). [place] provide cues , steadying assist 3 The helper provides less than half the effort to complete the activity 2 The helper provides more than half the effort to complete the activity 1 Dependent. The helper does all the effort to complete an activity 7 Patient refused to complete or attempt activity 9 The patient did not perform the activity before the current illness or injury 88 Not attempted due to Medical conditions or safety concerns Functional Abilities and Goals: Independent: Patient completed the activities by him/herself, with or without an assistive device, with no assistance from a helper. Needed Some Help: Patient needed partial assistance from another person to complete activities. Dependent: A helper completed the activities for the patient. Unknown: Not Applicable: Bed Mobility: 7 Transfers (B,C,W/C) (FIM): 6 Gait: 6 (FWW) Stairs: 9 Indoor Mobility (Ambulation): Independent Stairs: Not [place] Prior Devices Use: Walker Pt lives alone and able to care for herself mainly; her daughter does supervise bathing and if she uses the stove it is only when the daughter is present. PT Evaluation-Current Subjective Denies pain. Very quiet with limited conversation. Pain Numeric Pain Scale: 0-No Pain Location: No Pain Reported Pt/Family Goals The goal is for the patient to return home as before. Objective Patient Orientation: Person, Confused, Situation Problem Solving: Fair ROM/Strength ROM Lower Extremities WFL Strenght Lower Extremities Left LE strength is grossly 4+/5; right LE strength is quads: 4-/5, hamstrings 4-/5, hip flexion 4-/5 and DF 3/5. Integumentary/Posture Integumentary intact Bowel Incontinence: No Bladder Incontinence: No Posture slightly rounded shoulders and forward head; but symmetrical Neuromuscular (Tone, Coordination, Reflexes) no noted functional deficits. Reflexes are brisk and symmetrical; coordination impaired right UE. Sensory Vision: Functional Hearing: Functional Hand Dominance: Right Sensation Right Lower Extremit: Intact Sensation Left Lower Extremity: Intact Transfers Therapy Code Descriptions/Definitions Functional [place] Measure: 0=Not Assessed/NA 4=Minimal Assistance 1=Total Assistance 5=Supervision or Setup 2=Maximal Assistance 6=Modified [place] 3=Moderate Assistance 7=Complete [place] Therapy Quality Codes: 6 Independent with activity with or without an assistive device 5 Patient requires set up or clean up by helper. Patient completes activity by themselves 4 Supervision or touching assist (CGA). [place] provide cues , steadying assist 3 The helper provides less than half the effort to complete the activity 2 The helper provides more than half the effort to complete the activity 1 Dependent. The helper does all the effort to complete an activity 7 Patient refused to complete or attempt activity 9 The patient did not perform the activity before the current illness or injury 88 Not attempted due to Medical conditions or safety concerns Transfers (B, C, W/C) (FIM): 4 Roll Left to Right (QC): 4 Supine to/from Sit: 4 (CGA to guide her limbs) Sit to/from Stand: 4 (CGA with skilled cues for hand placement and sequencing.) Sit to Lying (QC): 4 Lying to Sitting/Side of Bed(Q: 4 Sit to Stand (QC): 4 Chair/Ytr-uk-Ghzjw Xfer(QC): 4 Car Transfer (QC): 3 (assist to lift her legs in and out of chair) Gait Does the Patient Walk?: Yes Mode of Locomotion: Walk Anticipated Mode of Locomotion: Walk Gait (FIM): 2 Distance (FIM): 3=942-39 ft Walk 10 feet (QC): 4 Walk 50 ft with 2 Turns(QC): 4 Walk 150 ft (QC): 88 Walking 10ft/uneven surface-QC: 3 (steadying assist. ) Distance: 50 ft Gait Level of Assist: 4 (min assist ) Gait Persons Needed: 1 Gait Assistive Device: FWW Comments/Gait Description slow gait and slightly off balance requiring CGA; pt with difficulty clearing toes on the righ with slight foot drag. Wheelchair Training Does the Pt Use a Wheelchair?: No Stairs Stairs (FIM): 2 #of Steps: 1 Level of Assist: 3 (mod assist for balance and safety. ) 1 Step (curb) (QC): 3 4 Steps (QC): 88 Assistive Device: Walker requires mod assist for steadying balance and safety. Balance Sitting Static: Good Sitting Dynamic: Fair Standing Static: Fair Standing Dynamic: Fair Picking up an Object (QC): 88 Treatment Co treat with OT as the skill of 2 clinicians required; worked on functional bed mobility and transfers as well as mobility for ADL care. PT addressed gross motor skills such as transfers, hand placement, sequencing and balance as OT addressed self care to stand and take her gown/dress off; in addition, PT focused on sitting balance while OT addressed taking socks on/off. Pt walked to dining room to eat and as OT addressed positioning and placement of tray, PT addressed management of the chair and sit to from stand transfers; worked on static/dynamic balcne to stand at the sink as OT addressed hand washing. Spent time educating pt on safety with all mobility and ARU expecations. Assessment/Needs Pt presents with complaints of right sided weakness; specific testing yet to be completed. She does present with impaired functional transfers, gait and balance with delayed response to activity. In addition, she seems a bit confused and speaks very little. She will beneift from skilled PT services to address these deficits and allow her to progress so she can return home at a mod indep level as before. Rehab Potential: Good PT Short Term Goals Short Term Goals Time Frame: Aug 09, 2018 Transfers (B,C,W/C) (FIM): 5 Gait (FIM): 4 PT Alf Goals Partner Marketing Manager Goals PT Partner Marketing Manager Goals Time Frame: Aug 20, 2018 Transfers (B,C,W/C) (FIM): 6 Sit to Lying (QC): 6 Lying-Sitting on Side/Bed(QC): 6 Sit to Stand (QC): 6 Roll Left to Right (QC): 6 Chair/Tdd-la-Uyudd Xfer(QC): 6 Car Transfer (QC): 5 Does the Patient Walk: Yes Gait (FIM): 6 Gait distance (FIM): 3=150 ft Walk 10 feet (QC): 6 Walk 10ft-Uneven Surface(QC): 5 Walk 50ft with 2 Turns (QC): 6 Walk 150 ft (QC): 6 Gait Assistive Device: FWW Does the Pt use WC or Scooter?: No Stairs (FIM): 5 (household) # of Steps: 4 1 Step (curb) (QC): 6 4 Steps (QC): 6 12 Steps (QC): 10 Picking up an Object (QC): 4 PT Plan Problem List Problem List: Activity Tolerance, Functional Strength, Safety, Balance, Gait, Transfer, Bed Mobility Treatment/Plan Treatment Plan: Continue Plan of Care Treatment Plan: Bed Mobility, Education, Functional Activity Joan, Functional Strength, Group Therapy, Gait, Safety, Therapeutic Exercise, Transfers Treatment Duration: Aug 20, 2018 Frequency: At least 5 of 7 days/Wk (IRF) Estimated Hrs Per Day: 1.5 hours per day Patient and/or Family Agrees t: Yes Safety Risks/Education Patient Education: Transfer Techniques, Safety Issues Teaching Recipient: Patient Teaching Methods: Demonstration, Discussion Response to Teaching: Reinforcement Needed Discharge Recommendations Plan Ther ex, ther act, neuro, gait and functional safety. Therapy D/C Recommendations: Physical Therapy Home Care Time/GCodes Time In: 1320 Time Out: 1330 ([id number]; [id number]) Total Billed Treatment Time: 90 Total Billed Treatment visit EVM 10 FA 80 (co treat with OT) MARISA FLORES PT Aug 02, 2018 14:22
--- NOTE | 2018-08-02 14:24 | Occupational Ther Daily Note ---
OT Current Status-Daily Note Subjective Pt alert, sitting EOB. Daughter present in room. Took over care from OTR/L. Pt agrees to therapy. Mental Status/Objective Patient Orientation: Person, Place, Situation Therapy Code Descriptions/Definitions Functional [place] Measure: 0=Not Assessed/NA 4=Minimal Assistance 1=Total Assistance 5=Supervision or Setup 2=Maximal Assistance 6=Modified [place] 3=Moderate Assistance 7=Complete [place] Attachments: IV ADL-Treatment Co-treat with PT for skilled care and instructions due to decreased activity tolerance, increased fatigue. PT worked on mobility, standing and LE strengthening. OT worked on functional dynamic standing and ADLs. Pt able to sit EOB by self, no LOB. Pt able to cross one leg over knee attempting to don sock on L foot, assist needed. Decrease strength and dexterity with R hand noted during fine motor functional tasks. Pt able to don R sock while crossing legs. Min A to doff dress due to decreased strength and pinch in R hand. Using hospital gown, pt able to don over arms and with neck tied lift over head with SBA. Pt able to go from EOB to supine with SBA. At end of therapy, pt getting echocardiogram in room. All needs met in room. Therapy Code Descriptions/Definitions Functional [place] Measure: 0=Not Assessed/NA 4=Minimal Assistance 1=Total Assistance 5=Supervision or Setup 2=Maximal Assistance 6=Modified [place] 3=Moderate Assistance 7=Complete [place] Therapy Quality Codes: 6 Independent with activity with or without an assistive device 5 Patient requires set up or clean up by helper. Patient completes activity by themselves 4 Supervision or touching assist (CGA). [place] provide cues , steadying assist 3 The helper provides less than half the effort to complete the activity 2 The helper provides more than half the effort to complete the activity 1 Dependent. The helper does all the effort to complete an activity 7 Patient refused to complete or attempt activity 9 The patient did not perform the activity before the current illness or injury 88 Not attempted due to Medical conditions or safety concerns Upper Body (FIM): 4 Upper Body Dressing (QC): 3 On/Off Footwear (QC): 3 OT Short Term Goals Short Term Goals 1=Demonstrate adherence to instructed precautions during ADL tasks. 2=Patient will verbalize/demonstrate understanding of assistive devices/ modifications for ADL. 3=Patient will improve strength/tolerance for activity to enable patient to perform ADL's. OT Turret Press Operator Goals Turret Press Operator Goals 1=Demonstrate adherence to instructed precautions during ADL tasks. 2=Patient will verbalize/demonstrate understanding of assistive devices/ modifications for ADL. 3=Patient will improve strength/tolerance for activity to enable patient to perform ADL's. OT Education/Plan Problem List/Assessment Assessment: Decreased Activ Tolerance, Decreased Safety Aware, Decreased UE Strength, Impaired I ADL's, Impaired Self-Care Skills Discharge Recommendations Plan/Recommendations: Continue POC Treatment Plan/Plan of Care Patient would benefit from OT for education, treatment and training to promote independence in ADL's, mobility, safety and/or upper extremity function for ADL' s. Treatment Duration: August 30, 2018 Frequency: At least 5 of 7 days/Wk (IRF) Estimated Hrs Per Day: 1.5 hours per day Rehab Potential: Good Time/GCodes Start Time: 14:00 Stop Time: 14:15 Total Time Billed (hr/min): 15 Billed Treatment Time 1 visit-ADL 1 (15 min) MARISA HOWELL Aug 02, 2018 14:24
--- NOTE | 2018-08-02 14:53 | NUR ---
SPOKE WITH THE PATIENTS DAUGHTER ON THE PHONE AT THIS TIME, SHE STATES THE ONLY MEDICATIONS THE PATIENT IS CURRENTLY TAKING IS A CRANBERRY AND PROBIOTIC DAILY OTC. [facility] HAS NOT FILLED ANYTHING SINCE OCTOBER 2017 [facility] HAS NOT FILLED ANYTHING SINCE MAY AND THAT WAS A SHORT TERM THERAPY OF CIPRO. [facility] DID NOT RETURN ANY RECENT RESULTS.
--- NOTE | 2018-08-02 14:59 | Occupational Ther Daily Note ---
OT Current Status-Daily Note Subjective Pt finished with echocardiogram. Lying in bed. Pt agrees to therapy. Mental Status/Objective Patient Orientation: Person, Place, Time, Situation Therapy Code Descriptions/Definitions Functional [place] Measure: 0=Not Assessed/NA 4=Minimal Assistance 1=Total Assistance 5=Supervision or Setup 2=Maximal Assistance 6=Modified [place] 3=Moderate Assistance 7=Complete [place] Attachments: IV ADL-Treatment Co-treat with PT for skilled care and instructions due to decreased activity tolerance, increased fatigue. Pt able to go from supine to EOB by self. After set up, pt required min A to manipulate dress then donned over head by self. Pt is demonstrating decreased coordination/dexterity of R hand. Pt then ambulated to sink to complete hand washing with SBA at sink. Pt then ambulated to [facility] to eat late lunch. Pt able to open items by self. Did have difficulties lifting spoon to mouth with R hand, could grasp spoon without difficulty. OTR/L took over care. Therapy Code Descriptions/Definitions Functional [place] Measure: 0=Not Assessed/NA 4=Minimal Assistance 1=Total Assistance 5=Supervision or Setup 2=Maximal Assistance 6=Modified [place] 3=Moderate Assistance 7=Complete [place] Therapy Quality Codes: 6 Independent with activity with or without an assistive device 5 Patient requires set up or clean up by helper. Patient completes activity by themselves 4 Supervision or touching assist (CGA). [place] provide cues , steadying assist 3 The helper provides less than half the effort to complete the activity 2 The helper provides more than half the effort to complete the activity 1 Dependent. The helper does all the effort to complete an activity 7 Patient refused to complete or attempt activity 9 The patient did not perform the activity before the current illness or injury 88 Not attempted due to Medical conditions or safety concerns Eating (FIM): 4 Eating (QC): 3 Upper Body (FIM): 4 Upper Body Dressing (QC): 3 OT Short Term Goals Short Term Goals 1=Demonstrate adherence to instructed precautions during ADL tasks. 2=Patient will verbalize/demonstrate understanding of assistive devices/ modifications for ADL. 3=Patient will improve strength/tolerance for activity to enable patient to perform ADL's. OT Mcfp Goals Finished Carpet Inspector Goals 1=Demonstrate adherence to instructed precautions during ADL tasks. 2=Patient will verbalize/demonstrate understanding of assistive devices/ modifications for ADL. 3=Patient will improve strength/tolerance for activity to enable patient to perform ADL's. OT Education/Plan Discharge Recommendations Plan/Recommendations: Continue POC Treatment Plan/Plan of Care Patient would benefit from OT for education, treatment and training to promote independence in ADL's, mobility, safety and/or upper extremity function for ADL' s. Treatment Duration: August 30, 2018 Frequency: At least 5 of 7 days/Wk (IRF) Estimated Hrs Per Day: 1.5 hours per day Rehab Potential: Good Time/GCodes Start Time: 14:30 Stop Time: 14:50 Total Time Billed (hr/min): 20 Billed Treatment Time 1 visit-ADL 1 (20 min) Co-treat PT 20 min MARISA HOWELL Aug 02, 2018 14:59
--- NOTE | 2018-08-02 15:41 | PM&R H&P / Post Admit Assess ---
History of Present Illness HPI/Chief Complaint CC: CVA HPI: This is an 87yoWF clinic patient of Evelyn Nolasco at [facility] who presented to the ER with right sided weakness and inability to walk. Last known well time was 2 days ago. Patient was worked up in ER for CVA and CT negative and labs negative but could not walk so IRF assessed her with my evaluation in the ER to meet criteria for direct admit to IRF. PLOF was independent living alone at home and currently she is dependent with inability to walk due to right sided weakness. Barriers to returning home will be regaining ability to ambulate and return of verbal communication and safety management to reside alone. Patient was placed on Tely, ECHO ordered along with ASA and Lipitor initiation for CVA protocol completion. Source: patient, family, RN/MD, old records Exam Limitations: other (not forthcoming with conversation details) Date Seen 08/02/18 Time Seen by a Provider: 13:00 Attending Physician Vita Okeefe DO PCP Bibiana Rodriguez DO Referring Physician Date of Admission Aug 02, 2018 at 13:17 Home Medications & Allergies Home Medications Reviewed patient Home Medication Reconciliation performed by pharmacy medication reconciliations factory maintenance technician and/or nursing. Patients Allergies have been reviewed. Allergies Allergies Coded Allergies Penicillins (Unverified Allergy, Mild, HIVES, 07/03/09) acetaminophen (Verified Allergy, Unknown, 06/13/18) diphenhydramine (Verified Allergy, Unknown, 06/13/18) doxylamine (Verified Allergy, Unknown, 06/13/18) Past Gxrmfvg-Xapjsm-Dlouuc Hx Past Med/Social Hx: Reviewed Nursing Past Med/Soc Hx, Reviewed and Corrections made Patient Social History Marrital Status: single Employed/Student: retired Alcohol Use: Occasionally Uses Number of Drinks Today: GG Alcohol Beverage of Choice: Whiskey Recreational Drug Use: No Smoking Status: Former Smoker Former Smoker, Quit: May 07, 2017 Type Used: Cigarettes 2nd Hand Smoke Exposure: Yes Physical Abuse Screen: No Sexual Abuse: No Recent Foreign Travel: No Contact w/other who traveled: No Recent Hopitalizations: No Recent Infectious Disease Expo: No Immunizations Up To Date Tetanus Booster (TDap): Unknown Pediatric: No Date of Pneumonia Vaccine: Jan 27, 2017 Seasonal Allergies Seasonal Allergies: Yes Past Medical History Surgeries: Appendectomy, Section, Tubal Ligation Currently Using CPAP: No Currently Using BIPAP: No Cardiac: High Cholesterol Genitourinary: UTI-Chronic Gastrointestinal: Hiatal Hernia Loss of Vision: Denies Psychosocial: Anxiety Skin/Integumentary: Recent Skin Changes History of Blood Disorders: No Family History Patient reports no known family medical history. No Pertinent Family Hx Review of Systems Constitutional: see HPI, dizziness, malaise, weakness EENTM: no symptoms reported Respiratory: no symptoms reported Cardiovascular: no symptoms reported Gastrointestinal: no symptoms reported Genitourinary: no symptoms reported Musculoskeletal: muscle stiffness, muscle twitching, muscle weakness Skin: no symptoms reported Psychiatric/Neurological: Numbness, Paresthesia, Tingling, Weakness All Other Systems Reviewed Negative Unless Noted: Yes Physical Exam Exam Vital Signs Vital Signs Date Time Temp Pulse Resp B/P (MAP) Pulse Ox O2 Delivery O2 Flow Rate FiO2 08/03/18 07:10 100 08/03/18 05:08 97.8 16 122/75 (91) 92 Room Air Capillary Refill : General Appearance: No Apparent Distress, WD/WN, Chronically ill HEENT: PERRL/EOMI, Normal ENT Inspection, Pharynx Normal, Moist Mucous Membranes Neck: Full Range of Motion, Normal Inspection, Non Tender, Supple Respiratory: Chest Non Tender, Lungs Clear, Normal Breath Sounds, No Accessory Muscle Use, No Respiratory Distress, Decreased Breath Sounds Cardiovascular: Regular Rate, Rhythm, No Edema, No Gallop, No JVD, No Murmur Gastrointestinal: Normal Bowel Sounds, No Organomegaly, No Pulsatile Mass, Non Tender, Soft Back: Normal Inspection, No CVA Tenderness, No Vertebral Tenderness Extremity: Normal Capillary Refill, Normal Inspection, Normal Range of Motion, Non Tender, No Calf Tenderness, No Pedal Edema Neurologic/Psychiatric: Alert, Oriented x3, supervisor laboratory animal facility II-XII Norm as Tested, Abnormal Gait, Depressed Affect, Motor Weakness, Other (speech garbled) Skin: Normal Color, Warm/Dry Lymphatic: No Adenopathy Results Results/Procedures Labs Patient resulted labs reviewed. Assessment/Plan Assessment and Plan Assess & Plan/Chief Complaint (1) CVA (cerebral vascular accident) (2) Right sided weakness (3) Hyperlipidemia (4) Former smoker (5) Garbled speech (6) Unable to ambulate (1) CVA (cerebral vascular accident) Assessment & Plan: Confirmed on MRI: There is a small acute/subacute nonhemorrhagic infarct in the periventricular white matter adjacent to the left lateral ventricle. Statin, ASA, Cardiology consultation, ECHO, EKG, Tely (2) Right sided weakness Assessment & Plan: IRF protocols (3) Hyperlipidemia Assessment & Plan: High dose statin (4) Former smoker Assessment & Plan: Cessation (5) Garbled speech (6) Unable to ambulate Assessment & Plan: IRF protocols with assistive devices Post Admission Physician Asses Date seen by provider: Aug 02, 2018 Time seen by provider: 13:00 The preadmission screen agrees with the post admission assessment that the patient is a good candidate for inpatient rehabilitation. The patient will have a comprehensive program of inpatient rehabilitation with a goal of maximizing level of functional independence prior to discharge home alone. The patient will have PT/OT ninety minutes per day, each discipline, five days a week for gait, strengthening, conditioning, balance, ADLs, any patient/family/caregiver training as necessary. Speech therapy to do cognitive assessment and treat as indicated. Rehabilitation nursing to assist with bowel, bladder, skin, wound care, medication administration, pain management. Surgical Lead to assist with discharge planning, community reentry. SCD's for DVT prophylaxis. She appears to be well motivated to participate in three hours of therapy a day. She should be able to tolerate three hours of therapy a day from a medical standpoint. She should benefit from the three hours of therapy a day. She has a reasonable discharge plan, reasonable discharge rehabilitation goals and a supportive family. She has various comorbidities that need to be closely monitored with medications and treatments adjusted on a daily basis as needed. These include:see list Barriers to discharge for this patient who had been independent prior to this are for her to be modified independent to supervision for ADLs and mobility skills prior to discharge home, so as to lessen the burden of the caregivers. Risks for this patient include: 1. Fall 2. Fracture 3. DVT 4. Pulmonary embolism 5. Wound infection 6. Skin breakdown 7. Contractures 8. Poorly controlled pain 9. Urinary retention 10. UTI 11. Respiratory infection 12. Aspiration Estimated Length of Stay: 14 days Prognosis: Rehab prognosis appears good for goal of discharge home modified independent to supervision for ADLs and mobility skills. VITA OKEEFE DO Aug 02, 2018 15:41
[2018-08-02] MEDS ORDERED: GADOBUTROL 7.5 MMOL/7.5 ML (GADAVIST) VIAL IV ONE (15:45)
[2018-08-02 16:03] VITALS: BP 144/78
--- NOTE | 2018-08-02 16:33 | Occupational Therapy Eval ---
OT Evaluation-General/PLF Medical Diagnosis Admission Date Aug 02, 2018 at 13:17 Medical Diagnosis: right sided weakness Onset Date: Aug 02, 2018 Therapy Diagnosis Therapy Diagnosis: Weakness Height/Weight Height (Feet): 5 Height (Inches): 1.00 Weight (Pounds): 126 Weight (Ounces): 0.0 Precautions Precautions/Isolations: Fall Prevention, Standard Precautions, Pressure Ulcer Weight Bear Status Weight Bearing Restriction: Weight Bearing/Tolerated Referral Physician: Maldonado Referral Reason: Activity Tolerance, Self Care, Evaluation/Treatment, Strengthening/ROM Medical History Pertinent Medical History: Arthritis, COPD, Smoking Current History Pt. lives in [place]. Daughter states that pt. bathes and dresses her own self, but that daughter is there for supervision when she does it. Typically, pt. is able to step over tub and do everything okay. This date, daughter was present and pt. was having significant difficulty doffing clothing and stepping over tub. Daughter states that she then took her to ED. No findings from testing at time of evaluation. Reviewed History: Yes Social History Home: Apartment ([place]) Current Living Status: Alone Entry Into Home: Level Entry ADL-Prior Level of Function Therapy Code Descriptions/Definitions Functional Bollinger Measure: 0=Not Assessed/NA 4=Minimal Assistance 1=Total Assistance 5=Supervision or Setup 2=Maximal Assistance 6=Modified Bollinger 3=Moderate Assistance 7=Complete Bollinger Therapy Quality Codes: 6 Independent with activity with or without an assistive device 5 Patient requires set up or clean up by helper. Patient completes activity by themselves 4 Supervision or touching assist (CGA). [place] provide cues , steadying assist 3 The helper provides less than half the effort to complete the activity 2 The helper provides more than half the effort to complete the activity 1 Dependent. The helper does all the effort to complete an activity 7 Patient refused to complete or attempt activity 9 The patient did not perform the activity before the current illness or injury 88 Not attempted due to Medical conditions or safety concerns Functional Abilities and Goals: Independent: Patient completed the activities by him/herself, with or without an assistive device, with no assistance from a helper. Needed Some Help: Patient needed partial assistance from another person to complete activities. Dependent: A helper completed the activities for the patient. 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 Drive Self: No OT Current Status Subjective No pain reported. Pt. is somewhat quiet throughout treatment. Daughter states that pt. is quiet "depending on the day." Appearance Pt. seems alert but does demonstrate flat affect. Does also smile appropriately at times as well. Mental Status/Objective Patient Orientation: Unable to Assess Current Hand Dominance: Right Upper Extremity ROM WFL Upper Extremity Strength Right- 3/5 Left- 4/5 ADL-Treatment Eating (FIM): 5 Eating (QC): 4 Grooming (FIM): 4 (Pt. is able to state, "brush" when OT shows her a brush. Pt. is handed brush in her right hand. Brings to head but does not seem to know what to do with it. Poor motor planning. OT places brush onto head and then pt. is able to swipe hair. Pt. is able to wash face.) Oral Hygiene (QC): 4 Transfers (B, C, W/C) (FIM): 4 (Min assist sit-stand and ambulation.) Other Treatments OT/PT completed co-treat with OT addressing ADLs and PT assessing mobility. Pt. demonstrates flat affect and quiet demeanor. Unsure if this is typical behavior for her. Decreased strength noted in right UE. Cues for safety and ambulation. Pt. is unable to verbalize if she feels OT touch hand. Will look at OT and smile during light touch testing. All needs met back in room. Education OT Patient Education: Correct positioning, Modified ADL techniques, Progress toward Goal/Update tx plan, Purpose of tx/functional activities, Reviewed precautions, Rehab process, Transfer techniques Teaching Recipient: Patient, Family Teaching Methods: Demonstration, Discussion Response to Teaching: Verbalize Understanding, Return Demonstration OT Short Term Goals Short Term Goals Transfers (B,C,W/C) (FIM): 5 1=Demonstrate adherence to instructed precautions during ADL tasks. 2=Patient will verbalize/demonstrate understanding of assistive devices/ modifications for ADL. 3=Patient will improve strength/tolerance for activity to enable patient to perform ADL's. OT Alf Goals Alf Goals Time Frame: August 30, 2018 Eating (FIM): 7 Eating (QC): 6 Groomin Oral Hygiene (QC): 6 Bathing(FIM): 5 Shower/Bathe Self (QC): 5 Upper Body Dressing(FIM): 5 Upper Body Dressing (QC): 5 Lower Body Dressing(FIM): 5 Lower Body Dressing (QC): 5 On/Off Footwear (QC): 5 Toileting(FIM): 6 Toileting Hygiene (QC): 6 Transfers (B,C,W/C) (FIM): 6 Toilet/Commode Transfer(FIM): 6 Toilet/Commode Transfer (QC): 6 Shower Transfer(FIM): 5 Additional Goals: 1-Demonstrate ADL Tasks, 2-Verbalize Understanding, 3- ImproveStrength/Joan 1=Demonstrate adherence to instructed precautions during ADL tasks. 2=Patient will verbalize/demonstrate understanding of assistive devices/ modifications for ADL. 3=Patient will improve strength/tolerance for activity to enable patient to perform ADL's. OT Education/Plan Problem List/Assessment Assessment: Decreased Activ Tolerance, Decreased UE Strength, Dependent Transfers, Impaired Cognition, Impaired Coordination, Impaired Funct Balance, Impaired I ADL's, Impaired Self-Care Skills, Restricted Funct UE ROM Discharge Recommendations Plan/Recommendations: Continue POC Comment To be determined. Treatment Plan/Plan of Care Treatment,Training & Education: Yes Patient would benefit from OT for education, treatment and training to promote independence in ADL's, mobility, safety and/or upper extremity function for ADL' s. Plan of Care: ADL Retraining, Functional Mobility, Group Exercise/Act as Ind, UE Funct Exercise/Act Treatment Duration: August 30, 2018 Frequency: At least 5 of 7 days/Wk (IRF) Estimated Hrs Per Day: 1.5 hours per day Agreement: Yes Rehab Potential: Good Time/GCodes Start Time: 13:30 Stop Time: 15:15 Total Time Billed (hr/min): 55 Billed Treatment Time 2024-6156 1, EVM OT eval [id number] FA x 20minutes co-treat with PT [phone] 1, FA x 25minutes co-treat with PT Please see above note for designated roles. KACIE BRADY OT Aug 02, 2018 16:33
--- NOTE | 2018-08-02 16:33 | Diagnostic Imaging Report ---
PROCEDURE: MR imaging of the brain with and without contrast. TECHNIQUE: Multiplanar/multisequence MR imaging of the brain was performed with and without contrast. INDICATION: Right-sided weakness. COMPARISON: There are no previous MRI examinations available for comparison. The CT head exam performed earlier today failed to show any sign of an acute intracranial abnormality. FINDINGS: On the diffusion series of this exam, there is a 0.9 x 1.1 cm area of increased signal in the periventricular white matter adjacent to the left lateral ventricle. There is a corresponding area of diminished signal in this area on the D80C series and most likely these findings are related to an acute/subacute infarct. There is no sign of hemorrhage on the T1 and GRE series. No other abnormal signal is seen arising from the brain on the diffusion series. There is no mass, shift of the midline, or hemorrhage to suggest an acute intracranial abnormality. There is no abnormal enhancement on the post contrast sequence to suggest a neoplastic or infectious process either. The FLAIR series does show focal and diffuse areas of increased signal in the periventricular white matter bilaterally. These findings are nonspecific but may be secondary to encephalomalacia from microvascular ischemia. There is cortical atrophy present. The degree of atrophy is consistent with the patient's age. The ventricles are not abnormally dilated. The sella is not enlarged and the expected carotid flow voids are evident bilaterally. The orbits are symmetrical and within normal limits. The sinuses are generally clear. The seventh and eighth nerve complexes are unremarkable. IMPRESSION: 1. There is a small acute/subacute nonhemorrhagic infarct in the periventricular white matter adjacent to the left lateral ventricle. 2. There is no acute intracranial abnormality noted otherwise. 3. There is no abnormal enhancement to suggest a neoplastic or infectious process. 4. There are senescent changes including cortical atrophy and periventricular encephalomalacia. 5. These results were discussed with Dr. Okeefe at the time of dictation. CRITICAL FINDING Dictated by: Dictated on workstation # [id number]
--- NOTE | 2018-08-02 16:50 | Consultation-Cardiology ---
HPI-Cardiology Cardiology Consultation: Date of Consultation 08/02/18 Date of Admission Attending Physician Vita Laird DO Admitting Physician Bibiana Rodriguez DO Consulting Physician Luke Camargo MD HPI: Chief Complaint: CVA Ms. Sharma is an 87 year old female admitted to IRU 231 from the ED. She lives at home alone with assistance from family. Speech is garbled at times during conversation. She denies any c/o CP, SOB, syncope or near syncope. She reports she used to smoke but quit "years ago". Poor historian. No family currently at the bedside. Review of Systems-Cardiology Review of Systems Other comments ROS to the extent it could be obtained is as in the HPI NJK-Llodnp-Elltxi Hx Patient Social History Alcohol Use: Occasionally Uses Recreational Drug Use: No Type Used: Cigarettes 2nd Hand Smoke Exposure: Yes Recent Foreign Travel: No Recent Infectious Disease Expo: No Physical Abuse Screen: No Sexual Abuse: No Immunizations Up To Date Tetanus Booster (TDap): Unknown Date of Pneumonia Vaccine: Jan 27, 2017 Past Medical History PMH As described under Assessment. Family Medical History Family Medical History: Denies any family h/o CAD or CVA. Family History: Patient reports no known family medical history. Allergies and Home Medications Allergies Coded Allergies: Penicillins (Unverified Allergy, Mild, HIVES, 07/03/09) acetaminophen (Verified Allergy, Unknown, 06/13/18) diphenhydramine (Verified Allergy, Unknown, 06/13/18) doxylamine (Verified Allergy, Unknown, 06/13/18) Home Medications Cranberry Extract 250 Mg Capsule, 250 MG PO DAILY, (Reported) Lactobacillus Rhamnosus GG 1 Each Capsule, 1 CAP PO DAILY, (Reported) Patient Home Medication List Home Medication List Reviewed: Yes Physical Exam-Cardiology Physical Exam Vital Signs/I&O 08/02/18 08/03/18 08/03/18 08/03/18 23:15 01:00 05:08 07:10 Temp 98.3 97.8 Pulse 96 90 97 100 Resp 16 16 B/P (MAP) 137/76 (96) 122/75 (91) Pulse Ox 97 92 O2 Delivery Room Air Room Air Capillary Refill : Constitutional: well-developed, well-nourished HEENT: hearing is well preserved Neck: No carotid bruit; carotid pulses are 2 + bilaterally Respiratory: No accessory muscle use, No respiratory distress; chest expansion is symmetric, chest is bilaterally symmetric, other (fair air entry; poor inspiratory effort) Cardiovascular: regular rate-rhythm; No JVD; S1 and S2 Gastrointestinal: No tender; soft, round, audible bowel sounds Extremities: no lower extremity edema bilateral Neurologic/Psychiatric: alert (oriented to self and location), other (garbled speech at times; right sided upper and lower extremity weakness) Skin: No rash, No ulcerations Data Review Labs Radiology NAME: YEYO SHARMA [facility] REC#: [id number] PT STATUS: ADM IN : 1930 PHYSICIAN: VITA LAIRD DO ADMIT DATE: 08/02/18/[facility] Draft Date of Exam:08/02/18 MRI BRAIN W/WO CONTRAST PROCEDURE: MR imaging of the brain with and without contrast. TECHNIQUE: Multiplanar/multisequence MR imaging of the brain was performed with and without contrast. INDICATION: Right-sided weakness. COMPARISON: There are no previous MRI examinations available for comparison. The CT head exam performed earlier today failed to show any sign of an acute intracranial abnormality. FINDINGS: On the diffusion series of this exam, there is a 0.9 x 1.1 cm area of increased signal in the periventricular white matter adjacent to the left lateral ventricle. There is a corresponding area of diminished signal in this area on the D80C series and most likely these findings are related to an acute/subacute infarct. There is no sign of hemorrhage on the T1 and GRE series. No other abnormal signal is seen arising from the brain on the diffusion series. There is no mass, shift of the midline, or hemorrhage to suggest an acute intracranial abnormality. There is no abnormal enhancement on the post contrast sequence to suggest a neoplastic or infectious process either. The FLAIR series does show focal and diffuse areas of increased signal in the periventricular white matter bilaterally. These findings are nonspecific but may be secondary to encephalomalacia from microvascular ischemia. There is cortical atrophy present. The degree of atrophy is consistent with the patient's age. The ventricles are not abnormally dilated. The sella is not enlarged and the expected carotid flow voids are evident bilaterally. The orbits are symmetrical and within normal limits. The sinuses are generally clear. The seventh and eighth nerve complexes are unremarkable. IMPRESSION: 1. There is a small acute/subacute nonhemorrhagic infarct in the periventricular white matter adjacent to the left lateral ventricle. 2. There is no acute intracranial abnormality noted otherwise. 3. There is no abnormal enhancement to suggest a neoplastic or infectious process. 4. There are senescent changes including cortical atrophy and periventricular encephalomalacia. 5. These results were discussed with Dr. Laird at the time of dictation. CRITICAL FINDING Dictated on workstation # [id number] Dict: 08/02/18 1603 NAME: YEYO SHARMA MED REC#: [id number] PHYSICIAN: RHIANNON TAM MD CC: KEITH MUNOZ MD; RHIANNON TAM Page 1 of 1 RADIOLOGY REPORT [facility] [place] CC: KEITH MUNOZ MD; RHIANNON TAM Page 1 of 1 RADIOLOGY REPORT NAME: YEYO SHARMA MED REC#: [id number] PT STATUS: DEP ER : 1930 PHYSICIAN: RHIANNON TAM MD ADMIT DATE: 08/02/18/ER Signed Date of Exam: 08/02/18 CHEST 1 VIEW, AP/PA ONLY Patient History: Right-sided weakness. Technique: Single frontal view of the chest Comparison: 06/13/2018 FINDINGS: The lung volumes are normal. No focal consolidation is seen. No large pleural effusion or pneumothorax is seen. The cardiomediastinal silhouette is normal in size and contour. There is aortic atherosclerosis. No acute osseous abnormality is seen. Small calcification adjacent to the left humeral head may represent calcific tendinitis. IMPRESSION: No acute pulmonary abnormality seen. Dictated by: Dictated on workstation # [id number] Dict: 08/02/18 1039 Trans: 08/02/18 1555 Interpreted by: KEITH MUNOZ MD Electronically signed by: KEITH MUNOZ MD 08/02/18 1555 A/P-Cardiology Assessment/Admission Diagnosis CVA - small acute/subacute nonhemorrhagic infarct in the periventricular white matter adjacent to the left lateral ventricle per MRI of 08-02-18 HLD Discussion and Recomendations Non-hemorrhagic infarct seen on MRI of the brain - management per Dr. Laird Tele to eval for occult a-fib as cause Echocardiogram to eval structure Monitor lab closely U/S of the carotids pending Continue current medication regimen Further recs will be based on her hospital course We would like to thank Dr. Laird for this consult Clinical Quality Measures DVT/VTE Risk/Contraindication: Risk Factor Score Per Nursin RFS Level Per Nursing on Admit: 2=Moderate LISA VILLARREAL Aug 02, 2018 16:50
--- NOTE | 2018-08-02 17:16 | Diagnostic Imaging Report ---
PROCEDURE: US carotid duplex, bilateral. TECHNIQUE: Multiple real-time grayscale images were obtained over the carotid arteries in various projections, bilaterally. Additional spectral analysis and color Doppler duplex images were also obtained. INDICATION: Right-sided weakness. TIA. COMPARISON: None. FINDINGS: There is mild plaque within both carotid bifurcations resulting in less than 50% narrowing. There are normal peak systolic velocities and waveforms within both internal carotid arteries. Antegrade flow within both vertebral arteries. IMPRESSION: Mild atherosclerotic disease with no hemodynamically significant stenosis within either carotid bifurcation. Parameters based on the consensus panel Tsai-Scale and Doppler ultrasound criteria published February 2003, Radiology, Volume 229. DOPPLER (peak systolic velocity M/S Right Left CCA 45.2 59.6 ICA Proximal 35.2 54.5 ICA Mid 51.9 53.8 ICA Distal 35.2 66.7 RATIO 1.15 1.12 ECA 61.5 61.5 VERT 35.6 24.6 Dictated by: Dictated on workstation # [id number]
--- NOTE | 2018-08-02 19:39 | Consultation-Cardiology ---
HPI-Cardiology Cardiology Consultation: Date of Consultation 08/02/18 Time Seen by a Provider: 19:20 Date of Admission Attending Physician Vita Okeefe DO Admitting Physician Bibiana Rodriguez DO Consulting Physician NEVAEH MARQUEZ MD, MA, FACP, FACC, FSCAI, CCDS Physician requesting consult: Dr Okeefe HPI: Chief Complaint: Reason for consultation: CVA/TIA Ms. Hager is an 87 year old female admitted to [facility] from the ED where she had been brought by family for new onset of speech impairment and some weakness of R foot. Dr Okeefe has determined that she has had a CVA and has asked us to see her in card consult. She lives at home alone with assistance from family. Speech is garbled at times during conversation. She denies any c/o CP, SOB, syncope or near syncope. She reports she used to smoke but quit "years ago". Poor historian. No family currently at the bedside. MMD-Ftgxco-Vducli Hx Patient Social History Alcohol Use: Occasionally Uses Recreational Drug Use: No Type Used: Cigarettes 2nd Hand Smoke Exposure: Yes Recent Foreign Travel: No Recent Infectious Disease Expo: No Physical Abuse Screen: No Sexual Abuse: No Immunizations Up To Date Tetanus Booster (TDap): Unknown Date of Pneumonia Vaccine: Jan 27, 2017 Past Medical History PMH As described under Assessment. Family Medical History Family Medical History: Denies any family h/o CAD or CVA. Family History: Patient reports no known family medical history. Allergies and Home Medications Allergies Coded Allergies: Penicillins (Unverified Allergy, Mild, HIVES, 07/03/09) acetaminophen (Verified Allergy, Unknown, 06/13/18) diphenhydramine (Verified Allergy, Unknown, 06/13/18) doxylamine (Verified Allergy, Unknown, 06/13/18) Home Medications Cranberry Extract 250 Mg Capsule, 250 MG PO DAILY, (Reported) Lactobacillus Rhamnosus GG 1 Each Capsule, 1 CAP PO DAILY, (Reported) Patient Home Medication List Home Medication List Reviewed: Yes Physical Exam-Cardiology Physical Exam Vital Signs/I&O 08/02/18 08/02/18 08/02/18 15:44 16:02 16:03 Temp 97.4 Pulse 97 100 Resp 16 B/P (MAP) 144/78 (100) Pulse Ox 96 O2 Delivery Room Air Room Air Capillary Refill : Constitutional: well-developed, well-nourished HEENT: hearing is well preserved Neck: No carotid bruit; carotid pulses are 2 + bilaterally Respiratory: No accessory muscle use, No respiratory distress; chest expansion is symmetric, chest is bilaterally symmetric, other (fair air entry; poor inspiratory effort) Cardiovascular: regular rate-rhythm; No JVD; S1 and S2 Gastrointestinal: No tender; soft, round, audible bowel sounds Extremities: no lower extremity edema bilateral Neurologic/Psychiatric: alert (oriented to self and location), other (garbled speech at times; right sided upper and lower extremity weakness) Skin: No rash, No ulcerations Data Review Labs Laboratory Tests 08/02/18 09:55: Triglycerides Level 225H, Cholesterol Level 245H, LDL Cholesterol Direct 164H, VLDL Cholesterol 45H, HDL Cholesterol 54 A/P-Cardiology Assessment/Admission Diagnosis CVA - small acute/subacute nonhemorrhagic infarct in the periventricular white matter adjacent to the left lateral ventricle per MRI of 08-02-18 HLD Echo on 08/02/18: LVEF 60-65%, grade 1 villa dysfxn, PASP 20 mmHg Discussion and Recomendations Non-hemorrhagic infarct seen on MRI of the brain - management per Dr. Okeefe Tele to eval for occult a-fib as cause Echocardiogram to eval structure Monitor lab closely U/S of the carotids pending Continue current medication regimen Further recs will be based on her hospital course We would like to thank Dr. Okeefe for this consult Clinical Quality Measures DVT/VTE Risk/Contraindication: Risk Factor Score Per Nursin RFS Level Per Nursing on Admit: 2=Moderate NEVAEH MARQUEZ MD FACP FAC CCDS Aug 02, 2018 19:39
[2018-08-02] MEDS: ATORVASTATIN 80 MG (LIPITOR) TABLET PO SCH (20:03)
[2018-08-02 23:15] VITALS: BP 137/76
[2018-08-03 05:08] VITALS: BP 122/75
--- NOTE | 2018-08-03 08:09 | PM&R Progress Note ---
Subjective HPI/CC On Admission Date Seen by Provider: Aug 03, 2018 Time Seen by Provider: 08:15 Subjective/Events-last exam MRI confirmed left stroke with subsequent right sided weakness as suspected with clinical presentation No dysphagia but garbled speech at time Cardiology consultation is appreciated Pt reports that her speech has always been garbled but I doubt it has be that on a chronic basis Will DC neuro checks and Q4 vitals since everything is stable Tolerating aspirin therapy and statin therapy Review of Systems General: Fatigue Neurological: Weakness, Numbness, Incoordination, Change in speech Objective Exam Vital Signs Vital Signs Date Time Temp Pulse Resp B/P (MAP) Pulse Ox O2 Delivery O2 Flow Rate FiO2 08/03/18 19:00 91 08/03/18 17:11 Room Air 08/03/18 15:42 97.7 14 154/81 (105) 94 Capillary Refill : General Appearance: No Apparent Distress, WD/WN, Chronically ill HEENT: PERRL/EOMI, Normal ENT Inspection, Pharynx Normal Neck: Full Range of Motion, Normal Inspection, Non Tender, Supple Respiratory: Chest Non Tender, Lungs Clear, Normal Breath Sounds, No Accessory Muscle Use, No Respiratory Distress Cardiovascular: Regular Rate, Rhythm, No Edema, No Gallop, No JVD, No Murmur, Normal Peripheral Pulses Back: Normal Inspection, No CVA Tenderness, No Vertebral Tenderness Extremity: Normal Capillary Refill, Normal Inspection, Normal Range of Motion ( except right sided), Non Tender, No Calf Tenderness Neurologic/Psychiatric: Alert, Oriented x3, licensed investment sales assistant II-XII Norm as Tested, Depressed Affect, Motor Weakness (right arm and leg weakness 3/5), Other ( speech garbled) Skin: Normal Color, Warm/Dry Results/Procedures Lab Patient resulted labs reviewed. Assessment/Plan Assessment and Plan Assess & Plan/Chief Complaint (1) CVA (cerebral vascular accident) (2) Right sided weakness (3) Hyperlipidemia (4) Former smoker (5) Garbled speech (6) Unable to ambulate Plan: IRF to focus on ambulation Fall risk prevention Statin and ASA Check ECHO and Tely (1) CVA (cerebral vascular accident) Assessment & Plan: Confirmed on MRI: There is a small acute/subacute nonhemorrhagic infarct in the periventricular white matter adjacent to the left lateral ventricle. Statin, ASA, Cardiology consultation, ECHO, EKG, Tely (2) Unable to ambulate Assessment & Plan: IRF protocols with assistive devices (3) Garbled speech (4) Right sided weakness Assessment & Plan: IRF protocols (5) Hyperlipidemia Assessment & Plan: High dose statin Clinical Quality Measures DVT/VTE Risk/Contraindication: Risk Factor Score Per Nursin RFS Level Per Nursing on Admit: 2=Moderate LUIS F LAIRD DO Aug 03, 2018 08:08
[2018-08-03] MEDS ORDERED: NON-FORMULARY MEDICATION 1 EA EA (Lactobacillus Rhamnosus GG (Culturelle) 1 CAP) PO SCH (09:00)
[2018-08-03] MEDS ORDERED: CRANBERRY EXTRACT 250 MG PO SCH (09:00)
--- NOTE | 2018-08-03 09:00 | NUR ---
VERY SLEEPY, BUT RESPONDS APPROPRIATELY. CONFUSED TO TIME, BUT OTHERWISE ORIENTED. SPEECH IS GARBLED, BUT STATES THIS IS HER NORMAL. DENIES PAIN. MILD RIGHT-SIDED WEAKNESS. DENIES DIFFICULTY IN SWALLOWING. FREQUENT NEURO CHECKS AND VS WILL BE DC'D PER DR. LAIRD.
[2018-08-03] MEDS: LACTOBACILLUS ACIDOPHILUS (PROBIOTIC) CAPSULE PO SCH (09:06)
[2018-08-03] MEDS: ASPIRIN E.C. 81 MG (ECOTRIN) TAB PO SCH (09:06)
--- NOTE | 2018-08-03 09:14 | Physical Therapy Daily Note ---
PT Daily Note-Current Subjective Pt laying Supine in bed upon arrival. Pt agrees to PT tx. Pain Location: No Pain Reported Mental Status Patient Orientation: Person, Place Attachments: Other-See Comments (Telemetry) Transfers Therapy Code Descriptions/Definitions Functional [place] Measure: 0=Not Assessed/NA 4=Minimal Assistance 1=Total Assistance 5=Supervision or Setup 2=Maximal Assistance 6=Modified [place] 3=Moderate Assistance 7=Complete [place] Therapy Quality Codes: 6 Independent with activity with or without an assistive device 5 Patient requires set up or clean up by helper. Patient completes activity by themselves 4 Supervision or touching assist (CGA). [place] provide cues , steadying assist 3 The helper provides less than half the effort to complete the activity 2 The helper provides more than half the effort to complete the activity 1 Dependent. The helper does all the effort to complete an activity 7 Patient refused to complete or attempt activity 9 The patient did not perform the activity before the current illness or injury 88 Not attempted due to Medical conditions or safety concerns Scootin Supine to/from Sit: 4 Sit to/from Stand: 4 Sit to Stand (QC): 4 Weight Bearing Right Lower Extremity: Right Full Weight Bearing Left Lower Extremity: Left Full Weight Bearing Gait Training Does the Patient Walk?: Yes Distance (FIM): 1=up to 49 ft Distance: 15', 25' Walk 10 feet (QC): 4 Gait Level of Assist: 4 Gait Persons Needed: 1 Gait Assistive Device: FWW Pt walks with slow lexi, better DF to fruit picker R foot today. Pt demonstrates improved, more normalized gait. Pt does fatigue quickly. Wheelchair Training Does the Pt Use a Wheelchair?: Yes Wheelchair Distance: 5=308-54 ft Distance: 100' Wheelchair Level of Assist: 4 Wheel 50 ft with 2 turns (QC): 4 Type of Wheelchair: Manual Exercises Seated Therapy Exercises: Ankle pumps, Long arc quads, Hip flexion, Kicking activity Seated Reps: 15 NuStep Minutes: 10 NuStep Workload: 2 Treatments Pt transfers from bed and ambulates short distance before transferring to W/C. Pt transfers to NuStep and uses for 10m at WL 2, this is followed by Seated Ex. After short rest, pt ambulates short distance in hallway before transferring back to W/C. Pt resting in W/C in room with all needs met at end of tx. Assessment Current Status: Good Progress Pt fatigues easily but is making improvement with strength and ROM in DF of R foot for ambulation. PT Short Term Goals Short Term Goals Time Frame: Aug 09, 2018 Transfers (B,C,W/C) (FIM): 5 Gait (FIM): 4 PT Manager Video Goals Fdc Goals PT Fdc Goals Time Frame: Aug 20, 2018 Transfers (B,C,W/C) (FIM): 6 Sit to Lying (QC): 6 Lying-Sitting on Side/Bed(QC): 6 Sit to Stand (QC): 6 Roll Left to Right (QC): 6 Chair/Lsj-nz-Huwtj Xfer(QC): 6 Car Transfer (QC): 5 Does the Patient Walk: Yes Gait (FIM): 6 Gait distance (FIM): 3=150 ft Walk 10 feet (QC): 6 Walk 10ft-Uneven Surface(QC): 5 Walk 50ft with 2 Turns (QC): 6 Walk 150 ft (QC): 6 Gait Assistive Device: FWW Does the Pt use WC or Scooter?: No Stairs (FIM): 5 (household) # of Steps: 4 1 Step (curb) (QC): 6 4 Steps (QC): 6 12 Steps (QC): 10 Picking up an Object (QC): 4 PT Plan Problem List Problem List: Activity Tolerance, Functional Strength, Gait Treatment/Plan Treatment Plan: Continue Plan of Care Treatment Plan: Bed Mobility, Education, Functional Activity Joan, Functional Strength, Group Therapy, Gait, Safety, Therapeutic Exercise, Transfers Treatment Duration: Aug 20, 2018 Frequency: At least 5 of 7 days/Wk (IRF) Estimated Hrs Per Day: 1.5 hours per day Patient and/or Family Agrees t: Yes Safety Risks/Education Patient Education: Gait Training, Transfer Techniques, Correct Positioning, W/ C Management, Disease Process Teaching Recipient: Patient Teaching Methods: Discussion Response to Teaching: Reinforcement Needed Time/GCodes Time In: 815 Time Out: 900 Total Billed Treatment Time: 45 Total Billed Treatment 1, EX x2 (30m) & GT (15m) G Codes Necessary: No CARLO ROSARIO INFORMATION SECURITY Aug 03, 2018 09:14
--- NOTE | 2018-08-03 10:49 | Progress Note-Cardiology ---
Cardiology SOAP Progress Note Subjective: In bed. Drowsy this morning, but easily awakens. C/O back pain. No c/o CP, dyspnea. Objective: I&O/Vital Signs 08/03/18 08/03/18 08/03/18 08/03/18 07:10 09:00 12:52 15:42 Temp 97.7 Pulse 100 72 80 Resp 14 B/P (MAP) 154/81 (105) Pulse Ox 94 O2 Delivery Room Air Room Air 08/03/18 17:11 O2 Delivery Room Air Weight (Pounds): 126 Weight (Ounces): 0.0 Weight (Calculated Kilograms): 57.850111 Constitutional: well-developed, well-nourished Respiratory: No accessory muscle use, No respiratory distress; chest expansion is symmetric, chest is bilaterally symmetric, other (fair air entry; poor inspiratory effort) Cardiovascular: regular rate-rhythm; No JVD; S1 and S2 Gastrointestional: No tender; soft, round, audible bowel sounds Extremities: no lower extremity edema bilateral Neurologic/Psychiatric: alert (oriented to self and location), other (speech improved; right sided upper and lower extremity weakness continues) Skin: No rash, No ulcerations A/P: Assessment: CVA - small acute/subacute nonhemorrhagic infarct in the periventricular white matter adjacent to the left lateral ventricle per MRI of 08-02-18 - with right sided upper and lower extremity weakness HLD Echo on 08/02/18: LVEF 60-65%, grade 1 villa dysfxn, PASP 20 mmHg Mild carotid arterial disease with no hemodynamically significant stenosis within either carotid bifurcation per u/s of 08-02-18 Plan: Non-hemorrhagic infarct seen on MRI of the brain - management per Dr. Okeefe Continue tele to eval for occult a-fib as cause - no arrhythmia seen thus far Monitor lab closely Physician Assessment Physician Assessment Shortness of breath better than before. No cp or palp or syncope Lungs: a few scattered rhonchi Cor: reg Ext: no c/c/e A&R * As documented in our note above that I updated (italics) and as noted below * Monitor heart rhythm LISA VILLARREAL [facility] Aug 03, 2018 10:49 NEVAEH MARQUEZ MD [facility] Aug 03, 2018 18:18
--- NOTE | 2018-08-03 11:01 | Occupational Ther Daily Note ---
OT Current Status-Daily Note Subjective Pt sitting in w/c after PT, agrees to treatment. Pt reports being very sleepy today. Mental Status/Objective Therapy Code Descriptions/Definitions Functional [place] Measure: 0=Not Assessed/NA 4=Minimal Assistance 1=Total Assistance 5=Supervision or Setup 2=Maximal Assistance 6=Modified [place] 3=Moderate Assistance 7=Complete [place] ADL-Treatment Pt agreeable to shower this morning. Gait to restroom with FWW, slow pace. Transfer to walk in shower with minimal assistance and cues for safety, using grab bar for balance. Pt doffed nightgown with SBA. Min assist to doff socks. Seated bathing completed using hand held shower. Upper body bathing completed with SBA and cues for task completion. Pt able to wash upper legs and liban area. Pt able to wash left LE, min assist to wash right LE. Pt declined to wash hair. Don pullover shirt with minimal assistance to pull down in back. Pt able to thread bilateral LE into Depends and pant legs. Stood with min assist during pant hike. Minimal assistance to pull pants up on right side. Pt required assist to don socks. Pt completed oral care with mouth swab with set up. Min assist to comb hair. Pt moves slowly throughout ADLs and at times requires prompts to continue with tasks. Therapy Code Descriptions/Definitions Functional [place] Measure: 0=Not Assessed/NA 4=Minimal Assistance 1=Total Assistance 5=Supervision or Setup 2=Maximal Assistance 6=Modified [place] 3=Moderate Assistance 7=Complete [place] Therapy Quality Codes: 6 Independent with activity with or without an assistive device 5 Patient requires set up or clean up by helper. Patient completes activity by themselves 4 Supervision or touching assist (CGA). [place] provide cues , steadying assist 3 The helper provides less than half the effort to complete the activity 2 The helper provides more than half the effort to complete the activity 1 Dependent. The helper does all the effort to complete an activity 7 Patient refused to complete or attempt activity 9 The patient did not perform the activity before the current illness or injury 88 Not attempted due to Medical conditions or safety concerns Grooming (FIM): 4 Oral Hygiene (QC): 3 Bathing (FIM): 4 Shower/Bathe Self (QC): 3 Upper Body (FIM): 4 Upper Body Dressing (QC): 3 Lower Body Dressing (FIM): 4 Lower Body Dressing (QC): 3 Shower Transfer(FIM): 4 Other Treatment To therapy gym via w/c. Pt completed tabletop peg activity to increase fine motor coordination/manipulation skills. Pt has some difficulty with right hand and requires increased time to complete task. Pt requires cues for attention to task. Arm bike [id number] to increase overall strength and activity tolerance needed for functional tasks. Pt completed activity with minimal resistance and very slow pace. No rest breaks taken. Pt initially had minor difficulty maintaining steerer with right hand, but as activity progressed, pt able to maintain steerer. Pt completed putty activity with bilateral hands to increase strength and coordination. Pt able to remove small beads from putty with right hand with increased time. Pt returned to room, transferred to bed with minimal assistance. Sit to supine with SBA. Pt resting in bed with needs met and RN present after session. OT Short Term Goals Short Term Goals Transfers (B,C,W/C) (FIM): 5 1=Demonstrate adherence to instructed precautions during ADL tasks. 2=Patient will verbalize/demonstrate understanding of assistive devices/ modifications for ADL. 3=Patient will improve strength/tolerance for activity to enable patient to perform ADL's. OT Care Home Goals Care Home Goals Time Frame: August 30, 2018 Eating (FIM): 7 Eating (QC): 6 Groomin Oral Hygiene (QC): 6 Bathing(FIM): 5 Shower/Bathe Self (QC): 5 Upper Body Dressing(FIM): 5 Upper Body Dressing (QC): 5 Lower Body Dressing(FIM): 5 Lower Body Dressing (QC): 5 On/Off Footwear (QC): 5 Toileting(FIM): 6 Toileting Hygiene (QC): 6 Transfers (B,C,W/C) (FIM): 6 Toilet/Commode Transfer(FIM): 6 Toilet/Commode Transfer (QC): 6 Shower Transfer(FIM): 5 Additional Goals: 1-Demonstrate ADL Tasks, 2-Verbalize Understanding, 3- ImproveStrength/Joan 1=Demonstrate adherence to instructed precautions during ADL tasks. 2=Patient will verbalize/demonstrate understanding of assistive devices/ modifications for ADL. 3=Patient will improve strength/tolerance for activity to enable patient to perform ADL's. OT Education/Plan Discharge Recommendations Plan/Recommendations: Continue POC Treatment Plan/Plan of Care Patient would benefit from OT for education, treatment and training to promote independence in ADL's, mobility, safety and/or upper extremity function for ADL' s. Plan of Care: ADL Retraining, Functional Mobility, Group Exercise/Act as Ind, UE Funct Exercise/Act Treatment Duration: August 30, 2018 Frequency: At least 5 of 7 days/Wk (IRF) Estimated Hrs Per Day: 1.5 hours per day Agreement: Yes Rehab Potential: Good Time/GCodes Start Time: 09:00 Stop Time: 10:30 Total Time Billed (hr/min): 90 Billed Treatment Time 1 visit, ADLx3(50minutes), EXx3(40minutes) [place] SKY OT Aug 03, 2018 11:01
--- NOTE | 2018-08-03 12:00 | Physical Therapy Daily Note ---
PT Daily Note-Current Subjective Pt laying Supine asleep in bed upon arrival. Pt agrees to PT for Supine Ex. Transfers Therapy Code Descriptions/Definitions Functional [place] Measure: 0=Not Assessed/NA 4=Minimal Assistance 1=Total Assistance 5=Supervision or Setup 2=Maximal Assistance 6=Modified [place] 3=Moderate Assistance 7=Complete [place] Therapy Quality Codes: 6 Independent with activity with or without an assistive device 5 Patient requires set up or clean up by helper. Patient completes activity by themselves 4 Supervision or touching assist (CGA). [place] provide cues , steadying assist 3 The helper provides less than half the effort to complete the activity 2 The helper provides more than half the effort to complete the activity 1 Dependent. The helper does all the effort to complete an activity 7 Patient refused to complete or attempt activity 9 The patient did not perform the activity before the current illness or injury 88 Not attempted due to Medical conditions or safety concerns Weight Bearing Right Lower Extremity: Right Full Weight Bearing Left Lower Extremity: Left Full Weight Bearing Exercises Supine Ex: Ankle pumps, Quad Set, Glut sets, Heel Slides, Straight leg raise Supine Reps: 15 Treatments Pt completes Supine Ex in bed with a couple short rest breaks. MARINE ENGINEER assists pt to sit up in bed by raising HOB for lunch. Pt has all needs met. Assessment Current Status: Good Progress Pt fatigues easily. PT Short Term Goals Short Term Goals Time Frame: Aug 09, 2018 Transfers (B,C,W/C) (FIM): 5 Gait (FIM): 4 Wheelchair Distance: 100' PT Shelter Goals Waiter/Waitress Head Goals PT Shelter Goals Time Frame: Aug 20, 2018 Transfers (B,C,W/C) (FIM): 6 Sit to Lying (QC): 6 Lying-Sitting on Side/Bed(QC): 6 Sit to Stand (QC): 6 Roll Left to Right (QC): 6 Chair/Ozl-pm-Aqeto Xfer(QC): 6 Car Transfer (QC): 5 Does the Patient Walk: Yes Gait (FIM): 6 Gait distance (FIM): 3=150 ft Walk 10 feet (QC): 6 Walk 10ft-Uneven Surface(QC): 5 Walk 50ft with 2 Turns (QC): 6 Walk 150 ft (QC): 6 Gait Assistive Device: FWW Does the Pt use WC or Scooter?: No Stairs (FIM): 5 (household) # of Steps: 4 1 Step (curb) (QC): 6 4 Steps (QC): 6 12 Steps (QC): 10 Picking up an Object (QC): 4 PT Plan Problem List Problem List: Activity Tolerance, Functional Strength Treatment/Plan Treatment Plan: Continue Plan of Care Treatment Plan: Bed Mobility, Education, Functional Activity Joan, Functional Strength, Group Therapy, Gait, Safety, Therapeutic Exercise, Transfers Treatment Duration: Aug 20, 2018 Frequency: At least 5 of 7 days/Wk (IRF) Estimated Hrs Per Day: 1.5 hours per day Patient and/or Family Agrees t: Yes Safety Risks/Education Patient Education: Correct Positioning, Safety Issues Teaching Recipient: Patient Teaching Methods: Discussion Response to Teaching: Verbalize Understanding Time/GCodes Time In: 1130 Time Out: 1200 Total Billed Treatment Time: 30 Total Billed Treatment 1, EX x2 (30m) G Codes Necessary: CARLO Barfield MARINE ENGINEER Aug 03, 2018 12:00
--- NOTE | 2018-08-03 13:00 | NUR ---
Pastoral care visit.
--- NOTE | 2018-08-03 14:54 | ST Cognitive Linguistic Eval ---
Speech Evaluation-General Medical Diagnosis right sided weakness Onset Date: Aug 02, 2018 Therapy Diagnosis Therapy Diagnosis: Aphasia Precautions Precautions/Isolations: Fall Prevention, Standard Precautions Referral Referring Physician: Dr. Okeefe Reason for Referral: Evaluation/Treatment Medical History Pertinent Medical History: Arthritis, COPD, Smoking Reviewed History: Yes Social History Current Living Status: Alone Speech PLF-Current Status Prior Level of Function Prior to her hospitalizaton the patient lived home alone and was independent for most of her daily need. She does receive assistance from her daughter when needed. Language Eval: Auditory Comprehends Simple Yes/No Ques: Functional Indent/Objects Multiple Stephen[place]: Functional Ident/Pics in Multiple Stephenson: Functional Follows 1-Step Commands: Functional Follows Complex Directions: Mild Follows General Conversations: Mild Language Eval: Verbal Language Patient is primarily nonverbal. She responds with head nods and gestures at times. Cognitive Patient Orientation It is unclear how much orientation the patient exhibits due to her decreased verbal communication. Objective Cognitive Domain Attention: Mild Problem Solving: Mild Executive Functions: Moderate Patients level is decreased, however due to her nonverbal state it is difficult to assess her exact level of function. Objective Formal/Standardized Tests Subtests of the [facility] and [facility] Cognitive/ communication Results Patient completed the auditory processing areas within functional limits. Portions requiring verbalizations were not assessed well due to to her nonverbal state. Oral Motor/Speech Production Patient is primarily nonverbal. Impression The patient is a pleasant 87 year old woman who was admitted to the COU s/p CVA. She is primarily nonverbal so the cognitive testing was difficult for her. She completed the auditory processing portions of the tests within functional limits with minimal cues. The patient will receive skilled ST services for expressive aphasia. Communication/Social Cognition Comprehension: 5 Expression: 1 Social Interaction: 2 Problem Solvin Memory: 2 Speech Patient Assess Expression of Ideas/Wants: Rarely/Never (1) Understanding Verbal Content: Usually Understands (3) Brief Interview-Mental Status: Yes Repetition of Three Words: None (0) Temporal Orientation: Year: No answer (0) Temporal Orientation: Month: No answer (0) Recall : Wear to say "Sock": No, could not recall (0) Recall : Color: No, could not recall (0) Recall : Bed: No, could not recall (0) Memory/Recall Ability: That he or she is in a hsp/hsp unit Speech Short Term Goals Short Term Goals Short Term Goals 1) The patient will complete confrontational naming tasks with 80% or greater given minimal cues. 2) The patient will follow simple 1-2 step directions related to her daily needs with 80% or greater given minimal cues. Speech Linen Keeper Goals Linen Keeper Goals The patient will be able to effectively communicate her wants/needs to staff and family. Speech-Plan Patient/Family Goals Patient/Family Goals: The patient's plan post rehab is unknown at this time. Treatment Plan Speech Therapy Treatment Plan: Continue Plan of Care The patient will receive skilled ST for expressive aphasia and orientation. Treatment Duration: Aug 13, 2018 Frequency: 5 times per week Estimated Hrs Per Day: .5 hour per day Rehab Potential: Good Barriers to Learning: The patient is a new onset CVA, expressive aphasia Pt/Family Agrees to Plan: Yes Safety Risks/Education Teaching Recipient: Patient Teaching Methods: Discussion Response to Teaching: Verbalize Understanding Education Topics Provided: Safety within her room. Time Speech Therapy Time In: 11:45 Speech Therapy Time Out: 12:00 Total Billed Time: 15 Billed Treatment Time 1, CATHIE Diaz Aug 03, 2018 14:54
[2018-08-03] MEDS: ACETAMINOPHEN 500 MG TAB (TYLENOL) PO PRN ×2 (15:00→21:09)
[2018-08-03 15:42] VITALS: BP 154/81
[2018-08-03] MEDS ORDERED: CATHETER FLUSH 10 ML SYR IV PRN (16:15)
--- NOTE | 2018-08-03 18:00 | NUR ---
HAS PERKED UP SOME THIS AFTERNOON. DAUGHTER AND SON VISITED. HAS EATEN POORLY AND STILL APPEARS TIRED.
[2018-08-03] MEDS: ATORVASTATIN 80 MG (LIPITOR) TABLET PO SCH (21:09)
[2018-08-03] MEDS: CATHETER FLUSH 10 ML SYR IV SCH (21:09)
[2018-08-04] MEDS: CATHETER FLUSH 10 ML SYR IV SCH ×3 (04:44→20:13)
[2018-08-04 06:14] VITALS: BP 137/73
[2018-08-04] MEDS: LACTOBACILLUS ACIDOPHILUS (PROBIOTIC) CAPSULE PO SCH (08:28)
[2018-08-04] MEDS: ASPIRIN E.C. 81 MG (ECOTRIN) TAB PO SCH (08:28)
--- NOTE | 2018-08-04 08:37 | Individualized Plan of Care ---
Individualized Plan of Care Rehab Nursing IPOC Order Admission Date Aug 02, 2018 at 13:17 Current Orders Orders Admission Order(Inpt,Obs,Sdc) (08/02/18 13:20) Vital Signs: Routine (Order) 08,16,00 (08/02/18 13:20) Street Light Inspector-Inpt Rehab Con (08/02/18 13:20) Rehab Nursing Orders-Ipoc (08/02/18 13:20) Physical Therapy Rehab Orders (08/02/18 13:20) Occupational Therapy Rehab Ord (08/02/18 13:20) Speech Therapy Rehab Orders (08/02/18 13:20) Intake & Output 06,14,22 (08/02/18 13:20) Precautions (Aru) (08/02/18 13:20) Weekly Weight (Lbs) WEEK (08/02/18 13:20) Rehab-Intensity Of Therapy (08/02/18 13:20) Initiate Admission Nursing Pro .admission (08/02/18 13:20) Code/Resuscitation (08/02/18 13:20) Aspirin Enteric Coated Tablet (Ecotrin T (08/03/18 09:00) Aspirin Enteric Coated Tablet (Ecotrin T (08/02/18 13:30) Acetaminophen Tablet (Tylenol Tablet) (08/02/18 13:30) Calcium Carbonate Chew Tablet (Antacid C (08/02/18 13:30) Diphenhydramine Tablet (Benadryl Tablet) (08/02/18 13:30) Docusate Sodium Capsule (Colace Capsule) (08/02/18 13:30) Ondansetron Oral Dissolve Tab (Zofran (08/02/18 13:30) Melatonin Tablet (Melatonin Tablet) (08/02/18 13:30) Loperamide Capsule (Imodium Capsule) (08/02/18 13:30) Atorvastatin Tablet (Lipitor Tablet) (08/02/18 21:00) Lipid Panel (08/02/18 13:20) Us Carotid Horace Complete [id number] (08/02/18 13:20) Consult Physician (08/02/18 13:27) Echo W Doppler/Color Flow (08/02/18 13:27) Telemetry Nursing Assessment ( (08/02/18 14:43) Telemetry (08/02/18 14:43) Telemetry Nursing Assessment ( (08/02/18 14:43) Heart Healthy (08/02/18 Dinner) (Nf) Lactobacillus Rhamnosus Gg (Culture (08/03/18 09:00) Lactobacillus Acidophilus Cap (Acidophil (08/03/18 09:00) Mri Brain W/Wo Contrast (08/02/18 13:20) Patient Visit (08/02/18 ) Pt Eval Moderate Complexity (08/02/18 ) Functional Activities, Ea 15 (08/02/18 ) Gadobutrol Inj (Radiology) (Gadavist Inj (08/02/18 15:45) Automatic Tray (08/02/18 19:39) Patient Visit (08/03/18 ) Speech Sound Lang Comp (08/03/18 ) Patient Visit (08/03/18 ) Exercise Therap, Ea 15 Min (08/03/18 ) Gait Training, Ea 15 Min (08/03/18 ) Patient Visit (08/03/18 ) Exercise Therap, Ea 15 Min (08/03/18 ) General/Regular (08/03/18 Dinner) Sodium Chloride Flush (Catheter Flush Sy (08/03/18 22:00) Sodium Chloride Flush (Catheter Flush Sy (08/03/18 16:15) Patient Visit (08/04/18 ) Treat. Speech/Lang/Voice (08/04/18 ) Patient Visit (08/04/18 ) Gait Training, Ea 15 Min (08/04/18 ) Exercise Therap, Ea 15 Min (08/04/18 ) Rehab Nursing Orders: Ongoing Assess. of Cognitive Status, Ongoing Assess. of Function Status, Bladder Management, Bowel Management, Disease Management & Educaiton, DVT Prophylaxis, Fall Prevention, Fluid/Electrolyte/Nutrition Mgmt, Management of Risks & Complications, Nutrition Management, Patient/Family Support, Safety Management Intensity of Therapy to be met Patient to be seen: Min.3h per day/5 of 7d PT IPOC Problem List: Activity Tolerance, Functional Strength Treatment Plan: Continue Plan of Care Bed Mobility, Education, Functional Activity Joan, Functional Strength, Group Therapy, Gait, Safety, Therapeutic Exercise, Transfers Treatment Duration: Aug 20, 2018 Frequency: At least 5 of 7 days/Wk (IRF) Estimated Hrs Per Day: 1.5 hours per day OT IPOC Problems: Decreased Activ Tolerance, Decreased UE Strength, Dependent Transfers , Impaired Cognition, Impaired Coordination, Impaired Funct Balance, Impaired I ADL's, Impaired Self-Care Skills, Restricted Funct UE ROM OT Treatment, Training and Edu: Yes Plan of Care: ADL Retraining, Functional Mobility, Group Exercise/Act as Ind, UE Funct Exercise/Act Treatment Duration: August 30, 2018 Frequency: At least 5 of 7 days/Wk (IRF) Estimated Hrs Per Day: 1.5 hours per day [facility] Speech Therapy Treatment Plan: Continue Plan of Care Treatment Duration: Aug 13, 2018 Frequency: 5 times per week Estimated Hrs Per Day: .[address] Light Inspector/Case Mgmt Street Light Inspector/Case Managemen: Discharge Planning Dietitian/Gold Leaf Roller Dietitian/Gold Leaf Roller to monitor nutritional status and make changes and/or recommendations as needed and work with speech pathology on dietary upgrades as the occur. 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
--- NOTE | 2018-08-04 08:37 | PM&R Progress Note ---
Subjective HPI/CC On Admission Date Seen by Provider: Aug 04, 2018 Time Seen by Provider: 08:15 CC: CVA HPI: This is an 87yoWF clinic patient of Evelyn Nolasco at [facility] who presented to the ER with right sided weakness and inability to walk. Last known well time was 2 days ago. Patient was worked up in ER for CVA and CT negative and labs negative but could not walk so IRF assessed her with my evaluation in the ER to meet criteria for direct admit to IRF. PLOF was independent living alone at home and currently she is dependent with inability to walk due to right sided weakness. Barriers to returning home will be regaining ability to ambulate and return of verbal communication and safety management to reside alone. Patient was placed on Tely, ECHO ordered along with ASA and Lipitor initiation for CVA protocol completion. Subjective/Events-last exam Pt is a woman of few words on a chronic basis and the speech is garbled just a bit Participating in all therapies Right side is stronger and remains having potential of having return of function Can't walk just yet Fall risk Lives independently at home with family check in on her Review of Systems General: Fatigue Neurological: Weakness, Numbness, Incoordination, Change in speech Objective Exam Vital Signs Vital Signs Date Time Temp Pulse Resp B/P (MAP) Pulse Ox O2 Delivery O2 Flow Rate FiO2 08/04/18 20:27 Room Air 08/04/18 18:29 98.4 91 20 93 08/04/18 06:14 137/73 (94) Capillary Refill : General Appearance: No Apparent Distress, WD/WN, Chronically ill HEENT: PERRL/EOMI, Normal ENT Inspection, Pharynx Normal Neck: Full Range of Motion, Normal Inspection, Non Tender, Supple Respiratory: Chest Non Tender, Lungs Clear, Normal Breath Sounds, No Accessory Muscle Use, No Respiratory Distress Cardiovascular: Regular Rate, Rhythm, No Edema, No Gallop, No JVD, No Murmur, Normal Peripheral Pulses Gastrointestinal: Normal Bowel Sounds, No Organomegaly, No Pulsatile Mass, Non Tender, Soft Back: Normal Inspection, No CVA Tenderness, No Vertebral Tenderness Extremity: Normal Capillary Refill, Normal Inspection, Normal Range of Motion ( except right sided), Non Tender, No Calf Tenderness Neurologic/Psychiatric: Alert, Oriented x3, garage helper II-XII Norm as Tested, Depressed Affect, Motor Weakness (right arm and leg weakness 3/5), Other ( speech garbled) Skin: Normal Color, Warm/Dry Lymphatic: No Adenopathy Results/Procedures Lab Patient resulted labs reviewed. Assessment/Plan Assessment and Plan Assess & Plan/Chief Complaint (1) CVA (cerebral vascular accident) (2) Right sided weakness (3) Hyperlipidemia (4) Former smoker (5) Garbled speech (6) Unable to ambulate Plan: IRF to focus on ambulation Fall risk prevention Statin and ASA Reviewed ECHO and Tely Cardiology is appreciated (1) CVA (cerebral vascular accident) Assessment & Plan: Confirmed on MRI: There is a small acute/subacute nonhemorrhagic infarct in the periventricular white matter adjacent to the left lateral ventricle. Statin, ASA, Cardiology consultation, ECHO, EKG, Tely (2) Unable to ambulate Assessment & Plan: IRF protocols with assistive devices (3) Garbled speech (4) Right sided weakness Assessment & Plan: IRF protocols (5) Hyperlipidemia Assessment & Plan: High dose statin Clinical Quality Measures DVT/VTE Risk/Contraindication: Risk Factor Score Per Nursin RFS Level Per Nursing on Admit: 2=Moderate LUIS F LAIRD DO Aug 04, 2018 08:37
--- NOTE | 2018-08-04 10:16 | Occupational Ther Daily Note ---
OT Current Status-Daily Note Subjective Pt in bed, agrees to treatment. Pt more alert today. Mental Status/Objective Therapy Code Descriptions/Definitions Functional [place] Measure: 0=Not Assessed/NA 4=Minimal Assistance 1=Total Assistance 5=Supervision or Setup 2=Maximal Assistance 6=Modified [place] 3=Moderate Assistance 7=Complete [place] ADL-Treatment Pt supine to sit with SBA. Declined shower, but agrees to sponge bath. Transfer to chair with CGA. Sponge bath completed seated in chair. Doff shirt with SBA. Doff lower body clothing with CGA for balance. Upper body bathing completed with SBA. Pt able to wash lower body with minimal assistance. Don pullover shirt with SBA. Pt able to thread bilateral LE into Depends and pants. Stood with CGA for balance during pant hike. Doffs/dons bilateral socks with SBA. Combed hair with minimal assistance. Therapy Code Descriptions/Definitions Functional [place] Measure: 0=Not Assessed/NA 4=Minimal Assistance 1=Total Assistance 5=Supervision or Setup 2=Maximal Assistance 6=Modified [place] 3=Moderate Assistance 7=Complete [place] Therapy Quality Codes: 6 Independent with activity with or without an assistive device 5 Patient requires set up or clean up by helper. Patient completes activity by themselves 4 Supervision or touching assist (CGA). [place] provide cues , steadying assist 3 The helper provides less than half the effort to complete the activity 2 The helper provides more than half the effort to complete the activity 1 Dependent. The helper does all the effort to complete an activity 7 Patient refused to complete or attempt activity 9 The patient did not perform the activity before the current illness or injury 88 Not attempted due to Medical conditions or safety concerns Grooming (FIM): 4 Bathing (FIM): 4 Shower/Bathe Self (QC): 3 Upper Body (FIM): 5 Upper Body Dressing (QC): 4 Lower Body Dressing (FIM): 4 Lower Body Dressing (QC): 4 On/Off Footwear (QC): 4 Other Treatment Gait to therapy gym with FWW, slow pace. Occasional cues for walker use and safety. Pt completed graded clothespin task with bilateral hands to increase strength for functional tasks. Pt has some difficulty with heavy resistance clothespins with right hand, but is able to complete task with increased time. UE exercises completed with mild resistance theraband to increase strength for ADLs and transfers. Pt performed three simple exercises x10 reps. Requires assist for positioning and technique. Has mild difficulty maintaining grasp with right hand. Pt completed fine motor task with nuts and bolts to increase bilateral coordination/manipulation skills. Pt requires increased time and skilled verbal cues to complete task. Pt returned to room, sitting in chair with needs met after session. OT Short Term Goals Short Term Goals Transfers (B,C,W/C) (FIM): 5 1=Demonstrate adherence to instructed precautions during ADL tasks. 2=Patient will verbalize/demonstrate understanding of assistive devices/ modifications for ADL. 3=Patient will improve strength/tolerance for activity to enable patient to perform ADL's. OT Loft Worker Apprentice Goals Residential Goals Time Frame: August 30, 2018 Eating (FIM): 7 Eating (QC): 6 Groomin Oral Hygiene (QC): 6 Bathing(FIM): 5 Shower/Bathe Self (QC): 5 Upper Body Dressing(FIM): 5 Upper Body Dressing (QC): 5 Lower Body Dressing(FIM): 5 Lower Body Dressing (QC): 5 On/Off Footwear (QC): 5 Toileting(FIM): 6 Toileting Hygiene (QC): 6 Transfers (B,C,W/C) (FIM): 6 Toilet/Commode Transfer(FIM): 6 Toilet/Commode Transfer (QC): 6 Shower Transfer(FIM): 5 Additional Goals: 1-Demonstrate ADL Tasks, 2-Verbalize Understanding, 3- ImproveStrength/Joan 1=Demonstrate adherence to instructed precautions during ADL tasks. 2=Patient will verbalize/demonstrate understanding of assistive devices/ modifications for ADL. 3=Patient will improve strength/tolerance for activity to enable patient to perform ADL's. OT Education/Plan Discharge Recommendations Plan/Recommendations: Continue POC Treatment Plan/Plan of Care Patient would benefit from OT for education, treatment and training to promote independence in ADL's, mobility, safety and/or upper extremity function for ADL' s. Plan of Care: ADL Retraining, Functional Mobility, Group Exercise/Act as Ind, UE Funct Exercise/Act Treatment Duration: August 30, 2018 Frequency: At least 5 of 7 days/Wk (IRF) Estimated Hrs Per Day: 1.5 hours per day Agreement: Yes Rehab Potential: Good Time/GCodes Start Time: 09:00 Stop Time: 10:00 Total Time Billed (hr/min): 60 Billed Treatment Time 1 visit, ADLx2(35minutes), EXx2(25minutes) [place] SKY OT Aug 04, 2018 10:15
--- NOTE | 2018-08-04 11:02 | Speech Therapy Daily Note ---
Speech Daily Progress Note Subjective Date Seen by Provider: Aug 04, 2018 Time Seen by Provider: 00:30 Patient was sitting in her chair. The patient isn't very talkative and has to be encouraged to verbally answer questions. Objective Patient completed general information communication questions with 60% accuracy given moderate verbal cues. Assessment Assessment Current Status: Fair Progress Treatment Plan Continue Plan of Care Communication Comprehension: 5 Expression: 1 Social Cognition Social Interaction: 2 Problem Solvin Memory: 2 Speech Short Term Goals Short Term Goals Short Term Goals 1) The patient will complete confrontational naming tasks with 80% or greater given minimal cues. 2) The patient will follow simple 1-2 step directions related to her daily needs with 80% or greater given minimal cues. Speech Mcc Goals Mcc Goals The patient will be able to effectively communicate her wants/needs to staff and family. Speech-Plan Patient/Family Goals Patient/Family Goals: The patient plans on returning home with her daughter's assistance post rehab. Treatment Plan Speech Therapy Treatment Plan: Continue Plan of Care Patient is more verbal today. Treatment Duration: Aug 13, 2018 Frequency: 5 times per week Estimated Hrs Per Day: .5 hour per day Rehab Potential: Good Barriers to Learning: New onset CVA Pt/Family Agrees to Plan: Yes Safety Risks/Education Teaching Recipient: Patient Teaching Methods: Discussion Response to Teaching: Verbalize Understanding Education Topics Provided: Safety within her room. Time Speech Therapy Time In: 10:15 Speech Therapy Time Out: 10:45 Total Billed Time: 30 Billed Treatment Time 1TREVOR BETH[address] ST Aug 04, 2018 11:02
--- NOTE | 2018-08-04 11:29 | Cardiology Progress Note ---
Subjective Date Seen by Provider: Aug 04, 2018 Time Seen by Provider: 11:26 Subjective/Events-last exam Patient is with PT. Continues to have right sided weakness. Denies any chest pain or dyspnea. Objective-Cardiology Exam Last Set of Vital Signs Vital Signs 08/04/18 08/04/18 08/04/18 06:14 09:00 12:54 Temp 98.4 Pulse 74 Resp 16 B/P (MAP) 137/73 (94) Pulse Ox 94 O2 Delivery Room Air Capillary Refill : I&O Intake and Output 08/04/18 00:00 Intake Total 350 ml Balance 350 ml Intake Oral 350 ml # Voids 3 # Bowel Movements 2 General: Alert, Oriented X3, Cooperative HEENT: Atraumatic, PERRLA Neck: Supple, No JVD, No Thyromegaly Lungs: Clear to Auscultation, Normal Air Movement Heart: Regular Rate, Normal S1, Normal S2, No Murmurs Abdomen: Normal Bowel Sounds, Soft, No Tenderness, No Hepatosplenomegaly, No Masses Extremities: No Clubbing, No Cyanosis, No Edema, Normal Pulses, No Tenderness/ Swelling Neuro: Other (right sided weakness) Psych/Mental Status: Mental Status NL, Mood NL A/P-Cardiology Admission Diagnosis Acute CVA Hyperlipidemia Carotid stenosis Assessment/Plan CVA - small acute/subacute nonhemorrhagic infarct in the periventricular white matter adjacent to the left lateral ventricle per MRI of 08-02-18 - with right sided upper and lower extremity weakness HLD- started on Lipitor 80mg, continue to monitor. Echo on 08/02/18: LVEF 60-65%, grade 1 villa dysfunction, PASP 20 mmHg Mild carotid arterial disease with no hemodynamically significant stenosis within either carotid bifurcation per u/s of 08-02-18 Clinical Quality Measures DVT/VTE Risk/Contraindication: Risk Factor Score Per Nursin RFS Level Per Nursing on Admit: 2=Moderate Supervisory-Addendum Brief Supervisory Addendum Participated in pt care: history, MDM, physical Personally performed: exam, history, MDM Care discussed with: JOSE Results interpretation: agree with documentation Notes: Patient was seen and evaluated, denied any chest pain, on examination lungs were clear to auscultation bilateral, heart is regular rate and rhythm, she is receiving treatment for CVA with slight slurred speech. Noted to have hyperlipidemia and mild carotid stenosis nonobstructive disease. Medical therapy is recommended JENNIFER DUNNE Aug 04, 2018 11:29 am BRAN SANCHEZ MD Aug 04, 2018 5:46 pm
--- NOTE | 2018-08-04 12:10 | Physical Therapy Daily Note ---
PT Daily Note-Current Subjective Pt sitting in recliner upon arrival. Pt agrees to PT. Pt is still very quiet, does not talk much. Mental Status Patient Orientation: Person, Place Transfers Therapy Code Descriptions/Definitions Functional [place] Measure: 0=Not Assessed/NA 4=Minimal Assistance 1=Total Assistance 5=Supervision or Setup 2=Maximal Assistance 6=Modified [place] 3=Moderate Assistance 7=Complete [place] Therapy Quality Codes: 6 Independent with activity with or without an assistive device 5 Patient requires set up or clean up by helper. Patient completes activity by themselves 4 Supervision or touching assist (CGA). Marlin provide cues , steadying assist 3 The helper provides less than half the effort to complete the activity 2 The helper provides more than half the effort to complete the activity 1 Dependent. The helper does all the effort to complete an activity 7 Patient refused to complete or attempt activity 9 The patient did not perform the activity before the current illness or injury 88 Not attempted due to Medical conditions or safety concerns Scootin Sit to/from Stand: 5 Sit to Stand (QC): 5 Weight Bearing Right Lower Extremity: Right Full Weight Bearing Left Lower Extremity: Left Full Weight Bearing Gait Training Does the Patient Walk?: Yes Distance (FIM): 3=150 ft Distance: 150' Walk 10 feet (QC): 5 Walk 50 ft with 2 Turns(QC): 5 Walk 150 ft (QC): 5 Gait Level of Assist: 5 Gait Persons Needed: 1 Gait Assistive Device: FWW Pt walks with slow lexi but SBA, no LOB. Wheelchair Training Does the Pt Use a Wheelchair?: No Exercises Seated Therapy Exercises: Ankle pumps, Long arc quads, Hip flexion, Kicking activity Seated Reps: 20 NuStep Minutes: 10 NuStep Workload: 4 Treatments Pt transfers from recliner to standing at SBA. Pt ambulates in hallway using FWW at SBA. Pt uses NuStep for 10m at WL 4 then Seated Ex in chair. Pt returns to room at end of tx with all needs met. Assessment Current Status: Good Progress Pt is improving with strength, transfers and ambulation. Pt sometimes needs encouragement to participate due to cognition. PT Short Term Goals Short Term Goals Time Frame: Aug 09, 2018 Transfers (B,C,W/C) (FIM): 5 Gait (FIM): 4 Wheelchair Distance: 100' PT Wall To Wall Carpet Installer Goals Wall To Wall Carpet Installer Goals PT Residential Goals Time Frame: Aug 20, 2018 Transfers (B,C,W/C) (FIM): 6 Sit to Lying (QC): 6 Lying-Sitting on Side/Bed(QC): 6 Sit to Stand (QC): 6 Roll Left to Right (QC): 6 Chair/Fkt-nk-Ilvlc Xfer(QC): 6 Car Transfer (QC): 5 Does the Patient Walk: Yes Gait (FIM): 6 Gait distance (FIM): 3=150 ft Walk 10 feet (QC): 6 Walk 10ft-Uneven Surface(QC): 5 Walk 50ft with 2 Turns (QC): 6 Walk 150 ft (QC): 6 Gait Assistive Device: FWW Does the Pt use WC or Scooter?: No Stairs (FIM): 5 (household) # of Steps: 4 1 Step (curb) (QC): 6 4 Steps (QC): 6 12 Steps (QC): 10 Picking up an Object (QC): 4 PT Plan Problem List Problem List: Activity Tolerance, Safety Treatment/Plan Treatment Plan: Continue Plan of Care Treatment Plan: Bed Mobility, Education, Functional Activity Joan, Functional Strength, Group Therapy, Gait, Safety, Therapeutic Exercise, Transfers Treatment Duration: Aug 20, 2018 Frequency: At least 5 of 7 days/Wk (IRF) Estimated Hrs Per Day: 1.5 hours per day Patient and/or Family Agrees t: Yes Safety Risks/Education Patient Education: Gait Training, Transfer Techniques, Correct Positioning, Safety Issues Teaching Recipient: Patient Teaching Methods: Discussion Response to Teaching: Verbalize Understanding Time/GCodes Time In: 1045 Time Out: 1130 Total Billed Treatment Time: 45 Total Billed Treatment 1, GT (20m) & EX x2 (25m) G Codes Necessary: No CARLO ROSARIO INSTANT POTATO PROCESSING SUPERVISOR Aug 04, 2018 12:10
--- NOTE | 2018-08-04 12:37 | NUR ---
PANTOGRAPH I ENGRAVER met with patient's daughter as patient was resting, to complete initial assessment. 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 Patient admitted to a from [facility] ED with CVA and right-sided weakness. DaughterLidia reports that patient was independent with use of front-wheeled walker; however, did require assistance for bathing prior to CVA. Patient receives 26 hours of skill services per week for household items and bathing assistance. DaughterLidia provide all transportation as patient does not and has not ever driven. In addition to front-wheeled walker, patient also possesses a shower chair for tub shower. PCP identified as Evelyn Nolasco NP at [facility]. Insurance verified as Medicare and [employer] [facility]. Contact information received for Arminda, correctional case records supervisor at [facility] of [phone]. Lidia reports that she is the only local contact, as patient's other local son has a learning disability is unable to assist and other son resides in [place]. Lidia can reached at [phone]. Lidia visits patient daily and assist as needed. PANTOGRAPH I ENGRAVER reviewed typical ARU length of stay, Lidia expresses no concerns. Lidia reports that patient received a reevaluation for SKIL hours yesterday and that in home care services can be increased at discharge, if needed. PANTOGRAPH I ENGRAVER will continue to follow for additional needs. Addendum: 08/04/18 at 1647 by DANNY HARVEY SS PANTOGRAPH I ENGRAVER met with patient to review team conference summary. As patient just recently admitted on 48, continues to require min assist for transfers and ambulation and contact-guard assistance for lower body activities, team has recommended patient be reevaluated at next team conference on [phone]. PANTOGRAPH I ENGRAVER also contacted patient's daughter to review this recommendation. Both are in agreement with reevaluation. PANTOGRAPH I ENGRAVER will continue to follow for additional needs.
--- NOTE | 2018-08-04 14:33 | Therapy Group Daily Note ---
Therapy Daily Group Note Patient Education Topic Home Safety Exercises LE Seated Exercise, UE Exercise Session Ratio (pt:therapist): 4:1 Goal of Session: Home Safety Strategies Goal Met for this Session: Yes Pt Benefit of Group: Contributions to Others, F/U Use of Strategies @Home, Increased Functional Safety, Increased Functional Strength, Improved Cognition, Recognition of Peers, Socialization Other/Notes Pt ambulated using FWW to/from OT group. Group consisted of introductions (name , place, favorite spring activity), socialization, seated UE/LE exercise, home safety education and trivia. Pt able to introduce self appropriately and actively listened to peers. Pt participated in educational topic, required prompting to ask questions and give answers. Pt able to answer trivia questions about home safety. Pt completed UE/LE seated exercise, tolerated well. After therapy, pt lying in bed with call light/phone in reach. All needs met in room. Start Time: 13:00 Stop Time: 14:00 Total Billed Treatment Time: 60 Total Billed Treatment 1-MARISA MAHER Aug 04, 2018 14:33
[2018-08-04] MEDS: ATORVASTATIN 80 MG (LIPITOR) TABLET PO SCH (20:13)
[2018-08-04] MEDS: ACETAMINOPHEN 500 MG TAB (TYLENOL) PO PRN (20:13)
[2018-08-05] MEDS: ACETAMINOPHEN 500 MG TAB (TYLENOL) PO PRN ×3 (04:48→15:03)
[2018-08-05] MEDS: CATHETER FLUSH 10 ML SYR IV SCH ×3 (04:48→20:08)
[2018-08-05 05:02] VITALS: BP 147/80
--- NOTE | 2018-08-05 08:09 | Cardiology Progress Note ---
Subjective Date Seen by Provider: Aug 05, 2018 Time Seen by Provider: 08:08 Subjective/Events-last exam Patient is sitting up in bed eating breakfast. C/o upper back pain. Denies any chest pain or dyspnea. Objective-Cardiology Exam Last Set of Vital Signs Vital Signs 08/05/18 05:02 Temp 98.4 Pulse 79 Resp 18 B/P (MAP) 147/80 (102) Pulse Ox 93 O2 Delivery Room Air Capillary Refill : I&O Intake and Output 08/05/18 00:00 Intake Total 450 ml Balance 450 ml Intake Oral 450 ml # Voids 3 # Bowel Movements 1 General: Alert, Oriented X3, Cooperative HEENT: Atraumatic, PERRLA Neck: Supple, No JVD, No Thyromegaly Lungs: Clear to Auscultation, Normal Air Movement Heart: Regular Rate, Normal S1, Normal S2, No Murmurs Abdomen: Normal Bowel Sounds, Soft, No Tenderness, No Hepatosplenomegaly, No Masses Extremities: No Clubbing, No Cyanosis, No Edema, Normal Pulses, No Tenderness/ Swelling Neuro: Other (right sided weakness) Psych/Mental Status: Mental Status NL, Mood NL A/P-Cardiology Admission Diagnosis Acute CVA Hyperlipidemia Carotid stenosis Assessment/Plan CVA - small acute/subacute nonhemorrhagic infarct in the periventricular white matter adjacent to the left lateral ventricle per MRI of 08-02-18 - with right sided upper and lower extremity weakness. Maintained on ASA. HLD- started on Lipitor 80mg, continue to monitor. Echo on 08/02/18: LVEF 60-65%, grade 1 villa dysfunction, PASP 20 mmHg Mild carotid arterial disease with no hemodynamically significant stenosis within either carotid bifurcation per u/s of 08-02-18 Clinical Quality Measures DVT/VTE Risk/Contraindication: Risk Factor Score Per Nursin RFS Level Per Nursing on Admit: 2=Moderate JENNIFER DUNNE Aug 05, 2018 08:09
[2018-08-05 08:34] VITALS: BP 115/67
--- NOTE | 2018-08-05 08:45 | PM&R Progress Note ---
Subjective HPI/CC On Admission Date Seen by Provider: Aug 05, 2018 Time Seen by Provider: 08:00 CC: CVA HPI: This is an 87yoWF clinic patient of Evelyn Nolasco at [facility] who presented to the ER with right sided weakness and inability to walk. Last known well time was 2 days ago. Patient was worked up in ER for CVA and CT negative and labs negative but could not walk so IRF assessed her with my evaluation in the ER to meet criteria for direct admit to IRF. PLOF was independent living alone at home and currently she is dependent with inability to walk due to right sided weakness. Barriers to returning home will be regaining ability to ambulate and return of verbal communication and safety management to reside alone. Patient was placed on Tely, ECHO ordered along with ASA and Lipitor initiation for CVA protocol completion. Subjective/Events-last exam Poor appetite continues. Flat affect continues. I will initiate a psych consult to evaluate for dementia. Last bowel movement was yesterday. Trying to encourage adequate nutrition. Participating in therapies and able to ambulate but right sided weakness still remains. Review of Systems General: Fatigue Neurological: Weakness, Numbness, Incoordination, Change in speech Objective Exam Vital Signs Vital Signs Date Time Temp Pulse Resp B/P (MAP) Pulse Ox O2 Delivery O2 Flow Rate FiO2 08/05/18 14:38 93 18 149/83 (105) 95 Room Air 08/05/18 08:34 97.6 Capillary Refill : General Appearance: No Apparent Distress, WD/WN, Chronically ill HEENT: PERRL/EOMI, Normal ENT Inspection, Pharynx Normal Neck: Full Range of Motion, Normal Inspection, Non Tender, Supple Respiratory: Chest Non Tender, Lungs Clear, Normal Breath Sounds, No Accessory Muscle Use, No Respiratory Distress Cardiovascular: Regular Rate, Rhythm, No Edema, No Gallop, No JVD, No Murmur, Normal Peripheral Pulses Gastrointestinal: Normal Bowel Sounds, No Organomegaly, No Pulsatile Mass, Non Tender, Soft Back: Normal Inspection, No CVA Tenderness, No Vertebral Tenderness Extremity: Normal Capillary Refill, Normal Inspection, Normal Range of Motion ( except right sided), Non Tender, No Calf Tenderness Neurologic/Psychiatric: Alert, Oriented x3, pattern storage clerk II-XII Norm as Tested, Depressed Affect, Motor Weakness (right arm and leg weakness 3/5), Other ( speech garbled) Skin: Normal Color, Warm/Dry Lymphatic: No Adenopathy Results/Procedures Lab Patient resulted labs reviewed. Assessment/Plan Assessment and Plan Assess & Plan/Chief Complaint (1) CVA (cerebral vascular accident) (2) Right sided weakness (3) Hyperlipidemia (4) Former smoker (5) Garbled speech (6) Unable to ambulate Plan: IRF to focus on ambulation Fall risk prevention Statin and ASA Reviewed ECHO and Tely Cardiology is appreciated Psych evaluation for memory assessment and depression (1) CVA (cerebral vascular accident) Assessment & Plan: Confirmed on MRI: There is a small acute/subacute nonhemorrhagic infarct in the periventricular white matter adjacent to the left lateral ventricle. Statin, ASA, Cardiology consultation, ECHO, EKG, Tely (2) Unable to ambulate Assessment & Plan: IRF protocols with assistive devices (3) Garbled speech (4) Right sided weakness Assessment & Plan: IRF protocols (5) Hyperlipidemia Assessment & Plan: High dose statin Clinical Quality Measures DVT/VTE Risk/Contraindication: Risk Factor Score Per Nursin RFS Level Per Nursing on Admit: 2=Moderate LUIS F LAIRD DO Aug 05, 2018 08:44
--- NOTE | 2018-08-05 08:57 | NUR ---
Speech Therapist, states that pt's dgtr told her, re: pt, that, "somedays she talks, somedays she doesn't."
--- NOTE | 2018-08-05 09:07 | Speech Therapy Daily Note ---
Speech Daily Progress Note Subjective Date Seen by Provider: Aug 05, 2018 Time Seen by Provider: 00:30 The patient was resting in her bed and required frequent verbal prompts to participate today. Objective Patient completed naming tasks at 50% with max verbal cues. Assessment Assessment Current Status: Fair Progress Treatment Plan Continue Plan of Care Communication Comprehension: 5 Expression: 1 Social Cognition Social Interaction: 2 Problem Solvin Memory: 2 Speech Short Term Goals Short Term Goals Short Term Goals 1) The patient will complete confrontational naming tasks with 80% or greater given minimal cues. 2) The patient will follow simple 1-2 step directions related to her daily needs with 80% or greater given minimal cues. Speech Barbering Teacher Goals Barbering Teacher Goals The patient will be able to effectively communicate her wants/needs to staff and family. Speech-Plan Patient/Family Goals Patient/Family Goals: Patient plans to return home with her daughter's support post rehab. Treatment Plan Speech Therapy Treatment Plan: Continue Plan of Care The patient is making minimal progress due to much encouragement needed for participation. Treatment Duration: Aug 13, 2018 Frequency: 5 times per week Estimated Hrs Per Day: .5 hour per day Rehab Potential: Good Barriers to Learning: Patient's expressive abilities Pt/Family Agrees to Plan: Yes Safety Risks/Education Teaching Recipient: Patient Teaching Methods: Discussion Response to Teaching: Verbalize Understanding Education Topics Provided: Utilization of call light. Time Speech Therapy Time In: 08:30 Speech Therapy Time Out: 09:00 Total Billed Time: 30 Billed Treatment Time 1T[address] Aug 05, 2018 09:07
[2018-08-05] MEDS: ASPIRIN E.C. 81 MG (ECOTRIN) TAB PO SCH (09:52)
[2018-08-05] MEDS: LACTOBACILLUS ACIDOPHILUS (PROBIOTIC) CAPSULE PO SCH (09:52)
--- NOTE | 2018-08-05 12:09 | Physical Therapy Daily Note ---
PT Daily Note-Current Subjective Pt. asleep in bed and difficult to awaken. when awake states she is so sleepy and not sleeping well at night. Pain Location: No Pain Reported Mental Status Patient Orientation: Person, Mumbles Transfers Therapy Code Descriptions/Definitions Functional [place] Measure: 0=Not Assessed/NA 4=Minimal Assistance 1=Total Assistance 5=Supervision or Setup 2=Maximal Assistance 6=Modified [place] 3=Moderate Assistance 7=Complete [place] Therapy Quality Codes: 6 Independent with activity with or without an assistive device 5 Patient requires set up or clean up by helper. Patient completes activity by themselves 4 Supervision or touching assist (CGA). [place] provide cues , steadying assist 3 The helper provides less than half the effort to complete the activity 2 The helper provides more than half the effort to complete the activity 1 Dependent. The helper does all the effort to complete an activity 7 Patient refused to complete or attempt activity 9 The patient did not perform the activity before the current illness or injury 88 Not attempted due to Medical conditions or safety concerns Transfers (B, C, W/C) (FIM): 5 Scootin Rollin Supine to/from Sit: 5 Bed to/from Chair: 5 car TRF with instruction. needs directed for all TRFs etc Weight Bearing Right Lower Extremity: Right Full Weight Bearing Left Lower Extremity: Left Full Weight Bearing Gait Training Does the Patient Walk?: Yes Gait (FIM): 5 Distance (FIM): 3=150 ft (150x2, 50) Gait Level of Assist: 5 Gait Persons Needed: 1 Gait Assistive Device: FWW needs directed for all activity Stair Training Stair Training: Handrails/: 2 handrails Stairs (FIM): 2 #of Steps: 4 Stairs: Pattern: Reciprocal Level of Assist: 4 pt. instructed to use step up using strong leg but did this reciprocating but struggled a little Exercises Supine Ex: Bridging, Ankle pumps, Quad Set, Rolling, Glut sets, Heel Slides, Short Arc Quads, Scooting, Straight leg raise, Hip abd/add Supine Reps: 15 Seated Therapy Exercises: Ankle pumps, Sit to stand, Long arc quads, Hip abd/ add Seated Reps: 12 NuStep Minutes: 10 NuStep Workload: 1 Treatments leg presses on Nustep x 12 Assessment Current Status: Good Progress pt. minimally verbal PT Short Term Goals Short Term Goals Time Frame: Aug 09, 2018 Transfers (B,C,W/C) (FIM): 5 Gait (FIM): 4 Wheelchair Distance: 100' PT Production Control Specialist Goals Detention Goals PT Production Control Specialist Goals Time Frame: Aug 20, 2018 Transfers (B,C,W/C) (FIM): 6 Sit to Lying (QC): 6 Lying-Sitting on Side/Bed(QC): 6 Sit to Stand (QC): 6 Roll Left to Right (QC): 6 Chair/Lko-mj-Sbojs Xfer(QC): 6 Car Transfer (QC): 5 Does the Patient Walk: Yes Gait (FIM): 6 Gait distance (FIM): 3=150 ft Walk 10 feet (QC): 6 Walk 10ft-Uneven Surface(QC): 5 Walk 50ft with 2 Turns (QC): 6 Walk 150 ft (QC): 6 Gait Assistive Device: FWW Does the Pt use WC or Scooter?: No Stairs (FIM): 5 (household) # of Steps: 4 1 Step (curb) (QC): 6 4 Steps (QC): 6 12 Steps (QC): 10 Picking up an Object (QC): 4 PT Plan Treatment/Plan Treatment Plan: Continue Plan of Care Treatment Plan: Bed Mobility, Education, Functional Activity Joan, Functional Strength, Group Therapy, Gait, Safety, Therapeutic Exercise, Transfers Treatment Duration: Aug 20, 2018 Frequency: At least 5 of 7 days/Wk (IRF) Estimated Hrs Per Day: 1.5 hours per day Patient and/or Family Agrees t: Yes Safety Risks/Education Patient Education: Gait Training, Transfer Techniques, Steps, Correct Positioning, Disease Process, Safety Issues Teaching Recipient: Patient Teaching Methods: Demonstration, Discussion Response to Teaching: Verbalize Understanding, Unable to Comprehend, Reinforcement Needed appears to understand and demonstrate 80% of time Discharge Recommendations Plan 1, EX25m,GT20m,FA15m Time/GCodes Time In: 1100 Time Out: 1200 Total Billed Treatment Time: 60 Total Billed Treatment 1,EX25m,GT15m,FA20m G Codes Necessary: BILL Daniel CRIME LAB ANALYST Aug 05, 2018 12:09
--- NOTE | 2018-08-05 13:32 | Occupational Ther Daily Note ---
OT Current Status-Daily Note Subjective pt laying in bed upon OT arrival. NSG stated they completed a stat EKG this AM and pt is cleared to participate in OT services. pt agreed to OT TX session with focus on increase overall activity tolerance and balance for daily activities. Mental Status/Objective Therapy Code Descriptions/Definitions Functional [place] Measure: 0=Not Assessed/NA 4=Minimal Assistance 1=Total Assistance 5=Supervision or Setup 2=Maximal Assistance 6=Modified [place] 3=Moderate Assistance 7=Complete [place] ADL-Treatment Therapy Code Descriptions/Definitions Functional [place] Measure: 0=Not Assessed/NA 4=Minimal Assistance 1=Total Assistance 5=Supervision or Setup 2=Maximal Assistance 6=Modified [place] 3=Moderate Assistance 7=Complete [place] Therapy Quality Codes: 6 Independent with activity with or without an assistive device 5 Patient requires set up or clean up by helper. Patient completes activity by themselves 4 Supervision or touching assist (CGA). [place] provide cues , steadying assist 3 The helper provides less than half the effort to complete the activity 2 The helper provides more than half the effort to complete the activity 1 Dependent. The helper does all the effort to complete an activity 7 Patient refused to complete or attempt activity 9 The patient did not perform the activity before the current illness or injury 88 Not attempted due to Medical conditions or safety concerns Other Treatment pt demo ability to perform bed mobility with supervision for safety/ balance. pt them demo ability to perform functional mobility to tx gym with CGA for safety/ balance using RW. noted 1 LOB corrected by therapist. pt performed UBE X 10 minutes to increase activity tolerance. noted pt unable to divide attention during task. pt would stop task to answer question then go back to completing task. pt then perform dyn standing balance ex by standing at RW and tossing ball at target. noted decrease Right UE coordination. pt demo ability to toss 10X4 balls at target. pt then given 9 hole peg test. with right hand pt took 2 minutes 22 seconds and left hand 50 seconds to complete task. . Education OT Patient Education: Energy conservation Teaching Recipient: Patient Teaching Methods: Demonstration Response to Teaching: Verbalize Understanding, Return Demonstration OT Short Term Goals Short Term Goals Transfers (B,C,W/C) (FIM): 5 1=Demonstrate adherence to instructed precautions during ADL tasks. 2=Patient will verbalize/demonstrate understanding of assistive devices/ modifications for ADL. 3=Patient will improve strength/tolerance for activity to enable patient to perform ADL's. OT Correction Goals Journey Lineman Goals Time Frame: August 30, 2018 Eating (FIM): 7 Eating (QC): 6 Groomin Oral Hygiene (QC): 6 Bathing(FIM): 5 Shower/Bathe Self (QC): 5 Upper Body Dressing(FIM): 5 Upper Body Dressing (QC): 5 Lower Body Dressing(FIM): 5 Lower Body Dressing (QC): 5 On/Off Footwear (QC): 5 Toileting(FIM): 6 Toileting Hygiene (QC): 6 Transfers (B,C,W/C) (FIM): 6 Toilet/Commode Transfer(FIM): 6 Toilet/Commode Transfer (QC): 6 Shower Transfer(FIM): 5 Additional Goals: 1-Demonstrate ADL Tasks, 2-Verbalize Understanding, 3- ImproveStrength/Joan 1=Demonstrate adherence to instructed precautions during ADL tasks. 2=Patient will verbalize/demonstrate understanding of assistive devices/ modifications for ADL. 3=Patient will improve strength/tolerance for activity to enable patient to perform ADL's. OT Education/Plan Problem List/Assessment Assessment: Decreased Activ Tolerance, Decreased Safety Aware, Decreased UE Strength, Impaired Cognition, Impaired Coordination, Impaired Funct Balance, Impaired I ADL's, Impaired Self-Care Skills, Restricted Funct UE ROM Discharge Recommendations Plan/Recommendations: Continue POC Treatment Plan/Plan of Care Treatment,Training & Education: Yes Patient would benefit from OT for education, treatment and training to promote independence in ADL's, mobility, safety and/or upper extremity function for ADL' s. Plan of Care: ADL Retraining, Functional Mobility, Group Exercise/Act as Ind, UE Funct Exercise/Act Treatment Duration: August 30, 2018 Frequency: At least 5 of 7 days/Wk (IRF) Estimated Hrs Per Day: 1.5 hours per day Agreement: Yes Rehab Potential: Good Time/GCodes Start Time: 09:30 Stop Time: 10:30 Billed Treatment Time FA 60 minutes, 4 units SUSAN PRATT OT Aug 05, 2018 13:32
--- NOTE | 2018-08-05 13:37 | Occupational Ther Daily Note ---
OT Current Status-Daily Note Subjective pt sitting in recliner chair upon OT arrival in no apparent distress. pt complains of back pain 02/03. NSG made aware. pt agreeed to OT TX session with focus on increasing independence with ADLs/ self care task. Mental Status/Objective Therapy Code Descriptions/Definitions Functional [place] Measure: 0=Not Assessed/NA 4=Minimal Assistance 1=Total Assistance 5=Supervision or Setup 2=Maximal Assistance 6=Modified [place] 3=Moderate Assistance 7=Complete [place] ADL-Treatment Therapy Code Descriptions/Definitions Functional [place] Measure: 0=Not Assessed/NA 4=Minimal Assistance 1=Total Assistance 5=Supervision or Setup 2=Maximal Assistance 6=Modified [place] 3=Moderate Assistance 7=Complete [place] Therapy Quality Codes: 6 Independent with activity with or without an assistive device 5 Patient requires set up or clean up by helper. Patient completes activity by themselves 4 Supervision or touching assist (CGA). Corinne provide cues , steadying assist 3 The helper provides less than half the effort to complete the activity 2 The helper provides more than half the effort to complete the activity 1 Dependent. The helper does all the effort to complete an activity 7 Patient refused to complete or attempt activity 9 The patient did not perform the activity before the current illness or injury 88 Not attempted due to Medical conditions or safety concerns Eating (FIM): 6 (additional timing) Grooming (FIM): 5 (close superviison while stanidng at sink. pt education on proper placement of RW while standing at sink. pt demo understanding) Lower Body Dressing (QC): 5 (Horace socks. sitting in chair) Toileting (FIM): 4 (CGA while standing for safety/ balance while pullup/ down pants) Other Treatment pt demo increase engagement in conversation this PM session. Education OT Patient Education: Modified ADL techniques Teaching Recipient: Patient Teaching Methods: Demonstration Response to Teaching: Verbalize Understanding, Return Demonstration OT Short Term Goals Short Term Goals Transfers (B,C,W/C) (FIM): 5 1=Demonstrate adherence to instructed precautions during ADL tasks. 2=Patient will verbalize/demonstrate understanding of assistive devices/ modifications for ADL. 3=Patient will improve strength/tolerance for activity to enable patient to perform ADL's. OT Lab Animal Technologist Goals Group Home Goals Time Frame: August 30, 2018 Eating (FIM): 7 Eating (QC): 6 Groomin Oral Hygiene (QC): 6 Bathing(FIM): 5 Shower/Bathe Self (QC): 5 Upper Body Dressing(FIM): 5 Upper Body Dressing (QC): 5 Lower Body Dressing(FIM): 5 Lower Body Dressing (QC): 5 On/Off Footwear (QC): 5 Toileting(FIM): 6 Toileting Hygiene (QC): 6 Transfers (B,C,W/C) (FIM): 6 Toilet/Commode Transfer(FIM): 6 Toilet/Commode Transfer (QC): 6 Shower Transfer(FIM): 5 Additional Goals: 1-Demonstrate ADL Tasks, 2-Verbalize Understanding, 3- ImproveStrength/Joan 1=Demonstrate adherence to instructed precautions during ADL tasks. 2=Patient will verbalize/demonstrate understanding of assistive devices/ modifications for ADL. 3=Patient will improve strength/tolerance for activity to enable patient to perform ADL's. OT Education/Plan Problem List/Assessment Assessment: Decreased Activ Tolerance, Decreased Safety Aware, Decreased UE Strength, Impaired Cognition, Impaired Coordination, Impaired Funct Balance, Impaired I ADL's, Impaired Self-Care Skills, Restricted Funct UE ROM Discharge Recommendations Plan/Recommendations: Continue POC Treatment Plan/Plan of Care Patient would benefit from OT for education, treatment and training to promote independence in ADL's, mobility, safety and/or upper extremity function for ADL' s. Plan of Care: ADL Retraining, Functional Mobility, Group Exercise/Act as Ind, UE Funct Exercise/Act Treatment Duration: August 30, 2018 Frequency: At least 5 of 7 days/Wk (IRF) Estimated Hrs Per Day: 1.5 hours per day Agreement: Yes Rehab Potential: Good Time/GCodes Start Time: 12:30 Stop Time: 12:45 Billed Treatment Time ADLS 1 unit, 15 minutes SUSAN PRATT OT Aug 05, 2018 13:37
--- NOTE | 2018-08-05 13:39 | Physical Therapy Daily Note ---
PT Daily Note-Current Subjective Pt. up in chair, has finished lunch and has c/o she is very tired. pt. states she would like to go to the bathroom then walk a short walk and lay down for some rest. Pain Location: No Pain Reported Mental Status Patient Orientation: Person, Place Transfers Therapy Code Descriptions/Definitions Functional [place] Measure: 0=Not Assessed/NA 4=Minimal Assistance 1=Total Assistance 5=Supervision or Setup 2=Maximal Assistance 6=Modified [place] 3=Moderate Assistance 7=Complete [place] Therapy Quality Codes: 6 Independent with activity with or without an assistive device 5 Patient requires set up or clean up by helper. Patient completes activity by themselves 4 Supervision or touching assist (CGA). [employer] provide cues , steadying assist 3 The helper provides less than half the effort to complete the activity 2 The helper provides more than half the effort to complete the activity 1 Dependent. The helper does all the effort to complete an activity 7 Patient refused to complete or attempt activity 9 The patient did not perform the activity before the current illness or injury 88 Not attempted due to Medical conditions or safety concerns sit to stand and sit to supine all SBA Weight Bearing Right Lower Extremity: Right Full Weight Bearing Left Lower Extremity: Left Full Weight Bearing Gait Training Gait Assistive Device: FWW 75 ft, 30 ft fFWW slow, CGA to SBA no LOB Exercises Supine Ex: Ankle pumps, Heel Slides, Hip abd/add Supine Reps: 10 Treatments required mod to max assist to change brief and clean pt. Pt. in bed after Rx for a few LE exercises, call gonsales at hand Assessment Current Status: Good Progress very lethargic and fatigued this Rx PT Short Term Goals Short Term Goals Time Frame: Aug 09, 2018 Transfers (B,C,W/C) (FIM): 5 Gait (FIM): 4 Wheelchair Distance: 100' PT Crime Lab Analyst Goals Crime Lab Analyst Goals PT Crime Lab Analyst Goals Time Frame: Aug 20, 2018 Transfers (B,C,W/C) (FIM): 6 Sit to Lying (QC): 6 Lying-Sitting on Side/Bed(QC): 6 Sit to Stand (QC): 6 Rollin Roll Left to Right (QC): 6 Chair/Die-dy-Igkld Xfer(QC): 6 Car Transfer (QC): 5 Does the Patient Walk: Yes Gait (FIM): 6 Gait distance (FIM): 3=150 ft Walk 10 feet (QC): 6 Walk 10ft-Uneven Surface(QC): 5 Walk 50ft with 2 Turns (QC): 6 Walk 150 ft (QC): 6 Gait Assistive Device: FWW Does the Pt use WC or Scooter?: No Stairs (FIM): 5 (household) # of Steps: 4 1 Step (curb) (QC): 6 4 Steps (QC): 6 12 Steps (QC): 10 Picking up an Object (QC): 4 PT Plan Treatment/Plan Treatment Plan: Continue Plan of Care Treatment Plan: Bed Mobility, Education, Functional Activity Joan, Functional Strength, Group Therapy, Gait, Safety, Therapeutic Exercise, Transfers Treatment Duration: Aug 20, 2018 Frequency: At least 5 of 7 days/Wk (IRF) Estimated Hrs Per Day: 1.5 hours per day Patient and/or Family Agrees t: Yes Safety Risks/Education Patient Education: Gait Training, Transfer Techniques, Correct Positioning, Disease Process, Safety Issues Teaching Recipient: Patient Teaching Methods: Demonstration, Discussion Response to Teaching: Verbalize Understanding, Return Demonstration, Reinforcement Needed Time/GCodes Time In: 1305 Time Out: 1325 Total Billed Treatment Time: 20 Total Billed Treatment 1,FA 20m G Codes Necessary: BILL Daniel SOCIAL WORK FACULTY MEMBER Aug 05, 2018 13:39
--- NOTE | 2018-08-05 14:26 | NUR ---
Call to Behavioral Health, as ordered by Dr. Okeefe. Jazlyn Gonzales will see pt between 2-3:00 tomorrow. Notified PT tech for scheduling purposes.
[2018-08-05 14:38] VITALS: BP 149/83
--- NOTE | 2018-08-05 17:06 | Cardiology Progress Note ---
Subjective Date Seen by Provider: Aug 05, 2018 Time Seen by Provider: 08:00 Subjective/Events-last exam patient was seen and evaluated at bedside, complaint of fatigue and loss of energy. Blood pressure was stable, EKG did not show acute abnormality Review of Systems General: Fatigue, Malaise HEENT: No Head Aches, No Visual Changes, No Eye Pain, No Ear Pain, No Dysphasia , No Sinus Congestion, No Post Nasal Drip, No Sore Throat, No Other Pulmonary: No Dyspnea, No Cough, No Pleuritic Chest Pain, No Other Cardiovascular: No: Chest Pain, Palpitations, Orthopnea, Paroxysmal Noc. Dyspnea, Edema, Lt Headedness, Other Objective-Cardiology Exam Last Set of Vital Signs Vital Signs 08/05/18 08/05/18 08:34 14:38 Temp 97.6 Pulse 93 Resp 18 B/P (MAP) 149/83 (105) Pulse Ox 95 O2 Delivery Room Air Capillary Refill : I&O Intake and Output 08/05/18 00:00 Intake Total 450 ml Balance 450 ml Intake Oral 450 ml # Voids 3 # Bowel Movements 1 General: Alert, Cooperative, Mild Distress HEENT: Atraumatic, PERRLA Neck: Supple, No JVD, No Thyromegaly Lungs: Clear to Auscultation, Normal Air Movement Heart: Regular Rate, Normal S1, Normal S2, No Murmurs Abdomen: Normal Bowel Sounds, Soft, No Tenderness, No Hepatosplenomegaly, No Masses Extremities: No Clubbing, No Cyanosis, No Edema, Normal Pulses, No Tenderness/ Swelling Neuro: Other (right sided weakness) Psych/Mental Status: Mental Status NL, Mood NL A/P-Cardiology Admission Diagnosis Acute CVA Hyperlipidemia Carotid stenosis Assessment/Plan CVA - small acute/subacute nonhemorrhagic infarct in the periventricular white matter adjacent to the left lateral ventricle per MRI of 08-02-18 - with right sided upper and lower extremity weakness. Maintained on ASA. Generalized weakness, EKG did not show acute abnormal, blood pressure appeared to be stable. Continue to monitor. HLD- started on Lipitor 80mg, continue to monitor. Echo on 08/02/18: LVEF 60-65%, grade 1 villa dysfunction, PASP 20 mmHg, continue to monitor no changes are recommended Mild carotid arterial disease with no hemodynamically significant stenosis within either carotid bifurcation per u/s of 08-02-18 Clinical Quality Measures DVT/VTE Risk/Contraindication: Risk Factor Score Per Nursin RFS Level Per Nursing on Admit: 2=Moderate BRAN SANCHEZ MD Aug 05, 2018 17:06
[2018-08-05 18:56] VITALS: BP 134/58
[2018-08-05] MEDS: ATORVASTATIN 80 MG (LIPITOR) TABLET PO SCH (20:08)
--- NOTE | 2018-08-06 05:30 | NUR ---
photographic laboratory technician called to say pt's HR is in 140's. Pt in bed and has thrown up all over herself and the bed. Pt cleaned up and new night gown on. Noted pt had been incont of urine and stool. Assisted to bathroom and pt voided and had a large bm. Pt assisted back to bed and PO Zofran given at 0539. Pt HR currently at 129. Will cont to monitor.
[2018-08-06] MEDS: ONDANSETRON 4 MG (ZOFRAN) ORAL DISSOLVE TAB PO PRN (05:39)
[2018-08-06 06:04] VITALS: BP 166/8
[2018-08-06] MEDS: CATHETER FLUSH 10 ML SYR IV SCH ×3 (06:06→20:33)
[2018-08-06 06:10] LABS: HEMOGLOBIN 15.4 G/DL (11.5-16.0); MEAN PLATELET VOLUME 10.8 FL (7.4-10.4); RED CELL DISTRIBUTION WIDTH 15.9 % (10.0-14.5); WHITE BLOOD COUNT 16.1 10^3/uL (4.3-11.0)
[2018-08-06 06:35] LABS: CALCIUM 9.3 MG/DL (8.5-10.1); CREATININE SERUM 0.92 MG/DL (0.60-1.30); MAGNESIUM 1.7 MG/DL (1.8-2.4); POTASSIUM 3.4 MMOL/L (3.6-5.0)
--- NOTE | 2018-08-06 08:36 | PM&R Progress Note ---
Subjective HPI/CC On Admission Date Seen by Provider: Aug 06, 2018 Time Seen by Provider: 08:15 CC: CVA HPI: This is an 87yoWF clinic patient of Evelyn Nolasco at [facility] who presented to the ER with right sided weakness and inability to walk. Last known well time was 2 days ago. Patient was worked up in ER for CVA and CT negative and labs negative but could not walk so IRF assessed her with my evaluation in the ER to meet criteria for direct admit to IRF. PLOF was independent living alone at home and currently she is dependent with inability to walk due to right sided weakness. Barriers to returning home will be regaining ability to ambulate and return of verbal communication and safety management to reside alone. Patient was placed on Tely, ECHO ordered along with ASA and Lipitor initiation for CVA protocol completion. Subjective/Events-last exam Poor appetite continues and now having some emesis so will give IVF NS at 100cc/ hr for supportive care Flat affect continues. Psych consult today to evaluate for dementia because she seems completely apathetic and if this continues she will not meet criteria to be here in IRF and will need NH placement Trying to encourage adequate nutrition but it is a challenge. Participating in therapies and able to ambulate but right sided weakness still remains. No pain is reported Reviewed labs and meds Review of Systems General: Fatigue, Malaise Neurological: Weakness, Numbness, Incoordination Objective Exam Vital Signs Vital Signs Date Time Temp Pulse Resp B/P (MAP) Pulse Ox O2 Delivery O2 Flow Rate FiO2 08/06/18 13:02 117 08/06/18 09:00 Room Air 08/06/18 06:04 97.0 20 166/8 (60) 93 Capillary Refill : General Appearance: No Apparent Distress, WD/WN, Chronically ill, Other (flat affect) HEENT: PERRL/EOMI, Normal ENT Inspection, Pharynx Normal Neck: Full Range of Motion, Normal Inspection, Non Tender, Supple Respiratory: Chest Non Tender, Lungs Clear, Normal Breath Sounds, No Accessory Muscle Use, No Respiratory Distress Cardiovascular: Regular Rate, Rhythm, No Edema, No Gallop, No JVD, No Murmur, Normal Peripheral Pulses Gastrointestinal: Normal Bowel Sounds, No Organomegaly, No Pulsatile Mass, Non Tender, Soft Back: Normal Inspection, No CVA Tenderness, No Vertebral Tenderness Extremity: Normal Capillary Refill, Normal Inspection, Normal Range of Motion ( except right sided), Non Tender, No Calf Tenderness Neurologic/Psychiatric: Alert, Oriented x3, tempering kiln tender II-XII Norm as Tested, Depressed Affect, Motor Weakness (right arm and leg weakness 3/5), Other ( speech garbled) Skin: Normal Color, Warm/Dry Lymphatic: No Adenopathy Results/Procedures Lab Laboratory Tests 08/06/18 06:05 Patient resulted labs reviewed. Assessment/Plan Assessment and Plan Assess & Plan/Chief Complaint (1) CVA (cerebral vascular accident) (2) Right sided weakness (3) Hyperlipidemia (4) Former smoker (5) Garbled speech (6) Unable to ambulate (7) Emesis Plan: IRF to focus on ambulation Fall risk prevention Statin and ASA Reviewed ECHO and Tely Cardiology is appreciated Psych evaluation for memory assessment and depression IVF today for supportive care (1) CVA (cerebral vascular accident) Assessment & Plan: Confirmed on MRI: There is a small acute/subacute nonhemorrhagic infarct in the periventricular white matter adjacent to the left lateral ventricle. Statin, ASA, Cardiology consultation, ECHO, EKG, Tely (2) Unable to ambulate Assessment & Plan: IRF protocols with assistive devices (3) Garbled speech (4) Right sided weakness Assessment & Plan: IRF protocols (5) Hyperlipidemia Assessment & Plan: High dose statin Clinical Quality Measures DVT/VTE Risk/Contraindication: Risk Factor Score Per Nursin RFS Level Per Nursing on Admit: 2=Moderate LUIS F LAIRD DO Aug 06, 2018 08:36
[2018-08-06] MEDS ORDERED: NS 1000 ML IV BAG IV ONE (08:45)
[2018-08-06] MEDS: LACTOBACILLUS ACIDOPHILUS (PROBIOTIC) CAPSULE PO SCH (08:53)
[2018-08-06] MEDS: ASPIRIN E.C. 81 MG (ECOTRIN) TAB PO SCH (08:53)
[2018-08-06] MEDS: SODIUM CHLORIDE IV SCH ×4 (09:30→19:42)
[2018-08-06] MEDS: POTASSIUM CHLORIDE IV SCH ×4 (09:30→19:42)
--- NOTE | 2018-08-06 10:58 | NUR ---
Dori is an 87 yo female present on ARU d/t a CVA R jennyfer. Patient is A&O X3 and denies pain but is having intermittent nausea. Patient has had very poor oral intake this shift and previously. Dr. Chawla started IV fluids at a rate of 100ml/hr. Patient currently has an intact IV present in the right AC that flushes without issues. Dori has very poor personal interaction with staff members, it is unknown at this time if this is baseline or effects from CVA. This nurse will continue to monitor patient throughout shift.
--- NOTE | 2018-08-06 11:26 | Speech Therapy Daily Note ---
Speech Daily Progress Note Subjective Date Seen by Provider: Aug 06, 2018 Time Seen by Provider: 00:30 The patient was resting in her bed. Nursing stated the patient had some nausea this am and had refused to eat her breakfast. Objective The patient completed conversational tasks related to herself and her needs with 80% accuracy. Assessment Assessment Current Status: Fair Progress Treatment Plan Continue Plan of Care Communication Comprehension: 5 Expression: 1 Social Cognition Social Interaction: 2 Problem Solvin Memory: 2 Speech Short Term Goals Short Term Goals Short Term Goals 1) The patient will complete confrontational naming tasks with 80% or greater given minimal cues. 2) The patient will follow simple 1-2 step directions related to her daily needs with 80% or greater given minimal cues. Speech Shelter Goals [place] Goals The patient will be able to effectively communicate her wants/needs to staff and family. Speech-Plan Patient/Family Goals Patient/Family Goals: The patient plans to return home where she lives alone. She has a very involved daughter for support of her daily needs. Treatment Plan Speech Therapy Treatment Plan: Continue Plan of Care Patient is making slight progress. Treatment Duration: Aug 13, 2018 Frequency: 5 times per week Estimated Hrs Per Day: .5 hour per day Rehab Potential: Good Barriers to Learning: Patient is mostly nonverbal by choice. Pt/Family Agrees to Plan: Yes Safety Risks/Education Teaching Recipient: Patient Teaching Methods: Discussion Response to Teaching: Verbalize Understanding Education Topics Provided: Safety and communication of her wants/needs. Time Speech Therapy Time In: 09:00 Speech Therapy Time Out: 09:30 Total Billed Time: 30 Billed Treatment Time [address] Aug 06, 2018 11:25
--- NOTE | 2018-08-06 12:41 | Physical Therapy Daily Note ---
PT Daily Note-Current Subjective Pt. in bed eyes closed with emesis basin near her hand. Pt. shakes her head no that she doesnt feel well. Pt. 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 Patient completes activity by themselves 4 Supervision or touching assist (CGA). [place] provide cues , steadying assist 3 The helper provides less than half the effort to complete the activity 2 The helper provides more than half the effort to complete the activity 1 Dependent. The helper does all the effort to complete an activity 7 Patient refused to complete or attempt activity 9 The patient did not perform the activity before the current illness or injury 88 Not attempted due to Medical conditions or safety concerns Transfers (B, C, W/C) (FIM): 4 Scootin Rollin Supine to/from Sit: 4 Sit to/from Stand: 4 Weight Bearing Right Lower Extremity: Right Full Weight Bearing Left Lower Extremity: Left Full Weight Bearing Gait Training Does the Patient Walk?: Yes Gait (FIM): 3 Distance (FIM): 3=150 ft (150,100x3) Gait Level of Assist: 4 Gait Persons Needed: 1 Gait Assistive Device: FWW pt. needs much instruction for position in FWW as well as step length and to manage device for steering etc Exercises Supine Ex: Bridging, Ankle pumps, Quad Set, Rolling, Glut sets, Heel Slides, Short Arc Quads, Scooting, Straight leg raise, Hip abd/add Supine Reps: 15 Seated Therapy Exercises: Ankle pumps, Sit to stand, Long arc quads, Hip flexion Seated Reps: 15 NuStep Minutes: 10 NuStep Workload: 2 Assessment Current Status: Good Progress moves very slow, c/o nausea and back pain and being very tired PT Short Term Goals Short Term Goals Time Frame: Aug 09, 2018 Transfers (B,C,W/C) (FIM): 5 Gait (FIM): 4 Wheelchair Distance: 100' PT Supervisor Bakery Sanitation Goals [facility] Goals PT Supervisor Bakery Sanitation Goals Time Frame: Aug 20, 2018 Transfers (B,C,W/C) (FIM): 6 Sit to Lying (QC): 6 Lying-Sitting on Side/Bed(QC): 6 Sit to Stand (QC): 6 Rollin Roll Left to Right (QC): 6 Chair/Hih-xn-Ueaar Xfer(QC): 6 Car Transfer (QC): 5 Does the Patient Walk: Yes Gait (FIM): 6 Gait distance (FIM): 3=150 ft Walk 10 feet (QC): 6 Walk 10ft-Uneven Surface(QC): 5 Walk 50ft with 2 Turns (QC): 6 Walk 150 ft (QC): 6 Gait Assistive Device: FWW Does the Pt use WC or Scooter?: No Stairs (FIM): 5 (household) # of Steps: 4 1 Step (curb) (QC): 6 4 Steps (QC): 6 12 Steps (QC): 10 Picking up an Object (QC): 4 PT Plan Treatment/Plan Treatment Plan: Continue Plan of Care Treatment Plan: Bed Mobility, Education, Functional Activity Joan, Functional Strength, Group Therapy, Gait, Safety, Therapeutic Exercise, Transfers Treatment Duration: Aug 20, 2018 Frequency: At least 5 of 7 days/Wk (IRF) Estimated Hrs Per Day: 1.5 hours per day Patient and/or Family Agrees t: Yes Safety Risks/Education Patient Education: Gait Training, Transfer Techniques, Correct Positioning, Disease Process, Safety Issues Teaching Recipient: Patient Teaching Methods: Demonstration, Discussion Response to Teaching: Verbalize Understanding, Return Demonstration, Reinforcement Needed Time/GCodes Time In: 1100 Time Out: 1200 Total Billed Treatment Time: 60 Total Billed Treatment 1,EX30m,GT20m,FA10m G Codes Necessary: No BILL TREVINO WARDROBE TECHNICIAN Aug 06, 2018 12:41
--- NOTE | 2018-08-06 13:23 | Physical Therapy Daily Note ---
PT Daily Note-Current Subjective Pt laying Supine in bed asleep upon arrival. Pt agrees to Supine Ex in bed as pt is tired and not feeling well since AM. Pain Location: No Pain Reported Mental Status Patient Orientation: Person, Place, Situation Transfers Therapy Code Descriptions/Definitions Functional [place] Measure: 0=Not Assessed/NA 4=Minimal Assistance 1=Total Assistance 5=Supervision or Setup 2=Maximal Assistance 6=Modified [place] 3=Moderate Assistance 7=Complete [place] Therapy Quality Codes: 6 Independent with activity with or without an assistive device 5 Patient requires set up or clean up by helper. Patient completes activity by themselves 4 Supervision or touching assist (CGA). [place] provide cues , steadying assist 3 The helper provides less than half the effort to complete the activity 2 The helper provides more than half the effort to complete the activity 1 Dependent. The helper does all the effort to complete an activity 7 Patient refused to complete or attempt activity 9 The patient did not perform the activity before the current illness or injury 88 Not attempted due to Medical conditions or safety concerns Weight Bearing Right Lower Extremity: Right Full Weight Bearing Left Lower Extremity: Left Full Weight Bearing Exercises Supine Ex: Ankle pumps, Quad Set, Glut sets, Heel Slides, Hip abd/add Supine Reps: 10 Treatments Pt completes Supine Ex in bed with one short rest break. Pt resting in bed at end of tx with all needs met. Assessment Current Status: Good Progress Pt limited today by not feeling well but continues to try to improve. PT Short Term Goals Short Term Goals Time Frame: Aug 09, 2018 Transfers (B,C,W/C) (FIM): 5 Gait (FIM): 4 Wheelchair Distance: 100' PT Intermediate Goals [place] Goals PT Intermediate Goals Time Frame: Aug 20, 2018 Transfers (B,C,W/C) (FIM): 6 Sit to Lying (QC): 6 Lying-Sitting on Side/Bed(QC): 6 Sit to Stand (QC): 6 Rollin Roll Left to Right (QC): 6 Chair/Lvj-ro-Ytkiw Xfer(QC): 6 Car Transfer (QC): 5 Does the Patient Walk: Yes Gait (FIM): 6 Gait distance (FIM): 3=150 ft Walk 10 feet (QC): 6 Walk 10ft-Uneven Surface(QC): 5 Walk 50ft with 2 Turns (QC): 6 Walk 150 ft (QC): 6 Gait Assistive Device: FWW Does the Pt use WC or Scooter?: No Stairs (FIM): 5 (household) # of Steps: 4 1 Step (curb) (QC): 6 4 Steps (QC): 6 12 Steps (QC): 10 Picking up an Object (QC): 4 PT Plan Problem List Problem List: Activity Tolerance, Functional Strength, Safety Treatment/Plan Treatment Plan: Continue Plan of Care Treatment Plan: Bed Mobility, Education, Functional Activity Joan, Functional Strength, Group Therapy, Gait, Safety, Therapeutic Exercise, Transfers Treatment Duration: Aug 20, 2018 Frequency: At least 5 of 7 days/Wk (IRF) Estimated Hrs Per Day: 1.5 hours per day Patient and/or Family Agrees t: Yes Safety Risks/Education Patient Education: Correct Positioning, Safety Issues Teaching Recipient: Patient Teaching Methods: Discussion Response to Teaching: Verbalize Understanding Time/GCodes Time In: 1255 Time Out: 1310 Total Billed Treatment Time: 15 Total Billed Treatment 1, EX (15m) G Codes Necessary: CARLO Barfield SECURITIES COUNSELOR Aug 06, 2018 13:23
--- NOTE | 2018-08-06 15:34 | Occupational Ther Daily Note ---
OT Current Status-Daily Note Subjective Pt in bed with RN present. RN states pt has been nauseous. Pt agreeable to treatment, would like to shower. Mental Status/Objective Therapy Code Descriptions/Definitions Functional [place] Measure: 0=Not Assessed/NA 4=Minimal Assistance 1=Total Assistance 5=Supervision or Setup 2=Maximal Assistance 6=Modified [place] 3=Moderate Assistance 7=Complete [place] ADL-Treatment Supine to sit with minimal assistance. Sit to stand with minimal assistance. Gait to restroom with FWW, slow pace and cues for safety. Transfer to walk in shower with minimal assistance using grab bar for balance. Pt completed seated bathing using hand held shower. Upper body bathing completed with SBA. Pt able to wash liban area, but requires assist to wash lower legs/feet and buttocks. Stood with min assist for balance while washing buttocks. After shower, pt incontinent of bowel while still seated in shower, requiring assist to complete hygiene. Don pullover shirt with minimal assistance to pull down in back. Pt required assist to start Depends and pants over feet. Stood with minimal assistance. Pt able to pull pants up over left hip, requires assist with right. Pt fatigues with standing and requires seated rest break. Max assist required to don socks. Increased time taken for bathing and dressing tasks. Transfer to bed with minimal assistance. Sit to supine with min assist. Pt had minimal amount of vomiting while completing ADLs. RN was notified. Therapy Code Descriptions/Definitions Functional [place] Measure: 0=Not Assessed/NA 4=Minimal Assistance 1=Total Assistance 5=Supervision or Setup 2=Maximal Assistance 6=Modified [place] 3=Moderate Assistance 7=Complete [place] Therapy Quality Codes: 6 Independent with activity with or without an assistive device 5 Patient requires set up or clean up by helper. Patient completes activity by themselves 4 Supervision or touching assist (CGA). [place] provide cues , steadying assist 3 The helper provides less than half the effort to complete the activity 2 The helper provides more than half the effort to complete the activity 1 Dependent. The helper does all the effort to complete an activity 7 Patient refused to complete or attempt activity 9 The patient did not perform the activity before the current illness or injury 88 Not attempted due to Medical conditions or safety concerns Bathing (FIM): 3 Shower/Bathe Self (QC): 3 Upper Body (FIM): 4 Upper Body Dressing (QC): 3 Lower Body Dressing (FIM): 3 Lower Body Dressing (QC): 3 On/Off Footwear (QC): 2 Shower Transfer(FIM): 4 Other Treatment Pt completed bilateral UE activity while in supine to increase strength and activity tolerance needed for ADLs and transfers. Pt performed AROM exercises x10 reps at shoulder, elbow, and wrist. Rest breaks between exercises. Bilateral hand feed mill manager exercises x20 reps with moderate resistance therapy foam. Pt resting in bed with needs met after session. OT Short Term Goals Short Term Goals Transfers (B,C,W/C) (FIM): 5 1=Demonstrate adherence to instructed precautions during ADL tasks. 2=Patient will verbalize/demonstrate understanding of assistive devices/ modifications for ADL. 3=Patient will improve strength/tolerance for activity to enable patient to perform ADL's. OT Manager Rfid Goals Alf Goals Time Frame: August 30, 2018 Eating (FIM): 7 Eating (QC): 6 Groomin Oral Hygiene (QC): 6 Bathing(FIM): 5 Shower/Bathe Self (QC): 5 Upper Body Dressing(FIM): 5 Upper Body Dressing (QC): 5 Lower Body Dressing(FIM): 5 Lower Body Dressing (QC): 5 On/Off Footwear (QC): 5 Toileting(FIM): 6 Toileting Hygiene (QC): 6 Transfers (B,C,W/C) (FIM): 6 Toilet/Commode Transfer(FIM): 6 Toilet/Commode Transfer (QC): 6 Shower Transfer(FIM): 5 Additional Goals: 1-Demonstrate ADL Tasks, 2-Verbalize Understanding, 3- ImproveStrength/Joan 1=Demonstrate adherence to instructed precautions during ADL tasks. 2=Patient will verbalize/demonstrate understanding of assistive devices/ modifications for ADL. 3=Patient will improve strength/tolerance for activity to enable patient to perform ADL's. OT Education/Plan Discharge Recommendations Plan/Recommendations: Continue POC Treatment Plan/Plan of Care Patient would benefit from OT for education, treatment and training to promote independence in ADL's, mobility, safety and/or upper extremity function for ADL' s. Plan of Care: ADL Retraining, Functional Mobility, Group Exercise/Act as Ind, UE Funct Exercise/Act Treatment Duration: August 30, 2018 Frequency: At least 5 of 7 days/Wk (IRF) Estimated Hrs Per Day: 1.5 hours per day Agreement: Yes Rehab Potential: Good Time/GCodes Start Time: 09:30 Stop Time: 10:45 Total Time Billed (hr/min): 75 Billed Treatment Time 1 visit, ADLx4(60minutes), EX(15minutes) [place] SKY OT Aug 06, 2018 15:34
[2018-08-06 18:37] VITALS: BP 117/61
[2018-08-06] MEDS: ATORVASTATIN 80 MG (LIPITOR) TABLET PO SCH (20:33)
[2018-08-07] MEDS: SODIUM CHLORIDE IV SCH ×2 (05:19)
[2018-08-07] MEDS: CATHETER FLUSH 10 ML SYR IV SCH ×3 (05:19→20:31)
[2018-08-07] MEDS: POTASSIUM CHLORIDE IV SCH ×2 (05:19)
[2018-08-07 06:04] VITALS: BP 110/58
[2018-08-07] MEDS: LACTOBACILLUS ACIDOPHILUS (PROBIOTIC) CAPSULE PO SCH (08:34)
[2018-08-07] MEDS: ASPIRIN E.C. 81 MG (ECOTRIN) TAB PO SCH (08:34)
--- NOTE | 2018-08-07 11:45 | NUR ---
PATIENT AMBULATED APPROX 150' FWW, WALKER GAIT BELT, CONTACT GUARD. EVEN, STEADY GAIT. REQUIRES MUCH ENCOURAGEMENT FOR PARTICIPATION. THIS RN HAND FED PATIENT FOR PATIENT TO EAT BREAKFAST. PATIENT UP TO CHAIR. LUNCH SERVED. PATIENT OPENED OWN CONTAINER AND IS EATING LUNCH. DAUGHTER CALLED EARLIER THIS AM TO CHECK ON PATIENT PROGRESS. REPORTED PATIENT'S REFUSAL TO EAT AND REASON FOR IV THERAPY, FOR HYDRATION. PATIENT IS AT THIS TIME EATING CHICKEN AND NOODLES, REQUESTED GRAVY FOR POTATOES. DENIES NEEDS OR C/O AT THIS TIME. CONT TO MONITOR.
--- NOTE | 2018-08-07 12:11 | Physical Therapy Daily Note ---
PT Daily Note-Current Subjective Pt eating lunch upon arrival. LEADITE HEATER had seen Nurse walking pt this morning. Pt agrees to Seated Ex while eating lunch. Mental Status Patient Orientation: Person, Place, Situation Attachments: Other-See Comments (Telemetry) Transfers Therapy Code Descriptions/Definitions Functional [place] Measure: 0=Not Assessed/NA 4=Minimal Assistance 1=Total Assistance 5=Supervision or Setup 2=Maximal Assistance 6=Modified [place] 3=Moderate Assistance 7=Complete [place] Therapy Quality Codes: 6 Independent with activity with or without an assistive device 5 Patient requires set up or clean up by helper. Patient completes activity by themselves 4 Supervision or touching assist (CGA). [place] provide cues , steadying assist 3 The helper provides less than half the effort to complete the activity 2 The helper provides more than half the effort to complete the activity 1 Dependent. The helper does all the effort to complete an activity 7 Patient refused to complete or attempt activity 9 The patient did not perform the activity before the current illness or injury 88 Not attempted due to Medical conditions or safety concerns Weight Bearing Right Lower Extremity: Right Full Weight Bearing Left Lower Extremity: Left Full Weight Bearing Exercises Supine Ex: Glut sets Supine Reps: 15 Seated Therapy Exercises: Ankle pumps, Long arc quads, Hip flexion, Kicking activity Seated Reps: 15 Treatments Pt completes Seated Ex in chair with short rest as needed. Pt has all needs met at end of tx. Assessment Current Status: Good Progress Pt communicated more with LEADITE HEATER today then previous tx., more alert. PT Short Term Goals Short Term Goals Time Frame: Aug 09, 2018 Transfers (B,C,W/C) (FIM): 5 Gait (FIM): 4 Wheelchair Distance: 100' PT Odd Jobs Day Worker Goals Retirement Goals PT Retirement Goals Time Frame: Aug 20, 2018 Transfers (B,C,W/C) (FIM): 6 Sit to Lying (QC): 6 Lying-Sitting on Side/Bed(QC): 6 Sit to Stand (QC): 6 Rollin Roll Left to Right (QC): 6 Chair/[id number] Xfer(QC): 6 Car Transfer (QC): 5 Does the Patient Walk: Yes Gait (FIM): 6 Gait distance (FIM): 3=150 ft Walk 10 feet (QC): 6 Walk 10ft-Uneven Surface(QC): 5 Walk 50ft with 2 Turns (QC): 6 Walk 150 ft (QC): 6 Gait Assistive Device: FWW Does the Pt use WC or Scooter?: No Stairs (FIM): 5 (household) # of Steps: 4 1 Step (curb) (QC): 6 4 Steps (QC): 6 12 Steps (QC): 10 Picking up an Object (QC): 4 PT Plan Problem List Problem List: Activity Tolerance, Functional Strength, Safety Treatment/Plan Treatment Plan: Continue Plan of Care Treatment Plan: Bed Mobility, Education, Functional Activity Joan, Functional Strength, Group Therapy, Gait, Safety, Therapeutic Exercise, Transfers Treatment Duration: Aug 20, 2018 Frequency: At least 5 of 7 days/Wk (IRF) Estimated Hrs Per Day: 1.5 hours per day Patient and/or Family Agrees t: Yes Safety Risks/Education Patient Education: Correct Positioning, Safety Issues Teaching Recipient: Patient Teaching Methods: Discussion Response to Teaching: Verbalize Understanding Time/GCodes Time In: 1145 Time Out: 1200 Total Billed Treatment Time: 15 Total Billed Treatment 1, EX (15m) G Codes Necessary: CARLO Barfield LEADITE HEATER Aug 07, 2018 12:11
[2018-08-07] MEDS: ONDANSETRON 4 MG (ZOFRAN) ORAL DISSOLVE TAB PO PRN (12:26)
--- NOTE | 2018-08-07 12:44 | PM&R Progress Note ---
Subjective HPI/CC On Admission Date Seen by Provider: Aug 07, 2018 Time Seen by Provider: 12:20 CC: CVA HPI: This is an 87yoWF clinic patient of Evelyn Nolasco at [facility] who presented to the ER with right sided weakness and inability to walk. Last known well time was 2 days ago. Patient was worked up in ER for CVA and CT negative and labs negative but could not walk so IRF assessed her with my evaluation in the ER to meet criteria for direct admit to IRF. PLOF was independent living alone at home and currently she is dependent with inability to walk due to right sided weakness. Barriers to returning home will be regaining ability to ambulate and return of verbal communication and safety management to reside alone. Patient was placed on Tely, ECHO ordered along with ASA and Lipitor initiation for CVA protocol completion. Subjective/Events-last exam Poor appetite continues but appears improved since IVF initiated so will DC that Flat affect continues. Psych consult 2 days ago revealed sevre dementia with SLUMS of 4-5 and will need NH placement unless she lives with her daughter. I updated the daughter on the memory test Trying to encourage adequate nutrition but it is a challenge. Participating in therapies and able to ambulate but right sided weakness still remains. No pain is reported Reviewed labs and meds Review of Systems General: Fatigue Gastrointestinal: Nausea, Vomiting Neurological: Weakness, Numbness, Incoordination Objective Exam Vital Signs Vital Signs Date Time Temp Pulse Resp B/P (MAP) Pulse Ox O2 Delivery O2 Flow Rate FiO2 08/08/18 07:00 66 08/08/18 05:08 98.0 16 154/76 (102) 95 Room Air Capillary Refill : Less Than 3 Seconds General Appearance: No Apparent Distress, WD/WN, Chronically ill, Other (flat affect) HEENT: PERRL/EOMI, Normal ENT Inspection, Pharynx Normal Neck: Full Range of Motion, Normal Inspection, Non Tender, Supple Respiratory: Chest Non Tender, Lungs Clear, Normal Breath Sounds, No Accessory Muscle Use, No Respiratory Distress Cardiovascular: Regular Rate, Rhythm, No Edema, No Gallop, No JVD, No Murmur, Normal Peripheral Pulses Gastrointestinal: Normal Bowel Sounds, No Organomegaly, No Pulsatile Mass, Non Tender, Soft Back: Normal Inspection, No CVA Tenderness, No Vertebral Tenderness Extremity: Normal Capillary Refill, Normal Inspection, Normal Range of Motion ( except right sided), Non Tender, No Calf Tenderness Neurologic/Psychiatric: Alert, Oriented x3, technologist infectious disease II-XII Norm as Tested, Depressed Affect, Motor Weakness (right arm and leg weakness 3/5), Other ( speech garbled) Skin: Normal Color, Warm/Dry Lymphatic: No Adenopathy Results/Procedures Lab Patient resulted labs reviewed. Assessment/Plan Assessment and Plan Assess & Plan/Chief Complaint (1) CVA (cerebral vascular accident) (2) Right sided weakness (3) Hyperlipidemia (4) Former smoker (5) Garbled speech (6) Unable to ambulate (7) Emesis Plan: IRF to focus on ambulation Fall risk prevention Statin and ASA Reviewed ECHO and Tely Cardiology is appreciated Psych evaluation for memory assessment revealed severe dementia SLUMS 4-5 so will need NHP or live with daughter HLIVF today due to supportive care for nausea of uncertain etiology (1) CVA (cerebral vascular accident) Assessment & Plan: Confirmed on MRI: There is a small acute/subacute nonhemorrhagic infarct in the periventricular white matter adjacent to the left lateral ventricle. Statin, ASA, Cardiology consultation, ECHO, EKG, Tely (2) Unable to ambulate Assessment & Plan: IRF protocols with assistive devices (3) Garbled speech (4) Right sided weakness Assessment & Plan: IRF protocols (5) Hyperlipidemia Assessment & Plan: High dose statin (6) Dementia (7) Nausea (8) Poor appetite Clinical Quality Measures DVT/VTE Risk/Contraindication: Risk Factor Score Per Nursin RFS Level Per Nursing on Admit: 2=Moderate LUIS F LAIRD DO Aug 07, 2018 12:44
[2018-08-07 16:53] VITALS: BP 115/69
[2018-08-07] MEDS: ATORVASTATIN 80 MG (LIPITOR) TABLET PO SCH (20:31)
[2018-08-08 05:08] VITALS: BP 154/76
[2018-08-08] MEDS: CATHETER FLUSH 10 ML SYR IV SCH ×3 (05:22→20:39)
[2018-08-08] MEDS: LACTOBACILLUS ACIDOPHILUS (PROBIOTIC) CAPSULE PO SCH (09:50)
[2018-08-08] MEDS: ASPIRIN E.C. 81 MG (ECOTRIN) TAB PO SCH (09:50)
--- NOTE | 2018-08-08 11:42 | PM&R Progress Note ---
Subjective HPI/CC On Admission Date Seen by Provider: Aug 08, 2018 Time Seen by Provider: 12:15 CC: CVA HPI: This is an 87yoWF clinic patient of Evelyn Nolasco at [facility] who presented to the ER with right sided weakness and inability to walk. Last known well time was 2 days ago. Patient was worked up in ER for CVA and CT negative and labs negative but could not walk so IRF assessed her with my evaluation in the ER to meet criteria for direct admit to IRF. PLOF was independent living alone at home and currently she is dependent with inability to walk due to right sided weakness. Barriers to returning home will be regaining ability to ambulate and return of verbal communication and safety management to reside alone. Patient was placed on Tely, ECHO ordered along with ASA and Lipitor initiation for CVA protocol completion. Subjective/Events-last exam Poor appetite continues and it appears to be related to her severe dementia Needs NHP or to live with her daughter I updated the daughter on the memory test yesterday but unsure if she understands how severe her dementia is Trying to encourage adequate nutrition but it is a challenge. No pain is reported Reviewed labs and meds Need to arrange NHP Review of Systems General: Fatigue, Appetite (decreased) Objective Exam Vital Signs Vital Signs Date Time Temp Pulse Resp B/P (MAP) Pulse Ox O2 Delivery O2 Flow Rate FiO2 08/08/18 15:46 97.3 85 14 128/65 (86) 95 Room Air Capillary Refill : Less Than 3 Seconds General Appearance: No Apparent Distress, WD/WN, Chronically ill, Other (flat affect) HEENT: PERRL/EOMI, Normal ENT Inspection, Pharynx Normal Neck: Full Range of Motion, Normal Inspection, Non Tender, Supple Respiratory: Chest Non Tender, Lungs Clear, Normal Breath Sounds, No Accessory Muscle Use, No Respiratory Distress Cardiovascular: Regular Rate, Rhythm, No Edema, No Gallop, No JVD, No Murmur, Normal Peripheral Pulses Gastrointestinal: Normal Bowel Sounds, No Organomegaly, No Pulsatile Mass, Non Tender, Soft Back: Normal Inspection, No CVA Tenderness, No Vertebral Tenderness Extremity: Normal Capillary Refill, Normal Inspection, Normal Range of Motion ( except right sided), Non Tender, No Calf Tenderness Neurologic/Psychiatric: Alert, Oriented x3, motor vehicle assembler II-XII Norm as Tested, Depressed Affect, Motor Weakness (right arm and leg weakness 3/5), Other ( speech garbled) Skin: Normal Color, Warm/Dry Lymphatic: No Adenopathy Results/Procedures Lab Patient resulted labs reviewed. Assessment/Plan Assessment and Plan Assess & Plan/Chief Complaint (1) CVA (cerebral vascular accident) (2) Right sided weakness (3) Hyperlipidemia (4) Former smoker (5) Garbled speech (6) Unable to ambulate (7) Emesis (8) Profound dementia at baseline now worsened with CVA Plan: IRF to focus on ambulation but that is a challenge Fall risk prevention Statin and ASA were started but DC statin due to daughter reports she had side effects with that in the past Reviewed ECHO and Tely Cardiology is appreciated Psych evaluation for memory assessment revealed severe dementia SLUMS 4-5 so will need NHP or live with daughter HLIVF today due to supportive care for nausea of uncertain etiology (1) CVA (cerebral vascular accident) Assessment & Plan: Confirmed on MRI: There is a small acute/subacute nonhemorrhagic infarct in the periventricular white matter adjacent to the left lateral ventricle. Statin, ASA, Cardiology consultation, ECHO, EKG, Tely (2) Unable to ambulate Assessment & Plan: IRF protocols with assistive devices (3) Garbled speech (4) Right sided weakness Assessment & Plan: IRF protocols (5) Hyperlipidemia Assessment & Plan: High dose statin (6) Dementia (7) Nausea (8) Poor appetite Clinical Quality Measures DVT/VTE Risk/Contraindication: Risk Factor Score Per Nursin RFS Level Per Nursing on Admit: 2=Moderate LUIS F LAIRD DO Aug 08, 2018 11:42
[2018-08-08 15:46] VITALS: BP 128/65
[2018-08-09] MEDS: CATHETER FLUSH 10 ML SYR IV SCH (04:33)
[2018-08-09 05:18] VITALS: BP 153/84
--- NOTE | 2018-08-09 07:57 | Behavioral Health Consult ---
Consult- Consult Date Seen by Provider: Aug 06, 2018 Time Seen by Provider: 14:20 CPT Code: 64605 Psychodiagnostic Examination, 18790 +Interactive Complexity, 1 unit(s) Start Time: 2:20 pm Stop Time: 2:45 pm Chief Complaint: possible dementia/depression Referral: Mary Alice Hager is a 87-year-old, , female referred by Dr. Okeefe for a clinical diagnostic assessment. Information for this evaluation was gathered from self-report and medical records. Presenting Problem: The presenting clinical problem is possible dementia/ depression. Dr. Okeefe reported she is uncertain what the Peyman baseline and is wondering about dementia. Smita reported she has been at the hospital since Thursday because she had a light stroke. She reported she does not know how well she is functioning. She denied any past or present mental health problems. She reported she never worked. She stated her plan is to return to her apartment. She denied having any memory problems. She denied any problems since having a stroke. She reported she does not cook for herself. She stated she receives three meals a day on Thursday, Thursday, and Thursday and her daughter fixes meals for her. She reported she has not been sleeping well. She stated her eating has been fair. Smita had several difficulties with the Mini-Mental State Examination 2nd Edition (MMSE-2). She received a score of 12 out of 30. Smita struggled with Orientation. She stated the year was 92 and then said 86. She stated the season was fall, month was June, it was the 3rd for day of the week and did not know the date. She knew the state was [place], but when asked what county she said [place] and for [facility] she said [place]. She repeated two of the three words twice and left off the last word and she was not able to recall any of the words later. When asked to subtract 7 from 100 she said 600 and then counted down from 7. Therapist asked her to stop at 3, but she continued to 1. She was able to accurately complete the Naming, Repetition, Reading, and Comprehension tasks. Her sentence was illegible, and her drawing was incomplete. Overall symptoms observed or reported requiring current level of care include anergia, medical problems, memory problems, poor appetite, and sleep disturbance (onset delay/easily awakened). Observations/Mental Status: Smita was lying in the hospital bed fully covered by a blanket when therapist arrived. Overall appearance was unremarkable clinically. Smita appeared to be a fair historian. In regards to pain, no problems were reported. Peyman general approach to the evaluation was cooperative. Orientation was impaired for time. Smita evidenced minimal understanding of the reason for the appointment. Peyman in-session behavior was cooperative. The predominant mood was calm with flat affect. Memory functioning appeared to be impaired. Level of intellectual functioning compared to same age peers was unable to be adequately assessed. Thought processes were found to be tangential and required some redirection and control. Thought content appeared normal. There was no report or evidence of hallucinations or delusions. Psychomotor functioning was within normal limits. Tone of voice was soft. Expressive speech was marked by vague, unelaborated responses. Eye contact was minimal. Insight was fair. Overall, style of interacting during the appointment was appropriate. Current/Previous Mental Health Treatment: Past psychiatric history was reported as none. History of self or other harm none reported. Medical History: Medical conditions were reported as stroke (per patient report ) and hyperlipidemia. Drug allergies: penicillins, acetaminophen, diphenhydramine, and doxylamine. Recreational Drug Usage: Substance abuse history was reported as none. Educational and Vocational Histories: Smita reported she never worked. Family and Social Histories: Smita currently lives alone at the apartments near the hospital for the last nine years. She reported her along time ago. She then was confused and said her son did not , it was her daughter. She stated one of her daughters nine to ten years ago. She reported she has two sons and a daughter still living. She stated her daughter visits her every day. Strengths/Weaknesses: Strengths/Resources: supportive family Liabilities/Barriers: health problems Summary of Assessment Information/Recommendations: Smita is a 87-year-old female who is in inpatient rehabilitation for right sided weakness. However, when therapist specifically asked about any problems with physical functioning she denied having any. Peyman MMSE-2 revealed significant memory concerns. Smita struggled at times to follow what question was being asked of her. She denied any mental health history and denied any present mental health symptoms. 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 1.Based on Peyman state when she was assessed it is recommended that Smita not live alone. 2.If there appear to be changes in her cognitive state it may be beneficial to have a neuropsychological evaluation completed to further assess her memory state. 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
--- NOTE | 2018-08-09 08:16 | Cardiology Progress Note ---
Subjective Date Seen by Provider: Aug 09, 2018 Time Seen by Provider: 08:15 Subjective/Events-last exam Patient is with PT. No new complaints. Denies any chest pain or dyspnea. Objective-Cardiology Exam Last Set of Vital Signs Vital Signs 08/09/18 08/09/18 05:18 07:00 Temp 98.4 Pulse 113 Resp 16 B/P (MAP) 153/84 (107) Pulse Ox 96 O2 Delivery Room Air Capillary Refill : Less Than 3 Seconds I&O Intake and Output 08/09/18 00:00 Intake Total 1020 ml Balance 1020 ml Intake Oral 1010 ml IV Total 10 ml # Voids 4 General: Alert, Cooperative, Mild Distress HEENT: Atraumatic, PERRLA Neck: Supple, No JVD, No Thyromegaly Lungs: Clear to Auscultation, Normal Air Movement Heart: Regular Rate, Normal S1, Normal S2, No Murmurs Abdomen: Normal Bowel Sounds, Soft, No Tenderness, No Hepatosplenomegaly, No Masses Extremities: No Clubbing, No Cyanosis, No Edema, Normal Pulses, No Tenderness/ Swelling Neuro: Other (right sided weakness) Psych/Mental Status: Mental Status NL, Mood NL A/P-Cardiology Admission Diagnosis Acute CVA Hyperlipidemia Carotid stenosis Assessment/Plan CVA - small acute/subacute nonhemorrhagic infarct in the periventricular white matter adjacent to the left lateral ventricle per MRI of 08-02-18 - with right sided upper and lower extremity weakness. Maintained on ASA. Generalized weakness, EKG did not show acute abnormal, blood pressure appeared to be stable. Continue to monitor. HLD- started on Lipitor 80mg, medication was discontinued secondary to history of intolerance in the past. Echo on 08/02/18: LVEF 60-65%, grade 1 diastolic dysfunction, PASP 20 mmHg, continue to monitor no changes are recommended Mild carotid arterial disease with no hemodynamically significant stenosis within either carotid bifurcation per u/s of 08-02-18 Clinical Quality Measures DVT/VTE Risk/Contraindication: Risk Factor Score Per Nursin RFS Level Per Nursing on Admit: 2=Moderate JENNIFER DUNNE Aug 09, 2018 08:16
[2018-08-09] MEDS: LACTOBACILLUS ACIDOPHILUS (PROBIOTIC) CAPSULE PO SCH (08:47)
[2018-08-09] MEDS: ASPIRIN E.C. 81 MG (ECOTRIN) TAB PO SCH (08:47)
--- NOTE | 2018-08-09 08:48 | PM&R Progress Note ---
Subjective HPI/CC On Admission Date Seen by Provider: Aug 09, 2018 Time Seen by Provider: 08:15 CC: CVA HPI: This is an 87yoWF clinic patient of Evelyn Nolasco at [facility] who presented to the ER with right sided weakness and inability to walk. Last known well time was 2 days ago. Patient was worked up in ER for CVA and CT negative and labs negative but could not walk so IRF assessed her with my evaluation in the ER to meet criteria for direct admit to IRF. PLOF was independent living alone at home and currently she is dependent with inability to walk due to right sided weakness. Barriers to returning home will be regaining ability to ambulate and return of verbal communication and safety management to reside alone. Patient was placed on Tely, ECHO ordered along with ASA and Lipitor initiation for CVA protocol completion. Subjective/Events-last exam Pt actually participated today Already had a shower Will DC telemetry Denies any pain Daughter reports that her activity does alter a bit day to day and I think we are seeing that now FPC placement is required May be able to live with her daughter if that is an option BP remains stable No nausea is reported today Loss of appetite is a significant problem Poor prognosis nursing home if she can't get passed these limiting factors of severe dementia Review of Systems General: Fatigue Neurological: Weakness, Numbness, Incoordination, Change in speech, Confusion Objective Exam Vital Signs Vital Signs Date Time Temp Pulse Resp B/P (MAP) Pulse Ox O2 Delivery O2 Flow Rate FiO2 08/09/18 07:00 113 08/09/18 05:18 98.4 16 153/84 (107) 96 Room Air Capillary Refill : Less Than 3 Seconds General Appearance: No Apparent Distress, WD/WN, Chronically ill, Other (flat affect) HEENT: PERRL/EOMI, Normal ENT Inspection, Pharynx Normal Neck: Full Range of Motion, Normal Inspection, Non Tender, Supple Respiratory: Chest Non Tender, Lungs Clear, Normal Breath Sounds, No Accessory Muscle Use, No Respiratory Distress Cardiovascular: Regular Rate, Rhythm, No Edema, No Gallop, No JVD, No Murmur, Normal Peripheral Pulses Gastrointestinal: Normal Bowel Sounds, No Organomegaly, No Pulsatile Mass, Non Tender, Soft Back: Normal Inspection, No CVA Tenderness, No Vertebral Tenderness Extremity: Normal Capillary Refill, Normal Inspection, Normal Range of Motion ( except right sided), Non Tender, No Calf Tenderness Neurologic/Psychiatric: Alert, Oriented x3, childcare center director II-XII Norm as Tested, Depressed Affect, Motor Weakness (right arm and leg weakness 3/5), Other ( speech garbled) Skin: Normal Color, Warm/Dry Lymphatic: No Adenopathy Results/Procedures Lab Patient resulted labs reviewed. Assessment/Plan Assessment and Plan Assess & Plan/Chief Complaint (1) CVA (cerebral vascular accident) (2) Right sided weakness (3) Hyperlipidemia (4) Former smoker (5) Garbled speech (6) Unable to ambulate (7) Emesis (8) Profound dementia at baseline now worsened with CVA Plan: IRF to focus on ambulation but that is a challenge Fall risk prevention Statin and ASA were started but DC statin due to daughter reports she had side effects with that in the past DC Tely Cardiology is appreciated Psych evaluation for memory assessment revealed severe dementia SLUMS 4-5 so will need NHP or live with daughter (1) CVA (cerebral vascular accident) Assessment & Plan: Confirmed on MRI: There is a small acute/subacute nonhemorrhagic infarct in the periventricular white matter adjacent to the left lateral ventricle. Statin, ASA, Cardiology consultation, ECHO, EKG, Tely (2) Unable to ambulate Assessment & Plan: IRF protocols with assistive devices (3) Garbled speech (4) Right sided weakness Assessment & Plan: IRF protocols (5) Hyperlipidemia Assessment & Plan: High dose statin (6) Dementia (7) Nausea (8) Poor appetite Clinical Quality Measures DVT/VTE Risk/Contraindication: Risk Factor Score Per Nursin RFS Level Per Nursing on Admit: 2=Moderate LUIS F LAIRD DO Aug 09, 2018 08:48
[2018-08-09] MEDS: ACETAMINOPHEN 500 MG TAB (TYLENOL) PO PRN (08:52)
--- NOTE | 2018-08-09 09:42 | Occupational Ther Daily Note ---
OT Current Status-Daily Note Subjective pt sitting in recliner chair upon OT arrival. pt agreed to OT TX session with focus on increasing independence with ADLs. pt compains of 9/10 upper back pain. NSG notified. Appearance flat affect, delayed response time. pt did make eye contact. Mental Status/Objective Therapy Code Descriptions/Definitions Functional [place] Measure: 0=Not Assessed/NA 4=Minimal Assistance 1=Total Assistance 5=Supervision or Setup 2=Maximal Assistance 6=Modified [place] 3=Moderate Assistance 7=Complete [place] ADL-Treatment Therapy Code Descriptions/Definitions Functional [place] Measure: 0=Not Assessed/NA 4=Minimal Assistance 1=Total Assistance 5=Supervision or Setup 2=Maximal Assistance 6=Modified [place] 3=Moderate Assistance 7=Complete [place] Therapy Quality Codes: 6 Independent with activity with or without an assistive device 5 Patient requires set up or clean up by helper. Patient completes activity by themselves 4 Supervision or touching assist (CGA). [place] provide cues , steadying assist 3 The helper provides less than half the effort to complete the activity 2 The helper provides more than half the effort to complete the activity 1 Dependent. The helper does all the effort to complete an activity 7 Patient refused to complete or attempt activity 9 The patient did not perform the activity before the current illness or injury 88 Not attempted due to Medical conditions or safety concerns Eating (FIM): 7 Eating (QC): 6 Grooming (FIM): 4 (intermitted CGA for safety/ balance while standing at sink. pt requried VC for attention to task/ engagement ) Oral Hygiene (QC): 4 Bathing (FIM): 4 (intermitted CGA for safety/ balance while standing in shower. noted 1 LOB correct by therapist pt requried VC for attention to task/ engagement. pt requried VC to initiate each step. ) Bathing Location: L Arm, R Arm, L Upper Leg, R Upper Leg, L Lower Leg ( including foot), R Lower Leg (including foot), Chest, Abdomen, Buttocks, Perineal Area Shower/Bathe Self (QC): 4 Upper Body (FIM): 5 (setup proved and additional timing to initiate task. pt would required VC for attention to task/ engagement ) Upper Body Dressing (QC): 4 (additional timing to complete task. pt requried VC to initiate task. pt requried encourgement to complete task independently without assist from therapist. ) Lower Body Dressing (FIM): 5 (additional timing to complete task. pt requried VC to initiate task. pt requried encourgement to complete task independently without assist from therapist. ) Lower Body Dressing (QC): 4 On/Off Footwear (QC): 4 Toileting (FIM): 4 (CGA fro safety/ balance while stanidng to pull pants up/ down) Toileting Hygiene (QC): 4 Transfers (B, C, W/C) (FIM): 4 (CGA for saftey/ balance using RW) Toilet/Commode Transfer (FIM): 4 (CGA for safety/ balance using RW) Toilet Transfer (QC): 4 Shower Transfer(FIM): 4 (CGA fro safety/ balance pt required VC fpr placement of RW when performing transfers) pt asked "what's your typically day like at home?" pt unable to answer and had to be asked question 3 times prior to response with additional timing for response. pt demo decrease engagement this date. and required increased motivation. pt response "i don't know." to all questions asked. NSG was present in room during conversation and aware. Education OT Patient Education: Energy conservation, Modified ADL techniques, Progress toward Goal/Update tx plan, Purpose of tx/functional activities, Reviewed precautions, Rehab process, Safety issues, Transfer techniques Teaching Recipient: Patient Teaching Methods: Demonstration, Discussion Response to Teaching: Verbalize Understanding, Return Demonstration OT Short Term Goals Short Term Goals Transfers (B,C,W/C) (FIM): 5 1=Demonstrate adherence to instructed precautions during ADL tasks. 2=Patient will verbalize/demonstrate understanding of assistive devices/ modifications for ADL. 3=Patient will improve strength/tolerance for activity to enable patient to perform ADL's. OT Fdc Goals Mixer Driver Goals Time Frame: August 30, 2018 Eating (FIM): 7 Eating (QC): 6 Groomin Oral Hygiene (QC): 6 Bathing(FIM): 5 Shower/Bathe Self (QC): 5 Upper Body Dressing(FIM): 5 Upper Body Dressing (QC): 5 Lower Body Dressing(FIM): 5 Lower Body Dressing (QC): 5 On/Off Footwear (QC): 5 Toileting(FIM): 6 Toileting Hygiene (QC): 6 Transfers (B,C,W/C) (FIM): 6 Toilet/Commode Transfer(FIM): 6 Toilet/Commode Transfer (QC): 6 Shower Transfer(FIM): 5 Additional Goals: 1-Demonstrate ADL Tasks, 2-Verbalize Understanding, 3- ImproveStrength/Joan 1=Demonstrate adherence to instructed precautions during ADL tasks. 2=Patient will verbalize/demonstrate understanding of assistive devices/ modifications for ADL. 3=Patient will improve strength/tolerance for activity to enable patient to perform ADL's. OT Education/Plan Problem List/Assessment pt continue to make progress towards goals. pt continues to presents with functional limitations affecting areas of ADL and functional transfers with deficits in: decrease problem solving, decrease initiate with tasks, decrease FMC, decrease activity tolerance. pt would benefit from continue OT Services to increase overall independence with ADLS. Discharge Recommendations Plan/Recommendations: Continue POC Treatment Plan/Plan of Care Treatment,Training & Education: Yes Patient would benefit from OT for education, treatment and training to promote independence in ADL's, mobility, safety and/or upper extremity function for ADL' s. Plan of Care: ADL Retraining, Functional Mobility, Group Exercise/Act as Ind, UE Funct Exercise/Act Treatment Duration: August 30, 2018 Frequency: At least 5 of 7 days/Wk (IRF) Estimated Hrs Per Day: 1.5 hours per day Agreement: Yes Rehab Potential: Good Time/GCodes Start Time: 08:00 Stop Time: 09:00 Total Time Billed (hr/min): 60 Billed Treatment Time ADL 60 minutes, 4 units SUSAN PRATT OT Aug 09, 2018 09:42
--- NOTE | 2018-08-09 10:18 | Cardiology Progress Note ---
Subjective Date Seen by Provider: Aug 09, 2018 Time Seen by Provider: 10:17 Subjective/Events-last exam Patient is laying down in bed, no new complaint. No chest pain. No shortness of breath Review of Systems General: No Chills, No Night Sweats, No Fatigue, No Malaise, No Appetite, No Other HEENT: No Head Aches, No Visual Changes, No Eye Pain, No Ear Pain, No Dysphasia , No Sinus Congestion, No Post Nasal Drip, No Sore Throat, No Other Pulmonary: No Dyspnea, No Cough, No Pleuritic Chest Pain, No Other Cardiovascular: No: Chest Pain, Palpitations, Orthopnea, Paroxysmal Noc. Dyspnea, Edema, Lt Headedness, Other Objective-Cardiology Exam Last Set of Vital Signs Vital Signs 08/09/18 08/09/18 05:18 07:00 Temp 98.4 Pulse 113 Resp 16 B/P (MAP) 153/84 (107) Pulse Ox 96 O2 Delivery Room Air Capillary Refill : Less Than 3 Seconds I&O Intake and Output 08/09/18 00:00 Intake Total 1020 ml Balance 1020 ml Intake Oral 1010 ml IV Total 10 ml # Voids 4 General: Alert, Cooperative, Mild Distress HEENT: Atraumatic, PERRLA Neck: Supple, No JVD, No Thyromegaly Lungs: Clear to Auscultation, Normal Air Movement Heart: Regular Rate, Normal S1, Normal S2, No Murmurs Abdomen: Normal Bowel Sounds, Soft, No Tenderness, No Hepatosplenomegaly, No Masses Extremities: No Clubbing, No Cyanosis, No Edema, Normal Pulses, No Tenderness/ Swelling Neuro: Other (right sided weakness) Psych/Mental Status: Mental Status NL, Mood NL A/P-Cardiology Admission Diagnosis Acute CVA Hyperlipidemia Carotid stenosis Assessment/Plan CVA - small acute/subacute nonhemorrhagic infarct in the periventricular white matter adjacent to the left lateral ventricle per MRI of 08-02-18 - with right sided upper and lower extremity weakness. Maintained on ASA. Generalized weakness, EKG did not show acute abnormal, blood pressure appeared to be stable. Continue to monitor. HLD- started on Lipitor 80mg, medication was discontinued secondary to history of intolerance in the past. Echo on 08/02/18: LVEF 60-65%, grade 1 diastolic dysfunction, PASP 20 mmHg, continue to monitor no changes are recommended Mild carotid arterial disease with no hemodynamically significant stenosis within either carotid bifurcation per u/s of 4-8-19 Clinical Quality Measures DVT/VTE Risk/Contraindication: Risk Factor Score Per Nursin RFS Level Per Nursing on Admit: 2=Moderate BRAN SANCHEZ MD Aug 09, 2018 10:18 am
--- NOTE | 2018-08-09 10:55 | Speech Therapy Daily Note ---
Speech Daily Progress Note Subjective Date Seen by Provider: Aug 09, 2018 Time Seen by Provider: 00:30 The patient was resting in bed when I entered her room. Objective The patient completed simple q/a with 75% accuracy given max verbal cues and/or repetitions. Assessment Assessment Current Status: Poor Progress The patient is difficult to engage with participation in therapy. Treatment Plan Continue Plan of Care Communication Comprehension: 5 Expression: 1 Social Cognition Social Interaction: 2 Problem Solvin Memory: 2 Speech Short Term Goals Short Term Goals Short Term Goals 1) The patient will complete confrontational naming tasks with 80% or greater given minimal cues. 2) The patient will follow simple 1-2 step directions related to her daily needs with 80% or greater given minimal cues. Speech Assistant Oceanographer Goals Skilled Nursing Goals The patient will be able to effectively communicate her wants/needs to staff and family. Speech-Plan Patient/Family Goals Patient/Family Goals: The patient plans to return home alone with family near by for support. Treatment Plan Speech Therapy Treatment Plan: Continue Plan of Care The patient is making minimal progress. Treatment Duration: Aug 13, 2018 Frequency: 5 times per week Estimated Hrs Per Day: .5 hour per day Rehab Potential: Good Barriers to Learning: Patient's behaviors, decreased verbal output seemingly by choice. Pt/Family Agrees to Plan: Yes Safety Risks/Education Teaching Recipient: Patient Teaching Methods: Discussion Response to Teaching: Verbalize Understanding Education Topics Provided: Communiation of her wants/needs Time Speech Therapy Time In: 09:00 Speech Therapy Time Out: 09:30 Total Billed Time: 30 Billed Treatment Time [address] Aug 09, 2018 10:55
--- NOTE | 2018-08-09 13:02 | Physical Therapy Daily Note ---
PT Daily Note-Current Subjective Pt. smiles and agrees to Rx. States she is feeling better than she did last Fri Pain Location: No Pain Reported Mental Status Patient Orientation: Person, Place, Mumbles Transfers Therapy Code Descriptions/Definitions Functional [place] Measure: 0=Not Assessed/NA 4=Minimal Assistance 1=Total Assistance 5=Supervision or Setup 2=Maximal Assistance 6=Modified [place] 3=Moderate Assistance 7=Complete [place] Therapy Quality Codes: 6 Independent with activity with or without an assistive device 5 Patient requires set up or clean up by helper. Patient completes activity by themselves 4 Supervision or touching assist (CGA). [place] provide cues , steadying assist 3 The helper provides less than half the effort to complete the activity 2 The helper provides more than half the effort to complete the activity 1 Dependent. The helper does all the effort to complete an activity 7 Patient refused to complete or attempt activity 9 The patient did not perform the activity before the current illness or injury 88 Not attempted due to Medical conditions or safety concerns Transfers (B, C, W/C) (FIM): 5 Scootin Rollin Supine to/from Sit: 6 Sit to/from Stand: 5 Bed to/from Chair: 5 Weight Bearing Right Lower Extremity: Right Full Weight Bearing Left Lower Extremity: Left Full Weight Bearing Gait Training Does the Patient Walk?: Yes Gait (FIM): 4 Distance (FIM): 3=150 ft (x2) Gait Level of Assist: 4 Gait Persons Needed: 1 Gait Assistive Device: FWW slow, improving step length , more equal Stair Training Stair Training: Handrails/: 2 handrails Stairs (FIM): 2 #of Steps: 4 Stairs: Pattern: Step to Level of Assist: 4 needs instruction for sequence and use of hands on rails Exercises Supine Ex: Bridging, Ankle pumps, Quad Set, Rolling, Glut sets, Heel Slides, Short Arc Quads, Scooting, Straight leg raise, Hip abd/add Supine Reps: 15 Seated Therapy Exercises: Ankle pumps, Sit to stand, Long arc quads, Hip flexion Seated Reps: 12 Standing: Hip Abduction, Hamstring curls, Heel/toe raises, Marching Standing Reps: 12 NuStep Minutes: 10 NuStep Workload: 2 Assessment Current Status: Good Progress PT Short Term Goals Short Term Goals Time Frame: Aug 09, 2018 Transfers (B,C,W/C) (FIM): 5 Gait (FIM): 4 Wheelchair Distance: 100' PT Malt House Operator Goals Halfway Goals PT Malt House Operator Goals Time Frame: Aug 20, 2018 Transfers (B,C,W/C) (FIM): 6 Sit to Lying (QC): 6 Lying-Sitting on Side/Bed(QC): 6 Sit to Stand (QC): 6 Rollin Roll Left to Right (QC): 6 Chair/Uam-wp-Guyly Xfer(QC): 6 Car Transfer (QC): 5 Does the Patient Walk: Yes Gait (FIM): 6 Gait distance (FIM): 3=150 ft Walk 10 feet (QC): 6 Walk 10ft-Uneven Surface(QC): 5 Walk 50ft with 2 Turns (QC): 6 Walk 150 ft (QC): 6 Gait Assistive Device: FWW Does the Pt use WC or Scooter?: No Stairs (FIM): 5 (household) # of Steps: 4 1 Step (curb) (QC): 6 4 Steps (QC): 6 12 Steps (QC): 10 Picking up an Object (QC): 4 PT Plan Treatment/Plan Treatment Plan: Continue Plan of Care Treatment Plan: Bed Mobility, Education, Functional Activity Joan, Functional Strength, Group Therapy, Gait, Safety, Therapeutic Exercise, Transfers Treatment Duration: Aug 20, 2018 Frequency: At least 5 of 7 days/Wk (IRF) Estimated Hrs Per Day: 1.5 hours per day Patient and/or Family Agrees t: Yes Safety Risks/Education Patient Education: Gait Training, Transfer Techniques, Steps, Correct Positioning, Disease Process, Safety Issues Teaching Recipient: Patient Teaching Methods: Demonstration, Discussion Response to Teaching: Verbalize Understanding, Return Demonstration, Reinforcement Needed Time/GCodes Time In: 1100 Time Out: 1200 Total Billed Treatment Time: 60 Total Billed Treatment 1,GT15m,EX25m,FA20m G Codes Necessary: BILL Daniel FRATERNITY HOUSE COOK Aug 09, 2018 13:02
--- NOTE | 2018-08-09 15:10 | Therapy Group Daily Note ---
Therapy Daily Group Note Patient Education Topic Other List Below (ARU expectations, U&L extremity exercises) Exercises LE Seated Exercise, UE Exercise Session Ratio (pt:therapist): 4:1 Goal of Session: Education on ARU Expectations Goal Met for this Session: Yes Pt Benefit of Group: Contributions to Others, Increased Functional Strength, Recognition of Peers, Socialization Other/Notes Pt ambulated to OT/PT group in [facility] area. Group consisted of introductions (name, place living, first job), socialization, ARU expectations/ description, UE/LE seated exercises and memory game. Pt able to introduce self appropriately then actively listened to peers. Pt acknowledged understanding of ARU by nodding head in affirmative. Pt able to complete UE/LE seated exercises without difficulty and was able to lead 2 exercises. Using light wt ball, pt completed B LE exercise. After therapy, pt lying in bed with call light/phone in reach. All needs met in room. Start Time: 13:00 Stop Time: 14:10 Total Billed Treatment Time: 70 Total Billed Treatment 1,GRP BILL TREVINO FACE AND FILL PACKER Aug 09, 2018 15:10
[2018-08-09 18:18] VITALS: BP 131/79
--- NOTE | 2018-08-09 19:22 | NUR ---
bedside report received from LORENA HARRIS, assume care of pt
--- NOTE | 2018-08-09 21:00 | NUR ---
assessments & interventions completed, see assessments & interventions, pt only ate 25% of dinner tray, NIH stroke scale score 4, repositioned on side
--- NOTE | 2018-08-10 06:10 | NUR ---
up to bathroom with 1 person stand by assist & walker, pt states want to go back to bed, when asked about getting up to the chair
[2018-08-10 06:15] VITALS: BP 107/63
--- NOTE | 2018-08-10 07:22 | NUR ---
bedside report given to ZAINAB HARRIS
--- NOTE | 2018-08-10 08:17 | Cardiology Progress Note ---
Subjective Date Seen by Provider: Aug 10, 2018 Time Seen by Provider: 08:16 Subjective/Events-last exam Patient is in bed, no new complaints. Denies any chest pain or dyspnea. Objective-Cardiology Exam Last Set of Vital Signs Vital Signs 08/10/18 08/10/18 06:15 09:00 Temp 99.0 Pulse 95 Resp 18 B/P (MAP) 107/63 (78) Pulse Ox 93 O2 Delivery Room Air Capillary Refill : Less Than 3 Seconds I&O Intake and Output 08/10/18 00:00 Intake Total 740 ml Balance 740 ml Intake Oral 740 ml # Voids 3 General: Alert, Cooperative, Mild Distress HEENT: Atraumatic, PERRLA Neck: Supple, No JVD, No Thyromegaly Lungs: Clear to Auscultation, Normal Air Movement Heart: Regular Rate, Normal S1, Normal S2, No Murmurs Abdomen: Normal Bowel Sounds, Soft, No Tenderness, No Hepatosplenomegaly, No Masses Extremities: No Clubbing, No Cyanosis, No Edema, Normal Pulses, No Tenderness/ Swelling Neuro: Other (right sided weakness) Psych/Mental Status: Mental Status NL, Mood NL A/P-Cardiology Admission Diagnosis Acute CVA Hyperlipidemia Carotid stenosis Assessment/Plan CVA - small acute/subacute nonhemorrhagic infarct in the periventricular white matter adjacent to the left lateral ventricle per MRI of 08-02-18 - with right sided upper and lower extremity weakness. Maintained on ASA. Generalized weakness, EKG did not show acute abnormal, blood pressure appeared to be stable. Continue to monitor. HLD- started on Lipitor 80mg, medication was discontinued secondary to history of intolerance in the past. Echo on 08/02/18: LVEF 60-65%, grade 1 diastolic dysfunction, PASP 20 mmHg, continue to monitor no changes are recommended Mild carotid arterial disease with no hemodynamically significant stenosis within either carotid bifurcation per u/s of 08-02-18 Clinical Quality Measures DVT/VTE Risk/Contraindication: Risk Factor Score Per Nursin RFS Level Per Nursing on Admit: 2=Moderate Supervisory-Addendum Brief Supervisory Addendum Participated in pt care: history, MDM, physical Personally performed: exam, history, MDM Care discussed with: JOSE Results interpretation: agree with documentation Notes: Patient was seen and evaluated, agree with the current assessment and plan. Continue to monitor blood pressure, continue with physical therapy JENNIFER DUNNE Aug 10, 2018 8:17 am BRAN SANCHEZ MD Aug 10, 2018 6:47 pm
--- NOTE | 2018-08-10 08:31 | NUR ---
SECONDARY TEACHER received notification from Dr. Okeefe of discoveries from consult. Patient scored a 4 on the SLUM's evaluation, with this score, Dr. Okeefe is concerned with patient returning home at discharge. She recommends patient be evaluated for [facility] placement, shelter care or residing with family. SECONDARY TEACHER will discuss options with patient's daughter following Team Conference tomorrow.
[2018-08-10] MEDS: LACTOBACILLUS ACIDOPHILUS (PROBIOTIC) CAPSULE PO SCH (08:36)
[2018-08-10] MEDS: ASPIRIN E.C. 81 MG (ECOTRIN) TAB PO SCH (08:37)
--- NOTE | 2018-08-10 08:46 | PM&R Progress Note ---
Subjective HPI/CC On Admission Date Seen by Provider: Aug 10, 2018 Time Seen by Provider: 08:45 CC: CVA HPI: This is an 87yoWF clinic patient of Evelyn Nolasco at [facility] who presented to the ER with right sided weakness and inability to walk. Last known well time was 2 days ago. Patient was worked up in ER for CVA and CT negative and labs negative but could not walk so IRF assessed her with my evaluation in the ER to meet criteria for direct admit to IRF. PLOF was independent living alone at home and currently she is dependent with inability to walk due to right sided weakness. Barriers to returning home will be regaining ability to ambulate and return of verbal communication and safety management to reside alone. Patient was placed on Tely, ECHO ordered along with ASA and Lipitor initiation for CVA protocol completion. Subjective/Events-last exam Pt seems to be getting around better. Severe dementia precludes any significant recovery prior to stroke. May need assisted living. Took a shower this morning. Still having a decreased appetite. She likes strawberry shakes so will order more of those for calories. Bowels are moving. Continues to be a fall risk. Review of Systems Neurological: Weakness, Numbness, Incoordination, Confusion Objective Exam Vital Signs Vital Signs Date Time Temp Pulse Resp B/P (MAP) Pulse Ox O2 Delivery O2 Flow Rate FiO2 08/10/18 19:54 Room Air 08/10/18 18:00 98.1 95 18 135/79 (97) 96 Capillary Refill : Less Than 3 Seconds General Appearance: No Apparent Distress, WD/WN, Chronically ill, Other (flat affect) HEENT: PERRL/EOMI, Normal ENT Inspection, Pharynx Normal Neck: Full Range of Motion, Normal Inspection, Non Tender, Supple Respiratory: Chest Non Tender, Lungs Clear, Normal Breath Sounds, No Accessory Muscle Use, No Respiratory Distress Cardiovascular: Regular Rate, Rhythm, No Edema, No Gallop, No JVD, No Murmur, Normal Peripheral Pulses Gastrointestinal: Normal Bowel Sounds, No Organomegaly, No Pulsatile Mass, Non Tender, Soft Back: Normal Inspection, No CVA Tenderness, No Vertebral Tenderness Extremity: Normal Capillary Refill, Normal Inspection, Normal Range of Motion ( except right sided), Non Tender, No Calf Tenderness Neurologic/Psychiatric: Alert, Oriented x3, mmi teacher II-XII Norm as Tested, Depressed Affect, Motor Weakness (right arm and leg weakness 3/5), Other ( speech garbled) Skin: Normal Color, Warm/Dry Lymphatic: No Adenopathy Results/Procedures Lab Patient resulted labs reviewed. FIM Transfers Therapy Code Descriptions/Definitions Functional [place] Measure: 0=Not Assessed/NA 4=Minimal Assistance 1=Total Assistance 5=Supervision or Setup 2=Maximal Assistance 6=Modified [place] 3=Moderate Assistance 7=Complete [place] Therapy Quality Codes: 6 Independent with activity with or without an assistive device 5 Patient requires set up or clean up by helper. Patient completes activity by themselves 4 Supervision or touching assist (CGA). [place] provide cues , steadying assist 3 The helper provides less than half the effort to complete the activity 2 The helper provides more than half the effort to complete the activity 1 Dependent. The helper does all the effort to complete an activity 7 Patient refused to complete or attempt activity 9 The patient did not perform the activity before the current illness or injury 88 Not attempted due to Medical conditions or safety concerns Gait Training Does the Patient Walk?: Yes Distance (FIM): 0=056-57 ft Gait Assistive Device: FWW Wheelchair Training Does the Pt Use a Wheelchair?: No Mental Status/Objective Comprehension: 5 Expression: 1 Social Interaction: 2 Problem Solvin Memory: 2 ADL-Treatment Feedin Eating (QC): 6 Groomin (intermitted CGA for safety/ balance while standing at sink. pt requried VC for attention to task/ engagement ) Oral Hygiene (QC): 4 Bathin (intermitted CGA for safety/ balance while standing in shower. noted 1 LOB correct by therapist pt requried VC for attention to task/ engagement. pt requried VC to initiate each step. ) Bathing Location: L Arm, R Arm, L Upper Leg, R Upper Leg, L Lower Leg ( including foot), R Lower Leg (including foot), Chest, Abdomen, Buttocks, Perineal Area Shower/Bathe Self (QC): 4 Upper Extremity Dressin (setup proved and additional timing to initiate task. pt would required VC for attention to task/ engagement ) Upper Body Dressing (QC): 4 (additional timing to complete task. pt requried VC to initiate task. pt requried encourgement to complete task independently without assist from therapist. ) Lower Extremity Dressin (additional timing to complete task. pt requried VC to initiate task. pt requried encourgement to complete task independently without assist from therapist. ) Lower Body Dressing (QC): 4 On/Off Footwear (QC): 4 Toiletin (CGA fro safety/ balance while stanidng to pull pants up/ down) Toileting Hygiene (QC): 4 Toilet/Commode Transfer: 4 (CGA for safety/ balance using RW) Toilet Transfer (QC): 4 Shower: 4 (CGA fro safety/ balance pt required VC fpr placement of RW when performing transfers) Assessment/Plan Assessment and Plan Assess & Plan/Chief Complaint (1) CVA (cerebral vascular accident) (2) Right sided weakness (3) Hyperlipidemia (4) Former smoker (5) Garbled speech (6) Unable to ambulate (7) Emesis (8) Profound dementia at baseline now worsened with CVA Plan: IRF to focus on ambulation but that is a challenge Fall risk prevention Statin and ASA were started but DC statin due to daughter reports she had side effects with that in the past DC Tely Cardiology is appreciated Psych evaluation for memory assessment revealed severe dementia SLUMS 4-5 so will need NHP or live with daughter Needs AL (1) CVA (cerebral vascular accident) Assessment & Plan: Confirmed on MRI: There is a small acute/subacute nonhemorrhagic infarct in the periventricular white matter adjacent to the left lateral ventricle. Statin, ASA, Cardiology consultation, ECHO, EKG, Tely (2) Unable to ambulate Assessment & Plan: IRF protocols with assistive devices (3) Garbled speech (4) Right sided weakness Assessment & Plan: IRF protocols (5) Hyperlipidemia Assessment & Plan: High dose statin (6) Dementia (7) Nausea (8) Poor appetite LUIS F LAIRD DO Aug 10, 2018 08:46
--- NOTE | 2018-08-10 11:04 | Speech Therapy Daily Note ---
Speech Daily Progress Note Subjective Date Seen by Provider: Aug 10, 2018 Time Seen by Provider: 00:30 The patient was sitting up in her recliner resting. She was more expressive today with decreased cuing. Objective The patient completed problem solving q/a with 80% accuracy given decreased cuing today. Assessment Assessment Current Status: Good Progress Treatment Plan Continue Plan of Care Communication Comprehension: 5 Expression: 1 Social Cognition Social Interaction: 2 Problem Solvin Memory: 2 Speech Short Term Goals Short Term Goals Short Term Goals 1) The patient will complete confrontational naming tasks with 80% or greater given minimal cues. 2) The patient will follow simple 1-2 step directions related to her daily needs with 80% or greater given minimal cues. Speech Fitter Tacker Goals Senior Care Goals The patient will be able to effectively communicate her wants/needs to staff and family. Speech-Plan Patient/Family Goals Patient/Family Goals: The patient plans to return home to her apartment where she lives alone. This may not be an ideal situation which will be discussed at the Rehab. Conference Mtg. on Thursday. Treatment Plan Speech Therapy Treatment Plan: Continue Plan of Care The patient is progressing, however she continues to have days of none to minimal expressive language. 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
--- NOTE | 2018-08-10 11:37 | Occupational Ther Daily Note ---
OT Current Status-Daily Note Subjective Pt in bed, agrees to treatment. Mental Status/Objective Therapy Code Descriptions/Definitions Functional [place] Measure: 0=Not Assessed/NA 4=Minimal Assistance 1=Total Assistance 5=Supervision or Setup 2=Maximal Assistance 6=Modified [place] 3=Moderate Assistance 7=Complete [place] ADL-Treatment Pt would like to shower this morning. Supine to sit with supervision. Sit to stand with SBA. Gait to restroom with FWW, slow pace. Transfer to walk in shower with verbal cues for safety. Uses grab bars for balance. Pt doffed clothing with SBA. Seated bathing completed using hand held shower. Upper body bathing completed with SBA. Pt able to wash lower body with CGA for balance. Pt requires cues for task completion. Don pullover shirt with set up. Pt able to thread bilateral LE into Depends and pants. Stood with SBA for balance during pant hike. Pt donned bilateral socks with SBA. Combed hair with set up. Pt moves slowly and requires increased time for ADLs. Occasional rest breaks taken. Therapy Code Descriptions/Definitions Functional [place] Measure: 0=Not Assessed/NA 4=Minimal Assistance 1=Total Assistance 5=Supervision or Setup 2=Maximal Assistance 6=Modified [place] 3=Moderate Assistance 7=Complete [place] Therapy Quality Codes: 6 Independent with activity with or without an assistive device 5 Patient requires set up or clean up by helper. Patient completes activity by themselves 4 Supervision or touching assist (CGA). [place] provide cues , steadying assist 3 The helper provides less than half the effort to complete the activity 2 The helper provides more than half the effort to complete the activity 1 Dependent. The helper does all the effort to complete an activity 7 Patient refused to complete or attempt activity 9 The patient did not perform the activity before the current illness or injury 88 Not attempted due to Medical conditions or safety concerns Grooming (FIM): 5 Bathing (FIM): 4 (CGA) Shower/Bathe Self (QC): 4 Upper Body (FIM): 5 Upper Body Dressing (QC): 5 Lower Body Dressing (FIM): 5 Lower Body Dressing (QC): 4 On/Off Footwear (QC): 4 Other Treatment Gait to therapy gym with FWW, slow pace. Seated rest break upon arrival to gym. Pt completed standing veras bag toss activity to increase dynamic standing balance and UE activity tolerance. Pt able to complete activity with SBA for balance using FWW. Pt used bilateral UE to toss veras bags. Occasional seated rest breaks taken. Pt completed fine motor activity with grooved pegboard to increase coordination/manipulation skills. Pt has some difficulty with manipulation and requires increased time to complete task. Pt returned to room, transferred to chair with SBA. Sitting in chair with needs met after session. OT Short Term Goals Short Term Goals Transfers (B,C,W/C) (FIM): 5 1=Demonstrate adherence to instructed precautions during ADL tasks. 2=Patient will verbalize/demonstrate understanding of assistive devices/ modifications for ADL. 3=Patient will improve strength/tolerance for activity to enable patient to perform ADL's. OT Band Straightener Goals Band Straightener Goals Time Frame: August 30, 2018 Eating (FIM): 7 Eating (QC): 6 Groomin Oral Hygiene (QC): 6 Bathing(FIM): 5 Shower/Bathe Self (QC): 5 Upper Body Dressing(FIM): 5 Upper Body Dressing (QC): 5 Lower Body Dressing(FIM): 5 Lower Body Dressing (QC): 5 On/Off Footwear (QC): 5 Toileting(FIM): 6 Toileting Hygiene (QC): 6 Transfers (B,C,W/C) (FIM): 6 Toilet/Commode Transfer(FIM): 6 Toilet/Commode Transfer (QC): 6 Shower Transfer(FIM): 5 Additional Goals: 1-Demonstrate ADL Tasks, 2-Verbalize Understanding, 3- ImproveStrength/Joan 1=Demonstrate adherence to instructed precautions during ADL tasks. 2=Patient will verbalize/demonstrate understanding of assistive devices/ modifications for ADL. 3=Patient will improve strength/tolerance for activity to enable patient to perform ADL's. OT Education/Plan Discharge Recommendations Plan/Recommendations: Continue POC Treatment Plan/Plan of Care Patient would benefit from OT for education, treatment and training to promote independence in ADL's, mobility, safety and/or upper extremity function for ADL' s. Plan of Care: ADL Retraining, Functional Mobility, Group Exercise/Act as Ind, UE Funct Exercise/Act Treatment Duration: August 30, 2018 Frequency: At least 5 of 7 days/Wk (IRF) Estimated Hrs Per Day: 1.5 hours per day Agreement: Yes Rehab Potential: Good Time/GCodes Start Time: 08:00 Stop Time: 09:15 Total Time Billed (hr/min): 75 Billed Treatment Time 1 visit, ADLx3(45minutes), FAx2(30minutes) [place] SKY OT Aug 10, 2018 11:37
--- NOTE | 2018-08-10 11:52 | Physical Therapy Daily Note ---
PT Daily Note-Current Subjective Pt. was laying in bed upon arrival. Pt. agreed to therapy treatment. Pt. had no complaints of pain. Pt. said she felt more tired today than usual. Transfers Therapy Code Descriptions/Definitions Functional [place] Measure: 0=Not Assessed/NA 4=Minimal Assistance 1=Total Assistance 5=Supervision or Setup 2=Maximal Assistance 6=Modified [place] 3=Moderate Assistance 7=Complete [place] Therapy Quality Codes: 6 Independent with activity with or without an assistive device 5 Patient requires set up or clean up by helper. Patient completes activity by themselves 4 Supervision or touching assist (CGA). [place] provide cues , steadying assist 3 The helper provides less than half the effort to complete the activity 2 The helper provides more than half the effort to complete the activity 1 Dependent. The helper does all the effort to complete an activity 7 Patient refused to complete or attempt activity 9 The patient did not perform the activity before the current illness or injury 88 Not attempted due to Medical conditions or safety concerns Transfers (B, C, W/C) (FIM): 5 Scootin Supine to/from Sit: 5 Sit to/from Stand: 5 Sit to Lying (QC): 5 Sit to Stand (QC): 5 Car Transfer (QC): 5 Weight Bearing Right Lower Extremity: Right Full Weight Bearing Left Lower Extremity: Left Full Weight Bearing Gait Training Does the Patient Walk?: Yes Distance (FIM): 3=150 ft Distance: 150' Gait Assistive Device: FWW Pt. needs VC for sequencing and how to return back to her room. Wheelchair Training Does the Pt Use a Wheelchair?: No Exercises Standing: Hip Abduction, Heel/toe raises, 3 way Ex=Flex, Abd, Ext, Marching, Weight shifts Standing Reps: 10 NuStep Minutes: 10 NuStep Workload: 3 Treatments Pt. transferred from bed and ambulated to therapy room. Pt. rode Nu step x 10 min on workload 3. Pt. then completed standing exercises at parallel bars requiring 1 RB. Pt. then ambulated to car simulator. Pt. transferred in and out of the car simulator and then ambulated back to her room. Pt. was left in bed with call light and all needs met. Assessment Current Status: Good Progress Pt. tolerated treatment well. Pt. was more fatigued today than usual. Pt. also needed VC on direction during ambulation. Pt. will continue to benefit from therapy services. PT Short Term Goals Short Term Goals Time Frame: Aug 09, 2018 Transfers (B,C,W/C) (FIM): 5 Gait (FIM): 4 Wheelchair Distance: 100' PT Assisted Goals Pad Tufter Goals PT Assisted Goals Time Frame: Aug 20, 2018 Transfers (B,C,W/C) (FIM): 6 Sit to Lying (QC): 6 Lying-Sitting on Side/Bed(QC): 6 Sit to Stand (QC): 6 Rollin Roll Left to Right (QC): 6 Chair/Gqs-fj-Twcod Xfer(QC): 6 Car Transfer (QC): 5 Does the Patient Walk: Yes Gait (FIM): 6 Gait distance (FIM): 3=150 ft Walk 10 feet (QC): 6 Walk 10ft-Uneven Surface(QC): 5 Walk 50ft with 2 Turns (QC): 6 Walk 150 ft (QC): 6 Gait Assistive Device: FWW Does the Pt use WC or Scooter?: No Stairs (FIM): 5 (household) # of Steps: 4 1 Step (curb) (QC): 6 4 Steps (QC): 6 12 Steps (QC): 10 Picking up an Object (QC): 4 PT Plan Treatment/Plan Treatment Plan: Continue Plan of Care Treatment Plan: Bed Mobility, Education, Functional Activity Joan, Functional Strength, Group Therapy, Gait, Safety, Therapeutic Exercise, Transfers Treatment Duration: Aug 20, 2018 Frequency: At least 5 of 7 days/Wk (IRF) Estimated Hrs Per Day: 1.5 hours per day Patient and/or Family Agrees t: Yes Safety Risks/Education Patient Education: Gait Training, Transfer Techniques, Correct Positioning, Safety Issues Teaching Recipient: Patient Teaching Methods: Discussion Response to Teaching: Return Demonstration Time/GCodes Time In: 1100 Time Out: 1145 Total Billed Treatment Time: 45 Total Billed Treatment 1, GT, EX, FA G Codes Necessary: CARLO Barfield BILINGUAL INTERPRETER Aug 10, 2018 11:52
--- NOTE | 2018-08-10 15:30 | Physical Therapy Daily Note ---
PT Daily Note-Current Subjective Pt. was in bed upon arrival. Pt. agreed to complete supine exercises due to fatigue. Pt. complained of being too tired but no complaints of pain. Transfers Therapy Code Descriptions/Definitions Functional [place] Measure: 0=Not Assessed/NA 4=Minimal Assistance 1=Total Assistance 5=Supervision or Setup 2=Maximal Assistance 6=Modified [place] 3=Moderate Assistance 7=Complete [place] Therapy Quality Codes: 6 Independent with activity with or without an assistive device 5 Patient requires set up or clean up by helper. Patient completes activity by themselves 4 Supervision or touching assist (CGA). [place] provide cues , steadying assist 3 The helper provides less than half the effort to complete the activity 2 The helper provides more than half the effort to complete the activity 1 Dependent. The helper does all the effort to complete an activity 7 Patient refused to complete or attempt activity 9 The patient did not perform the activity before the current illness or injury 88 Not attempted due to Medical conditions or safety concerns Weight Bearing Right Lower Extremity: Right Full Weight Bearing Left Lower Extremity: Left Full Weight Bearing Exercises Supine Ex: Bridging, Ankle pumps, Pelvic tilt, Quad Set, Glut sets, Heel Slides , Straight leg raise, Hip abd/add Supine Reps: 10 Treatments Pt. completed supine exercises in bed. Pt. was left in bed with her call light beside and all needs met. Assessment Current Status: Good Progress Pt. tolerated treatment well. Pt. seemed to be more fatigued today. Pt. will continue to benefit from therapy services. PT Short Term Goals Short Term Goals Time Frame: Aug 09, 2018 Transfers (B,C,W/C) (FIM): 5 Gait (FIM): 4 Wheelchair Distance: 100' PT Ranch Supervisor Goals Ranch Supervisor Goals PT Custodial Goals Time Frame: Aug 20, 2018 Transfers (B,C,W/C) (FIM): 6 Sit to Lying (QC): 6 Lying-Sitting on Side/Bed(QC): 6 Sit to Stand (QC): 6 Rollin Roll Left to Right (QC): 6 Chair/Ymq-sy-Ltcqv Xfer(QC): 6 Car Transfer (QC): 5 Does the Patient Walk: Yes Gait (FIM): 6 Gait distance (FIM): 3=150 ft Walk 10 feet (QC): 6 Walk 10ft-Uneven Surface(QC): 5 Walk 50ft with 2 Turns (QC): 6 Walk 150 ft (QC): 6 Gait Assistive Device: FWW Does the Pt use WC or Scooter?: No Stairs (FIM): 5 (household) # of Steps: 4 1 Step (curb) (QC): 6 4 Steps (QC): 6 12 Steps (QC): 10 Picking up an Object (QC): 4 PT Plan Treatment/Plan Treatment Plan: Continue Plan of Care Treatment Plan: Bed Mobility, Education, Functional Activity Joan, Functional Strength, Group Therapy, Gait, Safety, Therapeutic Exercise, Transfers Treatment Duration: Aug 20, 2018 Frequency: At least 5 of 7 days/Wk (IRF) Estimated Hrs Per Day: 1.5 hours per day Patient and/or Family Agrees t: Yes Safety Risks/Education Patient Education: Correct Positioning, Safety Issues Teaching Recipient: Patient Time/GCodes Time In: 1430 Time Out: 1500 Total Billed Treatment Time: 30 Total Billed Treatment 1, EX x 2 G Codes Necessary: CARLO Barfield PUTTY PATCHER Aug 10, 2018 15:30
--- NOTE | 2018-08-10 17:10 | NUR ---
Care assumed from Reyna Arboleda RN. Agree with previous assessments.
[2018-08-10 18:00] VITALS: BP 135/79
[2018-08-11 05:16] VITALS: BP 128/56
--- NOTE | 2018-08-11 08:00 | NUR ---
When asked pt what day is it today ? Pt states June,. Pt states her name & B/D correctly, but when asked her how old she is, pt states, "77." When age is 87.
--- NOTE | 2018-08-11 08:06 | Cardiology Progress Note ---
Subjective Date Seen by Provider: Aug 11, 2018 Time Seen by Provider: 08:06 Subjective/Events-last exam Patient is sitting up in chair eating breakfast. Complains of fatigue. Denies any chest pain or dyspnea. Objective-Cardiology Exam Last Set of Vital Signs Vital Signs 08/11/18 08/11/18 05:16 08:03 Temp 98.2 Pulse 79 Resp 20 B/P (MAP) 128/56 (80) Pulse Ox 98 O2 Delivery Room Air Capillary Refill : Less Than 3 Seconds I&O Intake and Output 08/11/18 00:00 Intake Total 500 ml Balance 500 ml Intake Oral 500 ml # Voids 4 General: Alert, Cooperative, Mild Distress HEENT: Atraumatic, PERRLA Neck: Supple, No JVD, No Thyromegaly Lungs: Clear to Auscultation, Normal Air Movement Heart: Regular Rate, Normal S1, Normal S2, No Murmurs Abdomen: Normal Bowel Sounds, Soft, No Tenderness, No Hepatosplenomegaly, No Masses Extremities: No Clubbing, No Cyanosis, No Edema, Normal Pulses, No Tenderness/ Swelling Neuro: Other (right sided weakness) Psych/Mental Status: Mental Status NL, Mood NL A/P-Cardiology Admission Diagnosis Acute CVA Hyperlipidemia Carotid stenosis Assessment/Plan CVA - small acute/subacute nonhemorrhagic infarct in the periventricular white matter adjacent to the left lateral ventricle per MRI of 08-02-18 - with right sided upper and lower extremity weakness. Maintained on ASA. Generalized weakness, EKG did not show acute abnormal, blood pressure appeared to be stable. Continue to monitor. HLD- started on Lipitor 80mg, medication was discontinued secondary to history of intolerance in the past. Echo on 08/02/18: LVEF 60-65%, grade 1 diastolic dysfunction, PASP 20 mmHg, continue to monitor no changes are recommended Mild carotid arterial disease with no hemodynamically significant stenosis within either carotid bifurcation per u/s of 08-02-18 Clinical Quality Measures DVT/VTE Risk/Contraindication: Risk Factor Score Per Nursin RFS Level Per Nursing on Admit: 2=Moderate JENNIFER DUNNE Aug 11, 2018 08:06
[2018-08-11] MEDS: ASPIRIN E.C. 81 MG (ECOTRIN) TAB PO SCH (08:31)
[2018-08-11] MEDS: LACTOBACILLUS ACIDOPHILUS (PROBIOTIC) CAPSULE PO SCH (08:31)
[2018-08-11 08:35] VITALS: BP 132/78
--- NOTE | 2018-08-11 08:54 | PM&R Progress Note ---
Subjective HPI/CC On Admission Date Seen by Provider: Aug 11, 2018 Time Seen by Provider: 08:30 CC: CVA HPI: This is an 87yoWF clinic patient of Evelyn Nolasco at [facility] who presented to the ER with right sided weakness and inability to walk. Last known well time was 2 days ago. Patient was worked up in ER for CVA and CT negative and labs negative but could not walk so IRF assessed her with my evaluation in the ER to meet criteria for direct admit to IRF. PLOF was independent living alone at home and currently she is dependent with inability to walk due to right sided weakness. Barriers to returning home will be regaining ability to ambulate and return of verbal communication and safety management to reside alone. Patient was placed on Tely, ECHO ordered along with ASA and Lipitor initiation for CVA protocol completion. Subjective/Events-last exam Poor appetite persists. Pringles at the bedside. Oriented times 1 to 2. Will look to see if she will be able to reside with her daughter or will need to look for assisted living or 24/7 nursing care. Doing much better with ambulation. Checked meds and labs. Participating in all therapies. Review of Systems General: Fatigue Neurological: Confusion Objective Exam Vital Signs Vital Signs Date Time Temp Pulse Resp B/P (MAP) Pulse Ox O2 Delivery O2 Flow Rate FiO2 08/11/18 18:00 97.6 90 20 157/79 (105) 94 Room Air Capillary Refill : Less Than 3 Seconds General Appearance: No Apparent Distress, WD/WN, Chronically ill, Other (flat affect) HEENT: PERRL/EOMI, Normal ENT Inspection, Pharynx Normal Neck: Full Range of Motion, Normal Inspection, Non Tender, Supple Respiratory: Chest Non Tender, Lungs Clear, Normal Breath Sounds, No Accessory Muscle Use, No Respiratory Distress Cardiovascular: Regular Rate, Rhythm, No Edema, No Gallop, No JVD, No Murmur, Normal Peripheral Pulses Gastrointestinal: Normal Bowel Sounds, No Organomegaly, No Pulsatile Mass, Non Tender, Soft Back: Normal Inspection, No CVA Tenderness, No Vertebral Tenderness Extremity: Normal Capillary Refill, Normal Inspection, Normal Range of Motion ( except right sided), Non Tender, No Calf Tenderness Neurologic/Psychiatric: Alert, Oriented x3, automatic data processing planner II-XII Norm as Tested, Depressed Affect, Motor Weakness (right arm and leg weakness 3/5), Other ( speech garbled) Skin: Normal Color, Warm/Dry Lymphatic: No Adenopathy Results/Procedures Lab Patient resulted labs reviewed. FIM Transfers Therapy Code Descriptions/Definitions Functional [place] Measure: 0=Not Assessed/NA 4=Minimal Assistance 1=Total Assistance 5=Supervision or Setup 2=Maximal Assistance 6=Modified [place] 3=Moderate Assistance 7=Complete [place] Therapy Quality Codes: 6 Independent with activity with or without an assistive device 5 Patient requires set up or clean up by helper. Patient completes activity by themselves 4 Supervision or touching assist (CGA). [place] provide cues , steadying assist 3 The helper provides less than half the effort to complete the activity 2 The helper provides more than half the effort to complete the activity 1 Dependent. The helper does all the effort to complete an activity 7 Patient refused to complete or attempt activity 9 The patient did not perform the activity before the current illness or injury 88 Not attempted due to Medical conditions or safety concerns Gait Training Does the Patient Walk?: Yes Distance (FIM): 5=875-26 ft Mental Status/Objective Comprehension: 5 Expression: 1 Social Interaction: 2 Problem Solvin Memory: 2 ADL-Treatment Feedin Eating (QC): 6 Groomin Oral Hygiene (QC): 4 Bathin (CGA) Bathing Location: L Arm, R Arm, L Upper Leg, R Upper Leg, L Lower Leg ( including foot), R Lower Leg (including foot), Chest, Abdomen, Buttocks, Perineal Area Shower/Bathe Self (QC): 4 Upper Extremity Dressin Upper Body Dressing (QC): 5 Lower Extremity Dressin Lower Body Dressing (QC): 4 On/Off Footwear (QC): 4 Toiletin (CGA fro safety/ balance while stanidng to pull pants up/ down) Toileting Hygiene (QC): 4 Toilet/Commode Transfer: 4 (CGA for safety/ balance using RW) Toilet Transfer (QC): 4 Shower: 4 (CGA fro safety/ balance pt required VC fpr placement of RW when performing transfers) Assessment/Plan Assessment and Plan Assess & Plan/Chief Complaint (1) CVA (cerebral vascular accident) (2) Right sided weakness (3) Hyperlipidemia (4) Former smoker (5) Garbled speech (6) Unable to ambulate (7) Emesis (8) Profound dementia at baseline now worsened with CVA Plan: IRF to focus on ambulation but that is a challenge Fall risk prevention Statin and ASA were started but DC statin due to daughter reports she had side effects with that in the past DC Tely Cardiology is appreciated Psych evaluation for memory assessment revealed severe dementia SLUMS 4-5 so will need NHP or live with daughter Needs AL (1) CVA (cerebral vascular accident) Assessment & Plan: Confirmed on MRI: There is a small acute/subacute nonhemorrhagic infarct in the periventricular white matter adjacent to the left lateral ventricle. Statin, ASA, Cardiology consultation, ECHO, EKG, Tely (2) Unable to ambulate Assessment & Plan: IRF protocols with assistive devices (3) Garbled speech (4) Right sided weakness Assessment & Plan: IRF protocols (5) Hyperlipidemia Assessment & Plan: High dose statin (6) Dementia (7) Nausea (8) Poor appetite LUIS F LAIRD DO Aug 11, 2018 08:54
--- NOTE | 2018-08-11 09:04 | Occupational Ther Daily Note ---
OT Current Status-Daily Note Subjective Pt sitting in chair, reports being tired today, but has no c/o pain. Mental Status/Objective Therapy Code Descriptions/Definitions Functional [place] Measure: 0=Not Assessed/NA 4=Minimal Assistance 1=Total Assistance 5=Supervision or Setup 2=Maximal Assistance 6=Modified [place] 3=Moderate Assistance 7=Complete [place] ADL-Treatment Pt agreeable to shower this morning. Sit to stand from chair with SBA. Gait to restroom with FWW, no LOB noted. Transfer to shower with SBA using grab bar for safety. Pt doffed clothing with SBA, but requires cues for task completion. Seated bathing completed using hand held shower. Pt able to wash all areas with SBA, occasional cues for sequencing. Don pullover shirt with set up. Pt able to thread bilateral LE into Depends and pants. Stood with supervision for balance during pant hike. Dons bilateral socks with set up. Pt combed hair with SBA. Rest break required after ADL completion. Increased time required for ADLs. Therapy Code Descriptions/Definitions Functional [place] Measure: 0=Not Assessed/NA 4=Minimal Assistance 1=Total Assistance 5=Supervision or Setup 2=Maximal Assistance 6=Modified [place] 3=Moderate Assistance 7=Complete [place] Therapy Quality Codes: 6 Independent with activity with or without an assistive device 5 Patient requires set up or clean up by helper. Patient completes activity by themselves 4 Supervision or touching assist (CGA). [place] provide cues , steadying assist 3 The helper provides less than half the effort to complete the activity 2 The helper provides more than half the effort to complete the activity 1 Dependent. The helper does all the effort to complete an activity 7 Patient refused to complete or attempt activity 9 The patient did not perform the activity before the current illness or injury 88 Not attempted due to Medical conditions or safety concerns Grooming (FIM): 5 Bathing (FIM): 5 Shower/Bathe Self (QC): 4 Upper Body (FIM): 5 Upper Body Dressing (QC): 5 Lower Body Dressing (FIM): 5 Lower Body Dressing (QC): 4 On/Off Footwear (QC): 5 Shower Transfer(FIM): 5 Other Treatment Gait to therapy gym with FWW, slow pace. Occasional cues for walker use and safety. Pt completed fine motor task with bilateral UE with 1# weights in place to promote increased strength and coordination skills. Pt moves very slowly and requires increased time for task. Arm bike x8 minutes to increase overall strength and activity tolerance needed for functional task completion. Pt completed activity with minimal resistance and slow pace. Putty activity completed with bilateral hands to increase strength for ADL tasks. Pt able to remove small beads from putty with increased time. Pt returned to room, transferred to bed with SBA. Resting in bed with needs met after session. OT Short Term Goals Short Term Goals Transfers (B,C,W/C) (FIM): 5 1=Demonstrate adherence to instructed precautions during ADL tasks. 2=Patient will verbalize/demonstrate understanding of assistive devices/ modifications for ADL. 3=Patient will improve strength/tolerance for activity to enable patient to perform ADL's. OT Residential Goals Senior Controller Goals Time Frame: August 30, 2018 Eating (FIM): 7 Eating (QC): 6 Groomin Oral Hygiene (QC): 6 Bathing(FIM): 5 Shower/Bathe Self (QC): 5 Upper Body Dressing(FIM): 5 Upper Body Dressing (QC): 5 Lower Body Dressing(FIM): 5 Lower Body Dressing (QC): 5 On/Off Footwear (QC): 5 Toileting(FIM): 6 Toileting Hygiene (QC): 6 Transfers (B,C,W/C) (FIM): 6 Toilet/Commode Transfer(FIM): 6 Toilet/Commode Transfer (QC): 6 Shower Transfer(FIM): 5 Additional Goals: 1-Demonstrate ADL Tasks, 2-Verbalize Understanding, 3- ImproveStrength/Joan 1=Demonstrate adherence to instructed precautions during ADL tasks. 2=Patient will verbalize/demonstrate understanding of assistive devices/ modifications for ADL. 3=Patient will improve strength/tolerance for activity to enable patient to perform ADL's. OT Education/Plan Discharge Recommendations Plan/Recommendations: Continue POC Treatment Plan/Plan of Care Patient would benefit from OT for education, treatment and training to promote independence in ADL's, mobility, safety and/or upper extremity function for ADL' s. Plan of Care: ADL Retraining, Functional Mobility, Group Exercise/Act as Ind, UE Funct Exercise/Act Treatment Duration: August 30, 2018 Frequency: At least 5 of 7 days/Wk (IRF) Estimated Hrs Per Day: 1.5 hours per day Agreement: Yes Rehab Potential: Good Time/GCodes Start Time: 08:00 Stop Time: 09:15 Total Time Billed (hr/min): 75 Billed Treatment Time 1 visit, ADLx3(45minutes), EXx2(30minutes) [place] SKY OT Aug 11, 2018 09:04
--- NOTE | 2018-08-11 10:17 | Speech Therapy Daily Note ---
Speech Daily Progress Note Subjective Date Seen by Provider: Aug 11, 2018 Time Seen by Provider: 00:30 The patient was resting in her bed when I entered her room. She required frequent prompts to engage in therapy. Objective The patient completed a series of sentence completion exercises with 80% accuracy given mod to max cues. Assessment Assessment Current Status: Fair Progress Treatment Plan Continue Plan of Care Communication Comprehension: 5 Expression: 1 Social Cognition Social Interaction: 2 Problem Solvin Memory: 2 Speech Short Term Goals Short Term Goals Short Term Goals 1) The patient will complete confrontational naming tasks with 80% or greater given minimal cues. 2) The patient will follow simple 1-2 step directions related to her daily needs with 80% or greater given minimal cues. Speech Envelope Folder Goals Envelope Folder Goals The patient will be able to effectively communicate her wants/needs to staff and family. Speech-Plan Patient/Family Goals Patient/Family Goals: The patient plans to return home with family support post rehab. Treatment Plan Speech Therapy Treatment Plan: Continue Plan of Care Patient is making mild progress. Treatment Duration: Aug 13, 2018 Frequency: 5 times per week Estimated Hrs Per Day: .5 hour per day Rehab Potential: Good Barriers to Learning: New CVA, patient is not verbal much. Pt/Family Agrees to Plan: Yes Safety Risks/Education Teaching Recipient: Patient Teaching Methods: Discussion Response to Teaching: Verbalize Understanding Education Topics Provided: Safety and communication of her wants/needs. Time Speech Therapy Time In: 09:30 Speech Therapy Time Out: 10:00 Total Billed Time: 30 Billed Treatment Time [address] Aug 11, 2018 10:17
--- NOTE | 2018-08-11 12:13 | Physical Therapy Daily Note ---
PT Daily Note-Current Subjective Pt laying Supine in bed upon arrival. Pt is reluctant to get out of bed. Pt does not want to participate in tx. With encouragement from SOUTH ASIAN HISTORY PROFESSOR, pt agrees to PT. Pain Location: No Pain Reported Mental Status Patient Orientation: Person, Place Transfers Therapy Code Descriptions/Definitions Functional [place] Measure: 0=Not Assessed/NA 4=Minimal Assistance 1=Total Assistance 5=Supervision or Setup 2=Maximal Assistance 6=Modified [place] 3=Moderate Assistance 7=Complete [place] Therapy Quality Codes: 6 Independent with activity with or without an assistive device 5 Patient requires set up or clean up by helper. Patient completes activity by themselves 4 Supervision or touching assist (CGA). [place] provide cues , steadying assist 3 The helper provides less than half the effort to complete the activity 2 The helper provides more than half the effort to complete the activity 1 Dependent. The helper does all the effort to complete an activity 7 Patient refused to complete or attempt activity 9 The patient did not perform the activity before the current illness or injury 88 Not attempted due to Medical conditions or safety concerns Scootin Supine to/from Sit: 5 Sit to/from Stand: 5 Sit to Stand (QC): 5 Weight Bearing Right Lower Extremity: Right Full Weight Bearing Left Lower Extremity: Left Full Weight Bearing Gait Training Does the Patient Walk?: Yes Distance (FIM): 3=150 ft Distance: 150' Walk 10 feet (QC): 5 Walk 50 ft with 2 Turns(QC): 5 Walk 150 ft (QC): 5 Gait Level of Assist: 5 Gait Persons Needed: 1 Gait Assistive Device: FWW Wheelchair Training Does the Pt Use a Wheelchair?: No Exercises Supine Ex: Ankle pumps, Quad Set, Glut sets, Heel Slides, Straight leg raise, Hip abd/add Supine Reps: 15 (2 sets) NuStep Minutes: 10 NuStep Workload: 4 Assessment Current Status: Good Progress SOUTH ASIAN HISTORY PROFESSOR has to encourage pt to participate in tx then pt tolerates tx fine. PT Short Term Goals Short Term Goals Time Frame: Aug 09, 2018 Transfers (B,C,W/C) (FIM): 5 Gait (FIM): 4 Wheelchair Distance: 100' PT Skilled Nursing Goals Skilled Nursing Goals PT Vehicle Service Attendant Goals Time Frame: Aug 20, 2018 Transfers (B,C,W/C) (FIM): 6 Sit to Lying (QC): 6 Lying-Sitting on Side/Bed(QC): 6 Sit to Stand (QC): 6 Rollin Roll Left to Right (QC): 6 Chair/Epp-nr-Qfyzy Xfer(QC): 6 Car Transfer (QC): 5 Does the Patient Walk: Yes Gait (FIM): 6 Gait distance (FIM): 3=150 ft Walk 10 feet (QC): 6 Walk 10ft-Uneven Surface(QC): 5 Walk 50ft with 2 Turns (QC): 6 Walk 150 ft (QC): 6 Gait Assistive Device: FWW Does the Pt use WC or Scooter?: No Stairs (FIM): 5 (household) # of Steps: 4 1 Step (curb) (QC): 6 4 Steps (QC): 6 12 Steps (QC): 10 Picking up an Object (QC): 4 PT Plan Problem List Problem List: Activity Tolerance, Functional Strength, Safety, Gait Treatment/Plan Treatment Plan: Continue Plan of Care Treatment Plan: Bed Mobility, Education, Functional Activity Joan, Functional Strength, Group Therapy, Gait, Safety, Therapeutic Exercise, Transfers Treatment Duration: Aug 20, 2018 Frequency: At least 5 of 7 days/Wk (IRF) Estimated Hrs Per Day: 1.5 hours per day Patient and/or Family Agrees t: Yes Safety Risks/Education Patient Education: Correct Positioning, Safety Issues Teaching Recipient: Patient Teaching Methods: Discussion Response to Teaching: Verbalize Understanding Time/GCodes Time In: 1100 Time Out: 1145 Total Billed Treatment Time: 45 Total Billed Treatment 1, Ex x2 (30m) & GT (15m) G Codes Necessary: No CARLO ROSARIO SOUTH ASIAN HISTORY PROFESSOR Aug 11, 2018 12:13
--- NOTE | 2018-08-11 12:17 | NUR ---
Dgtr states that pt is much improved since off the Lipitor.
--- NOTE | 2018-08-11 15:24 | Physical Therapy Daily Note ---
PT Daily Note-Current Subjective Pt. was laying in bed upon arrival. Pt. agreed to therapy. Pt. had no complaints of pain but complained of being tired. Transfers Therapy Code Descriptions/Definitions Functional [place] Measure: 0=Not Assessed/NA 4=Minimal Assistance 1=Total Assistance 5=Supervision or Setup 2=Maximal Assistance 6=Modified [place] 3=Moderate Assistance 7=Complete [place] Therapy Quality Codes: 6 Independent with activity with or without an assistive device 5 Patient requires set up or clean up by helper. Patient completes activity by themselves 4 Supervision or touching assist (CGA). [place] provide cues , steadying assist 3 The helper provides less than half the effort to complete the activity 2 The helper provides more than half the effort to complete the activity 1 Dependent. The helper does all the effort to complete an activity 7 Patient refused to complete or attempt activity 9 The patient did not perform the activity before the current illness or injury 88 Not attempted due to Medical conditions or safety concerns Weight Bearing Right Lower Extremity: Right Full Weight Bearing Left Lower Extremity: Left Full Weight Bearing Exercises Supine Ex: Bridging, Ankle pumps, Quad Set, Rolling, Glut sets, Heel Slides, Straight leg raise, Hip abd/add Supine Reps: 10 Treatments Pt. completed supine exercises. Pt. felt discomfort during rolling from side to side so therapist discontinued the exercise. Pt. was left supine in bed with call light and all needs met. Assessment Current Status: Fair Progress Pt. tolerated treatment fair. Pt. complained of fatigue and completed most supine exercises with eyes closed. Pt. will continue to benefit from therapy services. PT Short Term Goals Short Term Goals Time Frame: Aug 09, 2018 Transfers (B,C,W/C) (FIM): 5 Gait (FIM): 4 Wheelchair Distance: 100' PT Correction Goals Body Repairer Goals PT Body Repairer Goals Time Frame: Aug 20, 2018 Transfers (B,C,W/C) (FIM): 6 Sit to Lying (QC): 6 Lying-Sitting on Side/Bed(QC): 6 Sit to Stand (QC): 6 Rollin Roll Left to Right (QC): 6 Chair/Eov-su-Pfjhl Xfer(QC): 6 Car Transfer (QC): 5 Does the Patient Walk: Yes Gait (FIM): 6 Gait distance (FIM): 3=150 ft Walk 10 feet (QC): 6 Walk 10ft-Uneven Surface(QC): 5 Walk 50ft with 2 Turns (QC): 6 Walk 150 ft (QC): 6 Gait Assistive Device: FWW Does the Pt use WC or Scooter?: No Stairs (FIM): 5 (household) # of Steps: 4 1 Step (curb) (QC): 6 4 Steps (QC): 6 12 Steps (QC): 10 Picking up an Object (QC): 4 PT Plan Treatment/Plan Treatment Plan: Continue Plan of Care Treatment Plan: Bed Mobility, Education, Functional Activity Joan, Functional Strength, Group Therapy, Gait, Safety, Therapeutic Exercise, Transfers Treatment Duration: Aug 20, 2018 Frequency: At least 5 of 7 days/Wk (IRF) Estimated Hrs Per Day: 1.5 hours per day Patient and/or Family Agrees t: Yes Time/GCodes Time In: 1430 Time Out: 1500 Total Billed Treatment Time: 30 Total Billed Treatment 1, EX x 2 G Codes Necessary: CARLO Barfield COILED TUBING SUPERVISOR Aug 11, 2018 15:24
--- NOTE | 2018-08-11 15:48 | Cardiology Progress Note ---
Subjective Date Seen by Provider: Aug 11, 2018 Time Seen by Provider: 11:50 Subjective/Events-last exam patient was seen at bedside, eating lunch. No new complaint Review of Systems General: No Chills, No Night Sweats, No Fatigue, No Malaise, No Appetite, No Other HEENT: No Head Aches, No Visual Changes, No Eye Pain, No Ear Pain, No Dysphasia , No Sinus Congestion, No Post Nasal Drip, No Sore Throat, No Other Pulmonary: No Dyspnea, No Cough, No Pleuritic Chest Pain, No Other Cardiovascular: No: Chest Pain, Palpitations, Orthopnea, Paroxysmal Noc. Dyspnea, Edema, Lt Headedness, Other Objective-Cardiology Exam Last Set of Vital Signs Vital Signs 08/11/18 08:35 Temp 96.8 Pulse 89 Resp 20 B/P (MAP) 132/78 (96) Pulse Ox 99 O2 Delivery Room Air Capillary Refill : Less Than 3 Seconds I&O Intake and Output 08/11/18 00:00 Intake Total 500 ml Balance 500 ml Intake Oral 500 ml # Voids 4 General: Alert, Cooperative, Mild Distress HEENT: Atraumatic, PERRLA Neck: Supple, No JVD, No Thyromegaly Lungs: Clear to Auscultation, Normal Air Movement Heart: Regular Rate, Normal S1, Normal S2, No Murmurs Abdomen: Normal Bowel Sounds, Soft, No Tenderness, No Hepatosplenomegaly, No Masses Extremities: No Clubbing, No Cyanosis, No Edema, Normal Pulses, No Tenderness/ Swelling Neuro: Other (right sided weakness) Psych/Mental Status: Mental Status NL, Mood NL A/P-Cardiology Admission Diagnosis Acute CVA Hyperlipidemia Carotid stenosis Assessment/Plan CVA - small acute/subacute nonhemorrhagic infarct in the periventricular white matter adjacent to the left lateral ventricle per MRI of 08-02-18 - with right sided upper and lower extremity weakness. Maintained on ASA. Generalized weakness, EKG did not show acute abnormal, blood pressure appeared to be stable. Continue to monitor. HLD- started on Lipitor 80mg, medication was discontinued secondary to history of intolerance in the past. Echo on 08/02/18: LVEF 60-65%, grade 1 diastolic dysfunction, PASP 20 mmHg, continue to monitor no changes are recommended Mild carotid arterial disease with no hemodynamically significant stenosis within either carotid bifurcation per u/s of 08-02-18 Clinical Quality Measures DVT/VTE Risk/Contraindication: Risk Factor Score Per Nursin RFS Level Per Nursing on Admit: 2=Moderate BRAN SANCHEZ MD Aug 11, 2018 15:48
--- NOTE | 2018-08-11 16:30 | NUR ---
CHIEF WRITER attempted to meet with patient to review team conference summary; however, patient was resting. CHIEF WRITER and contacted patient's daughter to review summary. Patient is currently performing all activities with standby assistance; however continues to exhibit poor motivation and energy. Due to slums scores of 4, team expresses concerns regarding patient returning home alone due to cognitive impairment. CHIEF WRITER discussed these concerns with patient's daughter and recommended either 24 hour care, long-term care or assisted living placement. Patient's daughter wishes for patient to return home and will continue to provide caregiving services for the approved 26 SKIL hours, in addition to home health services. CHIEF WRITER will contact patient's insurance administrative assistant to request reevaluation for increased skilled hours at home. CHIEF WRITER reviewed recommendation of home health services for therapy and bath aide. Patient's daughter is open to therapy services; however, patient refused bath aide services when home health was previously initiated. CHIEF WRITER will will review with patient tomorrow. Patient's daughter intends to provide transport home on Thursday at 2 p.m.
[2018-08-11 18:00] VITALS: BP 157/79
[2018-08-12 05:02] VITALS: BP 151/82
--- NOTE | 2018-08-12 08:56 | PM&R Progress Note ---
Subjective HPI/CC On Admission Date Seen by Provider: Aug 12, 2018 Time Seen by Provider: 08:45 CC: CVA HPI: This is an 87yoWF clinic patient of Evelyn Nolasco at [facility] who presented to the ER with right sided weakness and inability to walk. Last known well time was 2 days ago. Patient was worked up in ER for CVA and CT negative and labs negative but could not walk so IRF assessed her with my evaluation in the ER to meet criteria for direct admit to IRF. PLOF was independent living alone at home and currently she is dependent with inability to walk due to right sided weakness. Barriers to returning home will be regaining ability to ambulate and return of verbal communication and safety management to reside alone. Patient was placed on Tely, ECHO ordered along with ASA and Lipitor initiation for CVA protocol completion. Subjective/Events-last exam Poor appetite continues Likes to eat junk food and snacks Flat affect continues and that is definitely chronic Patient is likely chronically slow moving and likely would be ok at home with her daughter who works as a biology department chair Doing much better with ambulation with walker Checked meds and labs. Participating in all therapies. Review of Systems General: Fatigue Neurological: Confusion Objective Exam Vital Signs Vital Signs Date Time Temp Pulse Resp B/P (MAP) Pulse Ox O2 Delivery O2 Flow Rate FiO2 08/12/18 09:47 86 113/70 (84) 08/12/18 09:46 98.2 18 96 Room Air Capillary Refill : Less Than 3 Seconds General Appearance: No Apparent Distress, WD/WN, Chronically ill, Other (flat affect) HEENT: PERRL/EOMI, Normal ENT Inspection, Pharynx Normal Neck: Full Range of Motion, Normal Inspection, Non Tender, Supple Respiratory: Chest Non Tender, Lungs Clear, Normal Breath Sounds, No Accessory Muscle Use, No Respiratory Distress Cardiovascular: Regular Rate, Rhythm, No Edema, No Gallop, No JVD, No Murmur, Normal Peripheral Pulses Gastrointestinal: Normal Bowel Sounds, No Organomegaly, No Pulsatile Mass, Non Tender, Soft Back: Normal Inspection, No CVA Tenderness, No Vertebral Tenderness Extremity: Normal Capillary Refill, Normal Inspection, Normal Range of Motion ( except right sided), Non Tender, No Calf Tenderness Neurologic/Psychiatric: Alert, Oriented x3, reinforcing bar setter II-XII Norm as Tested, Depressed Affect, Disoriented, Motor Weakness (right arm and leg weakness 3/5), Other (speech garbled) Skin: Normal Color, Warm/Dry Lymphatic: No Adenopathy Results/Procedures Lab Laboratory Tests 08/12/18 08:55 Patient resulted labs reviewed. FIM Transfers Therapy Code Descriptions/Definitions Functional [place] Measure: 0=Not Assessed/NA 4=Minimal Assistance 1=Total Assistance 5=Supervision or Setup 2=Maximal Assistance 6=Modified [place] 3=Moderate Assistance 7=Complete [place] Therapy Quality Codes: 6 Independent with activity with or without an assistive device 5 Patient requires set up or clean up by helper. Patient completes activity by themselves 4 Supervision or touching assist (CGA). [place] provide cues , steadying assist 3 The helper provides less than half the effort to complete the activity 2 The helper provides more than half the effort to complete the activity 1 Dependent. The helper does all the effort to complete an activity 7 Patient refused to complete or attempt activity 9 The patient did not perform the activity before the current illness or injury 88 Not attempted due to Medical conditions or safety concerns Mental Status/Objective Comprehension: 5 Expression: 1 Social Interaction: 2 Problem Solvin Memory: 2 ADL-Treatment Feedin Eating (QC): 6 Groomin Oral Hygiene (QC): 4 Bathin Bathing Location: L Arm, R Arm, L Upper Leg, R Upper Leg, L Lower Leg ( including foot), R Lower Leg (including foot), Chest, Abdomen, Buttocks, Perineal Area Shower/Bathe Self (QC): 4 Upper Extremity Dressin Upper Body Dressing (QC): 5 Lower Extremity Dressin Lower Body Dressing (QC): 4 On/Off Footwear (QC): 5 Toiletin (CGA fro safety/ balance while stanidng to pull pants up/ down) Toileting Hygiene (QC): 4 Toilet/Commode Transfer: 4 (CGA for safety/ balance using RW) Toilet Transfer (QC): 4 Shower: 5 Assessment/Plan Assessment and Plan Assess & Plan/Chief Complaint (1) CVA (cerebral vascular accident) (2) Right sided weakness (3) Hyperlipidemia (4) Former smoker (5) Garbled speech (6) Unable to ambulate (7) Emesis (8) Profound dementia at baseline now worsened with CVA Plan: IRF to focus on ambulation but that is a challenge Fall risk prevention Statin and ASA were started but DC statin due to daughter reports she had side effects with that in the past DC Tely this past week Cardiology is appreciated Psych evaluation for memory assessment revealed severe dementia SLUMS 4-5 so will need NHP or live with daughter Needs AL or home with daughter (1) CVA (cerebral vascular accident) Assessment & Plan: Confirmed on MRI: There is a small acute/subacute nonhemorrhagic infarct in the periventricular white matter adjacent to the left lateral ventricle. Statin, ASA, Cardiology consultation, ECHO, EKG, Tely (2) Unable to ambulate Assessment & Plan: IRF protocols with assistive devices (3) Garbled speech (4) Right sided weakness Assessment & Plan: IRF protocols (5) Hyperlipidemia Assessment & Plan: High dose statin (6) Dementia (7) Nausea (8) Poor appetite LUIS F LAIRD DO Aug 12, 2018 08:56
[2018-08-12 09:04] LABS: BASOPHILS % (AUTO) 0 % (0-10); EOSINOPHILS # (AUTO) 0.1 10^3/uL (0.0-0.3); EOSINOPHILS % (AUTO) 1 % (0-10); HEMATOCRIT 42 % (35-52); HEMOGLOBIN 13.6 G/DL (11.5-16.0); LYMPHOCYTES # (AUTO) 2.9 X 10^3 (1.0-4.0); LYMPHOCYTES % (AUTO) 28 % (12-44); MEAN CORPUSCULAR HEMOGLOBIN 30 PG (25-34); MEAN CORPUSCULAR HGB CONC 33 G/DL (32-36); MEAN CORPUSCULAR VOLUME 91 FL (80-99); MEAN PLATELET VOLUME 10.7 FL (7.4-10.4); MONOCYTES % (AUTO) 10 % (0-12); NEUTROPHILS # (AUTO) 6.1 X 10^3 (1.8-7.8); NEUTROPHILS % (AUTO) 60 % (42-75); PLATELET COUNT 253 10^3/uL (130-400); RED CELL DISTRIBUTION WIDTH 15.7 % (10.0-14.5); WHITE BLOOD COUNT 10.1 10^3/uL (4.3-11.0)
--- NOTE | 2018-08-12 09:09 | Occupational Ther Daily Note ---
OT Current Status-Daily Note Subjective pt sitting in recliner chair upon OT Arrival in no apparent distress. pt agreed to OT TX Session with focus on increase independence with ADLS/ function transfers and overall activity tolerance for daily activities. pt complains of no pain. Appearance post OT session pt sitting in recliner chair, tray, call light, water, and phone all within reach. all needs met. Mental Status/Objective Therapy Code Descriptions/Definitions Functional [place] Measure: 0=Not Assessed/NA 4=Minimal Assistance 1=Total Assistance 5=Supervision or Setup 2=Maximal Assistance 6=Modified [place] 3=Moderate Assistance 7=Complete [place] ADL-Treatment Therapy Code Descriptions/Definitions Functional [place] Measure: 0=Not Assessed/NA 4=Minimal Assistance 1=Total Assistance 5=Supervision or Setup 2=Maximal Assistance 6=Modified [place] 3=Moderate Assistance 7=Complete [place] Therapy Quality Codes: 6 Independent with activity with or without an assistive device 5 Patient requires set up or clean up by helper. Patient completes activity by themselves 4 Supervision or touching assist (CGA). [place] provide cues , steadying assist 3 The helper provides less than half the effort to complete the activity 2 The helper provides more than half the effort to complete the activity 1 Dependent. The helper does all the effort to complete an activity 7 Patient refused to complete or attempt activity 9 The patient did not perform the activity before the current illness or injury 88 Not attempted due to Medical conditions or safety concerns Eating (FIM): 7 Eating (QC): 6 Grooming (FIM): 4 Oral Hygiene (QC): 4 Bathing (FIM): 4 (intermitting CGA for safety and balance., pt demo 1 LOB during task and required therapist to correct.) Bathing Location: L Arm, R Arm, L Upper Leg, R Upper Leg, L Lower Leg ( including foot), R Lower Leg (including foot), Chest, Abdomen, Buttocks, Perineal Area Shower/Bathe Self (QC): 4 Upper Body (FIM): 4 (CGA while gathering clothing from closet. ) Upper Body Dressing (QC): 4 Lower Body Dressing (FIM): 4 (CGA fro safety/ balance) Lower Body Dressing (QC): 4 On/Off Footwear (QC): 4 Toileting (FIM): 4 Toileting Hygiene (QC): 4 Transfers (B, C, W/C) (FIM): 4 Toilet/Commode Transfer (FIM): 4 Toilet Transfer (QC): 4 Shower Transfer(FIM): 4 pt demo decrease balance this date and had several LOB in beginning of OT TX Session requiring therapist to correct. vital sign taken BP 120/75, HR 90, O2 98 %. pt education on proper placement of RW while performing ADLS. pt required MOD VC to utilize trained technique within task. Other Treatment post ADLs pt demo ability to perform functional mobility to TX gym approx. 75 ft and perform UBE 5 minutes forward. pt demo several rest breaks during task secondary to fatigue. Education OT Patient Education: Energy conservation, Modified ADL techniques Teaching Recipient: Patient Teaching Methods: Demonstration, Discussion Response to Teaching: Verbalize Understanding, Unable to Comprehend OT Short Term Goals Short Term Goals Transfers (B,C,W/C) (FIM): 5 1=Demonstrate adherence to instructed precautions during ADL tasks. 2=Patient will verbalize/demonstrate understanding of assistive devices/ modifications for ADL. 3=Patient will improve strength/tolerance for activity to enable patient to perform ADL's. OT Wealth Management Manager Goals Chcf Goals Time Frame: August 30, 2018 Eating (FIM): 7 Eating (QC): 6 Groomin Oral Hygiene (QC): 6 Bathing(FIM): 5 Shower/Bathe Self (QC): 5 Upper Body Dressing(FIM): 5 Upper Body Dressing (QC): 5 Lower Body Dressing(FIM): 5 Lower Body Dressing (QC): 5 On/Off Footwear (QC): 5 Toileting(FIM): 6 Toileting Hygiene (QC): 6 Transfers (B,C,W/C) (FIM): 6 Toilet/Commode Transfer(FIM): 6 Toilet/Commode Transfer (QC): 6 Shower Transfer(FIM): 5 Additional Goals: 1-Demonstrate ADL Tasks, 2-Verbalize Understanding, 3- ImproveStrength/Joan 1=Demonstrate adherence to instructed precautions during ADL tasks. 2=Patient will verbalize/demonstrate understanding of assistive devices/ modifications for ADL. 3=Patient will improve strength/tolerance for activity to enable patient to perform ADL's. OT Education/Plan Problem List/Assessment Assessment: Decreased Activ Tolerance, Decreased Safety Aware, Impaired Funct Balance, Impaired I ADL's, Impaired Self-Care Skills Discharge Recommendations Plan/Recommendations: Continue POC Treatment Plan/Plan of Care Treatment,Training & Education: Yes Patient would benefit from OT for education, treatment and training to promote independence in ADL's, mobility, safety and/or upper extremity function for ADL' s. Plan of Care: ADL Retraining, Functional Mobility, Group Exercise/Act as Ind, UE Funct Exercise/Act Treatment Duration: August 30, 2018 Frequency: At least 5 of 7 days/Wk (IRF) Estimated Hrs Per Day: 1.5 hours per day Agreement: Yes Rehab Potential: Good Time/GCodes Start Time: 08:00 Stop Time: 09:00 Billed Treatment Time ADL 3 units, 50 minutes FA 1 unit, 10 minutes SUSAN PRATT OT Aug 12, 2018 09:09
[2018-08-12 09:22] LABS: ALANINE AMINOTRANSFERASE 16 U/L (0-55); ALBUMIN 4.2 GM/DL (3.2-4.5); ALKALINE PHOSPHATASE 80 U/L (40-136); BILIRUBIN,TOTAL 1.1 MG/DL (0.1-1.0); BUN/CREATININE RATIO 14; CALCIUM 9.6 MG/DL (8.5-10.1); CARBON DIOXIDE 24 MMOL/L (21-32); CHLORIDE 105 MMOL/L (98-107); CREATININE SERUM 0.88 MG/DL (0.60-1.30); GFR ESTIMATED > 60; GLUCOSE 97 MG/DL (70-105); POTASSIUM 3.5 MMOL/L (3.6-5.0); SODIUM 141 MMOL/L (135-145)
[2018-08-12 09:46] VITALS: BP 114/73
[2018-08-12 09:47] VITALS: BP 113/70
[2018-08-12] MEDS: ASPIRIN E.C. 81 MG (ECOTRIN) TAB PO SCH (09:55)
[2018-08-12] MEDS: LACTOBACILLUS ACIDOPHILUS (PROBIOTIC) CAPSULE PO SCH (09:55)
--- NOTE | 2018-08-12 10:03 | Diagnostic Imaging Report ---
Indication: Abnormal breath sounds in left lung base PA and lateral chest obtained at 929 hours a.m. and compared with 08/02/2018 Heart and mediastinal silhouette are normal in appearance. There is no focal infiltrate or pneumothorax or pleural fluid. There appear to be old compression deformities in the mid to upper thoracic spine. Impression: No focal infiltrate or pneumothorax or pleural fluid. No acute process visualized in the chest. Dictated by: Dictated on workstation # [id number]
--- NOTE | 2018-08-12 11:50 | Physical Therapy Daily Note ---
PT Daily Note-Current Subjective Pt. was in chair upon arrival. Pt. had no complaints of pain. Pt. agreed to therapy. Pt. complained of fatigue before treatment even started. Transfers Therapy Code Descriptions/Definitions Functional [place] Measure: 0=Not Assessed/NA 4=Minimal Assistance 1=Total Assistance 5=Supervision or Setup 2=Maximal Assistance 6=Modified [place] 3=Moderate Assistance 7=Complete [place] Therapy Quality Codes: 6 Independent with activity with or without an assistive device 5 Patient requires set up or clean up by helper. Patient completes activity by themselves 4 Supervision or touching assist (CGA). [place] provide cues , steadying assist 3 The helper provides less than half the effort to complete the activity 2 The helper provides more than half the effort to complete the activity 1 Dependent. The helper does all the effort to complete an activity 7 Patient refused to complete or attempt activity 9 The patient did not perform the activity before the current illness or injury 88 Not attempted due to Medical conditions or safety concerns Sit to/from Stand: 6 Sit to Lying (QC): 6 Sit to Stand (QC): 6 Car Transfer (QC): 6 Weight Bearing Right Lower Extremity: Right Full Weight Bearing Left Lower Extremity: Left Full Weight Bearing Gait Training Does the Patient Walk?: Yes Distance (FIM): 3=150 ft Distance: 150' x 2 Gait Level of Assist: 6 Gait Persons Needed: 1 Gait Assistive Device: FWW Wheelchair Training Does the Pt Use a Wheelchair?: No Exercises Standing: Hip Abduction, Heel/toe raises, 3 way Ex=Flex, Abd, Ext, Marching, Mini squats, Weight shifts Standing Reps: 10 NuStep Minutes: 10 NuStep Workload: 2 Treatments Pt. transferred from bed and ambulated to therapy room. Pt. rode Nustep x 10 min on workload 2. Pt. then completed standing exercises hanging on to parallel bars. Pt. then ambulated to hallway and to car transfer. Pt. ambulated back to room and left in bed. Pt. was left with call light and all needs met. Assessment Current Status: Good Progress Pt. tolerated treatment well. Pt. is reluctant to participate in therapy and needs encouragement by therapist to get up and move. PT Short Term Goals Short Term Goals Time Frame: Aug 09, 2018 Transfers (B,C,W/C) (FIM): 5 Gait (FIM): 4 Wheelchair Distance: 100' PT Belly Packer Goals Care Home Goals PT Belly Packer Goals Time Frame: Aug 20, 2018 Transfers (B,C,W/C) (FIM): 6 Sit to Lying (QC): 6 Lying-Sitting on Side/Bed(QC): 6 Sit to Stand (QC): 6 Rollin Roll Left to Right (QC): 6 Chair/Yen-ot-Udhth Xfer(QC): 6 Car Transfer (QC): 5 Does the Patient Walk: Yes Gait (FIM): 6 Gait distance (FIM): 3=150 ft Walk 10 feet (QC): 6 Walk 10ft-Uneven Surface(QC): 5 Walk 50ft with 2 Turns (QC): 6 Walk 150 ft (QC): 6 Gait Assistive Device: FWW Does the Pt use WC or Scooter?: No Stairs (FIM): 5 (household) # of Steps: 4 1 Step (curb) (QC): 6 4 Steps (QC): 6 12 Steps (QC): 10 Picking up an Object (QC): 4 PT Plan Treatment/Plan Treatment Plan: Continue Plan of Care Treatment Plan: Bed Mobility, Education, Functional Activity Joan, Functional Strength, Group Therapy, Gait, Safety, Therapeutic Exercise, Transfers Treatment Duration: Aug 20, 2018 Frequency: At least 5 of 7 days/Wk (IRF) Estimated Hrs Per Day: 1.5 hours per day Patient and/or Family Agrees t: Yes Safety Risks/Education Patient Education: Gait Training, Transfer Techniques, Correct Positioning, Disease Process, Safety Issues Teaching Recipient: Patient Teaching Methods: Discussion Response to Teaching: Return Demonstration Time/GCodes Time In: 1100 Time Out: 1145 Total Billed Treatment Time: 45 Total Billed Treatment 1, GT, EX x 2 G Codes Necessary: CARLO Barfield TUMBLER MACHINE OPERATOR Aug 12, 2018 11:50
--- NOTE | 2018-08-12 12:09 | Speech Therapy Daily Note ---
Speech Daily Progress Note Subjective Date Seen by Provider: Aug 12, 2018 Time Seen by Provider: 00:30 The patient was resting in her recliner when I arrived in her room. She participated slightly more than yesterday. Objective The patient completed problem solving tasks at 80% with mod verbal cues. Assessment Assessment Current Status: Fair Progress Treatment Plan Continue Plan of Care Communication Comprehension: 5 Expression: 1 Social Cognition Social Interaction: 2 Problem Solvin Memory: 2 Speech Short Term Goals Short Term Goals Short Term Goals 1) The patient will complete confrontational naming tasks with 80% or greater given minimal cues. 2) The patient will follow simple 1-2 step directions related to her daily needs with 80% or greater given minimal cues. Speech [facility]ci Goals Facility Assistant Goals The patient will be able to effectively communicate her wants/needs to staff and family. Speech-Plan Patient/Family Goals Patient/Family Goals: The patient is scheduled for discharge on 08-14-2018 Treatment Plan Speech Therapy Treatment Plan: Continue Plan of Care The patient has made minimal progress. Treatment Duration: Aug 13, 2018 Frequency: 5 times per week Estimated Hrs Per Day: .5 hour per day Rehab Potential: Good Barriers to Learning: Patient is not very talkative and requires encouragement to participate in expressive activities. Pt/Family Agrees to Plan: Yes Safety Risks/Education Teaching Recipient: Patient Teaching Methods: Discussion Response to Teaching: Verbalize Understanding Education Topics Provided: Utilization of the call light when she needs to. Time Speech Therapy Time In: 09:15 Speech Therapy Time Out: 09:25 Total Billed Time: 30 Billed Treatment Time 1, SLTS The remainder of the patient's scheduled time was from 10:10 to 10:30 due to the interruption of having a chest x-ray. CATHIE KLINE Aug 12, 2018 12:09
--- NOTE | 2018-08-12 13:08 | NUR ---
PT EATING FAIR, NO RECENT WEIGHT. BEGINNING ENLIVE TID TO INCREASE PO INTAKE AND TO MEET NEEDS. CONT TO FOLLOW.
--- NOTE | 2018-08-12 13:25 | Cardiology Progress Note ---
Cardiology SOAP Progress Note Subjective: No cardiac complaints. Objective: I&O/Vital Signs 08/12/18 08/12/18 08/12/18 05:02 09:46 09:47 Temp 98.9 98.2 Pulse 91 82 86 Resp 16 18 B/P (MAP) 151/82 (105) 114/73 (87) 113/70 (84) Pulse Ox 95 96 O2 Delivery Room Air Room Air 08/11/18 23:59 Intake Total 950 ml Balance 950 ml Weight (Pounds): 124 Weight (Ounces): 0.0 Weight (Calculated Kilograms): 56.254113 Constitutional: well-developed, well-nourished Respiratory: No accessory muscle use, No respiratory distress; chest expansion is symmetric, chest is bilaterally symmetric, other (fair air entry; poor inspiratory effort) Cardiovascular: regular rate-rhythm; No irregularly irregular, No extra beats, No parasternal heave is noted, No JVD, No edema, No bradycardia, No tachycardia , No point of maximal impulse, No cardiac thrills are palpable; S1 and S2; No gallop/S3, No gallop/S4, No diastolic murmur, No systolic murmur, No friction rub, No click, No other Gastrointestional: No tender; soft, round; No distended, No pulsatile mass, No organomegaly, No guarding, No rebound, No tenderness, No hernia, No mass; audible bowel sounds; No abnormal bowel sounds, No abdominal bruits, No spleenomegaly, No other Extremities: no lower extremity edema bilateral Neurologic/Psychiatric: alert (oriented to self and location), other (speech improved; right sided upper and lower extremity weakness continues) Skin: No rash, No ulcerations Results/Procedures: Labs Laboratory Tests 08/12/18 08:55: White Blood Count 10.1, Red Blood Count 4.58, Hemoglobin 13.6, Hematocrit 42, Mean Corpuscular Volume 91, Mean Corpuscular Hemoglobin 30, Mean Corpuscular Hemoglobin Concent 33, Red Cell Distribution Width 15.7H, Platelet Count 253, Mean Platelet Volume 10.7H, Neutrophils (%) (Auto) 60, Lymphocytes (%) (Auto) 28 , Monocytes (%) (Auto) 10, Eosinophils (%) (Auto) 1, Basophils (%) (Auto) 0, Neutrophils # (Auto) 6.1, Lymphocytes # (Auto) 2.9, Monocytes # (Auto) 1.0, Eosinophils # (Auto) 0.1, Basophils # (Auto) 0.0, Sodium Level 141, Potassium Level 3.5L, Chloride Level 105, Carbon Dioxide Level 24, Anion Gap 12, Blood Urea Nitrogen 12, Creatinine 0.88, Estimat Glomerular Filtration Rate > 60, BUN/ Creatinine Ratio 14, Glucose Level 97, Calcium Level 9.6, Corrected Calcium 9.4 , Total Bilirubin 1.1H, Aspartate Amino Transf (AST/SGOT) 13, Alanine Aminotransferase (ALT/SGPT) 16, Alkaline Phosphatase 80, Total Protein 7.0, Albumin 4.2 A/P: Assessment/Dx: Acute CVA Hyperlipidemia Carotid stenosis Plan: CVA - small acute/subacute nonhemorrhagic infarct in the periventricular white matter adjacent to the left lateral ventricle per MRI of 08-02-18 - with right sided upper and lower extremity weakness. Maintained on ASA. Generalized weakness, EKG did not show acute abnormal, blood pressure appeared to be stable. Continue to monitor. HLD- started on Lipitor 80mg, medication was discontinued secondary to history of intolerance in the past. Echo on 08/02/18: LVEF 60-65%, grade 1 diastolic dysfunction, PASP 20 mmHg, continue to monitor no changes are recommended Mild carotid arterial disease with no hemodynamically significant stenosis within either carotid bifurcation per u/s of 08-02-18 Thank you for your consultation. Please call me if you have any questions. Fabiola Perera MD, FACP, FACC, FSCAI, FHRS, CCDS Interventional Cardiology Cardiac Electrophysiology Vascular Medicine and Endovascular Interventions Barbara PERERA MD Aug 12, 2018 13:25
--- NOTE | 2018-08-12 15:14 | Therapy Group Daily Note ---
Therapy Daily Group Note Patient Education Topic Other List Below (memory) Exercises LE Seated Exercise, UE Exercise Session Ratio (pt:therapist): 4:1 Goal of Session: Memory Strategies, UE/LE Strengthing Goal Met for this Session: Yes Pt Benefit of Group: Contributions to Others, F/U Use of Strategies @Home, Increased Functional Strength, Improved Cognition, Recognition of Peers, Socialization Other/Notes Pt ambulated to group with FWW. Group consisted of introductions (name, place living, name of first pet), socialization, memory strategies, memory activity and UE/LE seated exercises. Pt able to introduce self appropriately and actively listened to peers. Pt was able to complete UE/LE seated exercises though movements were small due to decreased ROM. Pt attempted to match during memory activity. Required verbal cues to initiate conversations or to answer questions. Pt acknowledged understanding of memory strategies and gave own strategies as an example. After group, pt requested to use bathroom. Call light/phone in reach. All needs met in room. Start Time: 13:00 Stop Time: 14:10 Total Billed Treatment Time: 70 Total Billed Treatment 1-GRP MARISA HOWELL Aug 12, 2018 15:14
[2018-08-12] MEDS: RT-ALBUTEROL SULF 2.5 MG/3 ML PRE-MIX VIAL INH SCH ×2 (15:42→19:23)
--- NOTE | 2018-08-12 15:42 | D/C HH Face to Face Order ---
D/C Face to Face Orders Instructions for Patient Via [facility], Patient Instructions/FollowUp: [facility] Evelyn Nolasco in 2 weeks Physician to follow Patient: [facility] Discharge Diet for Home: No Restrictions Patient Problems: CVA Dementia HLP intolerant to statins Goals for Patient: Return to independent ADL's Patient Data-Allergies,Ht & Wt Patient Allergies: Coded Allergies: Penicillins (Unverified Allergy, Mild, HIVES, 07/03/09) Ikuscmu-Zgs-Ttx Reductase Inhibitor (Verified Allergy, Unknown, 08/09/18) acetaminophen (Verified Allergy, Unknown, 06/13/18) diphenhydramine (Verified Allergy, Unknown, 06/13/18) doxylamine (Verified Allergy, Unknown, 06/13/18) Height (Feet): 5 Height (Inches): 1.00 Weight (Pounds): 124 Weight (Ounces): 0.0 Home Health Need/Face to Face Date of Face to Face: Aug 12, 2018 Clinical Findings: Generalized weakness and fatigue, Instability, Muscle weakness, Unsteady gait I have seen Pt ekhy-[id number]: Yes Discharged To: Home Diagnosis/Conditions: CVA Dementia HLP intolerant to statins Patient is Homebound due to: CognItive deficits, [place] fall risk due to instabilty, Muscle weakness Homebound Status Due to the above stated illness, injury or surgical procedure (medical condition or diagnosis) and associated clinical findings, the patient is homebound because of his/her inability to leave home except with aid of a supportive device and/or person AND leaving the home requires a considerable and taxing effort or is medically contraindicated. Pt req the following assistanc: Walker Home Health Nursing Orders Home Health Services Order: Nursing Services, Automotive Service Cashier-Evaluate & Treat, Physical Therapy-Evaluate & Treat, Speech Language-Evaluate & Treat Home Health Infusion Therapy Line Type: Saline Lock Site Location: Forearm Certify Stmt I certify that this patient is under my care and that I, a nurse practitioner or a physician; a journeyman operator assistant working with me, had a face to face encounter that - meets the physician face to face encounter requirements with this patient as dated. LUIS F LAIRD DO Aug 12, 2018 15:42
[2018-08-12] MEDS ORDERED: ASPI-983 PO (15:43)
[2018-08-12 16:31] VITALS: BP 122/76
--- NOTE | 2018-08-12 17:05 | NUR ---
WARM IN reached [place] [employer] social work case manager, Arminda to request reevaluation for increased skill hours. Arminda will complete evaluation on Thursday, . WARM IN also notified [place] [facility] referral for RN, PT, OT and ST services. Start of care will begin on . WARM IN reviewed IMM and Patient Choice Letter verbally with patient's daughter, Lidia due to patient's current cognitive status. Lidia has no concerns regarding discharge plans. Please see discharge summary for further information.
[2018-08-13 05:57] VITALS: BP 127/55
[2018-08-13] MEDS: RT-ALBUTEROL SULF 2.5 MG/3 ML PRE-MIX VIAL INH SCH ×3 (07:30→20:52)
--- NOTE | 2018-08-13 08:56 | Occupational Ther Daily Note ---
OT Current Status-Daily Note Subjective Pt sitting in chair, agrees to treatment. Pt has no c/o pain, but states she did not sleep well last night and is tired. Mental Status/Objective Therapy Code Descriptions/Definitions Functional [place] Measure: 0=Not Assessed/NA 4=Minimal Assistance 1=Total Assistance 5=Supervision or Setup 2=Maximal Assistance 6=Modified [place] 3=Moderate Assistance 7=Complete [place] ADL-Treatment Pt sit to stand with supervision, cues to push up from chair. Pt retrieved clothing from closet with close supervision for balance while using FWW. Gait to restroom with FWW, slow pace. Transfer to toilet with SBA. Pt able to complete toileting hygiene with SBA. Transfer to walk in shower with supervision for balance and safety. [place] clothing with SBA, increased time for lower body. Seated bathing completed using hand held shower. Pt able to wash all areas with SBA. Stood with supervision for balance while washing buttocks. Pt requires some verbal cueing for bathing task completion. Don pullover shirt without assist while seated. Pt donned pants with supervision for balance during standing for pant hike. Don socks with SBA. Pt completed oral care with set up. Combed hair with SBA. Pt completes tasks slowly and requires occasional cues for safety. Plan is for pt to d/c home tomorrow. Pt states daughter lives nearby and will be assisting as needed. Pt has no questions or concerns at this time. Transfer to bed with SBA. Sit to supine with SBA. Pt resting in bed with needs met after session. Therapy Code Descriptions/Definitions Functional [place] Measure: 0=Not Assessed/NA 4=Minimal Assistance 1=Total Assistance 5=Supervision or Setup 2=Maximal Assistance 6=Modified [place] 3=Moderate Assistance 7=Complete [place] Therapy Quality Codes: 6 Independent with activity with or without an assistive device 5 Patient requires set up or clean up by helper. Patient completes activity by themselves 4 Supervision or touching assist (CGA). [place] provide cues , steadying assist 3 The helper provides less than half the effort to complete the activity 2 The helper provides more than half the effort to complete the activity 1 Dependent. The helper does all the effort to complete an activity 7 Patient refused to complete or attempt activity 9 The patient did not perform the activity before the current illness or injury 88 Not attempted due to Medical conditions or safety concerns Grooming (FIM): 5 Oral Hygiene (QC): 5 Bathing (FIM): 5 Shower/Bathe Self (QC): 4 Upper Body (FIM): 5 Upper Body Dressing (QC): 4 Lower Body Dressing (FIM): 5 Lower Body Dressing (QC): 4 On/Off Footwear (QC): 4 Toileting (FIM): 5 Toileting Hygiene (QC): 4 Toilet/Commode Transfer (FIM): 5 Toilet Transfer (QC): 4 Shower Transfer(FIM): 5 OT Short Term Goals Short Term Goals Transfers (B,C,W/C) (FIM): 5 1=Demonstrate adherence to instructed precautions during ADL tasks. 2=Patient will verbalize/demonstrate understanding of assistive devices/ modifications for ADL. 3=Patient will improve strength/tolerance for activity to enable patient to perform ADL's. OT Longterm Goals Longterm Goals Time Frame: August 30, 2018 Eating (FIM): 7 Eating (QC): 6 Groomin (not met) Oral Hygiene (QC): 6 (5-not met) Bathing(FIM): 5 (met 08/13/18) Shower/Bathe Self (QC): 5 (4-not met) Upper Body Dressing(FIM): 5 (met 08/13/18) Upper Body Dressing (QC): 5 (4-not met) Lower Body Dressing(FIM): 5 (met 08/13/18) Lower Body Dressing (QC): 5 (4-not met) On/Off Footwear (QC): 5 (4-not met) Toileting(FIM): 6 (not met) Toileting Hygiene (QC): 6 (4-not met) Transfers (B,C,W/C) (FIM): 6 Toilet/Commode Transfer(FIM): 6 (not met) Toilet/Commode Transfer (QC): 6 (4-not met) Shower Transfer(FIM): 5 (met 08/13/18) Additional Goals: 1-Demonstrate ADL Tasks, 2-Verbalize Understanding, 3- ImproveStrength/Joan 1=Demonstrate adherence to instructed precautions during ADL tasks. 2=Patient will verbalize/demonstrate understanding of assistive devices/ modifications for ADL. 3=Patient will improve strength/tolerance for activity to enable patient to perform ADL's. OT Education/Plan Discharge Recommendations Plan/Recommendations: Continue POC Treatment Plan/Plan of Care Patient would benefit from OT for education, treatment and training to promote independence in ADL's, mobility, safety and/or upper extremity function for ADL' s. Plan of Care: ADL Retraining, Functional Mobility, Group Exercise/Act as Ind, UE Funct Exercise/Act Treatment Duration: August 30, 2018 Frequency: At least 5 of 7 days/Wk (IRF) Estimated Hrs Per Day: 1.5 hours per day Agreement: Yes Rehab Potential: Good Time/GCodes Start Time: 08:00 Stop Time: 09:00 Total Time Billed (hr/min): 60 Billed Treatment Time 1 visit, ADLx4(60minutes) [place] SKY OT Aug 13, 2018 08:56
[2018-08-13] MEDS: LACTOBACILLUS ACIDOPHILUS (PROBIOTIC) CAPSULE PO SCH (09:26)
[2018-08-13] MEDS: ASPIRIN E.C. 81 MG (ECOTRIN) TAB PO SCH (09:26)
--- NOTE | 2018-08-13 09:55 | Speech Therapy Daily Note ---
Speech Daily Progress Note Subjective Date Seen by Provider: Aug 13, 2018 Time Seen by Provider: 00:30 The patient was resting, she required frequent verbal prompts to participate. Objective The patient completed simple y/n questions related to herself with 80% accuracy given max verbal prompts for participation. Assessment Assessment Current Status: Fair Progress Treatment Plan Discontinue ST Communication Comprehension: 6 Expression: 2 Social Cognition Social Interaction: 2 Problem Solvin Memory: 4 Speech Short Term Goals Short Term Goals Short Term Goals 1) The patient will complete confrontational naming tasks with 80% or greater given minimal cues. Met at 75% 2) The patient will follow simple 1-2 step directions related to her daily needs with 80% or greater given minimal cues. Met at 75% Speech Group Fitness Manager Goals Group Fitness Manager Goals The patient will be able to effectively communicate her wants/needs to staff and family. Met at 75% Speech-Plan Patient/Family Goals Patient/Family Goals: The patient is being discharged to home on 08/14/2018. Treatment Plan Speech Therapy Treatment Plan: Discontinue ST The patient has made minimal progress this rehab placement. Treatment Duration: Aug 13, 2018 Frequency: 5 times per week Estimated Hrs Per Day: .5 hour per day Rehab Potential: Good Barriers to Learning: Severe dementia, great encouragement needed for patient to participate. Pt/Family Agrees to Plan: Yes Safety Risks/Education Teaching Recipient: Patient Teaching Methods: Discussion Response to Teaching: Verbalize Understanding Education Topics Provided: Safety and communication Time Speech Therapy Time In: 09:00 Speech Therapy Time Out: 09:30 Total Billed Time: 30 Billed Treatment Time 1, CATHIE Hsu Aug 13, 2018 09:55
--- NOTE | 2018-08-13 09:56 | PM&R Progress Note ---
Subjective HPI/CC On Admission Date Seen by Provider: Aug 13, 2018 Time Seen by Provider: 09:30 CC: CVA HPI: This is an 87yoWF clinic patient of Evelyn Nolasco at [facility] who presented to the ER with right sided weakness and inability to walk. Last known well time was 2 days ago. Patient was worked up in ER for CVA and CT negative and labs negative but could not walk so IRF assessed her with my evaluation in the ER to meet criteria for direct admit to IRF. PLOF was independent living alone at home and currently she is dependent with inability to walk due to right sided weakness. Barriers to returning home will be regaining ability to ambulate and return of verbal communication and safety management to reside alone. Patient was placed on Tely, ECHO ordered along with ASA and Lipitor initiation for CVA protocol completion. Subjective/Events-last exam Discharge is planned for tomorrow with home health Daughter will continue caring for her Patient remains flat affect and doesn't move around much and she will likely go back to her usual activity at home. Patient did not tolerate statin therapy so that was discontinued Aspirin will be maintained and that was sent to pharmacy Patient does participate in therapies as required Review of Systems General: Fatigue Neurological: Weakness, Numbness, Incoordination Objective Exam Vital Signs Vital Signs Date Time Temp Pulse Resp B/P (MAP) Pulse Ox O2 Delivery O2 Flow Rate FiO2 08/13/18 14:03 95 Room Air 08/13/18 05:57 98.5 97 16 127/55 (79) Capillary Refill : Less Than 3 Seconds General Appearance: No Apparent Distress, WD/WN, Chronically ill, Other (flat affect) HEENT: PERRL/EOMI, Normal ENT Inspection, Pharynx Normal Neck: Full Range of Motion, Normal Inspection, Non Tender, Supple Respiratory: Chest Non Tender, Lungs Clear, Normal Breath Sounds, No Accessory Muscle Use, No Respiratory Distress Cardiovascular: Regular Rate, Rhythm, No Edema, No Gallop, No JVD, No Murmur, Normal Peripheral Pulses Gastrointestinal: Normal Bowel Sounds, No Organomegaly, No Pulsatile Mass, Non Tender, Soft Back: Normal Inspection, No CVA Tenderness, No Vertebral Tenderness Extremity: Normal Capillary Refill, Normal Inspection, Normal Range of Motion ( except right sided), Non Tender, No Calf Tenderness Neurologic/Psychiatric: Alert, Oriented x3, shell machine operator II-XII Norm as Tested, Depressed Affect, Disoriented, Motor Weakness (right arm and leg weakness 3/5), Other (speech garbled) Skin: Normal Color, Warm/Dry Lymphatic: No Adenopathy Results/Procedures Lab Patient resulted labs reviewed. FIM Transfers Therapy Code Descriptions/Definitions Functional [place] Measure: 0=Not Assessed/NA 4=Minimal Assistance 1=Total Assistance 5=Supervision or Setup 2=Maximal Assistance 6=Modified [place] 3=Moderate Assistance 7=Complete [place] Therapy Quality Codes: 6 Independent with activity with or without an assistive device 5 Patient requires set up or clean up by helper. Patient completes activity by themselves 4 Supervision or touching assist (CGA). [place] provide cues , steadying assist 3 The helper provides less than half the effort to complete the activity 2 The helper provides more than half the effort to complete the activity 1 Dependent. The helper does all the effort to complete an activity 7 Patient refused to complete or attempt activity 9 The patient did not perform the activity before the current illness or injury 88 Not attempted due to Medical conditions or safety concerns Gait Training Does the Patient Walk?: Yes Distance (FIM): 8=026-99 ft Gait Assistive Device: FWW Mental Status/Objective Comprehension: 5 Expression: 1 Social Interaction: 2 Problem Solvin Memory: 2 ADL-Treatment Feedin Eating (QC): 6 Groomin Oral Hygiene (QC): 5 Bathin Bathing Location: L Arm, R Arm, L Upper Leg, R Upper Leg, L Lower Leg ( including foot), R Lower Leg (including foot), Chest, Abdomen, Buttocks, Perineal Area Shower/Bathe Self (QC): 4 Upper Extremity Dressin Upper Body Dressing (QC): 4 Lower Extremity Dressin Lower Body Dressing (QC): 4 On/Off Footwear (QC): 4 Toiletin Toileting Hygiene (QC): 4 Toilet/Commode Transfer: 5 Toilet Transfer (QC): 4 Shower: 5 Assessment/Plan Assessment and Plan Assess & Plan/Chief Complaint (1) CVA (cerebral vascular accident) (2) Right sided weakness-dramatically improved (3) Hyperlipidemia-intolerant to statin therapy (4) Former smoker (5) Garbled speech-improved (6) Unable to ambulate-resolved (7) Emesis-resolved (8) Profound dementia at baseline now worsened with CVA Plan: Home with daughter with home health tomorrow Aspirin sent to pharmacy Intolerant to statin therapy Follow-up with [facility] in one week (1) CVA (cerebral vascular accident) Assessment & Plan: Confirmed on MRI: There is a small acute/subacute nonhemorrhagic infarct in the periventricular white matter adjacent to the left lateral ventricle. Statin, ASA, Cardiology consultation, ECHO, EKG, Tely (2) Unable to ambulate Assessment & Plan: IRF protocols with assistive devices (3) Garbled speech (4) Right sided weakness Assessment & Plan: IRF protocols (5) Hyperlipidemia Assessment & Plan: High dose statin (6) Dementia (7) Nausea (8) Poor appetite LUIS F LAIRD DO Aug 13, 2018 09:56
--- NOTE | 2018-08-13 11:29 | Cardiology Progress Note ---
Cardiology SOAP Progress Note Subjective: No cardiac complaints. Objective: I&O/Vital Signs 08/14/18 08/14/18 08/14/18 05:18 08:31 09:18 Temp 98.2 Pulse 94 Resp 16 B/P (MAP) 109/68 (82) Pulse Ox 93 94 O2 Delivery Room Air Room Air Room Air 08/13/18 23:59 Intake Total 730 ml Balance 730 ml Weight (Pounds): 107 Weight (Ounces): 0.0 Weight (Calculated Kilograms): 48.706064 Constitutional: well-developed, well-nourished Respiratory: No accessory muscle use, No respiratory distress; chest expansion is symmetric, chest is bilaterally symmetric, other (fair air entry; poor inspiratory effort) Cardiovascular: regular rate-rhythm; No irregularly irregular, No extra beats, No parasternal heave is noted, No JVD, No edema, No bradycardia, No tachycardia , No point of maximal impulse, No cardiac thrills are palpable; S1 and S2; No gallop/S3, No gallop/S4, No diastolic murmur, No systolic murmur, No friction rub, No click, No other Gastrointestional: No tender; soft, round; No distended, No pulsatile mass, No organomegaly, No guarding, No rebound, No tenderness, No hernia, No mass; audible bowel sounds; No abnormal bowel sounds, No abdominal bruits, No spleenomegaly, No other Extremities: no lower extremity edema bilateral Neurologic/Psychiatric: alert (oriented to self and location), other (speech improved; right sided upper and lower extremity weakness continues) Skin: No rash, No ulcerations A/P: Assessment/Dx: Acute CVA Hyperlipidemia Carotid stenosis Plan: CVA - small acute/subacute nonhemorrhagic infarct in the periventricular white matter adjacent to the left lateral ventricle per MRI of 08-02-18 - with right sided upper and lower extremity weakness. Maintained on ASA. Generalized weakness, EKG did not show acute abnormal, blood pressure appeared to be stable. Continue to monitor. HLD- started on Lipitor 80mg, medication was discontinued secondary to history of intolerance in the past. Echo on 08/02/18: LVEF 60-65%, grade 1 diastolic dysfunction, PASP 20 mmHg, continue to monitor no changes are recommended Mild carotid arterial disease with no hemodynamically significant stenosis within either carotid bifurcation per u/s of 4-8-19 Thank you for your consultation. Please call me if you have any questions. Fabiola Perera MD, FACP, FACC, [facility], FHRS, CCDS Interventional Cardiology Cardiac Electrophysiology Vascular Medicine and Endovascular Interventions Barbara PERERA MD Aug 13, 2018 11:29 am
--- NOTE | 2018-08-13 13:31 | Physical Therapy Daily Note ---
PT Daily Note-Current Subjective Pt. agreeable to Rx in am but in PM states she is very tired and can hardly keep her eyes open, wants to exercise in bed. No c/o pain just fatigue Pain Location: No Pain Reported Mental Status Patient Orientation: Person, Place, Time, Situation Transfers Therapy Code Descriptions/Definitions Functional [place] Measure: 0=Not Assessed/NA 4=Minimal Assistance 1=Total Assistance 5=Supervision or Setup 2=Maximal Assistance 6=Modified [place] 3=Moderate Assistance 7=Complete [place] Therapy Quality Codes: 6 Independent with activity with or without an assistive device 5 Patient requires set up or clean up by helper. Patient completes activity by themselves 4 Supervision or touching assist (CGA). [place] provide cues , steadying assist 3 The helper provides less than half the effort to complete the activity 2 The helper provides more than half the effort to complete the activity 1 Dependent. The helper does all the effort to complete an activity 7 Patient refused to complete or attempt activity 9 The patient did not perform the activity before the current illness or injury 88 Not attempted due to Medical conditions or safety concerns Transfers (B, C, W/C) (FIM): 5 Scootin Rollin Supine to/from Sit: 5 Sit to/from Stand: 5 car TRF SBA and instruction Weight Bearing Right Lower Extremity: Right Full Weight Bearing Left Lower Extremity: Left Full Weight Bearing Gait Training Does the Patient Walk?: Yes Gait (FIM): 5 Distance (FIM): 3=150 ft (100, 150,125) Gait Level of Assist: 5 Gait Persons Needed: 1 Gait Assistive Device: FWW slow, careful no LOB, needs instruction for alignment and steering occas Stair Training Stair Training: Handrails/: 2 handrails Stairs (FIM): 2 #of Steps: 4 Stairs: Pattern: Step to Level of Assist: 4 Exercises Supine Ex: Bridging, Ankle pumps, Quad Set, Rolling, Glut sets, Heel Slides, Short Arc Quads, Scooting, Straight leg raise, Hip abd/add Supine Reps: 20 (x3) Seated Therapy Exercises: Ankle pumps, Sit to stand, Long arc quads, Hip flexion, Hip abd/add Seated Reps: 15 NuStep Minutes: 10 NuStep Workload: 2 Assessment Current Status: Good Progress fatigued in PM , did rolling, scooting and LE ther ex PT Short Term Goals Short Term Goals Time Frame: Aug 09, 2018 Transfers (B,C,W/C) (FIM): 5 Gait (FIM): 4 Wheelchair Distance: 100' PT Senior Care Goals Eligibility Specialist Goals PT Eligibility Specialist Goals Time Frame: Aug 20, 2018 Transfers (B,C,W/C) (FIM): 6 Sit to Lying (QC): 6 Lying-Sitting on Side/Bed(QC): 6 Sit to Stand (QC): 6 Rollin Roll Left to Right (QC): 6 Chair/Tvw-ak-Lngay Xfer(QC): 6 Car Transfer (QC): 5 Does the Patient Walk: Yes Gait (FIM): 6 Gait distance (FIM): 3=150 ft Walk 10 feet (QC): 6 Walk 10ft-Uneven Surface(QC): 5 Walk 50ft with 2 Turns (QC): 6 Walk 150 ft (QC): 6 Gait Assistive Device: FWW Does the Pt use WC or Scooter?: No Stairs (FIM): 5 (household) # of Steps: 4 1 Step (curb) (QC): 6 4 Steps (QC): 6 12 Steps (QC): 10 Picking up an Object (QC): 4 PT Plan Treatment/Plan Treatment Plan: Continue Plan of Care Treatment Plan: Bed Mobility, Education, Functional Activity Joan, Functional Strength, Group Therapy, Gait, Safety, Therapeutic Exercise, Transfers Treatment Duration: Aug 20, 2018 Frequency: At least 5 of 7 days/Wk (IRF) Estimated Hrs Per Day: 1.5 hours per day Patient and/or Family Agrees t: Yes Safety Risks/Education Patient Education: Gait Training, Transfer Techniques, Steps, Correct Positioning, Disease Process, Safety Issues Teaching Recipient: Patient, Primary Caregiver Teaching Methods: Discussion Response to Teaching: Return Demonstration, Reinforcement Needed Time/GCodes Time In: 1100 (1300) Time Out: 1200 (1330) Total Billed Treatment Time: 90 Total Billed Treatment 1x2,EX45m,FA30m,GT15m G Codes Necessary: BILL Daniel IDENTIFIER HORSE Aug 13, 2018 13:31
--- NOTE | 2018-08-13 13:50 | Occupational Ther Daily Note ---
OT Current Status-Daily Note Subjective Pt in bed, agrees to treatment. Mental Status/Objective Therapy Code Descriptions/Definitions Functional [place] Measure: 0=Not Assessed/NA 4=Minimal Assistance 1=Total Assistance 5=Supervision or Setup 2=Maximal Assistance 6=Modified [place] 3=Moderate Assistance 7=Complete [place] ADL-Treatment Therapy Code Descriptions/Definitions Functional [place] Measure: 0=Not Assessed/NA 4=Minimal Assistance 1=Total Assistance 5=Supervision or Setup 2=Maximal Assistance 6=Modified [place] 3=Moderate Assistance 7=Complete [place] Therapy Quality Codes: 6 Independent with activity with or without an assistive device 5 Patient requires set up or clean up by helper. Patient completes activity by themselves 4 Supervision or touching assist (CGA). [place] provide cues , steadying assist 3 The helper provides less than half the effort to complete the activity 2 The helper provides more than half the effort to complete the activity 1 Dependent. The helper does all the effort to complete an activity 7 Patient refused to complete or attempt activity 9 The patient did not perform the activity before the current illness or injury 88 Not attempted due to Medical conditions or safety concerns Other Treatment Supine to sit with SBA. Transfer to chair with SBA using FWW. Pt completed bilateral UE exercises while seated in chair. Pt performed 3 exercises x10 reps with dowel tania to increase strength needed for ADLs and transfers. Rest breaks between exercises. Occasional cues for proper exercise technique. Bilateral hand electromedical equipment repairer exercises x20 reps with moderate resistance therapy foam to increase electromedical equipment repairer strength. Pt sitting in chair with needs met after session. OT Short Term Goals Short Term Goals Transfers (B,C,W/C) (FIM): 5 1=Demonstrate adherence to instructed precautions during ADL tasks. 2=Patient will verbalize/demonstrate understanding of assistive devices/ modifications for ADL. 3=Patient will improve strength/tolerance for activity to enable patient to perform ADL's. OT Proof Operator Goals Mcfp Goals Time Frame: August 30, 2018 Eating (FIM): 7 Eating (QC): 6 Groomin (not met) Oral Hygiene (QC): 6 (5-not met) Bathing(FIM): 5 (met 08/13/18) Shower/Bathe Self (QC): 5 (4-not met) Upper Body Dressing(FIM): 5 (met 08/13/18) Upper Body Dressing (QC): 5 (4-not met) Lower Body Dressing(FIM): 5 (met 08/13/18) Lower Body Dressing (QC): 5 (4-not met) On/Off Footwear (QC): 5 (4-not met) Toileting(FIM): 6 (not met) Toileting Hygiene (QC): 6 (4-not met) Transfers (B,C,W/C) (FIM): 6 Toilet/Commode Transfer(FIM): 6 (not met) Toilet/Commode Transfer (QC): 6 (4-not met) Shower Transfer(FIM): 5 (met 08/13/18) Additional Goals: 1-Demonstrate ADL Tasks, 2-Verbalize Understanding, 3- ImproveStrength/Joan 1=Demonstrate adherence to instructed precautions during ADL tasks. 2=Patient will verbalize/demonstrate understanding of assistive devices/ modifications for ADL. 3=Patient will improve strength/tolerance for activity to enable patient to perform ADL's. OT Education/Plan Discharge Recommendations Plan/Recommendations: Continue POC Treatment Plan/Plan of Care Patient would benefit from OT for education, treatment and training to promote independence in ADL's, mobility, safety and/or upper extremity function for ADL' s. Plan of Care: ADL Retraining, Functional Mobility, Group Exercise/Act as Ind, UE Funct Exercise/Act Treatment Duration: August 30, 2018 Frequency: At least 5 of 7 days/Wk (IRF) Estimated Hrs Per Day: 1.5 hours per day Agreement: Yes Rehab Potential: Good Time/GCodes Start Time: 10:45 Stop Time: 11:00 Total Time Billed (hr/min): 15 Billed Treatment Time 1 visit, EX(15minutes) [place] SKY OT Aug 13, 2018 13:50
[2018-08-13 16:33] VITALS: BP 123/75
--- NOTE | 2018-08-13 19:14 | NUR ---
bedside report received from DENISE HARRIS, assume care of pt
--- NOTE | 2018-08-13 21:00 | NUR ---
assessments & interventions completed, see assessments & interventions, up to bathroom with 1 person standby assist & walker
[2018-08-14 05:18] VITALS: BP 109/68
--- NOTE | 2018-08-14 07:14 | NUR ---
bedside report given to ARI HARRIS
[2018-08-14] MEDS: ASPIRIN E.C. 81 MG (ECOTRIN) TAB PO SCH (08:04)
[2018-08-14] MEDS: LACTOBACILLUS ACIDOPHILUS (PROBIOTIC) CAPSULE PO SCH (08:04)
[2018-08-14] MEDS: RT-ALBUTEROL SULF 2.5 MG/3 ML PRE-MIX VIAL INH SCH (08:31)
--- NOTE | 2018-08-14 11:50 | PM&R Progress Note ---
Subjective HPI/CC On Admission Date Seen by Provider: Aug 14, 2018 Time Seen by Provider: 11:00 CC: CVA HPI: This is an 87yoWF clinic patient of Evelyn Nolasco at [facility] who presented to the ER with right sided weakness and inability to walk. Last known well time was 2 days ago. Patient was worked up in ER for CVA and CT negative and labs negative but could not walk so IRF assessed her with my evaluation in the ER to meet criteria for direct admit to IRF. PLOF was independent living alone at home and currently she is dependent with inability to walk due to right sided weakness. Barriers to returning home will be regaining ability to ambulate and return of verbal communication and safety management to reside alone. Patient was placed on Tely, ECHO ordered along with ASA and Lipitor initiation for CVA protocol completion. Subjective/Events-last exam Discharge is planned for tomorrow with home health Daughter will continue caring for her Patient remains flat affect and doesn't move around much and she will likely go back to her usual activity at home. Patient did not tolerate statin therapy so that was discontinued Aspirin will be maintained and that was sent to pharmacy Patient does participate in therapies as required Objective Exam Vital Signs Vital Signs Date Time Temp Pulse Resp B/P (MAP) Pulse Ox O2 Delivery O2 Flow Rate FiO2 08/14/18 09:18 Room Air 08/14/18 08:31 94 08/14/18 05:18 98.2 94 16 109/68 (82) Capillary Refill : Less Than 3 Seconds General Appearance: No Apparent Distress, WD/WN, Chronically ill, Other (flat affect) HEENT: PERRL/EOMI, Normal ENT Inspection, Pharynx Normal Neck: Full Range of Motion, Normal Inspection, Non Tender, Supple Respiratory: Chest Non Tender, Lungs Clear, Normal Breath Sounds, No Accessory Muscle Use, No Respiratory Distress Cardiovascular: Regular Rate, Rhythm, No Edema, No Gallop, No JVD, No Murmur, Normal Peripheral Pulses Gastrointestinal: Normal Bowel Sounds, No Organomegaly, No Pulsatile Mass, Non Tender, Soft Back: Normal Inspection, No CVA Tenderness, No Vertebral Tenderness Extremity: Normal Capillary Refill, Normal Inspection, Normal Range of Motion ( except right sided), Non Tender, No Calf Tenderness Neurologic/Psychiatric: Alert, Oriented x3, accelerator operator II-XII Norm as Tested, Depressed Affect, Disoriented, Motor Weakness (right arm and leg weakness 3/5), Other (speech garbled) Skin: Normal Color, Warm/Dry Lymphatic: No Adenopathy Results/Procedures Lab Patient resulted labs reviewed. FIM Transfers Therapy Code Descriptions/Definitions Functional [place] Measure: 0=Not Assessed/NA 4=Minimal Assistance 1=Total Assistance 5=Supervision or Setup 2=Maximal Assistance 6=Modified [place] 3=Moderate Assistance 7=Complete [place] Therapy Quality Codes: 6 Independent with activity with or without an assistive device 5 Patient requires set up or clean up by helper. Patient completes activity by themselves 4 Supervision or touching assist (CGA). [place] provide cues , steadying assist 3 The helper provides less than half the effort to complete the activity 2 The helper provides more than half the effort to complete the activity 1 Dependent. The helper does all the effort to complete an activity 7 Patient refused to complete or attempt activity 9 The patient did not perform the activity before the current illness or injury 88 Not attempted due to Medical conditions or safety concerns Mental Status/Objective Comprehension: 6 Expression: 2 Social Interaction: 2 Problem Solvin Memory: 4 ADL-Treatment Feedin Eating (QC): 6 Groomin Oral Hygiene (QC): 5 Bathin Bathing Location: L Arm, R Arm, L Upper Leg, R Upper Leg, L Lower Leg ( including foot), R Lower Leg (including foot), Chest, Abdomen, Buttocks, Perineal Area Shower/Bathe Self (QC): 4 Upper Extremity Dressin Upper Body Dressing (QC): 4 Lower Extremity Dressin Lower Body Dressing (QC): 4 On/Off Footwear (QC): 4 Toiletin Toileting Hygiene (QC): 4 Toilet/Commode Transfer: 5 Toilet Transfer (QC): 4 Shower: 5 Assessment/Plan Assessment and Plan Assess & Plan/Chief Complaint (1) CVA (cerebral vascular accident) (2) Right sided weakness-dramatically improved (3) Hyperlipidemia-intolerant to statin therapy (4) Former smoker (5) Garbled speech-improved (6) Unable to ambulate-resolved (7) Emesis-resolved (8) 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 Statin, ASA, Cardiology consultation, ECHO, EKG, Tely (2) Unable to ambulate Assessment & Plan: IRF protocols with assistive devices (3) Garbled speech (4) Right sided weakness Assessment & Plan: IRF protocols (5) Hyperlipidemia Assessment & Plan: High dose statin (6) Dementia (7) Nausea (8) Poor appetite LUIS F LAIRD DO Aug 14, 2018 11:50
--- NOTE | 2018-08-14 11:54 | Discharge Summary ---
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 worsened with CVA Plan: Home with daughter with home health tomorrow Aspirin sent to pharmacy Intolerant to statin therapy Follow-up with [facility] in one week Discharge Summary Discharge Physical Examination Allergies: Coded Allergies: Penicillins (Unverified Allergy, Mild, HIVES, 07/03/09) Aqbpoaf-Xuw-Zug Reductase Inhibitor (Verified Allergy, Unknown, 08/09/18) acetaminophen (Verified Allergy, Unknown, 06/13/18) diphenhydramine (Verified Allergy, Unknown, 06/13/18) doxylamine (Verified Allergy, Unknown, 06/13/18) Vitals & I&Os Vital Signs Date Time Temp Pulse Resp B/P (MAP) Pulse Ox O2 Delivery O2 Flow Rate FiO2 08/14/18 15:01 87 16 149/77 95 Room Air 08/14/18 14:43 98.1 Hospital Course Was the Problem List Reviewed?: Yes Hospital course: Patient had a lengthy hospital course of inpatient rehab after she was directly admitted from the emergency room after presumed stroke with right-sided weakness. She was not a TPA candidate so all stroke protocol test were completed during inpatient rehab stay. Therapy worked with the patient aggressively was able to attain ambulation with a walker and overall dramatic improvement in the right-sided weakness and garbled speech. Profound dementia with a slums score of 4 was diagnosed which was likely baseline but worsened with stroke. Patient underwent extensive safety education to prevent falls when she returned home. She will have home health and her daughter will manage her care as she had been doing quite a bit of before the stroke. Blood pressure remained under control but she was intolerant to statin therapy so that was discontinued and patient was maintained on a baby aspirin for further stroke prevention. Overall prognosis unclear due to severe dementia and now stroke disability. Labs (last 24 hrs) Laboratory Tests 08/02/18 09:55: Triglycerides Level 225H, Cholesterol Level 245H, LDL Cholesterol Direct 164H, VLDL Cholesterol 45H, HDL Cholesterol 54 08/06/18 06:05: White Blood Count 16.1H, Red Blood Count 5.13, Hemoglobin 15.4, Hematocrit 46, Mean Corpuscular Volume 89, Mean Corpuscular Hemoglobin 30, Mean Corpuscular Hemoglobin Concent 34, Red Cell Distribution Width 15.9H, Platelet Count 215, Mean Platelet Volume 10.8H, Sodium Level 142, Potassium Level 3.4L, Chloride Level 109H, Carbon Dioxide Level 14L, Anion Gap 19H, Blood Urea Nitrogen 19H, Creatinine 0.92, Estimat Glomerular Filtration Rate 58, BUN/Creatinine Ratio 21 , Glucose Level 146H, Calcium Level 9.3, Magnesium Level 1.7L 08/12/18 08:55: White Blood Count 10.1, Red Blood Count 4.58, Hemoglobin 13.6, Hematocrit 42, Mean Corpuscular Volume 91, Mean Corpuscular Hemoglobin 30, Mean Corpuscular Hemoglobin Concent 33, Red Cell Distribution Width 15.7H, Platelet Count 253, Mean Platelet Volume 10.7H, Sodium Level 141, Potassium Level 3.5L, Chloride Level 105, Carbon Dioxide Level 24, Anion Gap 12, Blood Urea Nitrogen 12, Creatinine 0.88, Estimat Glomerular Filtration Rate > 60, BUN/Creatinine Ratio 14, Glucose Level 97, Calcium Level 9.6, Neutrophils (%) (Auto) 60, Lymphocytes (%) (Auto) 28, Monocytes (%) (Auto) 10, Eosinophils (%) (Auto) 1, Basophils (%) (Auto) 0, Neutrophils # (Auto) 6.1, Lymphocytes # (Auto) 2.9, Monocytes # (Auto ) 1.0, Eosinophils # (Auto) 0.1, Basophils # (Auto) 0.0, Corrected Calcium 9.4, Total Bilirubin 1.1H, Aspartate Amino Transf (AST/SGOT) 13, Alanine Aminotransferase (ALT/SGPT) 16, Alkaline Phosphatase 80, Total Protein 7.0, Albumin 4.2 Pending Labs Laboratory Tests 08/02/18 09:55: Triglycerides Level 225, Cholesterol Level 245, LDL Cholesterol Direct 164, VLDL Cholesterol 45, HDL Cholesterol 54 08/06/18 06:05: White Blood Count 16.1, Red Blood Count 5.13, Hemoglobin 15.4, Hematocrit 46, Mean Corpuscular Volume 89, Mean Corpuscular Hemoglobin 30, Mean Corpuscular Hemoglobin Concent 34, Red Cell Distribution Width 15.9, Platelet Count 215, Mean Platelet Volume 10.8, Sodium Level 142, Potassium Level 3.4, Chloride Level 109, Carbon Dioxide Level 14, Anion Gap 19, Blood Urea Nitrogen 19, Creatinine 0.92, Estimat Glomerular Filtration Rate 58, BUN/Creatinine Ratio 21 , Glucose Level 146, Calcium Level 9.3, Magnesium Level 1.7 08/12/18 08:55: White Blood Count 10.1, Red Blood Count 4.58, Hemoglobin 13.6, Hematocrit 42, Mean Corpuscular Volume 91, Mean Corpuscular Hemoglobin 30, Mean Corpuscular Hemoglobin Concent 33, Red Cell Distribution Width 15.7, Platelet Count 253, Mean Platelet Volume 10.7, Sodium Level 141, Potassium Level 3.5, Chloride Level 105, Carbon Dioxide Level 24, Anion Gap 12, Blood Urea Nitrogen 12, Creatinine 0.88, Estimat Glomerular Filtration Rate > 60, BUN/Creatinine Ratio 14, Glucose Level 97, Calcium Level 9.6, Neutrophils (%) (Auto) 60, Lymphocytes (%) (Auto) 28, Monocytes (%) (Auto) 10, Eosinophils (%) (Auto) 1, Basophils (%) (Auto) 0, Neutrophils # (Auto) 6.1, Lymphocytes # (Auto) 2.9, Monocytes # (Auto ) 1.0, Eosinophils # (Auto) 0.1, Basophils # (Auto) 0.0, Corrected Calcium 9.4, Total Bilirubin 1.1, Aspartate Amino Transf (AST/SGOT) 13, Alanine Aminotransferase (ALT/SGPT) 16, Alkaline Phosphatase 80, Total Protein 7.0, Albumin 4.2 Discharge Home Medications: Active Scripts Active Aspirin EC (Aspirin) 81 Mg Tablet.dr 81 Mg PO DAILY Reported Culturelle (Lactobacillus Rhamnosus GG) 1 Each Capsule 1 Cap PO DAILY Cranberry (Cranberry Extract) 250 Mg Capsule 250 Mg PO DAILY Instructions to patient/family Please see electronic discharge instructions given to patient. Diagnosis/Problems Diagnosis/Problems (1) CVA (cerebral vascular accident) Assessment & Plan: Confirmed on MRI: There is a small acute/subacute nonhemorrhagic infarct in the periventricular white matter adjacent to the left lateral ventricle. Statin, ASA, Cardiology consultation, ECHO, EKG, Tely (2) Unable to ambulate Assessment & Plan: IRF protocols with assistive devices (3) Garbled speech (4) Right sided weakness Assessment & Plan: IRF protocols (5) Hyperlipidemia Assessment & Plan: High dose statin (6) Dementia (7) Nausea (8) Poor appetite Clinical Quality Measures DVT/VTE Risk/Contraindication: Risk Factor Score Per Nursin RFS Level Per Nursing on Admit: 2=Moderate LUIS F LAIRD DO Aug 14, 2018 11:53
--- NOTE | 2018-08-14 12:48 | Cardiology Progress Note ---
Cardiology SOAP Progress Note Subjective: No cardiac complaints. Objective: I&O/Vital Signs 08/14/18 08/14/18 08/14/18 05:18 08:31 09:18 Temp 98.2 Pulse 94 Resp 16 B/P (MAP) 109/68 (82) Pulse Ox 93 94 O2 Delivery Room Air Room Air Room Air 08/13/18 23:59 Intake Total 730 ml Balance 730 ml Weight (Pounds): 107 Weight (Ounces): 0.0 Weight (Calculated Kilograms): 48.215052 Constitutional: well-developed, well-nourished Respiratory: No accessory muscle use, No respiratory distress; chest expansion is symmetric, chest is bilaterally symmetric, other (fair air entry; poor inspiratory effort) Cardiovascular: regular rate-rhythm; No irregularly irregular, No extra beats, No parasternal heave is noted, No JVD, No edema, No bradycardia, No tachycardia , No point of maximal impulse, No cardiac thrills are palpable; S1 and S2; No gallop/S3, No gallop/S4, No diastolic murmur, No systolic murmur, No friction rub, No click, No other Gastrointestional: No tender; soft, round; No distended, No pulsatile mass, No organomegaly, No guarding, No rebound, No tenderness, No hernia, No mass; audible bowel sounds; No abnormal bowel sounds, No abdominal bruits, No spleenomegaly, No other Extremities: no lower extremity edema bilateral Neurologic/Psychiatric: alert (oriented to self and location), other (speech improved; right sided upper and lower extremity weakness continues) Skin: No rash, No ulcerations A/P: Assessment/Dx: Acute CVA Hyperlipidemia Carotid stenosis Plan: CVA - small acute/subacute nonhemorrhagic infarct in the periventricular white matter adjacent to the left lateral ventricle per MRI of 08-02-18 - with right sided upper and lower extremity weakness. Maintained on ASA. Generalized weakness, EKG did not show acute abnormal, blood pressure appeared to be stable. Continue to monitor. HLD- started on Lipitor 80mg, medication was discontinued secondary to history of intolerance in the past. Echo on 08/02/18: LVEF 60-65%, grade 1 diastolic dysfunction, PASP 20 mmHg, continue to monitor no changes are recommended Mild carotid arterial disease with no hemodynamically significant stenosis within either carotid bifurcation per u/s of 4-8-19 Thank you for your consultation. Please call me if you have any questions. Fabiola Perera MD, FACP, FACC, FSCAI, FHRS, CCDS Interventional Cardiology Cardiac Electrophysiology Vascular Medicine and Endovascular Interventions Barbara PERERA MD Aug 14, 2018 12:48 pm
--- NOTE | 2018-08-14 14:20 | NUR ---
YEYO SHARMA Jenna demonstrates understanding of discharge instructions and accurately returns instructions upon questioning. Copy of Post-Discharge Instructions given to PATIENT/DAUGHTER. YEYO SHARMA Jenna is able to manage continuing needs after discharge WITH SUPPORT FROM [facility] (RN, PT, OT, ST) AND FAMILY. Patient's belongings returned to PATIENT. Patient discharged from [facility] on 08/14/18 at 1440. YEYO SHARMA left floor via WHEELCHAIR, accompanied by STAFF AND DAUGHTER. DAUGHTER STATES THAT PATIENT WILL HAVE / SUPERVISION FROM HER AND HER BROTHER.
[2018-08-14 14:43] VITALS: BP 149/77
[2018-08-14 15:01] VITALS: BP 149/77
--- NOTE | 2018-08-16 08:11 | Therapy Team Discharge Summary ---
Therapy Discharge Summary Discharge Recommendations Date of Discharge Aug 14, 2018 at 14:40 Therapy D/C Recommendations: Physical Therapy Home Care Occupational Therapy Decreased Activ Tolerance, Decreased Safety Aware, Impaired Funct Balance, Impaired I ADL's, Impaired Self-Care Skills Speech-Language Pathology The patient was admitted to the ARU s/p CVA with weakness and decreased cognition. The patient was evaluated at bedside with the MOCA for assessment of her cognitive-communication status. The patient had very limited verbal output and required frequent encouragement to participate with language therapy. The SLUMS was given by psychiatric team and she scored with moderate to severe dementia. The patient was discharged home with her daughter on 08/14/18. She was discharged from at that time as well. PT Casino Floor Walker Goals Senior Care Goals PT Senior Care Goals Time Frame: Aug 20, 2018 Transfers (B,C,W/C) (FIM): 6 Roll Left to Right (QC): 6 Sit to Lying (QC): 6 Lying-Sitting on Side/Bed(QC): 6 Sit to Stand (QC): 6 Chair/[id number]-Qlpmr Xfer(QC): 6 Car Transfer (QC): 5 Does the Patient Walk: Yes Gait (FIM): 6 Gait distance (FIM): 3=150 ft Walk 10 feet (QC): 6 Walk 10ft-Uneven Surface(QC): 5 Walk 50ft with 2 Turns (QC): 6 Walk 150 ft (QC): 6 Gait Assistive Device: FWW Does the Pt use WC or Scooter?: No Stairs (FIM): 5 (household) # of Steps: 4 1 Step (curb) (QC): 6 4 Steps (QC): 6 12 Steps (QC): 10 Picking up an Object (QC): 4 OT Casino Floor Walker Goals Senior Care Goals Time Frame: August 30, 2018 Eating (FIM): 7 Eating (QC): 6 Oral Hygiene (QC): 6 (5-not met) Grooming(FIM): 6 (not met) Bathing(FIM): 5 (met 08/13/18) Shower/Bathe Self (QC): 5 (4-not met) Upper Body Dressing(FIM): 5 (met 08/13/18) Upper Body Dressing (QC): 5 (4-not met) Lower Body Dressing(FIM): 5 (met 08/13/18) Lower Body Dressing (QC): 5 (4-not met) On/Off Footwear (QC): 5 (4-not met) Toileting(FIM): 6 (not met) Toileting Hygiene (QC): 6 (4-not met) Transfers (B,C,W/C) (FIM): 6 Toilet/Commode Transfer(FIM): 6 (not met) Toilet/Commode Transfer (QC): 6 (4-not met) Shower Transfer(FIM): 5 (met 08/13/18) Additional Goals: 1-Demonstrate ADL Tasks, 2-Verbalize Understanding, 3- ImproveStrength/Joan 1=Demonstrate adherence to instructed precautions during ADL tasks. 2=Patient will verbalize/demonstrate understanding of assistive devices/ modifications for ADL. 3=Patient will improve strength/tolerance for activity to enable patient to perform ADL's. Speech Senior Care Goals Senior Care Goals The patient will be able to effectively communicate her wants/needs to staff and family. Met at 75% CATHIE KLINE Aug 16, 2018 08:11
--- NOTE | 2018-08-16 08:52 | Therapy Team Discharge Summary ---
Therapy Discharge Summary Discharge Recommendations Date of Discharge Aug 14, 2018 at 14:40 Therapy D/C Recommendations: Physical Therapy Home Care Physical Therapy This patient was transferred to ARU from ED post ED visit with complaints of right sided weakness. Pt was living at home alone with intermittent help prior to this at a mod indep level. Upon admission to ARU she was min assist with transfers and walked 50 ft with FWW with min assist. She was able to walk across 1 step with min assist. Treatment focused on functional strength, balance and mobility to progress her transfers and gait. She did make functional progress, although did not fully meet her goals. Pt is to discharge home a SBA level with increased caregiver assist. It appears pt has achieved her max potential at this time and has been discharged with recommended HHC to follow. DC PT. Occupational Therapy Decreased Activ Tolerance, Decreased Safety Aware, Impaired Funct Balance, Impaired I ADL's, Impaired Self-Care Skills PT Correction Goals Correction Goals PT Correction Goals Time Frame: Aug 20, 2018 Transfers (B,C,W/C) (FIM): 6 Roll Left to Right (QC): 6 Sit to Lying (QC): 6 Lying-Sitting on Side/Bed(QC): 6 Sit to Stand (QC): 6 Chair/Akr-cb-Jchue Xfer(QC): 6 Car Transfer (QC): 5 Does the Patient Walk: Yes Gait (FIM): 6 Gait distance (FIM): 3=150 ft Walk 10 feet (QC): 6 Walk 10ft-Uneven Surface(QC): 5 Walk 50ft with 2 Turns (QC): 6 Walk 150 ft (QC): 6 Gait Assistive Device: FWW Does the Pt use WC or Scooter?: No Stairs (FIM): 5 (household) # of Steps: 4 1 Step (curb) (QC): 6 4 Steps (QC): 6 12 Steps (QC): 10 Picking up an Object (QC): 4 Pt discharged at a SBA level with gait and transfers; goals not fully met. OT Benefits Advisor Goals Correction Goals Time Frame: August 30, 2018 Eating (FIM): 7 Eating (QC): 6 Oral Hygiene (QC): 6 (5-not met) Grooming(FIM): 6 (not met) Bathing(FIM): 5 (met 08/13/18) Shower/Bathe Self (QC): 5 (4-not met) Upper Body Dressing(FIM): 5 (met 08/13/18) Upper Body Dressing (QC): 5 (4-not met) Lower Body Dressing(FIM): 5 (met 08/13/18) Lower Body Dressing (QC): 5 (4-not met) On/Off Footwear (QC): 5 (4-not met) Toileting(FIM): 6 (not met) Toileting Hygiene (QC): 6 (4-not met) Transfers (B,C,W/C) (FIM): 6 Toilet/Commode Transfer(FIM): 6 (not met) Toilet/Commode Transfer (QC): 6 (4-not met) Shower Transfer(FIM): 5 (met 08/13/18) Additional Goals: 1-Demonstrate ADL Tasks, 2-Verbalize Understanding, 3- ImproveStrength/Joan 1=Demonstrate adherence to instructed precautions during ADL tasks. 2=Patient will verbalize/demonstrate understanding of assistive devices/ modifications for ADL. 3=Patient will improve strength/tolerance for activity to enable patient to perform ADL's. Speech Benefits Advisor Goals Benefits Advisor Goals The patient will be able to effectively communicate her wants/needs to staff and family. Met at 75% MARISA FLORES PT Aug 16, 2018 08:52
--- NOTE | 2018-08-17 14:20 | Therapy Team Discharge Summary ---
Therapy Discharge Summary Discharge Recommendations Date of Discharge Aug 14, 2018 at 14:40 Therapy D/C Recommendations: Physical Therapy Home Care Occupational Therapy Pt admitted to ARU with right sided weakness. On admission pt required min assist with dressing, bathing, grooming, and transfers. Skilled OT intervention focused on ADL training, transfers, strengthening, and safety. Pt made progress with therapy and by discharge is completing basic ADLs and self care with supervision. Pt met goals for bathing, dressing, and shower transfer, but did not meet other LTG. Pt discharged home. D/C ARU OT. Decreased Activ Tolerance, Decreased Safety Aware, Impaired Funct Balance, Impaired I ADL's, Impaired Self-Care Skills PT Longterm Goals Longterm Goals PT Longterm Goals Time Frame: Aug 20, 2018 Transfers (B,C,W/C) (FIM): 6 Roll Left to Right (QC): 6 Sit to Lying (QC): 6 Lying-Sitting on Side/Bed(QC): 6 Sit to Stand (QC): 6 Chair/Ars-vm-Fikvu Xfer(QC): 6 Car Transfer (QC): 5 Does the Patient Walk: Yes Gait (FIM): 6 Gait distance (FIM): 3=150 ft Walk 10 feet (QC): 6 Walk 10ft-Uneven Surface(QC): 5 Walk 50ft with 2 Turns (QC): 6 Walk 150 ft (QC): 6 Gait Assistive Device: FWW Does the Pt use WC or Scooter?: No Stairs (FIM): 5 (household) # of Steps: 4 1 Step (curb) (QC): 6 4 Steps (QC): 6 12 Steps (QC): 10 Picking up an Object (QC): 4 OT Dowel Setting Machine Operator Goals Longterm Goals Time Frame: August 30, 2018 Eating (FIM): 7 Eating (QC): 6 Oral Hygiene (QC): 6 (5-not met) Grooming(FIM): 6 (not met) Bathing(FIM): 5 (met 08/13/18) Shower/Bathe Self (QC): 5 (4-not met) Upper Body Dressing(FIM): 5 (met 08/13/18) Upper Body Dressing (QC): 5 (4-not met) Lower Body Dressing(FIM): 5 (met 08/13/18) Lower Body Dressing (QC): 5 (4-not met) On/Off Footwear (QC): 5 (4-not met) Toileting(FIM): 6 (not met) Toileting Hygiene (QC): 6 (4-not met) Transfers (B,C,W/C) (FIM): 6 Toilet/Commode Transfer(FIM): 6 (not met) Toilet/Commode Transfer (QC): 6 (4-not met) Shower Transfer(FIM): 5 (met 08/13/18) Additional Goals: 1-Demonstrate ADL Tasks, 2-Verbalize Understanding, 3- ImproveStrength/Joan 1=Demonstrate adherence to instructed precautions during ADL tasks. 2=Patient will verbalize/demonstrate understanding of assistive devices/ modifications for ADL. 3=Patient will improve strength/tolerance for activity to enable patient to perform ADL's. Speech Longterm Goals Dowel Setting Machine Operator Goals The patient will be able to effectively communicate her wants/needs to staff and family. Met at 75% KY SKY OT Aug 17, 2018 14:20
== END 2018-08-14 14:40 | disposition home health service (06) | DRG 57 ==
PROVIDERS: ADMIT Internal Medicine; ATTEND Internal Medicine
DX: I69.351 Hemiplegia and hemiparesis following cerebral infarction affecting right dominant side (principal); I69.328 Other speech and language deficits following cerebral infarction; E78.5 Hyperlipidemia, unspecified; K44.9 Diaphragmatic hernia without obstruction or gangrene; F41.9 Anxiety disorder, unspecified; F03.90 Unspecified dementia, unspecified severity, without behavioral disturbance, psychotic disturbance, mood disturbance, and anxiety; I65.23 Occlusion and stenosis of bilateral carotid arteries; Z87.891 Personal history of nicotine dependence
CPT/HCPCS: 36415; 70553; 71046; 80048; 80053; 80061; 83735; 85025; 85027; 93005; 93306; 93880; 94640; 94760

== ENCOUNTER 2019-12-26 06:17 | Inpatient (IN) | payer MEDICARE, MEDICAID ==
[2019-12-26] VITALS (15 sets, daily range): BP systolic 130–154; BP diastolic 65–79
[~2019-12-26] VITALS: Ht 155 cm; Wt 54.1 kg
[~2019-12-26 06:17] MED LIST changes: +ASPI-983 PO; -TRAZ-189; +TRZ50T
[2019-12-26] MEDS ORDERED: LACTATED RINGERS 1,000 ML IV ONE ×2 (06:27→06:56)
[2019-12-26 06:42] LABS: BASOPHILS % (AUTO) 0 % (0-10); EOSINOPHILS % (AUTO) 0 % (0-10); HEMATOCRIT 49 % (35-52); HEMOGLOBIN 16.2 G/DL (11.5-16.0); LYMPHOCYTES # (AUTO) 1.2 X 10^3 (1.0-4.0); LYMPHOCYTES % (AUTO) 6 % (12-44); MEAN CORPUSCULAR HEMOGLOBIN 30 PG (25-34); MEAN CORPUSCULAR HGB CONC 33 G/DL (32-36); MEAN CORPUSCULAR VOLUME 91 FL (80-99); MEAN PLATELET VOLUME 11.5 FL (7.4-10.4); MONOCYTES # (AUTO) 1.3 X 10^3 (0.0-1.0); MONOCYTES % (AUTO) 7 % (0-12); NEUTROPHILS # (AUTO) 16.6 X 10^3 (1.8-7.8); NEUTROPHILS % (AUTO) 87 % (42-75); PLATELET COUNT 255 10^3/uL (130-400); WHITE BLOOD COUNT 19.1 10^3/uL (4.3-11.0)
--- NOTE | 2019-12-26 06:43 | NUR ---
PT CLEANED OF STOOL INCONTINENCE, TRIPATHI PLACED.
--- NOTE | 2019-12-26 06:47 | ED Fall/Injury ---
General Chief Complaint: Trauma-Non Activation Stated Complaint: FALL Source: patient Exam Limitations: clinical condition (DEIDRE HUBBARD MD) History of Present Illness Date Seen by Provider: Dec 26, 2019 Time Seen by Provider: 06:18 Initial Comments Here by EMS with report of unwitnessed fall this morning. Apparently the patient was up to the bathroom and she was heard falling. Patient reports they had given her a cough drop earlier and now she has vomited. They're unsure what happened. They're unsure if she was coughing and they gave her the cough drop or reason that they gave it to her. No report of recent illness. She did vomit and is incontinent of stool. She is not really answering questions but does follow a few simple commands. No obvious injury noted otherwise. She does seem to be tender on her abdomen. History is significantly limited due to patient's condition. Occurred: this morning (approximately 30 minutes ago) Severity: moderate Context: unknown Loss of Consciousness: unsure Modifying Factors: Worse With Movement (DEIDRE HUBBARD MD) Allergies and Home Medications Allergies Coded Allergies: Penicillins (Unverified Allergy, Mild, HIVES, 07/03/09) Ovppuwt-Mbu-Fky Reductase Inhibitor (Verified Allergy, Unknown, 08/09/18) acetaminophen (Verified Allergy, Unknown, 06/13/18) diphenhydramine (Verified Allergy, Unknown, 06/13/18) doxylamine (Verified Allergy, Unknown, 06/13/18) Home Medications Aspirin 81 Mg Tablet.dr, 81 MG PO DAILY Prescribed by: LUIS F LAIRD on 08/12/18 1543 Cranberry Extract 250 Mg Capsule, 250 MG PO DAILY, (Reported) Lactobacillus Rhamnosus GG 1 Each Capsule, 1 CAP PO DAILY, (Reported) Patient Home Medication List Home Medication List Reviewed: Yes (DEIDRE HUBBARD MD) Review of Systems Review of Systems Constitutional: see HPI; No fever Unable to complete review of systems due to altered mental status (DEIDRE HUBBARD MD) Past Nyfdppj-Okznga-Edofqh Hx Past Med/Social Hx: Reviewed Nursing Past Med/Soc Hx (DEIDRE HUBBARD MD) Patient Social History Alcohol Beverage of Choice: Whiskey Smoking Status: Current Everyday Smoker Type Used: Cigarettes Former Smoker, Quit: May 07, 2017 2nd Hand Smoke Exposure: Yes Recent Hopitalizations: No (DEIDRE HUBBARD MD) Immunizations Up To Date Tetanus Booster (TDap): Unknown PED Vaccines UTD: No Date of Pneumonia Vaccine: Jan 27, 2017 (DEIDRE HUBBARD MD) Seasonal Allergies Seasonal Allergies: Yes (DEIDRE HUBBARD MD) Past Medical History Surgeries: Yes Appendectomy, Section, Tubal Ligation Respiratory: Yes COPD Currently Using CPAP: No Currently Using BIPAP: No Cardiac: Yes High Cholesterol Neurological: Yes (Tremors) Genitourinary: Yes UTI-Chronic Gastrointestinal: Yes Hiatal Hernia Musculoskeletal: Yes (Chronic chest pain) Endocrine: No HEENT: No Loss of Vision: Denies Cancer: No Psychosocial: Yes Anxiety Integumentary: Yes Recent Skin Changes Blood Disorders: No (DEIDRE HUBBARD MD) Family Medical History Reviewed Nursing Family Hx (DEIDRE HUBBARD MD) Patient reports no known family medical history. No Pertinent Family Hx (DEIDRE HUBBARD MD) Physical Exam Vital Signs Vital Signs - First Documented 12/26/19 06:18 Temp 36.3 Pulse 100 Resp 22 B/P (MAP) 101/67 (78) Pulse Ox 95 O2 Delivery Room Air ([facility]) Vital Signs Capillary Refill : (DEIDRE HUBBARD MD) Height, Weight, BMI Height: 5'1.00" Weight: 107lbs. 0.0oz. 48.042148qa; 23.8 BMI Method:Stated General Appearance: WD/WN, mild distress HEENT: PERRL/EOMI, pharynx normal, other (emesis noted to right side of face) Neck: non-tender, supple Cardiovascular: no murmur, tachycardia Respiratory: lungs clear, normal breath sounds Gastrointestinal: tenderness, other (mildly tense throughout the abdomen) Back: normal inspection, no CVA tenderness, no vertebral tenderness Extremities: no pedal edema, no calf tenderness, pelvis stable Neurologic/Psychiatric: disoriented x 3, other (globally weak) Skin: normal color, warm/dry (DEIDRE HUBBARD MD) [place] Coma Score Best Eye Response: (3) Open to Voice Best Verbal Response: (4) Confused Conversation Best Motor Response: (5) Localizes to Pain [place] Total: 12 (DEIDRE HUBBARD MD) Progress/Results/Core Measures Results/Orders Lab Results Laboratory Tests Test 12/26/19 06:30 12/26/19 06:43 Range/Units White Blood Count 19.1 H 4.3-11.0 10^3/uL Red Blood Count 5.40 4.35-5.85 10^6/uL Hemoglobin 16.2 H 11.5-16.0 G/DL Hematocrit 49 35-52 % Mean Corpuscular Volume 91 80-99 FL Mean Corpuscular Hemoglobin 30 25-34 PG Mean Corpuscular Hemoglobin Concent 33 32-36 G/DL Red Cell Distribution Width 15.0 H 10.0-14.5 % Platelet Count 255 130-400 10^3/uL Mean Platelet Volume 11.5 H 7.4-10.4 FL Neutrophils (%) (Auto) 87 H 42-75 % Lymphocytes (%) (Auto) 6 L 12-44 % Monocytes (%) (Auto) 7 0-12 % Eosinophils (%) (Auto) 0 0-10 % Basophils (%) (Auto) 0 0-10 % Neutrophils # (Auto) 16.6 H 1.8-7.8 X 10^3 Lymphocytes # (Auto) 1.2 1.0-4.0 X 10^3 Monocytes # (Auto) 1.3 H 0.0-1.0 X 10^3 Eosinophils # (Auto) 0.0 0.0-0.3 10^3/uL Basophils # (Auto) 0.0 0.0-0.1 10^3/uL Neutrophils % (Manual) 79 % Lymphocytes % (Manual) 11 % Monocytes % (Manual) 8 % Band Neutrophils 2 % Anisocytosis SLIGHT Prothrombin Time 13.2 12.2-14.7 SEC INR Comment 1.0 0.8-1.4 Activated Partial Thromboplast Time 30 24-35 SEC Sodium Level 141 135-145 MMOL/L Potassium Level 3.7 3.6-5.0 MMOL/L Chloride Level 101 98-107 MMOL/L Carbon Dioxide Level 19 L 21-32 MMOL/L Anion Gap 21 H 5-14 MMOL/L Blood Urea Nitrogen 26 H 7-18 MG/DL Creatinine 1.20 0.60-1.30 MG/DL Estimat Glomerular Filtration Rate 42 BUN/Creatinine Ratio 22 Glucose Level 206 H 70-105 MG/DL Lactic Acid Level 6.18 *H 0.50-2.00 MMOL/L Calcium Level 9.5 8.5-10.1 MG/DL Corrected Calcium 9.2 8.5-10.1 MG/DL Total Bilirubin 1.1 H 0.1-1.0 MG/DL Aspartate Amino Transf (AST/SGOT) 17 5-34 U/L Alanine Aminotransferase (ALT/SGPT) 23 0-55 U/L Alkaline Phosphatase 99 40-136 U/L Troponin I < 0.028 <0.028 NG/ML Total Protein 7.7 6.4-8.2 GM/DL Albumin 4.4 3.2-4.5 GM/DL Urine Color ORANGE Urine Clarity SL CLOUDY Urine pH 5.5 5-9 Urine Specific [place] 1.025 H 1.016-1.022 Urine Protein TRACE H NEGATIVE Urine Glucose (UA) NEGATIVE NEGATIVE Urine Ketones 2+ H NEGATIVE Urine Nitrite NEGATIVE NEGATIVE Urine Bilirubin NEGATIVE NEGATIVE Urine Urobilinogen 0.2 < = 1.0 MG/DL Urine Leukocyte Esterase TRACE H NEGATIVE Urine RBC (Auto) NEGATIVE NEGATIVE Urine RBC NONE /HPF Urine WBC 0-2 /HPF Urine Squamous Epithelial Cells RARE /HPF Urine Crystals PRESENT H /LPF Urine Amorphous Sediment FEW PORSCHE URATES H /LPF Urine Bacteria NEGATIVE /HPF Urine Casts PRESENT /LPF Urine Hyaline Casts RARE /LPF Urine Mucus NEGATIVE /LPF Urine Culture Indicated CULTURE PENDING ([facility]) Medications Given in ED Current Medications Medications Dose Ordered Sig/Ehsan Route Start Time Stop Time Status Last Admin Dose Admin Lactated Ringer's 1,000 ml @ 0 mls/hr Q0M ONCE IV 12/26/19 06:27 12/26/19 06:32 DC 12/26/19 06:40 0 MLS/HR Lactated Ringer's 1,000 ml @ 0 mls/hr Q0M ONCE IV 12/26/19 06:56 12/26/19 06:57 DC 12/26/19 07:00 0 MLS/HR ([facility]) Vital Signs/I&O 12/26/19 06:18 Temp 36.3 Pulse 100 Resp 22 B/P (MAP) 101/67 (78) Pulse Ox 95 O2 Delivery Room Air ([facility]) Progress Progress Note : Progress Note Seen and evaluated on arrival by EMS. Complicated case in that patient is not answering questions well and current presentation does not fit just fall as she is both incontinent of stool and has been vomiting. She is globally weak appearing. Patient does appear cold and is shivering somewhat. Given presentation and physical exam findings, we will initiate sepsis protocol order set and add CT of the head and neck as well as EKG and troponin. Roldan catheter ordered for accurate intake and output as well as for urine sample and culture. LR 1 L bolus. Monitor patient. Lactic acid noted to be elevated at greater than 4. Repeat LR 1 L bolus to exceed 30 mL/kg IV. Patient is not hypotensive. We have added CT abdomen and pelvis as creatinine is okay at this point and there is concerns about abdominal abnormality given her pain presentation. 0747: I have discussed the case with Dr. Somers. CT complete but pending read. She agrees to accept patient for admission to the ICU given her presentation. There is some concerns about colitis. We will initiate meropenem 500 mg IV now. Monitor patient. 0830: I have updated Dr. Somers. Patient to be admitted to ICU. CT shows questionable colitis. I attest to focused exam at this time. (DEIDRE HUBBARD MD) Initial ECG Impression Date: Dec 26, 2019 Initial ECG Impression Time: 06:51 Initial ECG Rate: 103 Initial ECG Rhythm: S.Tach Comment Sinus tachycardia with left axis deviation. No evidence of ST elevation MA. Similar to previous but worsening left axis deviation from 08/05/18. Interpreted by me. (DEIDRE HUBBARD MD) Diagnostic Imaging Diagonstic Imaging: CT Plain Films/CT/US/NM/MRI: abdomen, pelvis Comments [facility] [place], [place] NAME: YEYO SHARMA MED REC#: [id number] PT STATUS: REG ER : 1930 PHYSICIAN: DEIDRE HUBBARD MD ADMIT DATE: 12/26/19/ER Draft Date of Exam:12/26/19 CT ABDOMEN/PELVIS W PROCEDURE: CT abdomen and pelvis with contrast. TECHNIQUE: Multiple contiguous axial images were obtained through the abdomen and pelvis after administration of intravenous contrast. Auto Exposure Controls were utilized during the CT exam to meet ALARA standards for radiation dose reduction. INDICATION: Abdominal pain, unwitnessed fall. EXAMINATION: CT abdomen and pelvis with contrast 12/26/2019. FINDINGS: Diffuse fatty infiltration throughout the liver is noted. There is a hyperdensity towards the tip of the right lobe similar to previous imaging from 05/29/2017 perhaps hemangioma. There is an adrenal lesion on the right 1.6 mm in greatest dimension also stable. The spleen is stable. A lesion in the left adrenal gland unchanged. Pancreas unremarkable. There is a small hiatal hernia. Kidneys slightly atrophied with no acute abnormality. There is diffuse atherosclerotic disease along the aorta and its branches. 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 There is no ascites or free air. Diverticulosis is noted without evidence for acute diverticulitis. There is a cystic-appearing lesion in the left adnexa just to the left of the sigmoid colon which is stable from previous imaging and therefore likely a benign process. Roldan catheter was noted within a decompressed urinary bladder. No free air or fluid present. Marked degenerative findings and osteopenia seen within the osseous structures with the marked osteopenia limiting evaluation for an acute abnormality. There is a compression deformity at L3 which is age indeterminate but new since the previous CT, correlate for any pain in the region. Lung bases unremarkable. IMPRESSION: 1. Age-indeterminate L3 vertebral body fracture. 2. Questionable mild fat stranding about a few small bowel loops in left mid abdomen not mentioned above but perhaps due to a mild enteritis, correlate with symptoms. Remaining findings appear incidental and/or chronic and stable. Dictated on workstation # [id number] Dict: 12/26/19 0735 Trans: 12/26/19 0748 [facility] [id number] Interpreted by: GENA MERLOS MD Electronically signed by: Reviewed: Reviewed by Me (DEIDRE HUBBARD MD) Diagonstic Imaging: Xray, CT Plain Films/CT/US/NM/MRI: chest, abdomen, c-spine, head Comments [facility]. [place], [place] NAME: YEYO SHARMA MED REC#: [id number] PT STATUS: REG ER : 1930 PHYSICIAN: DEIDRE HUBBARD MD ADMIT DATE: 12/26/19/ER Signed Date of Exam:12/26/19 CT HEAD/CERVICAL SPINE WO PROCEDURE: CT head and CT cervical spine without contrast. TECHNIQUE: Multiple contiguous axial images were obtained through the brain and cervical spine without the use of intravenous contrast. Sagittal and coronal reformations through the cervical spine were then performed. Auto Exposure Controls were utilized during the CT exam to meet ALARA standards for radiation dose reduction. INDICATION: Trauma, unwitnessed fall CT HEAD: The ventricles are normal in size, shape and position. There are no masses or hemorrhages. There are no extra-axial fluid collections. There are no skull fractures seen. Paranasal sinuses are clear. IMPRESSION: Senescent changes of the brain. No acute abnormality seen CT cervical spine: Vertebral body height and alignment appear normal. Intervertebral disc spaces show slight narrowing C3-C4. Other levels are unremarkable. There is no fracture or prevertebral soft tissue swelling. IMPRESSION: Unremarkable cervical spine Dictated by: Dictated on workstation # [id number] Dict: 12/26/19720 Trans: 12/26/19721 TB [id number] Interpreted by: DEIDRE PIRES MD Electronically signed by: DEIDRE PIRES MD 12/26/19721 [facility] [place] [place] NAME: YEYO SHARMA [facility] REC#: [id number] PT STATUS: REG ER : 1930 PHYSICIAN: DEIDRE HUBBARD MD ADMIT DATE: 12/26/19/ER Draft Date of Exam:12/26/19 CHEST 1 VIEW, AP/PA ONLY INDICATION: Witnessed fall. Acute mental status change. EXAMINATION: Chest 12/26/2019. COMPARISON: 08/12/2018 FINDINGS: Minimal atelectasis seen at the right lung base, remaining lung is clear. No infiltrates, effusions or pneumothorax. Heart and pulmonary vasculature normal. IMPRESSION: 1. Minimal atelectasis at the right lung base. Dictated on workstation # [id number] Dict: 12/26/19722 Trans: 12/26/19725 CVB [id number] Interpreted by: CHELITA,GENA B MD Electronically signed by: (YOBANY TENA) Focused Exam Lactate Level 12/26/19 06:30: Lactic Acid Level 6.18*H (YOBANY TENA) Lactic Acid Level Laboratory Tests Test 12/26/19 06:30 Lactic Acid Level 6.18 MMOL/L (0.50-2.00) *H (YOBANY TENA) Departure Communication (Admissions) Time/Spoke to Admitting Phy: 07:47 (DEIDRE HUBBARD MD) Impression Primary Impression: Colitis Additional Impressions: Elevated lactic acid level Severe sepsis Disposition: ADMITTED INPATIENT Condition: Stable Admissions Decision to Admit Reason: Admit from ER (General) Decision to Admit/Date: Dec 26, 2019 Time/Decision to Admit Time: 07:47 (DEIDRE HUBBARD MD) Departure-Patient Inst. Referrals: MITCHELL HAYNES DO (PCP) Primary Care Physician ARJUN LENNON APRN (Family) Primary Care Physician DEIDRE HUBBARD MD Dec 26, 2019 06:47 YOBANY TENA Dec 26, 2019 07:30
[2019-12-26 06:49] LABS: CLARITY,URINE SL CLOUDY; COLOR,URINE ORANGE; GLUCOSE, URINE (UA) NEGATIVE (NEGATIVE); KETONES,URINE 2+ (NEGATIVE); LEUKOCYTE ESTERASE ,URINE TRACE (NEGATIVE); NITRITE,URINE NEGATIVE (NEGATIVE); PH,URINE 5.5 (5-9); PROTEIN,URINE TRACE (NEGATIVE)
[2019-12-26 06:56] LABS: ALBUMIN 4.4 GM/DL (3.2-4.5); CHLORIDE 101 MMOL/L (98-107); POTASSIUM 3.7 MMOL/L (3.6-5.0); SODIUM 141 MMOL/L (135-145)
[2019-12-26 06:58] LABS: CALCIUM 9.5 MG/DL (8.5-10.1); PROTHROMBIN TIME PATIENT 13.2 SEC (12.2-14.7)
[2019-12-26 06:59] LABS: GLUCOSE 206 MG/DL (70-105); TOTAL PROTEIN 7.7 GM/DL (6.4-8.2)
[2019-12-26 07:00] LABS: CARBON DIOXIDE 19 MMOL/L (21-32)
[2019-12-26 07:01] LABS: BILIRUBIN,TOTAL 1.1 MG/DL (0.1-1.0)
[2019-12-26 07:02] LABS: ALKALINE PHOSPHATASE 99 U/L (40-136); GFR ESTIMATED 42
[2019-12-26 07:03] LABS: BUN/CREATININE RATIO 22
[2019-12-26 07:04] LABS: BILIRUBIN,URINE NEGATIVE (NEGATIVE)
[2019-12-26 07:05] LABS: AMORPHOUS SEDIMENT,UR FEW AMOR URATES /LPF; BACTERIA,URINE NEGATIVE /HPF; SQUAMOUS EPITHELIAL CELL,UR RARE /HPF; WBC,URINE 0-2 /HPF
[2019-12-26 07:05] LABS: ALANINE AMINOTRANSFERASE 23 U/L (0-55)
[2019-12-26 07:06] LABS: HYALINE CASTS, URINE RARE /LPF
[2019-12-26 07:22] LABS: ANISOCYTOSIS SLIGHT; BAND NEUTROPHILS 2 %; LYMPHOCYTES % (MANUAL) 11 %; MONOCYTES % (MANUAL) 8 %; NEUTROPHILS % (MANUAL) 79 %
--- NOTE | 2019-12-26 07:24 | Diagnostic Imaging Report ---
PROCEDURE: CT head and CT cervical spine without contrast. TECHNIQUE: Multiple contiguous axial images were obtained through the brain and cervical spine without the use of intravenous contrast. Sagittal and coronal reformations through the cervical spine were then performed. Auto Exposure Controls were utilized during the CT exam to meet ALARA standards for radiation dose reduction. INDICATION: Trauma, unwitnessed fall CT HEAD: The ventricles are normal in size, shape and position. There are no masses or hemorrhages. There are no extra-axial fluid collections. There are no skull fractures seen. Paranasal sinuses are clear. IMPRESSION: Senescent changes of the brain. No acute abnormality seen CT cervical spine: Vertebral body height and alignment appear normal. Intervertebral disc spaces show slight narrowing C3-C4. Other levels are unremarkable. There is no fracture or prevertebral soft tissue swelling. IMPRESSION: Unremarkable cervical spine Dictated by: Dictated on workstation # [id number]
--- NOTE | 2019-12-26 07:26 | Diagnostic Imaging Report ---
INDICATION: Witnessed fall. Acute mental status change. EXAMINATION: Chest 12/26/2019. COMPARISON: 08/12/2018 FINDINGS: Minimal atelectasis seen at the right lung base, remaining lung is clear. No infiltrates, effusions or pneumothorax. Heart and pulmonary vasculature normal. IMPRESSION: 1. Minimal atelectasis at the right lung base. Dictated by: Dictated on workstation # [id number]
[2019-12-26] MEDS ORDERED: CATHETER FLUSH 10 ML SYR IV PRN ×3 (07:45→10:30)
[2019-12-26] MEDS ORDERED: HOLD METFORMIN - RECEIVED CONTRAST 20 ML VIAL IV SCH (07:45)
[2019-12-26] MEDS ORDERED: IOHEXOL 350 MG/ML 100 ML (OMNIPAQUE 350) VIAL IV ONE (07:45)
[2019-12-26] MEDS ORDERED: NS 100 ML (IVPB) BAG IV ONE (07:45)
--- NOTE | 2019-12-26 07:49 | Diagnostic Imaging Report ---
PROCEDURE: CT abdomen and pelvis with contrast. TECHNIQUE: Multiple contiguous axial images were obtained through the abdomen and pelvis after administration of intravenous contrast. Auto Exposure Controls were utilized during the CT exam to meet ALARA standards for radiation dose reduction. INDICATION: Abdominal pain, unwitnessed fall. EXAMINATION: CT abdomen and pelvis with contrast 12/26/2019. FINDINGS: Diffuse fatty infiltration throughout the liver is noted. There is a hyperdensity towards the tip of the right lobe similar to previous imaging from 05/29/2017 perhaps hemangioma. There is an adrenal lesion on the right 1.6 mm in greatest dimension also stable. The spleen is stable. A lesion in the left adrenal gland unchanged. Pancreas unremarkable. There is a small hiatal hernia. Kidneys slightly atrophied with no acute abnormality. There is diffuse atherosclerotic disease along the aorta and its branches. 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 There is no ascites or free air. Diverticulosis is noted without evidence for acute diverticulitis. There is a cystic-appearing lesion in the left adnexa just to the left of the sigmoid colon which is stable from previous imaging and therefore likely a benign process. Roldan catheter was noted within a decompressed urinary bladder. No free air or fluid present. Marked degenerative findings and osteopenia seen within the osseous structures with the marked osteopenia limiting evaluation for an acute abnormality. There is a compression deformity at L3 which is age indeterminate but new since the previous CT, correlate for any pain in the region. Lung bases unremarkable. IMPRESSION: 1. Age-indeterminate L3 vertebral body fracture. 2. Questionable mild fat stranding about a few small bowel loops in left mid abdomen not mentioned above but perhaps due to a mild enteritis, correlate with symptoms. Remaining findings appear incidental and/or chronic and stable. Dictated by: Dictated on workstation # [id number]
[2019-12-26] MEDS ORDERED: MEROPENEM 500 MG in WATER (STERILE) FOR INJECTION 10 ML IV ONE (08:00)
[2019-12-26] MEDS ORDERED: NS IV 1000 ML 1,000 ML IV SCH (10:06)
[2019-12-26] MEDS ORDERED: EPINEPHrine 1 MG INJECTION 4 MG in NS (IVPB) 248 ML IV SCH (10:15)
[2019-12-26] MEDS ORDERED: ONDANSETRON 4 MG/2 ML (SDV) Z0FRAN IV PRN (10:15)
[2019-12-26] MEDS: NOREPINEPHRINE 4 MG/250 ML 250 ML IV SCH ×2 (10:32→22:46)
[2019-12-26] MEDS: VASOPRESSIN INJECTION 20 UNIT in NORMAL SALINE 100 ML IV SCH ×2 (10:32→17:48)
[2019-12-26] MEDS: LACTATED RINGERS 1,000 ML IV SCH ×2 (10:47→17:29)
[2019-12-26] MEDS ORDERED: OMEG-141 PO (14:47)
[2019-12-26] MEDS ORDERED: ASCO-262 PO (14:47)
[2019-12-26] MEDS ORDERED: LACT1CAP39 PO (14:47)
[2019-12-26] MEDS ORDERED: IBUP-2185 PO (14:47)
[2019-12-26] MEDS ORDERED: ASPI-983 PO (14:47)
[2019-12-26] MEDS ORDERED: CRAN400T3 PO (14:47)
--- NOTE | 2019-12-26 14:51 | NUR ---
THE MED REC WAS ENTERED USING THE ORDER REPORT FROM YEYO EDOUARD
[2019-12-26] MEDS: MEROPENEM 500 MG in WATER (STERILE) FOR INJECTION 10 ML IV SCH (19:56)
--- NOTE | 2019-12-26 21:43 | History & Physical ---
HPI History of Present Illness: 89 yo F from [place] that presented after a fall. Patient is a poor historian. States that she is in pain all over but that is her normal. Denies any new pain. States that she is not sure why she fell and not sure if she hit her head. CT head in ER w/o acute changes. Moving all extremities. Denies any fever or chills. No c ough or shortness of breath but was given a cough drop earlier today. States that she has been feeling more fatigued recently. Source: patient, RN/MD, old records Exam Limitations: clinical condition Date seen by provider: Dec 26, 2019 Time Seen by Provider: 09:45 Attending Physician Alee Somers MD PCP Bibiana Rodriguez DO Consult Date of Admission Dec 26, 2019 at 08:39 Home Medications Home Medications Reviewed patient Home Medication Reconciliation performed by pharmacy medication reconciliations database software technician and/or nursing. Patients Allergies have been reviewed. Allergies Coded Allergies: Penicillins (Unverified Allergy, Mild, HIVES, 07/03/09) Hmyxbng-Zaw-Cdg Reductase Inhibitor (Verified Allergy, Unknown, 08/09/18) acetaminophen (Verified Allergy, Unknown, 06/13/18) diphenhydramine (Verified Allergy, Unknown, 06/13/18) doxylamine (Verified Allergy, Unknown, 06/13/18) ZCS-Rsxyty-Elnowg Hx Patient Social History Living Status: [place] Alcohol Use: Denies Use Recreational Drug Use: No Smoking Status: Current Everyday Smoker Type Used: Cigarettes 2nd Hand Smoke Exposure: Yes Recent Foreign Travel: No Contact w/other who traveled: No Recent Hopitalizations: No Recent Infectious Disease Expo: No Immunizations Up To Date Tetanus Booster (TDap): Unknown Date of Pneumonia Vaccine: Jan 27, 2017 Past Medical History HTN PSurgHx: Appendectomy Tubal ligation C section Family Medical History Significant Family History: No Pertinent Family Hx Family History: Patient reports no known family medical history. Review of Systems ([facility]) Constitutional: malaise, weakness EENTM: no symptoms reported; No mouth pain, No nose congestion, No throat pain Respiratory: no symptoms reported; No cough, No dyspnea on exertion, No short of breath Cardiovascular: no symptoms reported; No chest pain, No edema, No palpitations Gastrointestinal: abdominal pain (LLQ); No constipation, No diarrhea; loss of appetite; No nausea, No vomiting Genitourinary: No dysuria; frequency; No hematuria : No Musculoskeletal: back pain Skin: no symptoms reported; No lesions, No rash Psychiatric/Neurological: Denies Headache, Denies Numbness, Denies Paresthesia; Weakness Reviewed Test Results Reviewed Test Results Lab Laboratory Tests Test 12/26/19 06:30 12/26/19 06:43 12/26/19 08:24 12/26/19 10:17 Range/Units White Blood Count 19.1 H 4.3-11.0 10^3/uL Red Blood Count 5.40 4.35-5.85 10^6/uL Hemoglobin 16.2 H 11.5-16.0 G/DL Hematocrit 49 35-52 % Mean Corpuscular Volume 91 80-99 FL Mean Corpuscular Hemoglobin 30 25-34 PG Mean Corpuscular Hemoglobin Concent 33 32-36 G/DL Red Cell Distribution Width 15.0 H 10.0-14.5 % Platelet Count 255 130-400 10^3/uL Mean Platelet Volume 11.5 H 7.4-10.4 FL Neutrophils (%) (Auto) 87 H 42-75 % Lymphocytes (%) (Auto) 6 L 12-44 % Monocytes (%) (Auto) 7 0-12 % Eosinophils (%) (Auto) 0 0-10 % Basophils (%) (Auto) 0 0-10 % Neutrophils # (Auto) 16.6 H 1.8-7.8 X 10^3 Lymphocytes # (Auto) 1.2 1.0-4.0 X 10^3 Monocytes # (Auto) 1.3 H 0.0-1.0 X 10^3 Eosinophils # (Auto) 0.0 0.0-0.3 10^3/uL Basophils # (Auto) 0.0 0.0-0.1 10^3/uL Neutrophils % (Manual) 79 % Lymphocytes % (Manual) 11 % Monocytes % (Manual) 8 % Band Neutrophils 2 % Anisocytosis SLIGHT Prothrombin Time 13.2 12.2-14.7 SEC INR Comment 1.0 0.8-1.4 Activated Partial Thromboplast Time 30 24-35 SEC Sodium Level 141 135-145 MMOL/L Potassium Level 3.7 3.6-5.0 MMOL/L Chloride Level 101 98-107 MMOL/L Carbon Dioxide Level 19 L 21-32 MMOL/L Anion Gap 21 H 5-14 MMOL/L Blood Urea Nitrogen 26 H 7-18 MG/DL Creatinine 1.20 0.60-1.30 MG/DL Estimat Glomerular Filtration Rate 42 BUN/Creatinine Ratio 22 Glucose Level 206 H 70-105 MG/DL Lactic Acid Level 6.18 *H 5.95 *H 3.58 *H 0.50-2.00 MMOL/L Calcium Level 9.5 8.5-10.1 MG/DL Corrected Calcium 9.2 8.5-10.1 MG/DL Total Bilirubin 1.1 H 0.1-1.0 MG/DL Aspartate Amino Transf (AST/SGOT) 17 5-34 U/L Alanine Aminotransferase (ALT/SGPT) 23 0-55 U/L Alkaline Phosphatase 99 40-136 U/L Troponin I < 0.028 <0.028 NG/ML Total Protein 7.7 6.4-8.2 GM/DL Albumin 4.4 3.2-4.5 GM/DL Urine Color ORANGE Urine Clarity SL CLOUDY Urine pH 5.5 5-9 Urine Specific [place] 1.025 H 1.016-1.022 Urine Protein TRACE H NEGATIVE Urine Glucose (UA) NEGATIVE NEGATIVE Urine Ketones 2+ H NEGATIVE Urine Nitrite NEGATIVE NEGATIVE Urine Bilirubin NEGATIVE NEGATIVE Urine Urobilinogen 0.2 < = 1.0 MG/DL Urine Leukocyte Esterase TRACE H NEGATIVE Urine RBC (Auto) NEGATIVE NEGATIVE Urine RBC NONE /HPF Urine WBC 0-2 /HPF Urine Squamous Epithelial Cells RARE /HPF Urine Crystals PRESENT H /LPF Urine Amorphous Sediment FEW PORSCHE URATES H /LPF Urine Bacteria NEGATIVE /HPF Urine Casts PRESENT /LPF Urine Hyaline Casts RARE /LPF Urine Mucus NEGATIVE /LPF Urine Culture Indicated CULTURE PENDING Test 12/26/19 12:50 12/26/19 14:53 Range/Units Lactic Acid Level 2.31 *H 1.86 0.50-2.00 MMOL/L Physical Exam-([facility]) Physical Exam Vital Signs VS - Last 72 Hours, by Label 12/26/19 12/26/19 12/26/19 12/26/19 06:18 09:39 09:45 09:59 Temp 36.3 36.3 Pulse 100 100 112 108 Resp 22 16 22 B/P (MAP) 101/67 (78) 122/76 140/79 (99) Pulse Ox 95 97 94 O2 Delivery Room Air Nasal Cannula Nasal Cannula O2 Flow Rate 2.00 2.00 12/26/19 12/26/19 12/26/19 12/26/19 10:00 10:00 11:00 11:26 Temp 36.8 Pulse 107 103 Resp 13 14 B/P (MAP) 137/70 (92) 139/66 (90) Pulse Ox 96 96 97 O2 Delivery Nasal Cannula Nasal Cannula Nasal Cannula O2 Flow Rate 2.00 2.00 2.00 12/26/19 12/26/19 12/26/19 12/26/19 12:00 12:00 12:54 13:00 Pulse 98 102 105 Resp 13 17 B/P (MAP) 130/76 (94) 154/76 (102) Pulse Ox 100 96 97 O2 Delivery Nasal Cannula Nasal Cannula Nasal Cannula O2 Flow Rate 2.00 2.00 2.00 12/26/19 12/26/19 12/26/19 12/26/19 14:00 15:00 16:00 16:01 Temp 36.9 Pulse 105 102 98 Resp 16 15 15 B/P (MAP) 146/77 (100) 153/74 (100) 140/70 (93) Pulse Ox 97 97 98 O2 Delivery Nasal Cannula Nasal Cannula Nasal Cannula O2 Flow Rate 2.00 2.00 2.00 12/26/19 12/26/19 12/26/19 12/26/19 16:09 17:00 18:00 19:00 Pulse 100 98 96 Resp 15 15 B/P (MAP) 143/69 (93) 145/69 (94) Pulse Ox 94 97 98 O2 Delivery Nasal Cannula Nasal Cannula Nasal Cannula O2 Flow Rate 2.00 2.00 2.00 12/26/19 12/26/19 12/26/19 19:00 19:55 20:00 Temp 37.1 Pulse 96 98 Resp 15 14 B/P (MAP) 146/69 (94) 138/67 (90) Pulse Ox 98 97 O2 Delivery Nasal Cannula Nasal Cannula Nasal Cannula O2 Flow Rate 2.00 1.00 1.00 Capillary Refill : Less Than 3 Seconds General Appearance: WD/WN, no apparent distress HEENT: PERRL/EOMI Neck: non-tender, full range of motion, supple Respiratory: chest non-tender, lungs clear, normal breath sounds, no respiratory distress, no accessory muscle use Cardiovascular: normal peripheral pulses, regular rate, rhythm, no edema, no murmur Gastrointestinal: normal bowel sounds, soft; No guarding, No rebound; tenderness (LLQ) Back: no CVA tenderness, no vertebral tenderness Extremities: normal range of motion, normal inspection, no pedal edema, no calf tenderness, normal capillary refill Neurologic/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: 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-XII nml as tested, no motor/sensory deficits, alert, normal mood/affect Skin: normal color, warm/dry Lymphatic: no adenopathy Assessment/Plan Assessment/Plan Admission Status: Inpatient Order (span 2 midnights) Reason for Inpatient Admission: Patient needs ICU care for severe lactic acidosis and severe sepsis for IVFs and IV antibiotics, she is high risk patient given her age and NH status (1) Severe sepsis Status: Acute Assessment & Plan: 12/25: Patient given 30mL/Kg bolus and started on IVFs 150/hr, IVF Meropneum started to cover urine and 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, ICU admission (2) Elevated lactic acid level Status: Acute Assessment & Plan: 12/25: dehydration vs infection, IVFs started, will continue to trend (3) Colitis Status: Acute Assessment & Plan: 12/25: CT Abd with signs of colitis, treating with IV antibiotics (4) Dementia Status: Chronic (5) Fall Status: Acute Assessment & Plan: - 12/25: PT/OT ordered Qualifiers: Qualified Codes: W19.XXXA - Unspecified fall, initial encounter (6) DVT prophylaxis Status: Acute Assessment & Plan: - Lovenox Clinical Quality Measures DVT/VTE Risk/Contraindication: Risk Factor Score Per Nursin RFS Level Per Nursing on Admit: 4+=Very High ALEE SOMERS MD Dec 26, 2019 21:43
[2019-12-27] VITALS (14 sets, daily range): BP systolic 112–151; BP diastolic 54–107
[2019-12-27] MEDS: LACTATED RINGERS 1,000 ML IV SCH ×2 (01:54→15:23)
[2019-12-27] MEDS: VASOPRESSIN INJECTION 20 UNIT in NORMAL SALINE 100 ML IV SCH (01:54)
[2019-12-27 03:33] LABS: BASOPHILS % (AUTO) 0 % (0-10); EOSINOPHILS # (AUTO) 0.1 10^3/uL (0.0-0.3); EOSINOPHILS % (AUTO) 0 % (0-10); HEMATOCRIT 40 % (35-52); HEMOGLOBIN 13.3 G/DL (11.5-16.0); LYMPHOCYTES # (AUTO) 2.1 X 10^3 (1.0-4.0); LYMPHOCYTES % (AUTO) 17 % (12-44); MEAN CORPUSCULAR HEMOGLOBIN 30 PG (25-34); MEAN CORPUSCULAR HGB CONC 33 G/DL (32-36); MEAN CORPUSCULAR VOLUME 91 FL (80-99); MEAN PLATELET VOLUME 11.7 FL (7.4-10.4); MONOCYTES # (AUTO) 1.3 X 10^3 (0.0-1.0); MONOCYTES % (AUTO) 10 % (0-12); NEUTROPHILS # (AUTO) 9.3 X 10^3 (1.8-7.8); NEUTROPHILS % (AUTO) 73 % (42-75); PLATELET COUNT 186 10^3/uL (130-400); RED CELL DISTRIBUTION WIDTH 14.8 % (10.0-14.5); WHITE BLOOD COUNT 12.8 10^3/uL (4.3-11.0)
[2019-12-27 03:45] LABS: ALBUMIN 3.5 GM/DL (3.2-4.5); CHLORIDE 103 MMOL/L (98-107); POTASSIUM 3.7 MMOL/L (3.6-5.0); SODIUM 138 MMOL/L (135-145)
[2019-12-27 03:46] LABS: CALCIUM 8.6 MG/DL (8.5-10.1)
[2019-12-27 03:47] LABS: GLUCOSE 88 MG/DL (70-105)
[2019-12-27 03:48] LABS: CARBON DIOXIDE 21 MMOL/L (21-32)
[2019-12-27 03:49] LABS: BILIRUBIN,TOTAL 1.5 MG/DL (0.1-1.0)
[2019-12-27 03:51] LABS: ALKALINE PHOSPHATASE 72 U/L (40-136); CREATININE SERUM 0.77 MG/DL (0.60-1.30); GFR ESTIMATED > 60; PHOSPHORUS 2.3 MG/DL (2.3-4.7)
[2019-12-27 03:52] LABS: BUN/CREATININE RATIO 19
[2019-12-27 03:54] LABS: ALANINE AMINOTRANSFERASE 18 U/L (0-55); MAGNESIUM 1.7 MG/DL (1.6-2.4)
[2019-12-27] MEDS: MAGNESIUM 1 GM/100 ML IVPB 100 ML IV SCH ×3 (04:20→06:12)
--- NOTE | 2019-12-27 04:26 | Pulmonary Consultation ---
LINDA CONWAY MED STUDENT 12/27/19 0426: History of Present Illness History of Present Illness Date Seen by Provider: Dec 27, 2019 Time Seen by Provider: 04:10 Date of Admission 12/26/19 History of Present Illness Mary Alice Hager is an 89 year old female seen today after being admitted from ER. She presented to the ER with a fall, but this morning does not report remembering being in the ER or having a fall. Reports having epigastric abdominal pain yesterday, had difficulty describing quality of pain, but reports having had it many years before on one occasion. Reports feeling short of breath on one breath yesterday. She reports being weaker in her L leg, unsure about her L arm, due to a stroke in the past. This morning she denies having any any dizziness or lightheadedness, fevers, chills, CP or SOB, abdominal pain, nausea, numbness or tingling, or new weakness. Allergies and Home Medications Allergies Coded Allergies: Penicillins (Unverified Allergy, Mild, HIVES, 07/03/09) Whldyzq-Pfq-Sgi Reductase Inhibitor (Verified Allergy, Unknown, 08/09/18) acetaminophen (Verified Allergy, Unknown, 06/13/18) diphenhydramine (Verified Allergy, Unknown, 06/13/18) doxylamine (Verified Allergy, Unknown, 06/13/18) Home Medications Ascorbate Calcium 500 Mg Tablet, 500 MG PO DAILY, (Reported) Aspirin 81 Mg Tablet.dr, 81 MG PO DAILY, (Reported) Cranberry Fruit 400 Mg Tablet, 400 MG PO DAILY, (Reported) Ibuprofen 200 Mg Capsule, 400 MG PO Q6H PRN for PAIN-MILD (1-4), (Reported) Lactobacillus Rhamnosus GG 1 Each Capsule, 1 EACH PO DAILY, (Reported) [place]-3/Dha/Epa/Fish Oil 1 Each Capsule, 1 EACH PO BID, (Reported) Past Erjfkqw-Dfoklb-Kgtara Hx Past Med/Social Hx: Reviewed Nursing Past Med/Soc Hx Patient Social History Alcohol Use: Denies Use Number of Drinks Today: GG Alcohol Beverage of Choice: Whiskey Recreational Drug Use: No Smoking Status: Current Everyday Smoker Type Used: Cigarettes Former Smoker, Quit: May 07, 2017 2nd Hand Smoke Exposure: Yes Recent Foreign Travel: No Contact w/Someone Who Travel: No Recent Infectious Disease Expo: No Recent Hopitalizations: No Immunizations Up To Date Tetanus Booster (TDap): Unknown PED Vaccines UTD: No Date of Pneumonia Vaccine: Jan 27, 2017 Seasonal Allergies Seasonal Allergies: Yes Past Medical History Surgeries: Yes Appendectomy, Section, Tubal Ligation Respiratory: Yes COPD Currently Using CPAP: No Currently Using BIPAP: No Cardiac: Yes High Cholesterol Neurological: Yes (Tremors) : No Genitourinary: Yes UTI-Chronic Gastrointestinal: Yes Hiatal Hernia Musculoskeletal: Yes (Chronic chest pain) Endocrine: No HEENT: No Loss of Vision: Denies Cancer: No Psychosocial: Yes Anxiety Integumentary: Yes Recent Skin Changes Blood Disorders: No Family Medical History Reviewed Nursing Family Hx Patient reports no known family medical history. No Pertinent Family Hx Review of Systems Time Seen by Provider: 04:10 Constitutional: No: Fever, Chills ENT: No: Nose congestion, Throat pain Respiratory: Shortness of breath (felt short of breath on one breath yesterday); No: Cough Cardiovascular: No: Chest Pain, Palpitations, Edema, Lt Headedness Gastrointestinal: No: Nausea, Vomiting, Diarrhea, Constipation Genitourinary: No Dysuria, No Frequency Neurological: No: Weakness, Numbness Sepsis Event Evaluation Height, Weight, BMI Height: 5'1.00" Weight: 107lbs. 0.0oz. [id number]; 20.00 BMI Method:Stated Exam Exam Vital Signs Date Time Temp Pulse Resp B/P (MAP) Pulse Ox O2 Delivery O2 Flow Rate FiO2 12/27/19 04:00 Room Air 12/27/19 04:00 90 31 129/97 (108) 92 Room Air 12/27/19 03:37 37.2 12/27/19 03:00 99 147/82 (103) 93 Room Air 12/27/19 02:00 98 17 138/64 (88) 92 Room Air 12/27/19 01:00 89 13 128/69 (88) 90 Room Air 12/27/19 01:00 89 12/27/19 00:00 Room Air 12/27/19 00:00 89 12 128/71 (90) 93 Room Air 12/26/19 23:16 36.7 Room Air 12/26/19 23:00 94 16 148/67 (94) 97 Nasal Cannula 1.00 12/26/19 22:00 98 17 141/69 (93) 97 Nasal Cannula 1.00 12/26/19 21:00 90 13 141/65 (90) 98 Nasal Cannula 1.00 12/26/19 20:00 98 14 138/67 (90) 97 Nasal Cannula 1.00 12/26/19 20:00 Nasal Cannula 1.00 12/26/19 19:55 37.1 Nasal Cannula 1.00 12/26/19 19:00 96 15 146/69 (94) 98 Nasal Cannula 2.00 12/26/19 19:00 96 12/26/19 18:00 98 15 145/69 (94) 98 Nasal Cannula 2.00 12/26/19 17:00 100 15 143/69 (93) 97 Nasal Cannula 2.00 12/26/19 16:09 94 Nasal Cannula 2.00 12/26/19 16:01 36.9 12/26/19 16:00 98 15 140/70 (93) 98 Nasal Cannula 2.00 12/26/19 15:00 102 15 153/74 (100) 97 Nasal Cannula 2.00 12/26/19 14:00 105 16 146/77 (100) 97 Nasal Cannula 2.00 12/26/19 13:00 105 17 154/76 (102) 97 Nasal Cannula 2.00 12/26/19 12:54 102 12/26/19 12:00 96 Nasal Cannula 2.00 12/26/19 12:00 98 13 130/76 (94) 100 Nasal Cannula 2.00 12/26/19 11:26 36.8 12/26/19 11:00 103 14 139/66 (90) 97 Nasal Cannula 2.00 12/26/19 10:00 107 13 137/70 (92) 96 Nasal Cannula 2.00 12/26/19 10:00 96 Nasal Cannula 2.00 12/26/19 09:59 108 12/26/19 09:45 36.3 112 22 140/79 (99) 94 Nasal Cannula 2.00 12/26/19 09:39 100 16 122/76 97 Nasal Cannula 2.00 12/26/19 06:18 36.3 100 22 101/67 (78) 95 Room Air I & O 12/27/19 07:00 Intake Total 4020 ml Output Total 1350 ml Balance 2670 ml Height & Weight Height: 5'1.00" Weight: 107lbs. 0.0oz. 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 Somers, continue IV fluids and antibiotics - evidence of colitis on abdominal CT, urine culture in progress Elevated Lactate - continue IV fluids - level at 1.86 12/25 at 14:53, monitor today Colitis - signs of colitis on CT scan, currently being treated with meropenem Fall - no new complaints of pain, CT head and c-spine 12/25 show no acute abnormalities. DVT prophylaxis - lovenox, ambulation KWAME DUARTE DO 12/27/19 0515: History of Present Illness History of Present Illness Time Seen by Provider: 05:09 Allergies and Home Medications Allergies Coded Allergies: Penicillins (Unverified Allergy, Mild, HIVES, 07/03/09) Dfprxwd-Jyl-Ygx Reductase Inhibitor (Verified Allergy, Unknown, 08/09/18) acetaminophen (Verified Allergy, Unknown, 06/13/18) diphenhydramine (Verified Allergy, Unknown, 06/13/18) doxylamine (Verified Allergy, Unknown, 06/13/18) Home Medications Ascorbate Calcium 500 Mg Tablet, 500 MG PO DAILY, (Reported) Aspirin 81 Mg Tablet.dr, 81 MG PO DAILY, (Reported) Cranberry Fruit 400 Mg Tablet, 400 MG PO DAILY, (Reported) Ibuprofen 200 Mg Capsule, 400 MG PO Q6H PRN for PAIN-MILD (1-4), (Reported) Lactobacillus Rhamnosus GG 1 Each Capsule, 1 EACH PO DAILY, (Reported) [place]-3/Dha/Epa/Fish Oil 1 Each Capsule, 1 EACH PO BID, (Reported) Past Pshsbmx-Rsmskk-Yezdcf Hx Family Medical History Patient reports no known family medical history. Review of Systems Time Seen by Provider: 06:09 Exam Exam General Appearance: No Apparent Distress, WD/WN Neck: Normal Inspection, Non Tender, Supple Respiratory: Lungs Clear, No Accessory Muscle Use, No Respiratory Distress Cardiovascular: Regular Rate, Rhythm, No Edema, No JVD, No Murmur, Normal Peripheral Pulses Gastrointestinal: soft; No guarding, No rebound; tenderness (LLQ) Extremity: No Calf Tenderness Neurologic/Psychiatric: Alert, Normal Mood/Affect Skin: Normal Color, Warm/Dry Lymphatic: No Adenopathy Assessment/Plan Assessment/Plan Severe sepsis secondary to probable Colitis -IVF -Merrem -Pt is not currently requiring levophed Metabolic lactic acidosis - improving -IVF Atelectasis RLL -Monitor -IS Hx of COPD - currently stable -Pt is on RA -monitor s/p Fall - no new complaints of pain, CT head and c-spine 12/25 show no acute abnormalities. Pt is doing better. Lactic acid has normalized. Pt has not required Levophed since admission. Leukocytosis is also improving. Discussed with RN who has had no concerns through the night. I Will transfer pt to 4th floor. I am going to sign off please call with any questions. Supervisory-Addendum Brief Verification & Attestation Participated in pt care: history, MDM, physical Personally performed: exam, history, MDM Care discussed with: Medical Student Procedures: n/a Verification and Attestation of Medical Student E/M Service A medical student performed and documented this service in my presence. I reviewed and verified all information documented by the medical student and made modifications to such information, when appropriate. I personally performed the physical exam and medical decision making. Kwame Duarte, Dec 27, 2019,06:09 LINDA CONWAY MED STUDENT Dec 27, 2019 04:26 KWAME DUARTE DO Dec 27, 2019 05:15
[2019-12-27 05:33] LABS: AMYLASE 24 U/L (25-125)
[2019-12-27 05:42] LABS: LIPASE < 4 U/L (8-78)
[2019-12-27] MEDS: POTASSIUM CL 10MEQ/50ML IVPB 50 ML IV SCH (06:11)
[2019-12-27] MEDS: KCL 20 MEQ TAB (K-DUR) PO SCH (06:12)
[2019-12-27] MEDS: MEROPENEM 500 MG in WATER (STERILE) FOR INJECTION 10 ML IV SCH ×2 (08:29→20:57)
--- NOTE | 2019-12-27 08:29 | Diagnostic Imaging Report ---
CHEST 1 VIEW, AP/PA ONLY Indication: Dyspnea Comparison: 12/26/2019 Findings: No focal airspace disease in the visualized lungs. Right basilar subsegmental atelectasis has resolved. Please note that the posterior lower lobes are poorly evaluated by portable radiography. No pleural effusion or pneumothorax. Normal cardiomediastinal silhouette. Impression: 1. No acute cardiopulmonary process by portable radiography. Dictated by: Dictated on workstation # [id number]
[2019-12-27] MEDS: ASPIRIN E.C. 81 MG (ECOTRIN) TAB PO SCH (08:30)
--- NOTE | 2019-12-27 10:12 | NUR ---
PT TRANSFERRED TO ROOM 413 VIA BED ACCOMPANIED BY THIS RN , REPORT GIVEN TO Nicole JEAN BAPTISTE RN.
[2019-12-27] MEDS ORDERED: MEROPENEM 500 MG VIAL (MERREM) IV ONE (20:49)
[2019-12-27] MEDS ORDERED: WATER (STERILE) FOR INJECTION 10 ML ONE (20:49)
--- NOTE | 2019-12-27 21:05 | Progress Note ---
Subjective Subjective/Events-last exam Patient much better this AM. Denies any abdominal pain. Tolerating PO diet. She has had multiple soft diet. Review of Systems Pulmonary: No Dyspnea, No Cough Cardiovascular: No: Chest Pain, Palpitations Gastrointestinal: No: Nausea, Vomiting Neurological: Weakness, Incoordination Focused Exam Lactate Level 12/26/19 10:17: Lactic Acid Level 3.58*H 12/26/19 12:50: Lactic Acid Level 2.31*H 12/26/19 14:53: Lactic Acid Level 1.86 Objective Exam Last Set of Vital Signs Vital Signs Date Time Temp Pulse Resp B/P (MAP) Pulse Ox O2 Delivery O2 Flow Rate FiO2 12/27/19 19:29 36.6 101 18 146/82 (103) 93 Room Air 12/26/19 23:00 1.00 Capillary Refill : Less Than 3 Seconds I&O Intake and Output 12/27/19 00:00 Intake Total 3020 ml Output Total 1025 ml Balance 1995 ml Intake Oral 0 ml IV Total 3020 ml Output Urine Total 1025 ml Daily Weight Change No General: Alert, Oriented X3, No Acute Distress HEENT: Mucous Memb Moist/[place] Lungs: Clear to Auscultation, Normal Air Movement Heart: Regular Rate, No Murmurs Abdomen: Normal Bowel Sounds, Soft, Other (mild epigastric ttp, no rebound or gaurding) Extremities: No Edema, No Tenderness/Swelling Neuro: Sensation Intact, Cranial Nerves 3-12 NL Results/Procedures Lab Laboratory Tests 12/27/19 02:35: White Blood Count 12.8H, Red Blood Count 4.42, Hemoglobin 13.3, Hematocrit 40, Mean Corpuscular Volume 91, Mean Corpuscular Hemoglobin 30, Mean Corpuscular Hemoglobin Concent 33, Red Cell Distribution Width 14.8H, Platelet Count 186, Mean Platelet Volume 11.7H, Neutrophils (%) (Auto) 73, Lymphocytes (%) (Auto) 17, Monocytes (%) (Auto) 10, Eosinophils (%) (Auto) 0, Basophils (%) (Auto) 0, Neutrophils # (Auto) 9.3H, Lymphocytes # (Auto) 2.1, Monocytes # (Auto) 1.3H, Eosinophils # (Auto) 0.1, Basophils # (Auto) 0.0, Sodium Level 138, Potassium Level 3.7, Chloride Level 103, Carbon Dioxide Level 21, Anion Gap 14, Blood Urea Nitrogen 15, Creatinine 0.77, Estimat Glomerular Filtration Rate > 60, BUN/Creatinine Ratio 19, Glucose Level 88, Calcium Level 8.6, Corrected Calcium 9.0, Phosphorus Level 2.3, Magnesium Level 1.7, Total Bilirubin 1.5H, Aspartate Amino Transf (AST/SGOT) 28, Alanine Aminotransferase (ALT/SGPT) 18, Alkaline Phosphatase 72, Total Protein 6.0L, Albumin 3.5, Amylase Level 24L, Lipase < 4L Microbiology 12/26/19 MRSA Screen - Final, Complete MRSA not isolated 12/26/19 Blood Culture - Preliminary, Resulted No growth Assessment/Plan Assessment/Plan (1) Severe sepsis Status: Resolved Assessment & Plan: 12/25: Patient given 30mL/Kg bolus and started on IVFs 150/hr, IVF Meropneum started to cover urine and 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, ICU admission 12/26: HDS, Sepsis/Lactic Acid resolved, continue IV antibiotics (2) Elevated lactic acid level Status: Resolved Assessment & Plan: 12/25: dehydration vs infection, IVFs started, will continue to trend (3) Colitis Status: Acute Assessment & Plan: 12/25: CT Abd with signs of colitis, treating with IV antibiotics (4) Dementia Status: Chronic (5) Elevated bilirubin Status: Acute Assessment & Plan: 12/26: Bili trending up, US pending for AM (6) Fall Status: Acute Assessment & Plan: - 12/25: PT/OT ordered Qualifiers: Qualified Codes: W19.XXXA - Unspecified fall, initial encounter (7) DVT prophylaxis Status: Acute Assessment & Plan: - Lovenox Clinical Quality Measures DVT/VTE Risk/Contraindication: Risk Factor Score Per Nursin RFS Level Per Nursing on Admit: 4+=Very High EMIL GARCÍA MD Dec 27, 2019 21:05
[2019-12-28 00:12] VITALS: BP 128/77
[2019-12-28 04:25] VITALS: BP 150/84
[2019-12-28] MEDS: LACTATED RINGERS 1,000 ML IV SCH (04:54)
[2019-12-28 05:14] LABS: BASOPHILS % (AUTO) 0 % (0-10); EOSINOPHILS # (AUTO) 0.2 10^3/uL (0.0-0.3); EOSINOPHILS % (AUTO) 2 % (0-10); HEMATOCRIT 36 % (35-52); HEMOGLOBIN 11.8 G/DL (11.5-16.0); LYMPHOCYTES # (AUTO) 2.1 X 10^3 (1.0-4.0); LYMPHOCYTES % (AUTO) 24 % (12-44); MEAN CORPUSCULAR HEMOGLOBIN 30 PG (25-34); MEAN CORPUSCULAR HGB CONC 33 G/DL (32-36); MEAN CORPUSCULAR VOLUME 91 FL (80-99); MEAN PLATELET VOLUME 11.7 FL (7.4-10.4); MONOCYTES # (AUTO) 1.2 X 10^3 (0.0-1.0); MONOCYTES % (AUTO) 13 % (0-12); NEUTROPHILS # (AUTO) 5.4 X 10^3 (1.8-7.8); NEUTROPHILS % (AUTO) 61 % (42-75); PLATELET COUNT 159 10^3/uL (130-400); RED CELL DISTRIBUTION WIDTH 14.9 % (10.0-14.5); WHITE BLOOD COUNT 8.8 10^3/uL (4.3-11.0)
[2019-12-28 05:34] LABS: CHLORIDE 104 MMOL/L (98-107); POTASSIUM 3.3 MMOL/L (3.6-5.0); SODIUM 139 MMOL/L (135-145)
[2019-12-28 05:35] LABS: CALCIUM 7.8 MG/DL (8.5-10.1)
[2019-12-28 05:36] LABS: GLUCOSE 97 MG/DL (70-105)
[2019-12-28 05:37] LABS: CARBON DIOXIDE 23 MMOL/L (21-32)
[2019-12-28 05:39] LABS: PHOSPHORUS 2.7 MG/DL (2.3-4.7)
[2019-12-28 05:40] LABS: BUN/CREATININE RATIO 17; CREATININE SERUM 0.71 MG/DL (0.60-1.30); GFR ESTIMATED > 60
[2019-12-28 05:42] LABS: MAGNESIUM 1.9 MG/DL (1.6-2.4)
[2019-12-28] MEDS: MAGNESIUM 1 GM/100 ML IVPB 100 ML IV SCH (05:46)
[2019-12-28] MEDS: POTASSIUM CL 10MEQ/50ML IVPB 50 ML IV SCH ×5 (05:49→10:17)
[2019-12-28] MEDS: KCL 20 MEQ TAB (K-DUR) PO SCH (05:53)
[2019-12-28] MEDS ORDERED: KCL 20 MEQ TAB (K-DUR) PO SCH (06:00)
--- NOTE | 2019-12-28 06:18 | NUR ---
Wasted 40MEq of potassium. Pt unable to swallow potassium pills. DC'd potassium tab order and replaced it with IV potassium. Pt will be getting potassium IV 10Meq x 4 doses per protocol
[2019-12-28 08:00] VITALS: BP 175/68
[2019-12-28] MEDS ORDERED: MEROPENEM 500 MG in WATER (STERILE) FOR INJECTION 10 ML IV SCH (08:00)
[2019-12-28] MEDS: ASPIRIN E.C. 81 MG (ECOTRIN) TAB PO SCH (09:46)
[2019-12-28] MEDS: MEROPENEM 500 MG in WATER (STERILE) FOR INJECTION 10 ML IV SCH (10:17)
[2019-12-28 11:56] VITALS: BP 193/78
--- NOTE | 2019-12-28 12:03 | Diagnostic Imaging Report ---
EXAMINATION: US Abdomen limited. TECHNIQUE: Multiple real-time grayscale images were obtained over the right upper quadrant in various projections. REASON FOR EXAM: Elevated bilirubin. Abdominal pain. COMPARISON: CT abdomen and pelvis on 12/26/2019. FINDINGS: The liver is normal in size and shape. The liver echogenicity is within normal limits. There are no focal lesions. No intrahepatic biliary dilatation is present. The common bile duct is nonvisualized due to overlying bowel gas. The main portal vein is hepatopedal. No ascites is seen in the upper abdomen. The gallbladder is absent. Sonographic Musa's sign is negative. The pancreas is obscured due to overlying bowel gas. The visualized portions of the IVC and aorta appear normal. The right kidney measures approximately 8.2 cm in length and has a normal appearance. IMPRESSION: 1. 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 The common bile duct is nonvisualized due to overlying bowel gas; however, review of the prior CT abdomen and pelvis performed 2 days ago demonstrates no evidence of intra-extra hepatic biliary dilation. Dictated by: Dictated on workstation # [id number]
--- NOTE | 2019-12-28 12:40 | Discharge Summary ---
Discharge [facility] Reconcile Patient Problems Problems Reviewed?: Yes Discharge Medications Continued Medications: Ascorbate Calcium (Vitamin C) 500 Mg Tablet 500 MG PO DAILY, TAB Aspirin (Aspirin EC) 81 Mg Tablet.dr 81 MG PO DAILY, TAB Cranberry Fruit (Cranberry) 400 Mg Tablet 400 MG PO DAILY, TAB Lactobacillus Rhamnosus GG (Culturelle) 1 Each Capsule 1 EACH PO DAILY, CAP [place]-3/Dha/Epa/Fish Oil ([place] 3 500 Softgel) 1 Each Capsule 1 EACH PO BID, CAP Discontinued Medications: Ibuprofen (Ibuprofen) 200 Mg Capsule 400 MG PO Q6H PRN for PAIN-MILD (1-4), CAP Patient Instructions Goal/Follow Up Appt: Jazz will see you in the [place] Activity & Diet Discharge Diet: No Restrictions EMIL GARCÍA MD Dec 28, 2019 12:40
--- NOTE | 2019-12-28 12:51 | NUR ---
DTR. HERE AND REQUESTING TO TRANSPORT TO [facility]. CLEARED WITH SS. DC'D PER WC WITH DTR. MESSAGE TO [facility] THAT PT HAS NOT VOIDED SINCE BHUMI CASTRO REMOVED.
--- NOTE | 2019-12-28 13:42 | NUR ---
CM/SS: Visited with pt and daughter as to plan for discharge Plan: Pt will return to [facility] with not identified services Summary: Call to nurse Earl at [facility]. They are able to take the pt back today. Information to be faxed over on the pt. Earl reports that Physical Therapy is not allowed in the facility so it is not necessary to ask the doctor to put the orders in. Earl reports she is ok if daughter returns her to the facility. Daughter is ok to return the pt. to the assisted living. Information/orders are faxed to [facility] on the pt. Daughter returns pt to the facility at time of discharge.
== END 2019-12-28 12:53 | DRG 872 ==
LOC: EDUNIT# 06:17 → ER 06:21 → ICU 08:39 → 4TH 12-27 10:00
PROVIDERS: ADMIT Family Medicine; ATTEND Family Medicine
DX: A41.9 Sepsis, unspecified organism (principal); E87.2 Acidosis; J98.11 Atelectasis; R65.20 Severe sepsis without septic shock; K52.9 Noninfective gastroenteritis and colitis, unspecified; F03.90 Unspecified dementia, unspecified severity, without behavioral disturbance, psychotic disturbance, mood disturbance, and anxiety; R79.89 Other specified abnormal findings of blood chemistry; F17.210 Nicotine dependence, cigarettes, uncomplicated; J44.9 Chronic obstructive pulmonary disease, unspecified; E78.00 Pure hypercholesterolemia, unspecified; K44.9 Diaphragmatic hernia without obstruction or gangrene; F41.9 Anxiety disorder, unspecified; R25.1 Tremor, unspecified; Z91.81 History of falling
CPT/HCPCS: 36415; 51702; 70450; 71045; 72125; 74177; 76705; 80048; 80053; 81000; 82150; 83605; 83690; 83735; 84100; 84484; 85007; 85025; 85027; 85610; 85730; 87040; 87077; 87081; 87088; 93005; 93041; 94664

== ENCOUNTER 2021-05-22 21:09 | Emergency (ER) | payer MEDICARE, MEDICAID ==
[~2021-05-22 21:09] MED LIST changes: +ALPR.25T PO; -ALPR0.254 PO; +ASPI-1238 PO; -ASPI-983 PO; -CIPR500T4 PO; +CIPR500T5 PO; +CRAN400T3 PO; +IBUP-2185 PO; +OMEG-141 PO; -PANT40TA3 PO; +PANT40TA52 PO
--- NOTE | 2021-05-22 21:29 | ED Chest Pain ---
General Stated Complaint: CHEST PAIN Source: patient, EMS, halfway records Exam Limitations: no limitations History of Present Illness Date Seen by Provider: May 22, 2021 Time Seen by Provider: 21:07 Initial Comments "Smita" presents ER by EMS from [facility] with chief complaint about 15 minutes prior to calling EMS she was experiencing some allover chest pain radiating to her bilateral shoulders and both arms feeling warm not like they are burning just warm. She has no history of heart disease. She was given 3 to 24 mg aspirin on route. She had a twelve-lead EKG which did not reveal any ST aberration. She takes minimal medications and denies a history of coronary disease, hypertension, hyperlipidemia, obesity. She quit smoking years ago. She has a history of COPD. She does not feel wheezy but does have some shortness of air. No cough fevers chills. She is a dubious historian who is not oriented to time but she is oriented to place. She rates the pain is mild. Allergies and Home Medications Allergies Coded Allergies: Penicillins (Unverified Allergy, Mild, HIVES, 07/03/09) Ovyoush-Onf-Qmm Reductase Inhibitor (Verified Allergy, Unknown, 08/09/18) acetaminophen (Verified Allergy, Unknown, 06/13/18) diphenhydramine (Verified Allergy, Unknown, 06/13/18) doxylamine (Verified Allergy, Unknown, 06/13/18) Patient Home Medication List Home Medication List Reviewed: Yes Ascorbate Calcium (Vitamin C) 500 Mg Tablet, 500 MG PO DAILY, (Reported) Entered as Reported by: ADILIA GALLEGO on 12/26/191446 Aspirin (Aspirin EC) 81 Mg Tablet.dr, 81 MG PO DAILY, (Reported) Entered as Reported by: ADILIA GALLEGO on 12/26/19 144 Cranberry Fruit (Cranberry) 400 Mg Tablet, 400 MG PO DAILY, (Reported) Entered as Reported by: ADILIA GALLEGO on 12/26/191446 Lactobacillus Rhamnosus GG (Culturelle) 1 Each Capsule, 1 EACH PO DAILY, (Reported) Entered as Reported by: ADILIA GALLEGO on 12/26/191446 [place]-3/Dha/Epa/Fish Oil ([place] 3 500 Softgel) 1 Each Capsule, 1 EACH PO BID, (Reported) Entered as Reported by: ADILIA GALLEGO on 12/26/19 1447 Pantoprazole Sodium (Pantoprazole Sodium) 20 Mg Tablet.dr, 20 MG PO BID Prescribed by: RHIANNON TAM on 05/23/21106 Sucralfate (Carafate) 1 Gm Tablet, 1 GM PO QIDACHS Prescribed by: RHIANNON TAM on 05/23/21106 Review of Systems Review of Systems Constitutional: No chills, No diaphoresis, No fever, No malaise EENTM: No Blurred Vision, No Double Vision Respiratory: Denies Cough, Denies Orthopnea; Shortness of Air, SOA at Rest Cardiovascular: Chest Pain; Denies Lightheadedness Gastrointestinal: Denies Constipated, Denies Diarrhea, Denies Nausea, Denies Vomiting Genitourinary: Denies Burning, Denies Discharge Musculoskeletal: No back pain, No joint pain Skin: No pruritus, No rash Psychiatric/Neurological: Denies Headache, Denies Numbness All Other Systems Reviewed Negative Unless Noted: Yes Past Unaqihi-Llkfyw-Ldvlbs Hx Patient Social History Tobacco Use?: No Tobacco type used: Cigarettes Smoking Status: Former Smoker Use of E-Cig and/or Vaping dev: No Alcohol Use?: No Immunizations Up To Date Tetanus Booster (TDap): Unknown PED Vaccines UTD: No Seasonal Allergies Seasonal Allergies: Yes Past Medical History Surgeries: Yes Appendectomy, Section, Tubal Ligation Respiratory: Yes COPD Currently Using CPAP: No Currently Using BIPAP: No Cardiac: Yes High Cholesterol Neurological: Yes (Tremors) Genitourinary: Yes UTI-Chronic Gastrointestinal: Yes Hiatal Hernia Musculoskeletal: Yes (Chronic chest pain) Endocrine: No HEENT: No Loss of Vision: Denies Cancer: No Psychosocial: Yes Anxiety Integumentary: Yes Recent Skin Changes Blood Disorders: No Family Medical History Patient reports no known family medical history. No Pertinent Family Hx Physical Exam Vital Signs Vital Signs - First Documented 05/22/21 21:11 Temp 36.9 Pulse 108 Resp 16 B/P (MAP) 132/118 (123) Pulse Ox 98 O2 Delivery Room Air Capillary Refill : Height, Weight, BMI Height: 5'1.00" Weight: 107lbs. 0.0oz. 48.951442gp; 20.00 BMI Method:Stated General Appearance: No Apparent Distress, Chronically ill HEENT: PERRL/EOMI, Pharynx Normal, Moist Mucous Membranes Neck: Full Range of Motion, Normal Inspection Respiratory: Chest Non Tender, Lungs Clear, Normal Breath Sounds, No Accessory Muscle Use, No Respiratory Distress Cardiovascular: Regular Rate, Rhythm, No Edema, Normal Peripheral Pulses Gastrointestinal: Normal Bowel Sounds, Non Tender, Soft Extremity: Normal Capillary Refill, Normal Inspection, No Pedal Edema Neurologic/Psychiatric: Alert, No Motor/Sensory Deficits, Other (Oriented to self and place) Skin: Normal Color, Warm/Dry Progress/Results/Core Measures Results/Orders Lab Results Laboratory Tests Test 05/22/21 21:15 05/22/21 21:20 05/23/21 00:06 Range/Units White Blood Count 9.3 4.3-11.0 10^3/uL Red Blood Count 4.56 3.80-5.11 10^6/uL Hemoglobin 14.1 11.5-16.0 g/dL Hematocrit 43 35-52 % Mean Corpuscular Volume 94 80-99 fL Mean Corpuscular Hemoglobin 31 25-34 pg Mean Corpuscular Hemoglobin Concent 33 32-36 g/dL Red Cell Distribution Width 14.3 10.0-14.5 % Platelet Count 207 130-400 10^3/uL Mean Platelet Volume 11.1 9.0-12.2 fL Immature Granulocyte % (Auto) 0 % Neutrophils (%) (Auto) 48 42-75 % Lymphocytes (%) (Auto) 39 12-44 % Monocytes (%) (Auto) 11 0-12 % Eosinophils (%) (Auto) 2 0-10 % Basophils (%) (Auto) 1 0-10 % Neutrophils # (Auto) 4.5 1.8-7.8 10^3/uL Lymphocytes # (Auto) 3.6 1.0-4.0 10^3/uL Monocytes # (Auto) 1.0 0.0-1.0 10^3/uL Eosinophils # (Auto) 0.2 0.0-0.3 10^3/uL Basophils # (Auto) 0.1 0.0-0.1 10^3/uL Immature Granulocyte # (Auto) 0.0 0.0-0.1 10^3/uL Prothrombin Time 12.4 12.2-14.7 SEC INR Comment 0.9 0.8-1.4 Activated Partial Thromboplast Time 28 24-35 SEC D-Dimer 0.28 0.00-0.49 UG/ML Sodium Level 140 135-145 MMOL/L Potassium Level 4.3 3.6-5.0 MMOL/L Chloride Level 105 98-107 MMOL/L Carbon Dioxide Level 24 21-32 MMOL/L Anion Gap 11 5-14 MMOL/L Blood Urea Nitrogen 26 H 7-18 MG/DL Creatinine 1.04 0.60-1.30 MG/DL Estimat Glomerular Filtration Rate 51 BUN/Creatinine Ratio 25 Glucose Level 132 H 70-105 MG/DL Calcium Level 9.2 8.5-10.1 MG/DL Corrected Calcium 9.1 8.5-10.1 MG/DL Magnesium Level 2.2 1.6-2.4 MG/DL Total Bilirubin 0.6 0.1-1.0 MG/DL Aspartate Amino Transf (AST/SGOT) 12 5-34 U/L Alanine Aminotransferase (ALT/SGPT) 16 0-55 U/L Alkaline Phosphatase 87 40-136 U/L Myoglobin 31.4 10.0-92.0 NG/ML Troponin I < 0.028 < 0.028 <0.028 NG/ML C-Reactive Protein High Sensitivity 0.28 0.00-0.50 MG/DL B-Type Natriuretic Peptide 17.9 <100.0 PG/ML Total Protein 7.1 6.4-8.2 GM/DL Albumin 4.1 3.2-4.5 GM/DL Lipase 38 8-78 U/L Procalcitonin 0.03 <0.10 NG/ML Influenza Type A (RT-PCR) Not Detected Not Detecte Influenza Type B (RT-PCR) Not Detected Not Detecte SARS-CoV-2 RNA (RT-PCR) Not Detected Not Detecte My Orders Orders - RHIANNON TAM Cbc With Automated Diff (05/22/21 21:20) Magnesium (05/22/21 21:20) Chest 1 View, Ap/Pa Only (05/22/21 21:20) Ekg Tracing (05/22/21 21:20) Comprehensive Metabolic Panel (05/22/21 21:20) Myoglobin Serum (05/22/21 21:20) Protime With Inr (05/22/21 21:20) Partial Thromboplastin Time (05/22/21 21:20) O2 (05/22/21 21:20) Monitor-Rhythm Ecg Trace Only (05/22/21 21:20) Lipid Panel (05/23/21 06:00) Ed Iv/Invasive Line Start (05/22/21 21:20) Lipase (05/22/21 21:20) Bnp [place] (05/22/21 21:20) Troponin I [place] (05/22/21 21:20) Nitroglycerin 0.4 Mg Btl 25's (Nitrostat (05/22/21 21:30) Covid 19 Inhouse Test (05/22/21 21:20) Influenza A And B By Pcr (05/22/21 21:20) Fibrin Degradation Products (05/22/21 21:30) Hs C Reactive Protein (05/22/21 21:30) Procalcitonin (Pct) (05/22/21 21:30) Lidocaine 2% Viscous 15 Ml (Xylocaine Vi (05/22/21 21:30) Famotidine Tablet (Pepcid Tablet) (05/22/21 21:30) Antacid Suspension (Mylanta Suspension (05/22/21 21:30) Troponin I Mike (05/23/21 00:00) Medications Given in ED Current Medications Medications Dose Ordered Sig/Ehsan Route Start Time Stop Time Status Last Admin Dose Admin Al Hydrox/Mg Hydrox/Simethicone 30 ml ONCE ONCE PO 05/22/21 21:30 05/22/21 21:32 DC 05/22/21 21:57 30 ML Lidocaine HCl 15 ml ONCE ONCE PO 05/22/21 21:30 05/22/21 21:31 DC 05/22/21 21:57 15 ML Vital Signs/I&O 05/22/21 21:11 Temp 36.9 Pulse 108 Resp 16 B/P (MAP) 132/118 (123) Pulse Ox 98 O2 Delivery Room Air Progress Progress Note #1: Time: 21:25 Progress Note Will hold off on nitroglycerin as her blood pressure is soft around 100 systolic. 500 cc of IV fluid. troponin. If her initial troponin is negative then we can consider her 3 points on the heart score low risk and probably repeat a troponin and disposition her. We will swab her for Covid and flu. Chest x-ray. Progress Note #2: Time: 01:05 Progress Note The patient received total relief of her symptoms with a GI cocktail. Plan to put her on Carafate and have her follow-up with PCP. Initial ECG Impression Date: May 22, 2021 Initial ECG Impression Time: 21:20 Initial ECG Rate: 96 Initial ECG Rhythm: Normal Sinus Initial ECG Intervals: NH (185) Initial ECG Impression: Normal Comment Sinus rhythm with no clinically relevant ST elevation or depression. Diagnostic Imaging Diagonstic Imaging: Xray Plain Films/CT/US/NM/MRI: chest Comments [facility], [place] NAME: YEYO SHARMA MED REC#: [id number] PT STATUS: REG ER : 1930 PHYSICIAN: RHIANNON TAM MD ADMIT DATE: 05/22/21/ER Signed Date of Exam:05/22/21 CHEST 1 VIEW, AP/PA ONLY INDICATION: Chest pain. COMPARISON: 12/27/2019. FINDINGS: Prominence of the right paratracheal superior mediastinum, likely vascular tortuosity and ectasia, unchanged. Remaining hilar and mediastinal contour is stable. Heart size normal. No failure pattern, effusion or pneumothorax. No free air beneath the diaphragms. No edema or pneumonia. IMPRESSION: Stable chest, no acute appearing abnormality. Dictated by: Dictated on workstation # [id number] Dict: 05/22/212212 Trans: 05/22/212228 [facility] [id number] Interpreted by: DILAN ZAVALETA Electronically signed by: DILAN ZAVALETA 05/22/212228 Reviewed: Reviewed by Me Departure Impression Primary Impression: Gastritis Qualified Codes: K29.00 - Acute gastritis without bleeding Disposition: HOME, SELF-CARE Condition: Stable Departure-Patient Inst. Decision time for Depature: 01:06 Referrals: MITCHELL HAYNES DO (PCP) Primary Care Physician ARJUN LENNON APRN (Family) Primary Care Physician Patient Instructions: Gastritis (DC) Add. Discharge Instructions: Carafate half an hour before meals and at bedtime for 2 weeks. Pantoprazole 20 mg twice a day for a month. Follow-up with your primary care doctor. Scripts Pantoprazole Sodium (Pantoprazole Sodium) 20 Mg Tablet.dr 20 MG PO BID for 30 Days, #60 TAB 0 Refills Prov: RHIANNON TAM 05/23/21 Sucralfate (Carafate) 1 Gm Tablet 1 GM PO QIDACHS for 14 Days, #56 TAB 0 Refills Prov: RHIANNON TAM 05/23/21 Copy Copies To 1: MITCHELL HAYNES TITUS J May 22, 2021 21:29
[2021-05-22 21:30] LABS: ALBUMIN 4.1 GM/DL (3.2-4.5)
[2021-05-22] MEDS ORDERED: ANTACID SUSP 30 ML UDC (MYLANTA) PO ONE (21:30)
[2021-05-22] MEDS ORDERED: NITROGLYCERIN 0.4 MG SL TABS BTL 25'S SL PRN (21:30)
[2021-05-22] MEDS ORDERED: FAMOTIDINE 20 MG (PEPCID) TABLET PO STA (21:30)
[2021-05-22] MEDS ORDERED: LIDOCAINE 2% VISCOUS 15 ML UDC PO ONE (21:30)
[2021-05-22 21:31] LABS: POTASSIUM 4.3 MMOL/L (3.6-5.0)
[2021-05-22 21:32] LABS: CALCIUM 9.2 MG/DL (8.5-10.1)
[2021-05-22 21:33] LABS: BASOPHILS # (AUTO) 0.1 10^3/uL (0.0-0.1); BASOPHILS % (AUTO) 1 % (0-10); EOSINOPHILS # (AUTO) 0.2 10^3/uL (0.0-0.3); EOSINOPHILS % (AUTO) 2 % (0-10); HEMATOCRIT 43 % (35-52); HEMOGLOBIN 14.1 g/dL (11.5-16.0); LYMPHOCYTES # (AUTO) 3.6 10^3/uL (1.0-4.0); LYMPHOCYTES % (AUTO) 39 % (12-44); MEAN CORPUSCULAR HEMOGLOBIN 31 pg (25-34); MEAN CORPUSCULAR HGB CONC 33 g/dL (32-36); MEAN CORPUSCULAR VOLUME 94 fL (80-99); MEAN PLATELET VOLUME 11.1 fL (9.0-12.2); MONOCYTES % (AUTO) 11 % (0-12); NEUTROPHILS # (AUTO) 4.5 10^3/uL (1.8-7.8); NEUTROPHILS % (AUTO) 48 % (42-75); PLATELET COUNT 207 10^3/uL (130-400); TOTAL PROTEIN 7.1 GM/DL (6.4-8.2); WHITE BLOOD COUNT 9.3 10^3/uL (4.3-11.0)
[2021-05-22 21:35] LABS: BILIRUBIN,TOTAL 0.6 MG/DL (0.1-1.0)
[2021-05-22 21:37] LABS: CREATININE SERUM 1.04 MG/DL (0.60-1.30)
[2021-05-22 21:38] LABS: INR 0.9 (0.8-1.4); PROTHROMBIN TIME PATIENT 12.4 SEC (12.2-14.7)
[2021-05-22 21:39] LABS: MAGNESIUM 2.2 MG/DL (1.6-2.4)
--- NOTE | 2021-05-22 22:18 | Diagnostic Imaging Report ---
INDICATION: Chest pain. COMPARISON: 12/27/2019. FINDINGS: Prominence of the right paratracheal superior mediastinum, likely vascular tortuosity and ectasia, unchanged. Remaining hilar and mediastinal contour is stable. Heart size normal. No failure pattern, effusion or pneumothorax. No free air beneath the diaphragms. No edema or pneumonia. IMPRESSION: Stable chest, no acute appearing abnormality. Dictated by: Dictated on workstation # [id number]
[2021-05-22] MEDS ORDERED: ONDANSETRON 4 MG/2 ML (SDV) Z0FRAN IVP ONE (22:30)
[2021-05-23] MEDS ORDERED: SUCR1TAB36 PO (01:07)
[2021-05-23] MEDS ORDERED: PANT20TA18 PO (01:07)
[2021-05-23 01:22] VITALS: BP 115/95
== END 2021-05-23 01:29 | disposition home or self-care (01) ==
LOC: EDUNIT# 21:09 → ER 21:12
DX: K29.70 Gastritis, unspecified, without bleeding (principal); J44.9 Chronic obstructive pulmonary disease, unspecified; Z20.822 Contact with and (suspected) exposure to COVID-19; Z87.891 Personal history of nicotine dependence; Z79.82 Long term (current) use of aspirin
CPT/HCPCS: 36415; 71045; 80053; 83690; 83735; 83874; 83880; 84145; 84484; 85025; 85379; 85610; 85730; 86141; 87636; 93005; 93041